=== PATIENT | male | born 1960 | race Caucasian/White ===

== ENCOUNTER 2018-03-04 07:11 | Emergency (ER) | payer OTHER ==
--- OUTSIDE RECORDS SUMMARY | 2018-03-04 07:12 | XMS REPORT | Clinical Summary ---
:1960 Author Organization [facility] Address [address] [place] [address] Care Team Providers Name Role Phone Sherman Haines MD Primary Care Provider Allergies No Known Allergies Current Medications Prescription Sig. Disp. Refills Start Date End Date Status insulin ASPART Inject 6-20 units 45 mL 3 02/09/2018 Active (NovoLOG Flexpen tid per sliding U-100 Insulin) scale. 100 unit/mL insulin pen metFORMIN Take 1 tablet 60 tablet 11 02/10/2018 Active (GLUCOPHAGE) (1,000 mg total) 9 1,000 mg tablet by mouth 2 (two) times a day with meals. semaglutide Inject 1 mg under 3 Syringe 3 02/11/2018 Active (OZEMPIC) 1 the skin every 7 mg/0.75 mL (2 days. 0.25 mg mg/1.5 mL) pen subcutaneous injector weekly for 4 weeks then 0.5 mg once a week liraglutide Inject 0.3 mL 27 mL 3 02/16/2018 Active (VICTOZA 2-SARAH) (1.8 mg total) 0.6 mg/0.1 mL (18 under the skin mg/3 mL) pen daily. injector dulaglutide Inject 0.75 mg 2 Syringe 0 02/10/2018 Discontinued (TRULICITY) 0.75 under the skin 8 mg/0.5 mL pen every 7 days for injector 14 days. dulaglutide Inject 1.5 mg 12 Syringe 3 02/10/2018 Discontinued (TRULICITY) 1.5 under the skin 8 mg/0.5 mL pen every 7 days. injector Active Problems Not on file Encounters Date Type Specialty Care Team Description 02/16/2018 Orders Only Endocrinology Jacqueline Wilcox MA 02/11/2018 Orders Only Endocrinology David Diaz MD 02/11/2018 Orders Only Endocrinology Jacqueline Wilcox MA 02/11/2018 Orders Only Endocrinology Jacqueline Wilcox MA 02/09/2018 Lab Lab David Diaz MD Uncontrolled type 2 diabetes mellitus without complication, with long-term current use of insulin; Morbid obesity 02/09/2018 Office Visit Endocrinology David Diaz MD Uncontrolled type 2 diabetes mellitus without complication, with long-term current use of insulin (Primary Dx); Morbid obesity after 03/03/2017 Family History Medical History Relation Name Comments COPD Mother Cancer Mother Diabetes Mother Relation Name Status Comments Father Mother Alive Social History Tobacco Use Types Packs/Day Years Used Date Former Smoker Smokeless Tobacco: Former User Sex Assigned at Date Recorded Not on file Last Filed Vital Signs Vital Sign Reading Time Taken Blood Pressure 136/79 02/09/2018 12:36 PM CDT Pulse 76 02/09/2018 12:36 PM CDT Temperature - - Respiratory Rate - - Oxygen Saturation - - Inhaled Oxygen Concentration - - Weight 122 kg (268 lb 9.6 oz) 02/09/2018 12:36 PM CDT Height 167.6 cm (5' 6") 02/09/2018 12:36 PM CDT Body Mass Index 43.35 02/09/2018 12:36 PM CDT Plan of Treatment Date Type Specialty Care Team Description 03/09/2018 Office Visit Endocrinology David Diaz MD [address] [facility] [address] [place] [address] 04/07/2018 Consult Weight Management David Diaz MD [address] [facility] [address] [place] [address] Health Maintenance Due Date Last Done Comments DIABETIC FOOT EXAM 1970 DIABETIC RETINAL EYE EXAM 1970 URINE MICROALBUMIN 1970 COLON CANCER SCREENING 2010 SHINGRIX VACCINE (#1) 2010 INFLUENZA VACCINE 03/02/2018 Procedures Procedure Name Priority Date/Time Associated Diagnosis Comments COMPREHENSIVE Routine 02/09/2018 1:45 Uncontrolled type 2 Results for this METABOLIC PANEL PM CDT diabetes mellitus procedure are in without the results complication, with section. long-term current use of insulin LIPASE LEVEL Routine 02/09/2018 1:45 Uncontrolled type 2 Results for this PM CDT diabetes mellitus procedure are in without the results complication, with section. long-term current use of insulin Morbid obesity AMYLASE LEVEL Routine 02/09/2018 1:45 Uncontrolled type 2 Results for this PM CDT diabetes mellitus procedure are in without the results complication, with section. long-term current use of insulin Morbid obesity C-PEPTIDE Routine 02/09/2018 1:45 Uncontrolled type 2 Results for this PM CDT diabetes mellitus procedure are in without the results complication, with section. long-term current use of insulin Morbid obesity LIPID PANEL Routine 02/09/2018 1:45 Uncontrolled type 2 Results for this PM CDT diabetes mellitus procedure are in without the results complication, with section. long-term current use of insulin Morbid obesity T4, FREE Routine 02/09/2018 1:45 Morbid obesity Results for this PM CDT procedure are in the results section. THYROID STIMULATING Routine 02/09/2018 1:45 Morbid obesity Results for this HORMONE PM CDT procedure are in the results section. HEMOGLOBIN A1C Routine 02/09/2018 1:45 Uncontrolled type 2 Results for this PM CDT diabetes mellitus procedure are in without the results complication, with section. long-term current use of insulin after 03/03/2017 Results C-peptide (02/09/2018 1:45 PM) C-peptide 3.00 0.80 - 3.85 ng/mL [facility] Spec[facility] Blood Resulting Agency Comment Performing Organization Information: Site ID: [id number] [facility]: [facility] Address: [address] [place] [address] Director: Dr. Anthony Josue Performing Organization Address City/State/Zipcode Phone Number [facility] [address] [place] [address] Thyroid stimulating hormone (02/09/2018 1:45 PM) TSH 3.41 0.40 - 4.50 mIU/L [facility] Specimen Blood Resulting Agency Comment Performing Organization Information: Site ID: [id number] Name: [facility] Address: [address] [place] [phone] Director: Juliana Solo Performing Organization Address [facility] [place] [address] T4, free (02/09/2018 1:45 PM) T4, free 1.4 0.8 - 1.8 ng/dL [facility] Specimen Blood Resulting Agency Comment Performing Organization Information: Site ID: [facility] Name: [facility] Address: [address] [place] [phone] Director: Juliana Solo Performing Organization Address [facility] [place] [address] Lipase level (02/09/2018 1:45 PM) Lipase 16 7 - 60 U/L [facility] Specimen Blood Resulting Agency Comment Performing Organization Information: Site ID: [facility] Name: [facility] Address: [address] [place] [phone] Director: Juliana Solo Performing Organization Address [facility] [place] [address] Hemoglobin A1c (02/09/2018 1:45 PM) Hemoglobin A1C 10.3 (H) <5.7 % of total [facility] Comment: Hgb EMDEN For someone without known diabetes, a hemoglobin A1c value of 6.5% or greater indicates that they may have diabetes and this should be confirmed with a follow-up test. For someone with known diabetes, a value <7% indicates that their diabetes is well controlled and a value greater than or equal to 7% indicates suboptimal control. A1c targets should be individualized based on duration of diabetes, age, comorbid conditions, and other considerations. Currently, no consensus exists regarding use of hemoglobin A1c for diagnosis of diabetes for children. Specimen Blood Resulting Agency Comment Performing Organization Information: Site ID: [facility] Name: [facility] Address: [address] [place] [phone] Director: Juliana Solo Performing Organization Address [facility]/Zipcode Phone Number [facility] [place] [phone] [place] [address] Amylase level (02/09/2018 1:45 PM) Amylase 19 (L) 21 - 101 U/L [facility] Specimen Blood Resulting Agency Comment Performing Organization Information: Site ID: [id number] Name: [facility][1] Lab Address: [address] [place] [phone] Director: Juliana Solo Performing Organization Address [facility] Phone Number [facility] [address] [place] [address] Lipid panel (02/09/2018 1:45 PM) Cholesterol, total 162 <200 mg/dL [facility] HDL cholesterol 46 >40 mg/dL [facility] Triglycerides 148 <150 mg/dL [facility] LDL cholesterol 91 mg/dL (calc) [facility] calculated Comment: EMDEN Reference range: <100 Desirable range <100 mg/dL for primary prevention; <70 mg/dL for patients with CHD or diabetic patients with > or=2 CHD risk factors. LDL-C is now calculated using the Trevor-Rose Mary calculation, which is a validated novel method providing better accuracy than the Friedewald equation in the estimation of LDL-C. Trevor SS et al. AMBROCIO. 2013;310(19): 6610-5282 (http://education.Desktop Genetics/faq/PPA926) Cholesterol/HDL ratio 3.5 <5.0 (calc) [facility] Non-HDL cholesterol 116 <130 mg/dL [facility] Comment: (calc) EMDEN For patients with diabetes plus 1 major ASCVD risk factor, treating to a non-HDL-C goal of <100 mg/dL (LDL-C of <70 mg/dL) is considered a therapeutic option. Specimen Blood Resulting Agency Comment Performing Organization Information: Site ID: A Name: [facility] Address: [address] [place] [phone] Director: Juliana Solo Performing Organization Address [facility] Phone Number [facility] [address] [place] [address] Comprehensive metabolic panel (02/09/2018 1:45 PM) Glucose 245 (H) 65 - 99 mg/dL [facility] Comment: EMDEN Fasting reference interval For someone without known diabetes, a glucose value >125 mg/dL indicates that they may have diabetes and this should be confirmed with a follow-up test. BUN, whole blood 34 (H) 7 - 25 mg/dL [facility] Creatinine 1.36 (H) 0.70 - 1.33 [facility] Comment: mg/dL EMDEN For patients >49 years of age, the reference limit for Creatinine is approximately 13% higher for people identified as -Ethiopian. EGFR Non-Afr. Ethiopian 57 (L) > OR=60 [facility] mL/min/1.73m2 [facility] EGFR 66 > OR=60 [facility] mL/min/1.73m2 [facility] BUN/creatinine ratio 25 (H) 6 - 22 (calc) [facility] Sodium 136 135 - 146 mmol/L [facility] Potassium 4.6 3.5 - 5.3 mmol/L [facility] Chloride 102 98 - 110 mmol/L [facility] CO2 27 20 - 31 mmol/L [facility] Calcium 10.1 8.6 - 10.3 mg/dL [facility] Protein 6.7 6.1 - 8.1 g/dL [facility] Albumin, S 4.4 3.6 - 5.1 g/dL [facility] Globulin, total 2.3 1.9 - 3.7 g/dL [facility] (calc) [facility] Albumin/globulin ratio 1.9 1.0 - 2.5 (calc) [facility] Total bilirubin 0.5 0.2 - 1.2 mg/dL [facility] Alkaline phosphatase 66 40 - 115 U/L [facility] AST 20 10 - 35 U/L [facility] ALT 30 9 - 46 U/L [facility] Specimen Blood Resulting Agency Comment Performing Organization Information: Site ID: [id number] Name: [facility] Address: [address] [place] [address] Director: Juliana Solo Performing Organization Address City/State/Zipcode Phone Number [facility] [address] [place] [address] after 03/03/2017 Insurance Payer Benefit Plan / Group Subscriber ID Type Phone Address [facility] xxxxxxxxx HMO Home: Lee Meléndez [phone] [place], [place] [phone]
[2018-03-04] MEDS ORDERED: ONDANSETRON 4 MG/2 ML VIAL ONE (07:37)
[2018-03-04] MEDS ORDERED: FENTANYL CITR 100 MCG/2 ML ONE ×2 (07:37→09:48)
[2018-03-04 08:19] LABS: Absolute Lymphocytes (CBC) 1.3 K/uL (0.7-4.9); Absolute Monocytes 0.6 K/uL (0.1-1.3); Absolute Neutrophil 5.7 K/uL (1.8-8.0); Basophils % 0.5 % (0-1.3); Eosinophils % 3.1 % (0-4.4); Hematocrit 40.2 % (39.6-49.0); Lymphocytes % 16.3 % (15.3-44.8); MCH 31.6 pg (27.0-35.0); MPV 8.5 fL (7.6-11.3); Monocytes % 7.4 % (3.3-12.3); RBC Red Blood Cell Count 4.42 M/uL (4.33-5.43)
[2018-03-04 08:31] LABS: Potassium 4.4 mmol/L (3.5-5.1)
--- NOTE | 2018-03-04 09:27 | RAD REPORT ---
EXAM DESCRIPTION: CT - Chest Abd Pelvis Wo Con - 03/04/2018 8:54 am CLINICAL HISTORY: Chest and abdominal pain status post fall COMPARISON: None TECHNIQUE: Computed axial tomography of the chest, abdomen and pelvis was obtained. Oral contrast wa s not requested. This limits evaluation of bowel. . IV contrast was not requested. All CT scans are performed using dose optimization technique as appropriate and may include automated exposure control or mA/KV adjustment according to patient size. FINDINGS: The evaluation of mediastinum, alysa, vessels and solid organs is limited secondary to the lack of IV contrast administration A nondisplaced fracture involves the sixth lateral left rib. Minimally displaced fractures involve le ft lateral eighth, ninth and tenth ribs. A mildly displaced fracture involves the left eleventh poste rior rib. A pleural effusion is not present. A pericardial effusion is not seen. A mediastinal hematoma is not seen Mild subsegmental atelectasis is present within the left lung. A pneumothorax is not seen. The liver, spleen, pancreas, adrenals and kidneys appear grossly normal. Splenic granulomata are note d. Right pleural calcification is seen There is no evidence of diverticulitis. The appendix is normal. Small inguinal hernias contain fat IMPRESSION: Fractures involving the sixth, eighth, ninth, tenth and eleventh left ribs No pneumothorax or pleural effusion is seen. A lung contusion is not present. No traumatic injury in the abdomen/pelvic is seen
--- NOTE | 2018-03-04 09:39 | EDPHYS ---
Physician Documentation [facility] Name: Bobby Daniel Age: 57 yrs Sex: Male : 1960 Arrival Date: 03/04/2018 Time: 07:15 Bed 20 Private MD: Sherman Haines F ED Physician Boston Nuñez HPI: 03/04 07:30 This 57 yrs old Male presents to ER via Wheelchair with complaints of Fall jr8 Injury. 07:30 Onset: The symptoms/episode began/occurred acutely, yesterday. Associated injuries: The jr8 patient sustained injury to the chest, injury to the abdomen. Severity of symptoms: At their worst the symptoms were moderate, in the emergency department the symptoms are unchanged. The patient has not experienced similar symptoms in the past. The patient has not recently seen a physician. Patient slipped in bathtub landing directly on left side. Pain since incident without relief. Denies hitting head or neck. No LOC . Historical: - Allergies: 07:30 No Known Allergies; tw2 - Home Meds: 07:30 gabapentin 400 mg oral cap 1 cap 2 times per day [Active]; hydrocodone-acetaminophen tw2 7.5-750 mg oral tab 1 tab every 4-6 hours for Pain [Active]; metformin 1,000 mg Oral tab 1 tab 2 times per day [Active]; pantoprazole 40 mg oral TbEC 1 tab once daily [Active]; Benicar 40 mg oral tab 1 tab once daily for Hypertension [Active]; hydrochlorothiazide 12.5 mg Oral tab 1 tab once daily [Active]; amlodipine 10 mg tab 1 tab once daily [Active]; fenofibrate 150 mg oral cap 1 cap once daily [Active]; Humalog 100 unit/mL Sub-Q soln per sliding scale for Type 2 Diabetes Mellitus [Active]; "truvia SQ" [Active]; - PMHx: 07:30 Hypertension; Diabetes - IDDM; tw2 - PSHx: 07:30 Cholecystectomy; Tonsillectomy; tw2 - Immunization history:: Adult Immunizations. - Social history:: Smoking status: Patient/guardian denies using tobacco. - Ebola Screening: : Patient denies travel to an Ebola-affected area in the 21 days before illness onset. ROS: 07:30 Eyes: Negative for injury, pain, redness, and discharge, ENT: Negative for injury, jr8 pain, and discharge, Neck: Negative for injury, pain, and swelling, Respiratory: Negative for shortness of breath, cough, wheezing, and pleuritic chest pain, Back: Negative for injury and pain, MS/Extremity: Negative for injury and deformity, Skin: Negative for injury, rash, and discoloration, Neuro: Negative for headache, weakness, numbness, tingling, and seizure. 07:30 Cardiovascular: Positive for chest pain, with cough, with movement, Negative for edema, orthopnea, palpitations, paroxysmal nocturnal dyspnea. 07:30 Abdomen/GI: Positive for abdominal pain, Negative for nausea, vomiting, and diarrhea, abdominal distension, hematemesis, black/tarry stool, rectal pain, rectal bleeding, bowel incontinence, flatulence. Exam: 07:30 Head/Face: Normocephalic, atraumatic. Eyes: Pupils equal round and reactive to light, jr8 extra-ocular motions intact. Lids and lashes normal. Conjunctiva and sclera are non-icteric and not injected. Cornea within normal limits. Periorbital areas with no swelling, redness, or edema. ENT: Nares patent. No nasal discharge, no septal abnormalities noted. Tympanic membranes are normal and external auditory canals are clear. Oropharynx with no redness, swelling, or masses, exudates, or evidence of obstruction, uvula midline. Mucous membranes moist. Neck: Trachea midline, no thyromegaly or masses palpated, and no cervical lymphadenopathy. Supple, full range of motion without nuchal rigidity, or vertebral point tenderness. No Meningismus. Cardiovascular: Regular rate and rhythm with a normal S1 and S2. No gallops, murmurs, or rubs. Normal PMI, no JVD. No pulse deficits. Respiratory: Lungs have equal breath sounds bilaterally, clear to auscultation and percussion. No rales, rhonchi or wheezes noted. No increased work of breathing, no retractions or nasal flaring. Back: No spinal tenderness. No costovertebral tenderness. Full range of motion. Skin: Warm, dry with normal turgor. Normal color with no rashes, no lesions, and no evidence of cellulitis. MS/ Extremity: Pulses equal, no cyanosis. Neurovascular intact. Full, normal range of motion. Neuro: Awake and alert, GCS 15, oriented to person, place, time, and situation. Cranial nerves II-XII grossly intact. Motor strength 5/5 in all extremities. Sensory grossly intact. Cerebellar exam normal. Normal gait. 07:30 Chest/axilla: Inspection: normal, Palpation: tenderness, that is moderate, of the left lateral anterior chest. 07:30 Abdomen/GI: Inspection: obese Bowel sounds: active, all quadrants, Palpation: soft, in all quadrants, moderate abdominal tenderness, in the anterior aspect of left lateral abdomen and left upper quadrant, mass, is not appreciated, rebound tenderness, is not appreciated, voluntary guarding, is not appreciated, involuntary guarding, is not appreciated, no appreciated organomegaly, Liver: no appreciated palpable abnormalities, tenderness, is not appreciated. Vital Signs: 07:22 BP 160 / 79; Pulse 83; Resp 18; Temp 100.1; Pulse Ox 95% on R/A; Weight 120.2 kg (R); tw2 Height 5 ft. 5 in. (165.10 cm) (R); Pain 7/10; 08:27 BP 126 / 66; Pulse 82; Resp 17; Pulse Ox 95% on R/A; tw2 07:22 Body Mass Index 44.10 (120.20 kg, 165.10 cm) tw2 MDM: 07:29 Patient medically screened. jr8 09:36 Data reviewed: vital signs, nurses notes, lab test result(s), radiologic studies, CT jr8 scan, and as a result, I will discharge patient. Data interpreted: Pulse oximetry: on room air is 95 %. Interpretation: normal. Counseling: I had a detailed discussion with the patient and/or guardian regarding: the historical points, exam findings, and any diagnostic results supporting the discharge/admit diagnosis, lab results, radiology results, the need for outpatient follow up, a family practitioner, to return to the emergency department if symptoms worsen or persist or if there are any questions or concerns that arise at home. 03/04 07:29 Order name: CBC with Diff; Complete Time: 08:30 jr8 03/04 07:29 Order name: Basic Metabolic Panel; Complete Time: 08:37 jr8 03/04 08:50 Order name: Chest Abd Pelvis Wo Con; Complete Time: 09:36 EDMS 03/04 07:29 Order name: IV; Complete Time: 07:54 jr8 Administered Medications: 07:48 Drug: Zofran 4 mg Route: IVP; Site: right antecubital; tw2 08:27 Follow up: Response: No adverse reaction tw2 07:50 Drug: fentaNYL (PF) 50 mcg Route: IVP; Site: right antecubital; tw2 08:27 Follow up: Response: No adverse reaction; Pain is decreased tw2 08:25 Drug: fentaNYL (PF) 50 mcg Route: IVP; Site: right antecubital; tw2 09:50 Follow up: Response: No adverse reaction tw2 09:45 Drug: fentaNYL (PF) 50 mcg Route: IVP; Site: right antecubital; tw2 09:51 Follow up: Response: No adverse reaction; Pain is decreased tw2 Disposition: 17:42 Co-signature as Attending Physician, Christopher OZUNA I agree with the assessment and kdr plan of care. Disposition: 03/04/18 09:38 Discharged to Home. Impression: Multiple fractures of ribs, left side. - Condition is Stable. - Discharge Instructions: Rib Fracture. - Medication Reconciliation Form, Thank You Letter, Antibiotic Education, Prescription Opioid Use form. - Follow up: Sherman Haines MD; When: 5 - 6 days; Reason: Recheck today's complaints, Continuance of care, Re-evaluation by your physician. - Problem is new. - Symptoms have improved. Signatures: Dispatcher [employer] [facility] Boston Nuñez MD MD kdr Roszak, Josh, PA PA jr8 Terri Ferguson, RN RN tw2 Corrections: (The following items were deleted from the chart) 08:50 07:30 Chest Abdomen Pelvis W Con+CT.RAD.BRZ ordered. [facility] EDMS 09:51 09:38 03/04/2018 09:38 Discharged to Home. Impression: Multiple fractures of ribs, left tw2 side. Condition is Stable. Forms are Medication Reconciliation Form, Thank You Letter, Antibiotic Education, Prescription Opioid Use. Follow up: Sherman Haines; When: 5 - 6 days; Reason: Recheck today's complaints, Continuance of care, Re-evaluation by your physician. Problem is new. Symptoms have improved. jr8
--- NOTE | 2018-03-04 09:39 | ER ---
Nurse's Notes [facility] Name: Bobby Daniel Age: 57 yrs Sex: Male : 1960 Arrival Date: 03/04/2018 Time: 07:15 Bed 20 Private MD: Sherman Haines F Diagnosis: Multiple fractures of ribs, left side Presentation: 03/04 07:23 Presenting complaint: Patient states: yesterday i slipped in the shower and hit my left tw2 side, rib area and my back, it hurt, but i finished my shower and it has continued to hurt so here i am now, it hurts when i take a deep breath or try to lean back. Transition of care: patient was not received from another setting of care. Onset of symptoms was March 04, 2018. Risk Assessment: Do you want to hurt yourself or someone else? Patient reports no desire to harm self or others. Initial Sepsis Screen: Does the patient meet any 2 criteria? No. Patient's initial sepsis screen is negative. Does the patient have a suspected source of infection? No. Patient's initial sepsis screen is negative. Care prior to arrival: None. 07:23 Method Of Arrival: Wheelchair tw2 07:23 Acuity: CLARA 3 tw2 Historical: - Allergies: 07:30 No Known Allergies; tw2 - Home Meds: 07:30 gabapentin 400 mg oral cap 1 cap 2 times per day [Active]; hydrocodone-acetaminophen tw2 7.5-750 mg oral tab 1 tab every 4-6 hours for Pain [Active]; metformin 1,000 mg Oral tab 1 tab 2 times per day [Active]; pantoprazole 40 mg oral TbEC 1 tab once daily [Active]; Benicar 40 mg oral tab 1 tab once daily for Hypertension [Active]; hydrochlorothiazide 12.5 mg Oral tab 1 tab once daily [Active]; amlodipine 10 mg tab 1 tab once daily [Active]; fenofibrate 150 mg oral cap 1 cap once daily [Active]; Humalog 100 unit/mL Sub-Q soln per sliding scale for Type 2 Diabetes Mellitus [Active]; "truvia SQ" [Active]; - PMHx: 07:30 Hypertension; Diabetes - IDDM; tw2 - PSHx: 07:30 Cholecystectomy; Tonsillectomy; tw2 - Immunization history:: Adult Immunizations. - Social history:: Smoking status: Patient/guardian denies using tobacco. - Ebola Screening: : Patient denies travel to an Ebola-affected area in the 21 days before illness onset. Screenin:00 Abuse screen: Denies threats or abuse. Nutritional screening: No deficits noted. tw2 Tuberculosis screening: No symptoms or risk factors identified. Fall Risk None identified. Assessment: 08:00 General: Appears uncomfortable, obese, Behavior is calm, cooperative, appropriate for tw2 age. Pain: Complains of pain in left upper quadrant and anterior aspect of left lateral abdomen and left lateral anterior chest. Neuro: Level of Consciousness is awake, alert, obeys commands, Oriented to person, place, time, situation. Cardiovascular: Denies chest pain, shortness of breath, Heart tones S1 S2 Patient's skin is warm and dry. Respiratory: Airway is patent Respiratory effort is even, unlabored, Respiratory pattern is regular, symmetrical, Breath sounds are clear bilaterally. GI: No signs and/or symptoms were reported involving the gastrointestinal system. Abdomen is round non-distended, obese, Bowel sounds present X 4 quads. : No signs and/or symptoms were reported regarding the genitourinary system. EENT: No signs and/or symptoms were reported regarding the EENT system. Derm: Skin is intact, is healthy with good turgor, Skin temperature is warm. Musculoskeletal: Reports pain in left upper quadrant and anterior aspect of left lateral abdomen and left lateral anterior chest. Injury Description:. 09:00 Reassessment: Patient appears in no apparent distress at this time. No changes from tw2 previously documented assessment. Patient and/or family updated on plan of care and expected duration. Pain level reassessed. Patient is alert, oriented x 3, equal unlabored respirations, skin warm/dry/pink. 09:50 Reassessment: Patient appears in no apparent distress at this time. No changes from tw2 previously documented assessment. Patient and/or family updated on plan of care and expected duration. Pain level reassessed. Patient is alert, oriented x 3, equal unlabored respirations, skin warm/dry/pink. Vital Signs: 07:22 BP 160 / 79; Pulse 83; Resp 18; Temp 100.1; Pulse Ox 95% on R/A; Weight 120.2 kg (R); tw2 Height 5 ft. 5 in. (165.10 cm) (R); Pain 7/10; 08:27 BP 126 / 66; Pulse 82; Resp 17; Pulse Ox 95% on R/A; tw2 07:22 Body Mass Index 44.10 (120.20 kg, 165.10 cm) tw2 ED Course: 07:15 Patient arrived in ED. rg4 07:15 Sherman Haines MD is Private Physician. rg4 07:21 Terri Ferguson RN is Primary Nurse. tw2 07:23 Christopher Dickerson PA is PHCP. jr8 07:23 Boston Nuñez MD is Attending Physician. jr8 07:25 Triage completed. tw2 07:25 Arm band placed on. tw2 07:45 Missed attempt(s): 22 gauge in right antecubital area. Bleeding controlled, band aid tw2 applied, catheter tip intact. Missed attempt(s): 20 gauge in right forearm. Bleeding controlled, band aid applied, catheter tip intact. 07:53 Patient has correct armband on for positive identification. Bed in low position. Call 5 light in reach. Side rails up X 1. Adult w/ patient. Pulse ox on. NIBP on. 07:53 Initial lab(s) drawn, by nc, sent to lab. Inserted saline lock: 20 gauge in right 5 antecubital area, using aseptic technique. Blood collected. 07:54 Basic Metabolic Panel Sent. mh5 07:54 CBC with Diff Sent. mh5 08:[address] via wheelchair. vr 08:55 Chest Abd Pelvis Wo Con In Process Unspecified. EDMS 09:38 Sherman Haines MD is Referral Physician. jr8 09:51 No provider procedures requiring assistance completed. IV discontinued, intact, tw2 bleeding controlled, No redness/swelling at site. Pressure dressing applied. Administered Medications: 07:48 Drug: Zofran 4 mg Route: IVP; Site: right antecubital; tw2 08:27 Follow up: Response: No adverse reaction tw2 07:50 Drug: fentaNYL (PF) 50 mcg Route: IVP; Site: right antecubital; tw2 08:27 Follow up: Response: No adverse reaction; Pain is decreased tw2 08:25 Drug: fentaNYL (PF) 50 mcg Route: IVP; Site: right antecubital; tw2 09:50 Follow up: Response: No adverse reaction tw2 09:45 Drug: fentaNYL (PF) 50 mcg Route: IVP; Site: right antecubital; tw2 09:51 Follow up: Response: No adverse reaction; Pain is decreased tw Outcome: 09:38 Discharge ordered by MD. brito 09:51 Patient left the ED. tw2 09:51 Discharged to home ambulatory, with significant other. 09:51 Condition: stable 09:51 Discharge instructions given to patient, significant other, Instructed on discharge instructions, follow up and referral plans. safety practices, incentive spirometer Demonstrated understanding of instructions, follow-up care, incentive spirometer Signatures: Dispatcher [employer] EDSheron Ireland Josh, PA PA jr8 Terri Ferguson RN RN tw2 Cathy Montaño [facility] Luz Scott [facility]
[2018-03-04 09:56] VITALS: TEMP 100.1; O2SAT 95
[2018-03-04 09:58] VITALS: BP 126/66
== END 2018-03-04 09:51 | disposition home or self-care (01) ==
LOC: ER 07:11
DX: S22.42XA Multiple fractures of ribs, left side, initial encounter for closed fracture (principal); W18.2XXA Fall in (into) shower or empty bathtub, initial encounter; Y93.89 Activity, other specified; Y92.9 Unspecified place or not applicable; Z79.4 Long term (current) use of insulin; I10 Essential (primary) hypertension; E11.9 Type 2 diabetes mellitus without complications
CPT/HCPCS: 36415; 71250; 74176; 80048; 85025; 96374; 96375; 99284; J2405; J3010 ×2

== ENCOUNTER 2018-11-02 08:39 | Day surgery (SDC) | payer OTHER ==
--- NOTE | 2018-10-31 13:24 | RAD REPORT ---
EXAM DESCRIPTION: [facility] Single View10/31/2018 1:16 pm CLINICAL HISTORY: Preop COMPARISON: March 2018 FINDINGS: The lungs appear clear of acute infiltrate. The heart is normal size Mild right pleural thickening. Right pleural calcification. IMPRESSION: No acute abnormalities displayed
[2018-10-31 13:33] LABS: Protime INR 1.04
[2018-10-31 13:37] LABS: Absolute Lymphocytes (CBC) 1.6 K/uL (0.7-4.9); Absolute Monocytes 0.4 K/uL (0.1-1.3); Absolute Neutrophil 3.6 K/uL (1.8-8.0); Basophils % 0.9 % (0-1.3); Eosinophils % 3.7 % (0-4.4); Hematocrit 39.3 % (39.6-49.0); Lymphocytes % 27.5 % (15.3-44.8); MPV 8.7 fL (7.6-11.3); Monocytes % 6.7 % (3.3-12.3); RBC Red Blood Cell Count 4.41 M/uL (4.33-5.43)
[2018-10-31 13:38] LABS: Potassium 3.9 mmol/L (3.5-5.1)
--- OUTSIDE RECORDS SUMMARY | 2018-11-02 08:43 | XMS REPORT | Clinical Summary ---
:1960 Author Organization [facility] Address [address] [place] [address] Care Team Providers Name Role Phone Sherman Haines MD Primary Care Provider Allergies No Known Allergies Medications Medication Sig Dispensed Refills Start End Status Date Date insulin ASPART (NovoLOG Inject 6-20 45 mL 3 02/10/20 Active Flexpen U-100 Insulin) units tid per 18 100 unit/mL insulin pen sliding scale. metFORMIN (GLUCOPHAGE) Take 1 tablet 60 tablet 11 02/11/20 Active 1,000 mg tablet (1,000 mg 18 019 total) by mouth 2 (two) times a day with meals. dulaglutide (TRULICITY) Inject 1.5 mg 4 Syringe 6 06/01/20 Active 1.5 mg/0.5 mL pen under the skin 18 019 injector once a week. fenofibrate (TRICOR) Take 145 mg by 0 Active 145 MG tablet mouth daily. olmesartan (BENICAR) 40 Take 40 mg by 0 Active MG tablet mouth daily. pantoprazole (PROTONIX) Take 40 mg by 0 Active 40 MG EC tablet mouth daily. insulin degludec Inject 80 Units 0 Active (TRESIBA FLEXTOUCH under the skin U-100) 100 unit/mL (3 2 (two) times a mL) insulin pen day. gabapentin (NEURONTIN) Take 600 mg by 0 Active 600 mg tablet mouth 3 (three) times a day. HYDROcodone-acetaminoph Take 1 tablet 0 Active en (NORCO) 7.5-325 mg by mouth 3 per tablet (three) times a day. metoprolol tartrate Take 50 mg by 0 Active (LOPRESSOR) 25 mg mouth daily. tablet hydroCHLOROthiazide Take 25 mg by 0 Active (HYDRODIURIL) 12.5 MG mouth daily. tablet atorvastatin (LIPITOR) Take 80 mg by 0 Active 80 MG tablet mouth daily. amLODIPine (NORVASC) 10 Take 10 mg by 0 Active mg tablet mouth daily. NAPROXEN ORAL Take 220 mg by 0 Active mouth as needed. cholecalciferol, Take by mouth. 0 Active vitamin D3, (VITAMIN D3 ORAL) aspirin (ECOTRIN) 81 MG Take 81 mg by 0 Active enteric coated tablet mouth daily. hydrALAZINE Take 10 mg by 1 09/29/19 Active (APRESOLINE) 10 MG mouth 2 (two) 19 tablet times a day. omeprazole (PriLOSEC) Take 1 capsule 30 capsule 5 10/14/19 Active 40 MG (40 mg total) 19 capsuleIndications: by mouth daily. Bariatric surgery status ondansetron ODT Take 1 tablet 30 tablet 0 10/14/19 Active (ZOFRAN-ODT) 4 MG (4 mg total) by 19 disintegrating mouth every 8 tabletIndications: (eight) hours Bariatric surgery as needed for status nausea or vomiting. promethazine Take 0.5 30 tablet 0 10/14/19 Active (PHENERGAN) 50 MG tablets (25 mg 19 019 tabletIndications: total) by mouth Bariatric surgery every 6 (six) status hours as needed for nausea or vomiting for up to 30 days. cyanocobalamin, vitamin Place 1,000 mcg 30 each 11 10/20/19 Active B-12, (VITAMIN B-12) under the 19 020 1,000 mcg tablet, tongue daily. sublingualIndications: Vitamin deficiency dulaglutide (TRULICITY) Inject 0.75 mg 2 Syringe 0 02/11/20 Discontinued 0.75 mg/0.5 mL pen under the skin 18 018 injector every 7 days for 14 days. dulaglutide (TRULICITY) Inject 1.5 mg 12 Syringe 3 02/11/20 Discontinued 1.5 mg/0.5 mL pen under the skin 18 018 injector every 7 days. semaglutide (OZEMPIC) 1 Inject 1 mg 3 Syringe 3 02/12/20 Discontinued mg/0.75 mL (2 mg/1.5 under the skin 18 018 mL) pen injector every 7 days. 0.25 mg subcutaneous weekly for 4 weeks then 0.5 mg once a week liraglutide (VICTOZA Inject 0.3 mL 27 mL 3 02/17/20 Discontinued 2-SARAH) 0.6 mg/0.1 mL (1.8 mg total) 18 018 (18 mg/3 mL) pen under the skin injector daily. omega-3 acid ethyl Take 1 g by 0 Discontinued esters (LOVAZA) 1 gram mouth 2 (two) 019 capsule times a day. ascorbic acid (C Take by mouth 0 Discontinued COMPLEX ORAL) as needed. 019 enoxaparin (LOVENOX) 40 Inject 0.4 mL 5.6 mL 0 10/14/19 mg/0.4 mL (40 mg total) 19 019 syringeIndications: under the skin Bariatric surgery daily for 14 status days. Active Problems Not on file Encounters Date Type Specialty Care Team Description 10/21/2018 Telephone General Surgery Kathy Perera MA 10/19/2018 Orders Only General Surgery Elis Wagoner MA Vitamin deficiency (Primary Dx) 10/13/2018 Pre-Admit Testing Pre-Admission Evans Robles MD Preop testing ( Primary Dx); Appointment Testing Diabetes 1.5, managed as type 2 ([facility]); Morbid obesity with BMI of 40.0-44.9, adult ([facility]); Hypertension, unspecified type; Hyperlipidemia, unspecified hyperlipidemia type 10/13/2018 Office Visit General Surgery Evans Robles MD Morbid obesity (HCC) (Primary Dx); Padmini Bradley, Diabetes 1.5, managed as type 2 ([facility]); PA Other hyperlipidemia; Essential hypertension; Obstructive sleep apnea 10/13/2018 Orders Only General Surgery Elis Wagoner MA Bariatric surgery status (Primary Dx) 10/11/2018 Weight Management Weight Management Evans Robles MD 10/05/2018 Orders Only General Surgery Dilma, Preop testing (Primary Dx); Kathy Cota MA Diabetes 1.5, managed as type 2 (HCC); Morbid obesity with BMI of 40.0-44.9, adult (HCC); Hypertension, unspecified type; Hyperlipidemia, unspecified hyperlipidemia type 09/30/2018 Orders Only General Surgery Dilma, Preoperative testing ( Primary Dx); Kathy Cota MA Morbid (severe) obesity due to excess calories (HCC); Diabetes mellitus type 1.5, managed as type 2 (HCC); Essential hypertension; Hyperlipidemia, unspecified hyperlipidemia type 09/28/2018 Orders Only General Surgery Elis Wagoner GA Preoperative clearance (Primary Dx) 09/09/2018 Consult Weight Management Evans Robles MD Morbid obesity with body mass index of 40.0-44.9 in adult (HCC) (Primary Dx); Lela Morris, Hyperlipidemia, unspecified hyperlipidemia type; RD Essential hypertension; Diabetes mellitus type 1.5, managed as type 2 (HCC) 09/09/2018 Telephone General Surgery Elis Wagoner MA 09/07/2018 Consult Weight Management Evans Robles MD Diabetes mellitus due to underlying condition with hyperosmolarity without coma, without long-term current use of insulin (HCC); Katherine, Essential hypertension, benign; EZEQUIEL Thakkar Hyperlipidemia, unspecified hyperlipidemia type 09/07/2018 Office Visit Endocrinology Emily, Type 2 diabetes mellitus with complication, unspecified whether skilled nursing insulin use (HCC) (Primary Dx); MD David Morbid obesity with BMI of 40.0-44.9, adult (HCC) 08/30/2018 Orders Only General Surgery RizwanaElis meraz GA Diabetes mellitus due to underlying condition with hyperosmolarity without coma, without long- term current use of insulin (HCC) (Primary Dx); Essential hypertension, benign; Hyperlipidemia, unspecified hyperlipidemia type 08/26/2018 Office Visit General Surgery Evans Robles MD Hyperlipidemia, unspecified hyperlipidemia type (Primary Dx); Morbid obesity with BMI of 40.0-44.9, adult (HCC); Hypertension, unspecified type; Diabetes 1.5, managed as type 2 (HCC) 08/22/2018 Telephone General Surgery Evans Robles MD 08/19/2018 Orders Only Endocrinology Jacqueline Wilcox, Morbid obesity with MA BMI of 40.0-44.9, adult (HCC) (Primary Dx) 06/01/2018 Office Visit Endocrinology Emily, Morbid obesity with BMI of 40.0-44.9, adult (HCC) (Primary Dx); MD David Type 2 diabetes mellitus with complication, unspecified whether oil heaterman insulin use (HCC) 04/07/2018 Consult Weight Management Emily Uncontrolled type 2 MD David diabetes mellitus Lela Morris, without complication, RD with long-term current use of insulin 03/09/2018 Office Visit Endocrinology Emily Uncontrolled type 2 MD David diabetes mellitus with complication, unspecified skilled nursing insulin use status (Primary Dx) 02/16/2018 Orders Only Endocrinology Jacqueline Wilcox MA 02/11/2018 Orders Only Endocrinology David Diaz MD 02/11/2018 Orders Only Endocrinology Jacqueline Wilcox MA 02/11/2018 Orders Only Endocrinology Jacqueline Wilcox MA 02/09/2018 Lab Lab Emily, Uncontrolled type 2 diabetes mellitus without complication, with long-term current use of insulin; MD David Morbid obesity 02/09/2018 Office Visit Endocrinology Emily, Uncontrolled type 2 diabetes mellitus without complication, with long-term current use of insulin (Primary Dx ); MD David Morbid obesity after 11/01/2017 Family History Medical History Relation Name Comments COPD Mother Cancer Mother Diabetes Mother Relation Name Status Comments Father Mother Alive Social History Tobacco Use Types Packs/Day Years Used Date Former Smoker 25 Quit: 1998 Smokeless Tobacco: Former User Quit: 1998 Alcohol Use Drinks/Week oz/Week Comments Yes 1 Cans of beer 0.6 stopped occassional beer 2017 Alcohol Habits Answer Date Recorded How often do you have a drink containing alcohol? Never 08/26/2018 How many drinks containing alcohol do you have on a typical Not asked day when you are drinking? How often do you have six or more drinks on one occasion? Not asked Sex Assigned at Date Recorded Male 10/06/2018 7:11 AM [employer] Job Start Date Occupation Industry Not on file Not on file Not on file Travel History Travel Start Travel End No recent travel history available. Last Filed Vital Signs Vital Sign Reading Time Taken Blood Pressure 143/90 10/13/2018 1:16 PM CDT Pulse 75 10/13/2018 1:16 PM CDT Temperature 36.6 C (97.8 F) 10/13/2018 1:16 PM CDT Respiratory Rate 20 10/13/2018 1:16 PM CDT Oxygen Saturation 93% 10/13/2018 1:16 PM CDT Inhaled Oxygen Concentration - - Weight 126 kg (277 lb 6 oz) 10/13/2018 1:16 PM CDT Height 167.6 cm (5' 6") 10/13/2018 1:16 PM CDT Body Mass Index 44.77 10/13/2018 1:16 PM CDT Plan of Treatment Date Type Specialty Care Team Description 11/23/2018 Hospital Encounter General Surgery Evans Robles MD [address] [facility] [address] [place] [address] [phone] 11/23/2018 Anesthesia Event General Surgery Bettye Viera, GERIATRIC ASSISTANT [address] [facility] [id number] [place] [address] 11/23/2018 Surgery General Surgery Evans Robles MD LAPAROSCOPIC TAMIR EN Y [address] [place] [address] [phone] 12/01/2018 Office Visit General Surgery Padmini Bradley PA [address] [facility] [address] [address] [place] [address] [phone] Evans Robles MD [address] [facility] [address] [place] [address] [phone] 01/11/2019 Office Visit Endocrinology David Diaz MD [address] [facility] [address] [place] [address] [phone] 01/24/2019 Office Visit General Surgery Padmini Bradley PA [address] [facility] [address] [place] [address] [phone] Evans Robles MD [address] [facility] [address] [facility] [address] [place] [address] [phone] Health Maintenance Due Date Last Done Comments DIABETIC RETINAL EYE EXAM 1960 DIABETIC FOOT EXAM 1970 URINE MICROALBUMIN 1970 COLON CANCER SCREENING 2010 SHINGLES VACCINES (#1) 2010 INFLUENZA VACCINE 03/02/2019 03/21/2018, 02/16/2018 Goals Goal Patient Goal Associated Recent Patient-Stated? Author Type Problems Progress [facility] Monitoring General No Lela Morris RD Note: 04/07/18 Active Track 1800 calories most days per week Procedures Procedure Name Priority Date/Time Associated Diagnosis Comments ECG PRE/POST OP Routine 10/13/2018 2:24 Preop testing Results for this PM CDT Diabetes 1.5, managed procedure are in as type 2 (HCC) the results Morbid obesity with section. BMI of 40.0-44.9, adult (HCC) Hypertension, unspecified type Hyperlipidemia, unspecified hyperlipidemia type TYPE AND SCREEN Routine 10/13/2018 2:10 Preop testing Results for this PM CDT Diabetes 1.5, managed procedure are in as type 2 (HCC) the results Morbid obesity with section. BMI of 40.0-44.9, adult (HCC) Hypertension, unspecified type Hyperlipidemia, unspecified hyperlipidemia type INSULIN, RANDOM Routine 10/13/2018 1:59 Preop testing Results for this PM CDT procedure are in the results section. FOLATE LEVEL Routine 10/13/2018 1:59 Preop testing Results for this PM CDT procedure are in the results section. ALBUMIN LEVEL Routine 10/13/2018 1:59 Preop testing Results for this PM CDT procedure are in the results section. THYROID STIMULATING Routine 10/13/2018 1:59 Preop testing Results for this HORMONE PM CDT procedure are in the results section. ESTIMATED GFR Routine 10/13/2018 1:54 Results for this PM CDT procedure are in the results section. FERRITIN LEVEL Routine 10/13/2018 1:54 Preop testing Results for this PM CDT procedure are in the results section. COMPREHENSIVE Routine 10/13/2018 1:54 Preop testing Results for this METABOLIC PANEL PM CDT procedure are in the results section. LIPID PANEL Routine 10/13/2018 1:54 Preop testing Results for this PM CDT procedure are in the results section. TOTAL IRON BINDING Routine 10/13/2018 1:54 Preop testing Results for this CAPACITY PM CDT procedure are in the results section. T4, FREE Routine 10/13/2018 1:54 Preop testing Results for this PM CDT procedure are in the results section. THYROID STIMULATING Routine 10/13/2018 1:54 Preop testing Results for this HORMONE PM CDT procedure are in the results section. HEMOGLOBIN A1C Routine 10/13/2018 1:54 Preop testing Results for this PM CDT procedure are in the results section. PARATHYROID HORMONE Routine 10/13/2018 1:54 Preop testing Results for this PM CDT procedure are in the results section. HC COMPLETE BLD COUNT Routine 10/13/2018 1:54 Preop testing Results for this W/AUTO DIFF PM CDT procedure are in the results section. PROTHROMBIN TIME WITH Routine 10/13/2018 1:54 Preop testing Results for this INR PM CDT procedure are in the results section. PARTIAL THROMBOPLASTIN Routine 10/13/2018 1:54 Preop testing Results for this TIME (PTT) PM CDT procedure are in the results section. VITAMIN A LEVEL, Routine 10/13/2018 1:54 Preop testing Results for this PLASMA OR SERUM PM CDT procedure are in the results section. VITAMIN B12 LEVEL Routine 10/13/2018 1:54 Preop testing Results for this PM CDT procedure are in the results section. VITAMIN D 25 HYDROXY Routine 10/13/2018 1:54 Preop testing Results for this LEVEL PM CDT procedure are in the results section. COPPER LEVEL, SERUM Routine 10/13/2018 1:54 Preop testing Results for this PM CDT procedure are in the results section. FOLATE LEVEL Routine 10/13/2018 1:54 Preop testing Results for this PM CDT procedure are in the results section. VITAMIN B1 LEVEL, Routine 10/13/2018 1:54 Preop testing Results for this WHOLE BLOOD PM CDT procedure are in the results section. ZINC LEVEL, SERUM Routine 10/13/2018 1:54 Preop testing Results for this PM CDT procedure are in the results section. T3 Routine 10/13/2018 1:54 Preop testing Results for this PM CDT procedure are in the results section. INSULIN, RANDOM Routine 10/13/2018 1:54 Preop testing Results for this PM CDT procedure are in the results section. C-REACTIVE PROTEIN Routine 10/13/2018 1:54 Preop testing Results for this PM CDT procedure are in the results section. URINALYSIS, AUTOMATED Routine 10/13/2018 1:10 Preop testing Results for this WITH MICROSCOPY PM CDT procedure are in the results section. COMPREHENSIVE Routine 08/26/2018 12:34 Morbid obesity with Results for this METABOLIC PANEL PM [employer] BMI of 40.0-44.9, procedure are in adult ([facility]) the results Type 2 diabetes section. mellitus with complication, unspecified whether skilled nursing insulin use ([facility]) HEMOGLOBIN A1C Routine 08/26/2018 12:34 Type 2 diabetes Results for this PM [employer] mellitus with procedure are in complication, the results unspecified whether section. skilled nursing insulin use ([facility]) COMPREHENSIVE Routine 05/13/2018 8:29 Uncontrolled type 2 Results for this METABOLIC PANEL AM CDT diabetes mellitus procedure are in with complication, the results unspecified oil heaterman section. insulin use status HEMOGLOBIN A1C Routine 05/13/2018 8:29 Uncontrolled type 2 Results for this AM CDT diabetes mellitus procedure are in with complication, the results unspecified oil heaterman section. insulin use status COMPREHENSIVE Routine 02/09/2018 1:45 Uncontrolled type 2 Results for this METABOLIC PANEL PM CDT diabetes mellitus procedure are in without complication, the results with long-term section. current use of insulin LIPASE LEVEL Routine 02/09/2018 1:45 Uncontrolled type 2 Results for this PM CDT diabetes mellitus procedure are in without complication, the results with long-term section. current use of insulin Morbid obesity AMYLASE LEVEL Routine 02/09/2018 1:45 Uncontrolled type 2 Results for this PM CDT diabetes mellitus procedure are in without complication, the results with long-term section. current use of insulin Morbid obesity C-PEPTIDE Routine 02/09/2018 1:45 Uncontrolled type 2 Results for this PM CDT diabetes mellitus procedure are in without complication, the results with long-term section. current use of insulin Morbid obesity LIPID PANEL Routine 02/09/2018 1:45 Uncontrolled type 2 Results for this PM CDT diabetes mellitus procedure are in without complication, the results with long-term section. current use of insulin Morbid obesity T4, FREE Routine 02/09/2018 1:45 Morbid obesity Results for this PM CDT procedure are in the results section. THYROID STIMULATING Routine 02/09/2018 1:45 Morbid obesity Results for this HORMONE PM CDT procedure are in the results section. HEMOGLOBIN A1C Routine 02/09/2018 1:45 Uncontrolled type 2 Results for this PM CDT diabetes mellitus procedure are in without complication, the results with long-term section. current use of insulin after 11/01/2017 Results ECG Pre/Post Op (10/13/2018 2:24 PM CDT) Ventricular rate 75 [facility] Atrial rate 75 [facility] NH interval 190 [facility] QRSD interval 100 [facility] QT interval 388 [facility] QTC interval 433 [facility] P axis 1 67 [facility] QRS axis 1 16 [facility] T wave axis 80 [facility] EKG impression Normal sinus rhythm with sinus [facility] MUSE arrhythmia-Normal ECG-No previous ECGs available- Narrative Performed At Performing Organization Address City/State/Zipcode Phone Number [facility] MUSE [address] [place] [phone] Type and screen (10/13/2018 2:10 PM CDT) ABO grouping O [facility] Rh type POS [facility] Antibody screen (gel) NEG [facility] Specimen Blood Performing Organization Address City/[facility] Phone Number [facility] DEPARTMENT OF PATHOLOGY AND [address] [place] [phone] Insulin, random (10/13/2018 1:59 PM CDT)Only the most recent of2 resultswithin the time period is included. Insulin, random 4.9Comment: The reference mU/L [facility] interval for fasting insulin is 2.6-24.9 mU/L Specimen Plasma specimen Performing Organization Address City/[facility] Phone Number [facility] DEPARTMENT OF PATHOLOGY AND [address] [place] [phone] [address] Thyroid stimulating hormone (10/13/2018 1:59 PM CDT)Only the most recent of3 resultswithin the time period is included. TSH 3.84 0.27 - 4.20 uIU/mL [facility] Specimen Plasma specimen Performing Organization Address City/[facility] Phone Number [facility] DEPARTMENT OF PATHOLOGY AND [address] [place] [phone] [address] Folate level (10/13/2018 1:59 PM CDT)Only the most recent of2 resultswithin the time period is included. Folate 14.6 4.8 - 24.2 ng/mL [facility] Specimen Serum Performing Organization Address City/[facility] Phone Number [facility] DEPARTMENT OF PATHOLOGY AND [address] [place] [phone] [place] [phone] Albumin level (10/13/2018 1:59 PM CDT) Albumin 4.0 3.5 - 5.0 g/dL [facility] Specimen Plasma specimen Performing Organization Address City/[facility] Centerc[facility] Phone Number [facility] DEPARTMENT OF PATHOLOGY AND [address] [place] [phone] [place] [phone] Estimated GFR (10/13/2018 1:54 PM CDT) Estimated GFR 60 mL/min/1.73 m2 [facility] Comment: HOSPITAL CatergoryUnitsInterpretation G1 >=90 Normal or high G2 60-89Mildly decreased [id number] to moderately decreased [id number] to severely decreased G4 15-29Severely decreased G5 <15Kidney failure The eGFR was calculated using the Chronic Kidney Disease Epidemiology Collaboration (CKD-EPI) equation. Interpretation is based on recommendations of the National Kidney Foundation-Kidney Disease Outcomes Quality Initiative (NKF-KDOQI) published in 2014. Specimen Plasma specimen Performing Organization Address [facility] Phone Number [facility] DEPARTMENT OF PATHOLOGY AND [address] [place] [phone] [place] [phone] Total iron binding capacity (10/13/2018 1:54 PM CDT) Iron level 109 59 - 158 ug/dL [facility] Iron binding capacity 354 200 - 400 ug/dL [facility] % Saturation 30.8 20.0 - 40.0 % [facility] Specimen Plasma specimen Performing Organization Address [facility] Centercode Phone Number [facility] DEPARTMENT OF PATHOLOGY AND [address] [place] [phone] [address] Copper level, serum (10/13/2018 1:54 PM CDT) Copper 85 70 - 140 ug/dL [facility] Comment: INTERPRETIVE INFORMATION: Copper, Serum or Plasma Serum copper may be elevated with infection, inflammation, stress, and copper supplementation. In females, elevated copper may also be caused by oral contraceptives and (concentrations may be elevated up to 3 times normal during the third trimester). Serum copper may be reduced by use of corticosteroids and zinc and by malnutrition or malabsorption. See Compliance Statement B at [email or web address] Performed by [facility], [address] [place] [address] [email or web address], Mirza Ulloa MD - Lab. Director Specimen Blood Performing Organization Address [facility] Phone Number [facility] [address] [place] [address] [facility] [address] [place] [phone] Vitamin B1 level, whole blood (10/13/2018 1:54 PM CDT) Vitamin B1 153 70 - 180 nmol/L [facility] Comment: INTERPRETIVE INFORMATION: Vitamin B1, Whole Blood This assay measures the concentration of thiamine diphosphate (TDP), the primary active form of vitamin B1. Approximately 90 percent of vitamin B1 present in whole blood is TDP. Thiamine and thiamine monophosphate, which comprise the remaining 10 percent, are not measured. Test developed and characteristics determined by [facility]. See Compliance Statement B: [employer] Performed by [facility], [address] [place] [phone] [email or web address], Mirza Ulloa MD - Lab. Director Specimen Plasma specimen Performing Organization Address [facility] Phone Number [facility] [address] [place] [address] [facility] [address] [place] [phone] Zinc level, serum (10/13/2018 1:54 PM CDT) Zinc 68 60 - 120 ug/dL [facility] Comment: INTERPRETIVE INFORMATION: Zinc, Serum or Plasma Circulating zinc concentrations are dependent on albumin status and are depressed with malnutrition. Zinc may also be lowered with infection, inflammation, stress, oral contraceptives, and . Zinc may be elevated with zinc supplementation or fasting. Elevated zinc concentrations may interfere with copper absorption. Test developed and characteristics determined by [facility]. See Compliance Statement B: [employer]CS Performed by [facility], [address] [place] [address] [email or web address], Mirza Ulloa MD - Lab. Director Specimen Blood Performing Organization Address City/[facility]/Zipcode Phone Number [facility] [address] [place] [address] [facility] [address] [place] [address] Vitamin A level, plasma or serum (10/13/2018 1:54 PM CDT) Vitamin A (retinol) 1.09 0.30 - 1.20 mg/L [facility] Retinyl palmitate <0.02 0.00 - 0.10 mg/L [facility] Vitamin A interpretation Normal [facility] Comment: Test developed and characteristics determined by [facility]. See Compliance Statement B: [employer] Performed by [facility], [address] [place] [id number] [email or web address], Mirza Ulloa MD - Lab. Director Specimen Plasma specimen Performing Organization Address City/[facility]/Zipcode Phone Number [facility] [address] [place] [address] [facility] [address] [place] [address] Vitamin D 25 hydroxy level (10/13/2018 1:54 PM CDT) Vitamin D, 25-hydroxy 24.5 (L) 30.0 - 150.0 DARIEN DRUZE Comment: ng/mL HOSPITAL This assay reports the sum of 25-hydroxy vitamin D3 and 25-hydroxy vitamin D2. Reference range: 0-17 years: Deficiency: less than 20ng/mL Optimum level: greater than or equal to 20 ng/mL. 18 years and older: Deficiency: less than 20ng/mL Insufficiency: 20-29 ng/mL Optimum Level: 30-80 ng/mL The assay reportable range is 3.4155.9 ng/mL. Levels higher than 150 ng/mL may be associated with toxicity. If toxicity is clinically suspected and the reported result is >155.9 ng/mL,contact lab for alternative methods to obtain a definitivelevel. If separate quantitation of 25-hydroxy vitamin D3 and 25-hydroxy vitamin D2 is needed, please contact lab for alternative methods. Specimen Blood Performing Organization Address City/State/Zipcode Phone Number [facility] DEPARTMENT OF PATHOLOGY AND [address] [place] [phone] [place] [phone] Partial thromboplastin time, activated (10/13/2018 1:54 PM CDT) PTT 35.2 23.0 - 36.0 sec [facility] Comment: PTT therapeutic range for unfractionated heparin is 61.0-112.0 seconds which corresponds to Anti-Xa 0.3-0.7 U/ml. Specimen Blood Performing Organization Address City/[facility]/Zipcode Phone Number [facility] DEPARTMENT OF PATHOLOGY AND [address] [place] [phone] [place] [phone] Prothrombin time with INR (10/13/2018 1:54 PM CDT) Prothrombin time 13.4 11.5 - 14.5 sec [facility] INR 1.0 [facility] Comment: HOSPITAL The International Normalized Ratio (INR) is a therapeutic monitoring tool for patients who are stable on oral anticoagulant therapy. An INR of 2.0-3.0 is suggested for deep vein thrombosis/pulmonary embolism. Specimen Blood Performing Organization Address City/[facility] Phone Number [facility] DEPARTMENT OF PATHOLOGY AND [address] [place] [phone] CBC with platelet and differential (10/13/2018 1:54 PM CDT) WBC 6.66 4.50 - 11.00 k/uL [facility] RBC 4.38 (L) 4.40 - 6.00 m/uL [facility] HGB 13.2 (L) 14.0 - 18.0 g/dL [facility] HCT 40.2 (L) 41.0 - 51.0 % [facility] MCV 91.8 82.0 - 100.0 fL [facility] MCH 30.1 27.0 - 34.0 pg [facility] MCHC 32.8 31.0 - 37.0 g/dL [facility] RDW - SD 41.8 37.0 - 55.0 fL [facility] MPV 10.3 8.8 - 13.2 fL [facility] Platelet count 251 150 - 400 k/uL [facility] Nucleated RBC 0.00 /100 WBC [facility] Neutrophils 60.2 39.0 - 69.0 % [facility] Lymphocytes 26.4 25.0 - 45.0 % [facility] Monocytes 7.2 0.0 - 10.0 % [facility] Eosinophils 4.5 0.0 - 5.0 % [facility] Basophils 0.9 0.0 - 1.0 % [facility] Immature granulocytes 0.8Comment: "Immature 0.0 - 1.0 % [facility] granulocytes" HOSPITAL (promyelocytes, myelocytes, metamyelocytes) Specimen Blood Performing Organization Address City/[facility] Cent[facility]ode Phone Number [facility] DEPARTMENT OF PATHOLOGY AND [address] [place] [address] C-reactive protein (10/13/2018 1:54 PM CDT) CRP <0.30 0.00 - 0.50 mg/dL [facility] Specimen Plasma specimen Performing Organization Address City/[facility] Centercode Phone Number [facility] DEPARTMENT OF PATHOLOGY AND [address] [place] [phone] T3 (10/13/2018 1:54 PM CDT) T3 106 80 - 200 ng/dL [facility] Specimen Plasma specimen Performing Organization Address [facility] Phone Number [facility] DEPARTMENT OF PATHOLOGY AND [address] [place] [phone] T4, free (10/13/2018 1:54 PM CDT)Only the most recent of2 resultswithin the time period is included. T4, free 1.3 0.9 - 1.7 ng/dL [facility] Specimen Plasma specimen Performing Organization Address [facility] Centercode Phone Number [facility] DEPARTMENT OF PATHOLOGY AND [address] [place] [phone] Parathyroid hormone (10/13/2018 1:54 PM CDT) PTH 19 15 - 65 pg/mL [facility] Specimen Blood Performing Organization Address City/State/Zipcode Phone Number [facility] DEPARTMENT OF PATHOLOGY AND [address] [place] [phone] [place] [phone] Hemoglobin A1c (10/13/2018 1:54 PM CDT)Only the most recent of4 resultswithin the time period is included. Hemoglobin A1C 7.4 (H) 4.0 - 5.6 % [facility] Comment: HbA1c cutoffs for diagnosing diabetes: 4.0% - 5.6%=normal 5.7% - 6.4%=increased risk for diabetes (prediabetes) >=6.5%=diabetes Goals for glycemic control (ADA 2016) < 7.0%Target for non adults with diabetes. More or less stringent targets may be appropriate for individual patients. <7.5% Target for Children and adolescents with type 1 diabetes. Specimen Blood Performing Organization Address City/[facility] Centercode Phone Number [facility] DEPARTMENT OF PATHOLOGY AND [address] [place] [phone] Ferritin level (10/13/2018 1:54 PM CDT) Ferritin level 412 (H) 30 - 400 ng/mL [facility] Specimen Plasma specimen Performing Organization Address [facility] Centercode Phone Number [facility] DEPARTMENT OF PATHOLOGY AND [address] [place] [phone] [place] [phone] Vitamin B12 level (10/13/2018 1:54 PM CDT) Vitamin B12 586 211 - 946 pg/mL [facility] Comment: Significant overlap exists between normal and deficiency states. However, most patients with deficiencies will have Serum B12 <200 pg/mL. Specimen Serum Performing Organization Address [facility]/Zipcode Phone Number [facility] DEPARTMENT OF PATHOLOGY AND [address] [place] [phone] Lipid panel (10/13/2018 1:54 PM CDT)Only the most recent of2 resultswithin the time period is included. Cholesterol 122 <200 mg/dL [facility] Triglycerides 200 (H) <150 mg/dL [facility] HDL cholesterol 32 (L) >40 mg/dL [facility] LDL cholesterol 67Comment: Result obtained <100 mg/dL [facility] by direct LDL measurement [facility] Lipid panel interpretation SeeBelraudel [facility] Comment: HOSPITAL Total Cholesterol (mg/dL) <200 Desirable [id number]-imuf >=240High Triglycerides (mg/dL) <150 Normal 217-302Hvajjkmawn-dmaj 200-499High >=500Very high HDL Cholesterol (mg/dL) <40Low (male) <40Low (female) LDL Cholesterol (mg/dL) <100 Optimal 100-129Near or above optimal 396-142Qlzdydxnkr-vgiw 160-189High >=190Very high Risk Catergories that modify LDL goals. Risk CatergoriesLDL goal (mg/dL) CHD and CHD risk equivalent<100 (10-year risk >20%) Multiple (2+) risk factors <130 (10-year risk=<20%) 0-1 risk factors <160 (<10-year risk) Defining levels of lipids in metabolic syndrome Triglycerides>=150 mg/dL HDL Cholesterol Men<40 mg/dL Women<40 mg/dL Non-HDL cholesterol is a second target for therapy in persons with high triglycerides (>=200 mg/dL) Specimen Plasma specimen Performing Organization Address City/State/Zipcode Phone Number [facility] DEPARTMENT OF PATHOLOGY AND [address] [place] [address] GEN[facility] MEDICINE [address] [address] Comprehensive metabolic panel (10/13/2018 1:54 PM CDT)Only the most recent of4 resultswithin the time period is included. Sodium 145 135 - 148 mEq/L [facility] Potassium 3.7 3.5 - 5.0 mEq/L [facility] Chloride 105 98 - 112 mEq/L [facility] CO2 23 (L) 24 - 31 mEq/L [facility] Anion gap 17@ANIO (H) 7 - 15 mEq/L [facility] BUN 32 (H) 6 - 20 mg/dL [facility] Creatinine 1.31 (H) 0.70 - 1.20 mg/dL [facility] Glucose 76 65 - 99 mg/dL [facility] Calcium 9.9 8.3 - 10.2 mg/dL [facility] Protein 6.9 6.3 - 8.3 g/dL [facility] Comment: HOSPITAL 4.6-7.0 g/dL 1 week 4.4-7.6 g/dL 7 months-1year5.1-7.3 g/dL 1-2 years5.6-7.5 g/dL >3 years6.0-8.0 g/dL 18-150 6.3-8.3 g/dL Albumin 4.0 3.5 - 5.0 g/dL [facility] A/G ratio 1.4 0.7 - 3.8 [facility] Alkaline phosphatase 38 (L) 40 - 129 U/L [facility] AST 61 (H) 10 - 50 U/L [facility] ALT 68 (H) 5 - 50 U/L [facility] Total bilirubin 0.4 0.0 - 1.2 mg/dL [facility] Specimen Plasma specimen Performing Organization Address City/State/Zipcoal Phone Number [facility] DEPARTMENT OF PATHOLOGY AND [address] [place] [address] GEN[facility] MEDICINE [address] [address] Urinalysis, automated with microscopy (10/13/2018 1:10 PM CDT) Color, UA Dark Yellow [facility] Appearance, UA Clear [facility] Specific gravity, UA 1.020 1.001 - 1.035 [facility] pH, UA 6.0 5.0 - 8.5 [facility] Protein, UA Negative Negative [facility] Glucose, UA Negative Negative [facility] Ketones, UA Negative Negative [facility] Bilirubin, UA Negative Negative [facility] Blood, UA Negative Negative [facility] Nitrite, UA Negative Negative [facility] Urobilinogen, UA <2.0 <2.0 [facility] Leukocyte esterase, UA Trace (A) Negative [facility] Epithelial cells, UA 1 /HPF [facility] WBC, UA 5 (H) 0 - 1 /HPF [facility] RBC, UA 2 0 - 5 /HPF [facility] Bacteria, UA Few None seen [facility] Yeast, UA None seen [facility] Yeast with pseudohyphae, UA None seen [facility] Specimen Urine Performing Organization Address City/State/Zipcode Phone Number [facility] DEPARTMENT OF PATHOLOGY AND [address] [place] [address] GENOMIC MEDICINE [facility] [address] [place] [address] C-peptide (02/09/2018 1:45 PM CDT) C-peptide 3.00 0.80 - 3.85 ng/mL [facility] Specimen Blood Resulting Agency Comment Performing Organization Information: Site ID: [email or web address] Name: [email or web address] Address: [address] [place] [phone] Director: Dr. Anthony Josue Performing Organization Address [facility] Centercode Phone Number [employer] [address] Lipase level (02/09/2018 1:45 PM CDT) Lipase 16 7 - 60 U/L [facility] [employer] DARIEN Specimen Blood Resulting Agency Comment Performing Organization Information: Site ID: [email or web address] Name: [email or web address] Address: [address] [place] [phone] Director: Juliana Solo Performing Organization Address [facility] Centercode Phone Number [employer] [address] [address] Amylase level (02/09/2018 1:45 PM CDT) Amylase 19 (L) 21 - 101 U/L [facility] [employer] DARIEN Specimen Blood Resulting Agency Comment Performing Organization Information: Site ID: [email or web address] Name: [email or web address] Address: [address] [place] [phone] Director: Juliana Solo Performing Organization Address [facility]/Zipcode Phone Number [employer] [address] [address] after 11/01/2017 Insurance Payer Benefit Plan / Group Subscriber ID Type Phone Address [facility] xxxxxxxxx HMO Lee MACH[place] ([place] [id number] Advance Directives Patient has advance care planning documents on file. For more information, please contact:Ketan Owens[address] [place] [address]
[2018-11-02] MEDS ORDERED: NA CHLORIDE 0.9% 500 ML ONE (08:56)
[2018-11-02] MEDS ORDERED: LIDOCAINE 1% MPF 30 ML VIAL ONE (09:47)
[2018-11-02] MEDS ORDERED: HEPA 1000U/500MLS 2,000 UNIT/1,000 ML BAG IV ONE (10:08)
[2018-11-02] MEDS ORDERED: HEPARIN 5000 UNIT/ML 1 ML VIAL ONE (11:00)
[2018-11-02] MEDS ORDERED: ATROPINE SULF 1 MG/10 ML SYR IV ONE (11:01)
[2018-11-02] MEDS ORDERED: NICARDIPINE HCL 25 MG/10 ML IV ONE (11:01)
[2018-11-02] MEDS ORDERED: NITROGLYCERIN/D5W 25 MG/250 ML BTL IV ONE (11:01)
[2018-11-02] MEDS ORDERED: NA CHLORIDE 0.9% 0 ML ONE (11:01)
[2018-11-02] MEDS ORDERED: NITROGLYCERIN 100 MCG/ML SYR (for cath lab use only) IV ONE (11:01)
[2018-11-02] MEDS ORDERED: FENTANYL CITR 100 MCG/2 ML ONE (11:02)
[2018-11-02] MEDS ORDERED: MIDAZOLAM HCL 2 MG/2 ML INJ ONE ×2 (11:02→11:11)
[2018-11-02] MEDS ORDERED: NA CHLORIDE 0.9% 100 ML IV ONE (11:11)
[2018-11-02] MEDS ORDERED: METOPROLOL TARTRATE 5 MG/5 ML INJ IV ONE (11:31)
[2018-11-02] MEDS ORDERED: PRASUGREL (EFFIENT) 10 MG TAB ONE (12:16)
[2018-11-02 15:36] VITALS: BMI 43.5
[2018-11-02] MEDS: NA CHLORIDE 0.9% 1,000 ML IV SCH (16:00)
[2018-11-02] MEDS: METOPROLOL TAR 25 MG TAB PO SCH (18:27)
[2018-11-02] MEDS: HYDROCODONE/APAP 7.5/325 MG TAB PO PRN (21:36)
[2018-11-02] MEDS: ATORVASTATIN 80 MG TAB PO SCH (21:36)
[2018-11-02] MEDS: GABAPENTIN 300 MG CAP PO SCH (21:37)
[2018-11-02] MEDS: HYDRALAZINE HCL 10 MG TABLET PO SCH (21:37)
--- NOTE | 2018-11-02 23:18 | OP ---
Surgeon: Nirmal Mendiola MD Procedures: Left heart catheterization, coronary left ventricular angiography, percutaneous coronary intervention of an LAD 90% stenosis, after stenting, less than 10% stenosis. The other coronary art eries were free of significant disease. Procedure In Detail: The patient was brought to the cardiac bundle tier and labeler in a fasting state, sedated wit h Versed, fentanyl, prepared and draped in usual sterile fashion. Right radial approach was used. W e used a Terumo sheath. We used a 0.021 inch diameter guidewire and a 21-gauge needle. Since the eath was in place, we gave the radial cocktail, nicardipine, heparin, nitroglycerin. We used a [employer] c atheter to angiogram the right and left coronaries, measure pressures in the left ventricle. We avoi ded doing an LV gram because of renal insufficiency. We decided to put a stent. We used an exchange J-wire to place Ikari left guide. It successfully engaged the left main ostium, gave us good suppor t. We were able to cross the lesion and right after the stenosis, which was already at the bifurcati on of the diagonal and a septal, the LAD branched into 2 large branches. I had to choose 1 of the 2 and did not think this was a situation where we could put a bifurcating stents in place or use double wire because of the patient's body habitus and renal dysfunction, so we chose the larger of the 2 ve ssels, pre-dilated with a 3.0 x 15 balloon. They were then able to pass a stent and one of the [facility] hes had a mild stenosis residual, but because it took off from within the stent, we decided to leave it alone. It was asymptomatic. PARKER grade 3 flow. The patient was doing very well with his stent. At the end of the procedure, we removed catheters over a wire, closed the arteriotomy with a TR band . We gave Angiomax during the procedure. After the stent, we loaded him with 60 mg of Effient. He will be on Plavix 75 mg per day. NAOMI/JUAN Voice ID: [id number] Report ID: [id number]
[2018-11-03 04:04] LABS: Hematocrit 36.8 % (39.6-49.0); MPV 8.7 fL (7.6-11.3); RBC Red Blood Cell Count 4.16 M/uL (4.33-5.43)
[2018-11-03 04:18] LABS: Potassium 3.9 mmol/L (3.5-5.1)
[2018-11-03] MEDS: NA CHLORIDE 0.9% 1,000 ML IV SCH ×2 (06:18→21:37)
[2018-11-03] MEDS: PANTOPRAZOLE 40MG TABLET PO SCH (06:30)
[2018-11-03] MEDS: METOPROLOL TAR 25 MG TAB PO SCH ×2 (07:34→17:04)
[2018-11-03] MEDS ORDERED: ACETYLCYST 20% 800 MG/4 ML VIAL PO ONE (08:45)
[2018-11-03] MEDS ORDERED: HEPA 1000U/500MLS 2,000 UNIT/1,000 ML BAG IV ONE (09:10)
[2018-11-03] MEDS: HYDRALAZINE HCL 10 MG TABLET PO SCH ×2 (09:28→21:37)
[2018-11-03] MEDS: GABAPENTIN 300 MG CAP PO SCH ×2 (09:28→21:37)
[2018-11-03] MEDS: AMLODIPINE 10 MG TAB PO SCH (09:28)
[2018-11-03] MEDS: FENOFIBRATE 160 MG TAB PO SCH (09:28)
[2018-11-03] MEDS: VALSARTAN 80 MG TAB PO SCH (09:28)
[2018-11-03] MEDS: CLOPIDOGREL 75 MG TABLET PO SCH (09:29)
[2018-11-03] MEDS ORDERED: NA CHLORIDE 0.9% 100 ML IV ONE (10:02)
[2018-11-03] MEDS ORDERED: ATROPINE SULF 1 MG/10 ML SYR IV ONE (10:02)
[2018-11-03] MEDS ORDERED: MIDAZOLAM HCL 2 MG/2 ML INJ ONE ×2 (10:02→10:13)
[2018-11-03] MEDS ORDERED: FENTANYL CITR 100 MCG/2 ML ONE ×3 (10:02→10:50)
[2018-11-03] MEDS ORDERED: LIDOCAINE 1% MPF 30 ML VIAL ONE (10:06)
[2018-11-03 10:17] LABS: Urine Appearance CLEAR; Urine Bilirubin NEGATIVE (NEG); Urine Blood NEGATIVE (NEG); Urine Color YELLOW; Urine Glucose 3+ (NEG); Urine Protein NEGATIVE (NEG); Urine Specific Gravity 1.025 (1.005-1.030); Urine Urobilinogen 0.2 mg/dL (0.2-1.0)
[2018-11-03 10:20] LABS: Urine Microscopic Reflex ORDER UMIC
[2018-11-03] MEDS ORDERED: NITROGLYCERIN 100 MCG/ML SYR (for cath lab use only) IV ONE (10:23)
[2018-11-03] MEDS ORDERED: NITROGLYCERIN/D5W 25 MG/250 ML BTL IV ONE (10:23)
[2018-11-03 10:35] LABS: Urine Amorphous Sediment 1+ /HPF (NONE SEEN); Urine Bacteria <20 /HPF (NONE SEEN); Urine Culture Reflex Order NOT NEEDED; Urine Mucus 1+ /HPF (NONE SEEN); Urine RBC <5 /HPF (NONE SEEN)
[2018-11-03] MEDS ORDERED: PRASUGREL (EFFIENT) 10 MG TAB ONE (11:12)
[2018-11-03] MEDS: hydroCHLOROthiazide 12.5 MG CAP PO SCH (15:50)
--- NOTE | 2018-11-03 17:25 | OP ---
Surgeon: Nirmal Mendiola MD Procedures: Percutaneous coronary intervention of a mid left anterior descending lesion in a system consisting of dual left anterior descending. The mid left anterior descending lesion was immediately after the bifurcation. Successful procedure. Procedure Findings: The lesion was 80% stenotic, and after the procedure, 0% stenotic. Procedure In Detail: The patient was brought to the cardiac industrial laborer fasting, sedated with Versed and fentanyl, titrated to an adequate level of sedation. He was prepared and draped in the usual fashion. Right femoral artery was used. The tissues around the artery were anesthetized with lidocaine. Artery was entered with an 18-gauge needle, cannulated with a short J-wire and a 6- Egyptian sheath was placed. The sheath was flushed. At the end of the procedure , we did a sheath shot, and decided there was adequate anatomy to do a closure using Angio-Seal. We used an XBLAD 3.5 with side holes, guided into the ascending aorta using fluoroscopy and a J-wire. It successfully cannulated the left main. We gave Angiomax, demonstrated an active clotting time greater than 300 seconds. We were able to cross the lesion with a wire. Again, it is a side branch, so it was within the stent that was placed yesterday. We were then able to pass a 1.5 x 8 mm Emerge balloon and pre-dilate. We removed the balloon, left the wire in place, crossed it with an Emerge 2.5 x 12, dilated. We then were able to place a 2.5 x 12 Synergy stent. We did not leave any stent overlap. There was no compromise of the previous stent architecture at all. Excellent angiographic result. Views were taken, orthogonal, with and without the wire. The catheters were removed. The complications from the procedure are none. Estimated Blood Loss: 20 cc. Financial Aid Advisor: Manuel Allen. NAOMI/JUAN Voice ID: [id number] Report ID: [id number] PERRY
[2018-11-03] MEDS: HYDROCODONE/APAP 7.5/325 MG TAB PO PRN (21:37)
[2018-11-03] MEDS: ATORVASTATIN 80 MG TAB PO SCH (21:37)
[2018-11-04] MEDS: PANTOPRAZOLE 40MG TABLET PO SCH (07:15)
[2018-11-04] MEDS: METOPROLOL TAR 25 MG TAB PO SCH (07:16)
[2018-11-04] MEDS ORDERED: ASPIRIN EC 81 MG TAB PO ONE (08:11)
[2018-11-04 09:13] VITALS: BP 140/91
[2018-11-04] MEDS: GABAPENTIN 300 MG CAP PO SCH (09:29)
[2018-11-04] MEDS: AMLODIPINE 10 MG TAB PO SCH (09:29)
[2018-11-04] MEDS: HYDRALAZINE HCL 10 MG TABLET PO SCH (09:29)
[2018-11-04] MEDS: FENOFIBRATE 160 MG TAB PO SCH (09:30)
[2018-11-04] MEDS: hydroCHLOROthiazide 12.5 MG CAP PO SCH (09:30)
[2018-11-04] MEDS: CLOPIDOGREL 75 MG TABLET PO SCH (09:30)
[2018-11-04] MEDS: VALSARTAN 80 MG TAB PO SCH (09:30)
[2018-11-04 10:46] VITALS: TEMP 97; O2SAT 98
--- NOTE | 2018-11-05 04:55 | DS ---
Date of Discharge: 11/04/2018 Discharge Diagnosis: Coronary heart disease with severe 90% proximal and mid left anterior descending stenosis, successfully treated with stents. Procedures In The Hospital: 1. On 11/02, cardiac cath with stent of the left anterior descending in the right branch of a dual left anterior descending system. 2. On 11/03, cardiac cath and stent of the left side of the LAD at the bifurcation. Discharge Medications: 1. Atorvastatin 80 mg per day. 2. Norvasc 10 mg per day. 3. Tricor 160 mg per day. 4. Gabapentin 600 b.i.d. 5. Hydralazine 10 b.i.d. 6. Hydrochlorothiazide 12.5 daily. 7. Metoprolol 25 b.i.d. 8. Protonix 40 mg per day. 9. Benicar 40 mg per day. 10. Aspirin 81 mg per day. Hospital Course: The patient did very well, although after the first stent, but branched part of the LAD needed to be fixed, so we did a second cardiac cath and stent to fix that. After this he was doing very well with no symptoms. No change in his creatinine for the worse, asymptomatic. His right radial cath site and right femoral branch sites are both very good looking. No hematomas or evidence of pseudoaneurysms or AV fistulas. He was discharged in good shape. His followup will be in 2 weeks. AVRIL Voice ID: [id number] Report ID: [id number] PERRY
== END 2018-11-04 10:20 | disposition home or self-care (01) ==
LOC: CCL 08:39 → 4TH 14:33 → CCL 11-04 10:20
PROVIDERS: ATTEND Internal Medicine
DX: I25.10 Atherosclerotic heart disease of native coronary artery without angina pectoris (principal); E11.9 Type 2 diabetes mellitus without complications; E78.5 Hyperlipidemia, unspecified; I10 Essential (primary) hypertension; K21.9 Gastro-esophageal reflux disease without esophagitis; Z79.4 Long term (current) use of insulin; Z79.899 Other long term (current) drug therapy
CPT/HCPCS: 85025; 80048; 36415; 85610; 82962 ×3; 85347; 85730; 71045; 92928 ×2; 93458; C1893 ×2; C1760; C1725 ×2; C1877; J1644; J2250 ×4; J3010 ×2; J0583 ×3; J7030 ×3; 87088

== ENCOUNTER 2019-05-22 06:50 | Day surgery (SDC) | payer OTHER ==
[2019-05-18 13:28] LABS: Absolute Lymphocytes (CBC) 1.3 K/uL (0.7-4.9); Basophils % 0.9 % (0-1.3); Hematocrit 40.6 % (39.6-49.0); Lymphocytes % 17.2 % (15.3-44.8); MPV 8.2 fL (7.6-11.3); RBC Red Blood Cell Count 4.59 M/uL (4.33-5.43)
[2019-05-18 13:33] LABS: Potassium 4.2 mmol/L (3.5-5.1)
[2019-05-18 13:34] LABS: Protime INR 0.98
[2019-05-22] MEDS ORDERED: NA CHLORIDE 0.9% 500 ML ONE ×2 (07:08→07:12)
[2019-05-22] MEDS ORDERED: LIDOCAINE 1% MPF 30 ML VIAL ONE (07:12)
[2019-05-22] MEDS ORDERED: HEPA 1000U/500MLS 2,000 UNIT/1,000 ML BAG IV ONE (07:12)
[2019-05-22] MEDS ORDERED: HEPARIN 5000 UNIT/ML 1 ML VIAL ONE (07:48)
[2019-05-22] MEDS ORDERED: FENTANYL CITR 100 MCG/2 ML ONE (07:49)
[2019-05-22] MEDS ORDERED: MIDAZOLAM HCL 2 MG/2 ML INJ ONE (07:49)
[2019-05-22] MEDS ORDERED: NICARDIPINE HCL 25 MG/10 ML IV ONE (07:50)
[2019-05-22] MEDS ORDERED: NITROGLYCERIN 100 MCG/ML SYR (for cath lab use only) IV ONE (07:50)
[2019-05-22] MEDS ORDERED: ATROPINE SULF 1 MG/10 ML SYR IV ONE (07:50)
[2019-05-22] MEDS ORDERED: NITROGLYCERIN/D5W 25 MG/250 ML BTL IV ONE (07:50)
[2019-05-22] MEDS ORDERED: NA CHLORIDE 0.9% 0 ML ONE (07:51)
[2019-05-22] MEDS ORDERED: NA CHLORIDE 0.9% 0 ML IV ONE (08:05)
[2019-05-22 09:21] VITALS: TEMP 98
[2019-05-22] MEDS ORDERED: INSULIN -REGULAR HUMAN 50 UNIT/0.5 ML ML ONE (09:31)
[2019-05-22 10:29] VITALS: BP 133/72; O2SAT 95
--- NOTE | 2019-05-22 19:50 | OP ---
Surgeon: Nirmal Mendiola MD [employer] Developer: Rachel Francisco. Identification: Mr. Daniel is 58 years old. Procedure: Left heart catheterization with coronary angiography, measurement of left ventricular pre ssures, but no left ventriculogram was done because of renal insufficiency. Procedure Findings: The patient was found to have very stable coronary heart disease. He had stents placed in his LAD and septal kind of a dual LAD system 6 months ago. Those stents are widely patent . There is no in-stent stenosis. He has a 40% to 50% mid RCA lesion that is not significantly pastor ed, not giving any evidence of ischemia or symptoms. Left ventricular end-diastolic pressure was 13. There is no gradient on aortic valve pullback. No LV gram was done. Procedure In Detail: The patient had an abnormal Cardiolite indicating a small amount of apical isch emia, brought to the cardiac microbiology lab assistant fasting. He gave us informed consent. He was sedated with Michelle sed and fentanyl, prepared and draped in usual sterile fashion. Right radial approach was used. We anesthetized the skin over the right radial artery with 1% lidocaine, entered it with a 21-gauge need le, cannulated with a 0.021 inch diameter guidewire and placed a [employer] radial sheath, flushed the sh eath and gave a radial cocktail consisting of nicardipine, heparin, and nitroglycerin. A TIG cathete r was guided into the ascending aorta using fluoroscopy and a [employer] short radius J-tip Glidewire. W e were able to angiogram right and left coronaries, measure pressures in the left ventricle all with the same catheter. When the procedure was done, the catheter was removed after being straightened ou t with the J wire. The sheath was then flushed and removed and the arteriotomy closed with a TR band . Complications: None. Estimated Blood Loss: 5 cc. SH/MODL Voice ID: [id number] Report ID: [id number]
== END 2019-05-22 10:30 | disposition home or self-care (01) ==
LOC: CCL 06:50
PROVIDERS: ATTEND Internal Medicine
DX: R94.39 Abnormal result of other cardiovascular function study (principal); I25.10 Atherosclerotic heart disease of native coronary artery without angina pectoris; I10 Essential (primary) hypertension; E78.2 Mixed hyperlipidemia; E11.9 Type 2 diabetes mellitus without complications; K21.9 Gastro-esophageal reflux disease without esophagitis; E66.01 Morbid (severe) obesity due to excess calories; Z95.5 Presence of coronary angioplasty implant and graft; Z79.82 Long term (current) use of aspirin; Z79.02 Long term (current) use of antithrombotics/antiplatelets
CPT/HCPCS: 85025; 80048; 36415 ×2; 85610; 82962 ×2; 85730; 93458; C1893; J1644; J2250; J3010; J7040 ×2; J0583

== ENCOUNTER 2020-02-01 17:56 | Emergency (ER) | payer OTHER ==
[2011-10-31 12:38] VITALS: BP 174/83
--- NOTE | 2020-02-01 19:59 | RAD REPORT ---
EXAM DESCRIPTION: RAD - Shoulder Left 2 View - 02/01/2020 7:51 pm CLINICAL HISTORY: Pain;Smash injury COMPARISON: No comparisons FINDINGS: Fracture with mild distraction is present involving the proximal aspect of the left clavic le. There is existing hardware in place in the left clavicular shaft. Moderate left shoulder degenera tive changes.
--- NOTE | 2020-02-01 20:24 | EDPHYS ---
Physician Documentation [facility] Name: Bobby Daniel Age: 59 yrs Sex: Male : 1960 Arrival Date: 02/01/2020 Time: 17:58 Bed 16 Private MD: Sherman Haines F ED Physician Man Copeland HPI: 02/01 05:50 This 59 yrs old Male presents to ER via Ambulatory with complaints of tw4 Shoulder Pain, Shoulder Injury. 05:50 The patient or guardian complains of an injury, pain, that is acute. left clavicle. tw4 Context: The problem was sustained at home, resulted from a fall. Onset: The symptoms/episode began/occurred 4 day(s) ago. Modifying factors: the symptoms are alleviated by nothing. The symptoms are aggravated by lifting weight, movement. Associated signs and symptoms: The patient has no apparent associated signs or symptoms. The patient has not experienced similar symptoms in the past. Historical: - Allergies: 01/31 18:14 No Known Allergies; jl7 - PMHx: 18:14 Diabetes - IDDM; Hypertension; jl7 - PSHx: 18:14 Cholecystectomy; Tonsillectomy; jl7 - Immunization history:: Adult Immunizations up to date. - Social history:: Smoking status: Patient denies any tobacco usage or history of. ROS: 02/01 05:50 Constitutional: Negative for fever, chills, and weight loss, Eyes: Negative for injury, tw4 pain, redness, and discharge, Cardiovascular: Negative for chest pain, palpitations, and edema, Abdomen/GI: Negative for abdominal pain, nausea, vomiting, diarrhea, and constipation, Back: Negative for injury and pain, MS/Extremity: Negative for injury and deformity, Skin: Negative for injury, rash, and discoloration. Exam: 05:50 Constitutional: This is a well developed, well nourished patient who is awake, alert, tw4 and in no acute distress. Head/Face: Normocephalic, atraumatic. Chest/axilla: Normal chest wall appearance and motion. Nontender with no deformity. No lesions are appreciated. Cardiovascular: Regular rate and rhythm with a normal S1 and S2. No gallops, murmurs, or rubs. Normal PMI, no JVD. No pulse deficits. Respiratory: Lungs have equal breath sounds bilaterally, clear to auscultation and percussion. No rales, rhonchi or wheezes noted. No increased work of breathing, no retractions or nasal flaring. Abdomen/GI: Soft, non-tender, with normal bowel sounds. No distension or tympany. No guarding or rebound. No evidence of tenderness throughout. Skin: Warm, dry with normal turgor. Normal color with no rashes, no lesions, and no evidence of cellulitis. 05:50 Musculoskeletal/extremity: Extremities: noted in the left clavicle: deformity, pain, tenderness. Vital Signs: 01/31 18:12 BP 101 / 69; Pulse 74; Resp 16; Temp 97.8; Pulse Ox 96% ; Weight 83.91 kg; Pain 7/10; jl7 21:00 BP 102 / 56; Pulse 77; Resp 18; Temp 98.1; Pulse Ox 98% ; Pain 6/10; eb1 MDM: 19:21 Patient medically screened. tw4 02/01 05:50 Data reviewed: vital signs, nurses notes. Data interpreted: Pulse oximetry: tw4 Interpretation: normal. Counseling: I had a detailed discussion with the patient and/or guardian regarding: the historical points, exam findings, and any diagnostic results supporting the discharge/admit diagnosis. 05:57 Differential diagnosis: Anterior dislocation with fracture, Anterior dislocation tw4 without fracture, humeral head fracture. Medication response: norco. Response to treatment: and as a result, I will discharge patient. 01/31 19:47 Order name: Shoulder Left 2 View; Complete Time: 20:05 EDMS Administered Medications: 01/31 20:38 Drug: [place] 10 mg-325 mg 1 tabs Route: PO; eb1 Disposition: 02/01/20 20:23 Discharged to Home. Impression: Fracture of sternal end of clavicle. - Condition is Stable. - Discharge Instructions: Clavicle Fracture. - Prescriptions for Tramadol 50 mg Oral Tablet - take 1 tablet by ORAL route every 8 hours as needed; 12 tablet. - Medication Reconciliation Form, Thank You Letter, Antibiotic Education, Prescription Opioid Use form. - Follow up: Sherman Haines MD; When: Upon discharge from the Emergency Department; Reason: Recheck today's complaints, Continuance of care, Re-evaluation by your physician. Follow up: Marcelo Webster MD; When: Upon discharge from the Emergency Department; Reason: Recheck today's complaints, Continuance of care, Re-evaluation by your physician. Follow up: Buzz Naik MD; When: Upon discharge from the Emergency Department; Reason: Recheck today's complaints, Continuance of care, Re-evaluation by your physician. Follow up: Robert Moore MD; When: Upon discharge from the Emergency Department; Reason: Recheck today's complaints, Continuance of care, Re-evaluation by your physician. - Problem is new. - Symptoms have improved. Signatures: Dispatcher [employer] EDAR Michelle Mayen RN RN jl7 Man Copeland MD MD tw4 Brit Sun RN RN eb1 Corrections: (The following items were deleted from the chart) 19:46 19:22 Shoulder Right 2 View+RAD.RAD.[email or web address] ordered. [facility] 20:24 20:23 02/01/2020 20:23 Discharged to Home. Impression: Fracture of sternal end of tw4 clavicle. Condition is Stable. Forms are Medication Reconciliation Form, Thank You Letter, Antibiotic Education, Prescription Opioid Use. Follow up: Sherman Haines; When: Upon discharge from the Emergency Department; Reason: Recheck today's complaints, Continuance of care, Re-evaluation by your physician. Problem is new. Symptoms have improved. tw4 21:21 20:24 02/01/2020 20:23 Discharged to Home. Impression: Fracture of sternal end of eb1 clavicle. Condition is Stable. Discharge Instructions: Clavicle Fracture. Forms are Medication Reconciliation Form, Thank You Letter, Antibiotic Education, Prescription Opioid Use. Follow up: Sherman Haines; When: Upon discharge from the Emergency Department; Reason: Recheck today's complaints, Continuance of care, Re-evaluation by your physician. Follow up: Marcelo Webster; When: Upon discharge from the Emergency Department; Reason: Recheck today's complaints, Continuance of care, Re-evaluation by your physician. Follow up: Buzz Naik; When: Upon discharge from the Emergency Department; Reason: Recheck today's complaints, Continuance of care, Re-evaluation by your physician. Follow up: Dr. Robert Moore; When: Upon discharge from the Emergency Department; Reason: Recheck today's complaints, Continuance of care, Re-evaluation by your physician. Problem is new. Symptoms have improved. tw4
--- NOTE | 2020-02-01 20:24 | ER ---
Nurse's Notes [facility] Name: Bobby Daniel Age: 59 yrs Sex: Male : 1960 Arrival Date: 02/01/2020 Time: 17:58 Bed 16 Private MD: Sherman Haines F Diagnosis: Fracture of sternal end of clavicle Presentation: 01/31 18:12 Chief complaint: Patient states: Fell on Wednesday and "I think I broke my left clavicle jl7 and it hurts." Left arm in shoulder immobilizer. Coronavirus screen: Proceed with normal triage. Patient denies a cough. Patient denies shortness of breath or difficulty breathing. Patient denies measured and/or subjective temperature greater than 100.4F prior to today's visit. Patient denies travel on a cruise ship or to a country the [facility] currently lists as an affected area. Patient denies contact with known and/or suspected case of COVID-19. Ebola Screen: No symptoms or risks identified at this time. Initial Sepsis Screen: Does the patient meet any 2 criteria? No. Patient's initial sepsis screen is negative. Does the patient have a suspected source of infection? No. Patient's initial sepsis screen is negative. Risk Assessment: Do you want to hurt yourself or someone else? Patient reports no desire to harm self or others. Onset of symptoms was January 29, 2020. Care prior to arrival: None. 18:12 Method Of Arrival: Ambulatory jl7 18:12 Acuity: CLARA 4 jl7 Triage Assessment: 20:00 General: Appears in no apparent distress. uncomfortable, well groomed, well developed, eb1 Behavior is calm, cooperative, appropriate for age. Pain: Complains of pain in anterior aspect of left shoulder. EENT: No deficits noted. No signs and/or symptoms were reported regarding the EENT system. Neuro: No deficits noted. Cardiovascular: No deficits noted. Respiratory: No deficits noted. GI: No deficits noted. No signs and/or symptoms were reported involving the gastrointestinal system. : No deficits noted. No signs and/or symptoms were reported regarding the genitourinary system. Derm: No deficits noted. No signs and/or symptoms reported regarding the dermatologic system. Musculoskeletal: No deficits noted. No signs and/or symptoms reported regarding the musculoskeletal system. 21:19 Injury Description: Shoulder fx. eb1 Historical: - Allergies: 18:14 No Known Allergies; jl7 - PMHx: 18:14 Diabetes - IDDM; Hypertension; jl7 - PSHx: 18:14 Cholecystectomy; Tonsillectomy; jl7 - Immunization history:: Adult Immunizations up to date. - Social history:: Smoking status: Patient denies any tobacco usage or history of. Screenin:00 Nutritional screening: No deficits noted. Tuberculosis screening: No symptoms or risk eb1 factors identified. Fall Risk None identified. 21:18 Abuse screen: Denies threats or abuse. Denies injuries from another. eb1 Assessment: 20:00 General: Appears in no apparent distress. uncomfortable, well groomed, Behavior is eb1 calm, cooperative, appropriate for age. Pain: Complains of pain in left arm. Neuro: No deficits noted. Cardiovascular: No deficits noted. Respiratory: No deficits noted. GI: No deficits noted. No signs and/or symptoms were reported involving the gastrointestinal system. : No deficits noted. No signs and/or symptoms were reported regarding the genitourinary system. EENT: No deficits noted. No signs and/or symptoms were reported regarding the EENT system. Derm: No deficits noted. No signs and/or symptoms reported regarding the dermatologic system. Musculoskeletal: No deficits noted. No signs and/or symptoms reported regarding the musculoskeletal system. 21:00 Reassessment: Patient appears in no apparent distress at this time. No changes from eb1 previously documented assessment. Patient and/or family updated on plan of care and expected duration. Pain level reassessed. Vital Signs: 18:12 BP 101 / 69; Pulse 74; Resp 16; Temp 97.8; Pulse Ox 96% ; Weight 83.91 kg; Pain 7/10; jl7 21:00 BP 102 / 56; Pulse 77; Resp 18; Temp 98.1; Pulse Ox 98% ; Pain 6/10; eb1 ED Course: 17:58 Patient arrived in ED. ag5 17:58 Sherman Haines MD is Private Physician. ag5 18:13 Triage completed. jl7 18:14 Arm band placed on right wrist. jl7 19:21 Man Copeland MD is Attending Physician. tw4 19:52 Shoulder Left 2 View In Process Unspecified. EDMS 20:00 Patient has correct armband on for positive identification. Bed in low position. Call eb1 light in reach. 20:23 Sherman Haines MD is Referral Physician. tw4 20:23 Marcelo Webster MD is Referral Physician. tw4 20:23 Buzz Naik MD is Referral Physician. tw4 20:24 Robert Moore MD is Referral Physician. tw4 21:19 No provider procedures requiring assistance completed. eb1 21:19 Patient did not have IV access during this emergency room visit. eb1 Administered Medications: 20:38 Drug: S [place] 10 mg-325 mg 1 tabs Route: PO; eb1 Outcome: 20:23 Discharge ordered by MD. tw4 21:19 Discharged to home ambulatory. eb1 21:19 Condition: improved 21:19 Discharge instructions given to patient, Instructed on discharge instructions, Demonstrated understanding of instructions, follow-up care, Prescriptions given X 1. 21:21 Patient left the ED. eb1 Signatures: Dispatcher [employer] EDMS Michelle Mayen RN RN jl7 Man Copeland MD MD tw4 Brit Sun RN RN eb1 Slava Barney 5
[2020-02-01] MEDS ORDERED: HYDROCODONE/APAP 10/325 TAB ONE (20:45)
--- OUTSIDE RECORDS SUMMARY | 2020-02-01 21:21 | XMS REPORT | Clinical Summary ---
:1960 Author Organization [facility] Address [address] [place] [address] Care Team Providers Name Role Phone Shelton Haines MD Primary Care Provider Allergies No Known Allergies Medications Medication Sig Dispensed Refills Start End Status Date Date insulin ASPART (NovoLOG Inject 6-20 45 mL 3 Active Flexpen U-100 Insulin) units tid 8 100 unit/mL insulin pen per sliding scale. fenofibrate (TRICOR) Take 145 mg 0 Active 145 MG tablet by mouth daily. HYDROcodone-acetaminoph Take 1 0 Active en (NORCO) 7.5-325 mg tablet by per tablet mouth 3 (three) times a day. metoprolol tartrate Take 50 mg 0 Active (LOPRESSOR) 25 mg by mouth 2 tablet (two) times a day. atorvastatin (LIPITOR) Take 80 mg 0 Active 80 MG tablet by mouth daily. amLODIPine (NORVASC) 10 Take 10 mg 0 Active mg tablet by mouth daily. aspirin (ECOTRIN) 81 MG Take 81 mg 0 Active enteric coated tablet by mouth daily. hydrALAZINE Take 10 mg 1 Active (APRESOLINE) 10 MG by mouth 3 9 tablet (three) times a day. gabapentin (NEURONTIN) Take 800 mg 0 Active 800 mg tablet by mouth 3 9 (three) times a day. clopidogrel (PLAVIX) 75 Take 75 mg 0 Active mg tablet by mouth daily. metFORMIN (GLUCOPHAGE) Take 500 mg 0 Active 500 mg tablet by mouth 2 (two) times a day with meals. cholecalciferol, Take 5,000 0 Ac tive vitamin D3, (VITAMIN D3 Units by ORAL) mouth daily. olmesartan (BENICAR) 40 Take 40 mg 0 Active MG tablet by mouth daily. pantoprazole (PROTONIX) Take 40 mg 0 Active 40 MG EC tablet by mouth daily. hydroCHLOROthiazide Take 25 mg 0 Active (HYDRODIURIL) 25 MG by mouth 2 tablet (two) times a day. ferrous sulfate (iron) Take 325 mg 0 Active 325 (65 FE) MG tablet by mouth daily with breakfast. calcium citrate/vitamin Take by 0 Active D3 (CITRACAL REGULAR mouth. ORAL) olmesartan (BENICAR) 40 Take 40 mg 0 07/30 Discontinued MG tablet by mouth 019 (Stop Taki ng at daily. Discharge) pantoprazole (PROTONIX) Take 40 mg 0 07/30 Discontinued 40 MG EC tablet by mouth 019 (Sto p Taking at daily. Discharge) insulin degludec Inject 80 0 Dis continued (TRESIBA FLEXTOUCH Units under 019 (Stop Taking at U-100) 100 unit/mL (3 the skin 2 Discharge) mL) insulin pen (two) times a day. gabapentin (NEURONTIN) Take 600 mg 0 06/22 Discontinued 600 mg tablet by mouth 3 019 (three) times a day. hydroCHLOROthiazide Take 25 mg 0 Discontinued (HYDRODIURIL) 12.5 MG by mouth 019 (Stop Taking at tablet daily. Discharge) NAPROXEN ORAL Take 220 mg 0 Disc ontinued by mouth as 019 (Patient needed. Reported) cholecalciferol, Take by 0 Dis continued vitamin D3, (VITAMIN D3 mouth. 019 (Patient ORAL) Reported) omeprazole (PriLOSEC) Take 1 30 capsule 5 Discontinued 40 MG capsule (40 9 019 (Reorder ) capsuleIndications: mg total) by Bariatric surgery mouth daily. status ondansetron ODT Take 1 30 tablet 0 Disc ontinued (ZOFRAN-ODT) 4 MG tablet (4 mg 9 019 (Patient disintegrating total) by Repor katia) tabletIndications: mouth every Bariatric surgery 8 (eight) status hours as needed for nausea or vomiting. cyanocobalamin, vitamin Place 1,000 30 each 11 07/02 Discontinued B-12, (VITAMIN B-12) mcg under 9 019 (Patient 1,000 mcg tablet, the tongue R eported) sublingualIndications: daily. Vitamin deficiency dulaglutide (TRULICITY) Inject 1.5 6 Syringe 0 02/22 Discontinued 1.5 mg/0.5 mL pen mg under the 9 019 injector skin once a week. 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 metFORMIN (GLUCOPHAGE) TAKE 1 180 tablet 1 Discontinued 1,000 mg tablet TABLET BY 9 019 (Reo rder) MOUTH TWICE A DAY WITH FOOD semaglutide (OZEMPIC) Inject 0.25 3 Syringe 0 Discontinued 0.25 mg or 0.5 mg(2 mg under the 9 019 (Reorder) mg/1.5 mL) pen injector skin every 7 days. Lot# [id number] EXP: 09/2020 omeprazole (PriLOSEC) TAKE 1 30 capsule 5 Discontinued 40 MG CAPSULE BY 9 019 (Stop Saul ing at capsuleIndications: MOUTH EVERY Discharge) Bariatric surgery DAY status semaglutide (OZEMPIC) Inject 0.5 2 Syringe 0 Discontinued 0.25 mg or 0.5 mg(2 mg under the 9 019 (Stop Taking at mg/1.5 mL) pen injector skin every 7 Discharge) days. Lot# [id number] EXP: 09/2020 metFORMIN (GLUCOPHAGE) TAKE 1 180 tablet 3 Discontinued 1,000 mg tablet TABLET BY 9 019 (Reo rder) MOUTH TWICE A DAY WITH FOOD metFORMIN (GLUCOPHAGE) Take 0.5 60 tablet 1 Discontinued 1,000 mg tablet tablets (500 9 020 ( Dose mg total) by adjustm ent) mouth 2 (two) times a day with meals. traMADol (ULTRAM) 50 mg Take 1 10 tablet 0 tabletIndications: tablet (50 9 020 acute pain mg total) by mouth every 6 (six) hours as needed for moderate pain for up to 10 days .acute pain. methocarbamol (ROBAXIN) Take 1 20 tablet 0 500 MG tablet tablet (500 9 020 mg total) by mouth 4 (four) times a day for 10 days. enoxaparin (LOVENOX) 30 Inject 0.3 4.2 mL 0 08/14 mg/0.3 mL syringe mL (30 mg 9 020 total) under the skin daily for 14 days. pantoprazole (PROTONIX) Take 1 30 tablet 0 40 MG EC tablet tablet (40 9 020 mg total) by mouth daily for [address] 1 0 Discontinu ed (CATAPRES-TTS) 0.1 patch on the 020 (Med List mg/24 hr skin once a Cleanup) week. Active Problems Problem Noted Date Elevated triglycerides with high cholesterol 0 Low HDL (under 40) 12/13/2019 Elevated hemoglobin A1c 2019 Multiple vitamin deficiency 2019 Vitamin D deficiency 2019 Low serum parathyroid hormone (PTH) 2019 Morbid obesity 07/28/2019 Encounters Date Type Specialty Care Team Description 12/13/2019 Orders Only General Surgery Elis Wagoner MA 11/29/2019 Telemedicine Endocrinology Emily, Type 2 diabete s mellitus with other specified complication, unspecified whether mcc insulin use (HCC) (Primary Dx); MD David Morbid obesity (HCC); Screening for t hyroid disorder 10/26/2019 Telemedicine General Surgery Evans Robles MD Weight loss (Primary Dx); Padmini Bradley, Diabetes 1. 5, managed as type 2 (HCC); PA Obstructive sle ep apnea; Essential hyper tension; Other hyperlipi demia 10/23/2019 Travel 10/13/2019 Travel 10/03/2019 Refill Endocrinology Liana Pina, DONA 09/07/2019 Office Visit General Surgery Evans Robles MD Surgery follow-up examination (Pr imary Dx) 09/07/2019 Orders Only General Surgery Radha Murray hy pertension (Primary Dx); NARESH Caraballo Malabsorption d ue to intolerance, not elsewhere classified; S/P bariatric s urgery; Weight loss 08/23/2019 Office Visit Endocrinology Emily, Type 2 diabete s MD David mellitus with o ther specified complication, unspecified whe ther mcc insul in use (HCC) (Prim riley Dx) 08/11/2019 Office Visit General Surgery Evans Robles MD Surgery follow-up examination (Pr imary Dx) 07/28/2019 Anesthesia Event General Surgery other, MD Nato Brown Alison Joy, NP 07/28/2019 Surgery General Surgery Evans Robles MD LAPAROSC OPIC TAMIR EN Y GASTRIC BYPAS S WITH INTRAOPERA TIVE ENDOSCOPY 07/28/2019 Hospital Encounter Cardiology Evans Robles MD Morbi d obesity ([facility]); - Essential hyper tension; 07/30/2019 Diabetes 1.5, m anaged as type 2 ([facility]); Bariatric surge ry status 07/24/2019 Prep for Surgery General Surgery Terri Morbid o besity ([facility]) (Primary Dx); NARESH Caraballo Essential hyper tension; Diabetes 1.5, m anaged as type 2 ([facility]) 07/13/2019 Pre-Admit Testing Pre-Admission Evans Robles MD Morbi d obesity ([facility]); Appointment Testing Other hyperlipi demia; Essential hyper tension; Obstructive sle ep apnea; Preoperative te sting; Intestinal baljit bsorption, unspecified type 07/13/2019 Office Visit General Surgery Padmini Bradley, Morbid o besity ([facility]) (Primary Dx); PA Essential hyper tension; Diabetes 1.5, m anaged as type 2 ([facility]); Obstructive sle ep apnea 07/12/2019 Orders Only General Surgery Elis Wagoner MA Morbid ob esity ([facility]) (Primary Dx); Other hyperlipi demia; Essential hyper tension; Obstructive sle ep apnea; Preoperative te sting; Intestinal baljit bsorption, unspecified type 07/03/2019 Refill Endocrinology David Diaz MD 06/28/2019 Orders Only Endocrinology Jacqueline Wilcox MA 06/22/2019 Telemedicine Endocrinology Teofilo Diaz t ype 2 diabetes mellitus without complication, with long-term current use of insulin (HCC) (Primary Dx); MD David Morbid obesity (HCC) 06/02/2019 Orders Only Endocrinology Jacqueline Wilcox, Morbid obes ity with BMI of 40.0-44.9, adult (HCC) (Primary Dx); MA Uncontrolled ty pe 2 diabetes mellitus without complication, with long-term current use of insulin (HCC) 04/17/2019 Orders Only General Surgery Rizwana Elis, MA 04/06/2019 Orders Only Endocrinology Jacqueline Wilcox, Class 3 sev ere MA obesity due to excess calories with body mass index (BMI) of 45.0 t o 49.9 in adult, unspecified whe ther serious comorbi dity present (HCC) (Primary Dx) 04/02/2019 Refill General Surgery Evans Robles MD Bariatri c surgery status 02/22/2019 Office Visit Endocrinology Emily, Type 2 diabete s MD David mellitus with complication, unspecified whe ther mcc insul in use (HCC) (Prim riley Dx) after 01/31/2019 Family History Medical History Relation Name Comments COPD Mother Cancer Mother Diabetes Mother Relation Name Status Comments Father Mother Alive Social History Tobacco Use Types Packs/Day Years Used Date Former Smoker Cigarettes 08 26 Quit: 1998 Smokeless Tobacco: Former User Q uit: 1980 Alcohol Use Drinks/Week oz/Week Comments Yes 1 Cans of beer 1.0 stopped occassi onal beer 2017 Alcohol Habits Answer Date Recorded How often do you have a drink containing alcohol? Never 08/26/2018 How many drinks containing alcohol do you have on a typical Not asked day when you are drinking? How often do you have six or more drinks on one occasion? No t asked Sex Assigned at Date Recorded Male 10/06/2018 7:11 AM [employer] Job Start Date Occupation Industry Not on file Not on file Not on file Travel History Travel Start Travel End No recent travel history available. Last Filed Vital Signs Vital Sign Reading Time Taken Comments Blood Pressure 174/85 09/07/2019 1:21 PM [employer] Pulse 69 09/07/2019 1:21 PM [employer] Temperature 36.8 C (98.3 F) 09/07/2019 1:21 PM [employer] Respiratory Rate 16 09/07/2019 1:21 PM [employer] Oxygen Saturation 95% 09/07/2019 1:21 PM [employer] Inhaled Oxygen Concentration - - Weight 108 kg (238 lb 6.4 oz) 09/07/2019 1:21 PM [employer] Height 167.6 cm (5' 6") 09/07/2019 1:21 PM [employer] Body Mass Index 38.48 09/07/2019 1:21 PM [employer] Plan of Treatment Date Type Specialty Care Team Description 02/21/2020 Office Visit Endocrinology David Diaz MD [address] [place], [place] [address] [phone] Health Maintenance Due Date Last Done Comments DIABETIC RETINAL EYE EXAM 1960 DIABETIC FOOT EXAM 1970 COLONOSCOPY SCREENING 2010 SHINGLES VACCINES (#1) 2010 INFLUENZA VACCINE 03/02/2020 05/11/2019, 03/21/2018, 2017 URINE MICROALBUMIN 06/05/2020 06/05/2019 Goals Goal Patient Goal Associated Recent Patient-Stated? Author Type Problems Progress [facility] Monitoring General No Lela Morris RD Note: 04/07/18 Active Track 1800 calories most days per week Implants Implanted Type Area Track Greaser Device Shelf Model / Identifier Expiration Serial / Date Lot Drain Wnd Chnl 19fr 14in Rnd Hbls Fl-Flut W/ 4in Tr ocar - [id number] Surgical N/A: N/A ETHICON US ET 12/24/2023 [id number] / Implanted: Qty: 1 on 07/28/2019 by Evans Robles MD at [facility] Implants; / Expanders; Extenders; Surgical Wires Procedures Procedure Name Priority Date/Time Associated Comments Diagnosis HEMOGLOBIN A1C Routine 11/16/2019 8:29 Type 2 diabetes Result s for this AM CDT mellitus with procedure are in complication, the results unspecified whether section. intermediate manager insulin use T3 Routine 2019 7:51 Essential Results for this AM CDT hypertension procedure are in Malabsorption due the result s to intolerance, not section. elsewhere classified S/P bariatric surgery Weight loss ZINC LEVEL, SERUM Routine 2019 7:51 Essential Result s for this AM CDT hypertension procedure are in Malabsorption due the result s to intolerance, not section. elsewhere classified S/P bariatric surgery Weight loss VITAMIN B1 LEVEL, WHOLE Routine 2019 7:51 Essential Results for this BLOOD AM CDT hypertension procedure are in Malabsorption due the result s to intolerance, not section. elsewhere classified S/P bariatric surgery Weight loss FERRITIN LEVEL Routine 2019 7:51 Essential Results f or this AM CDT hypertension procedure are in Malabsorption due the result s to intolerance, not section. elsewhere classified S/P bariatric surgery Weight loss FOLATE LEVEL Routine 2019 7:51 Essential Results for this AM CDT hypertension procedure are in Malabsorption due the result s to intolerance, not section. elsewhere classified S/P bariatric surgery Weight loss COPPER LEVEL, SERUM Routine 2019 7:51 Essential Resu lts for this AM CDT hypertension procedure are in Malabsorption due the result s to intolerance, not section. elsewhere classified S/P bariatric surgery Weight loss VITAMIN D 25 HYDROXY Routine 2019 7:51 Essential Res ults for this LEVEL AM CDT hypertension procedure are in Malabsorption due the result s to intolerance, not section. elsewhere classified S/P bariatric surgery Weight loss VITAMIN B12 LEVEL Routine 2019 7:51 Essential Result s for this AM CDT hypertension procedure are in Malabsorption due the result s to intolerance, not section. elsewhere classified S/P bariatric surgery Weight loss VITAMIN A LEVEL, PLASMA Routine 2019 7:51 Essential Results for this OR SERUM AM CDT hypertension procedure are in Malabsorption due the result s to intolerance, not section. elsewhere classified S/P bariatric surgery Weight loss CBC WITH PLATELET AND Routine 2019 7:51 Essential Re sults for this DIFFERENTIAL AM CDT hypertension procedure are in Malabsorption due the result s to intolerance, not section. elsewhere classified S/P bariatric surgery Weight loss PARATHYROID HORMONE Routine 2019 7:51 Essential Resu lts for this AM CDT hypertension procedure are in Malabsorption due the result s to intolerance, not section. elsewhere classified S/P bariatric surgery Weight loss HEMOGLOBIN A1C Routine 2019 7:51 Essential Results f or this AM CDT hypertension procedure are in Malabsorption due the result s to intolerance, not section. elsewhere classified S/P bariatric surgery Weight loss THYROID STIMULATING Routine 2019 7:51 Essential Resu lts for this HORMONE AM CDT hypertension procedure are in Malabsorption due the result s to intolerance, not section. elsewhere classified S/P bariatric surgery Weight loss T4, FREE Routine 2019 7:51 Essential Results for this AM CDT hypertension procedure are in Malabsorption due the result s to intolerance, not section. elsewhere classified S/P bariatric surgery Weight loss TOTAL IRON BINDING Routine 2019 7:51 Essential Resul ts for this CAPACITY AM CDT hypertension procedure are in Malabsorption due the result s to intolerance, not section. elsewhere classified S/P bariatric surgery Weight loss LIPID PANEL Routine 2019 7:51 Essential Results for this AM CDT hypertension procedure are in Malabsorption due the result s to intolerance, not section. elsewhere classified S/P bariatric surgery Weight loss COMPREHENSIVE METABOLIC Routine 2019 7:51 Essential Results for this PANEL AM CDT hypertension procedure are in Malabsorption due the result s to intolerance, not section. elsewhere classified S/P bariatric surgery Weight loss POC GLUCOSE Routine 07/30/2019 12:03 Results for this PM [employer] procedure are i n the results section. HC COMPLETE BLD COUNT STAT 07/30/2019 9:15 Re sults for this W/AUTO DIFF AM [employer] procedure are i n the results section. ESTIMATED GFR STAT 07/30/2019 8:32 Results fo r this AM [employer] procedure are i n the results section. BASIC METABOLIC PANEL STAT 07/30/2019 8:32 Re sults for this AM [employer] procedure are i n the results section. POC GLUCOSE Routine 07/30/2019 7:54 Results for this AM [employer] procedure are i n the results section. POC GLUCOSE Routine 07/29/2019 7:36 Results for this PM [employer] procedure are i n the results section. POC GLUCOSE Routine 07/29/2019 3:47 Results for this PM [employer] procedure are i n the results section. POC GLUCOSE Routine 07/29/2019 12:01 Results for this PM [employer] procedure are i n the results section. POC GLUCOSE Routine 07/29/2019 7:35 Results for this AM [employer] procedure are i n the results section. ESTIMATED GFR Routine 07/29/2019 4:13 Results fo r this AM [employer] procedure are i n the results section. BASIC METABOLIC PANEL Routine 07/29/2019 4:13 Re sults for this AM [employer] procedure are i n the results section. HC COMPLETE BLD COUNT Routine 07/29/2019 4:13 Re sults for this W/AUTO DIFF AM [employer] procedure are i n the results section. POC GLUCOSE Routine 07/28/2019 10:28 Results for this PM [employer] procedure are i n the results section. ESTIMATED GFR Routine 07/28/2019 8:24 Results fo r this PM [employer] procedure are i n the results section. BASIC METABOLIC PANEL Routine 07/28/2019 8:24 Re sults for this PM [employer] procedure are i n the results section. HC COMPLETE BLD COUNT Routine 07/28/2019 8:24 Re sults for this W/AUTO DIFF PM [employer] procedure are i n the results section. POC GLUCOSE Routine 07/28/2019 8:07 Results for this PM [employer] procedure are i n the results section. TN AN ELECTIVE Routine 07/28/2019 3:11 Results f or this ENDOTRACHEAL AIRWAY PM [employer] procedur e are in the results section. GASTROENTEROSTOMY, 07/28/2019 2:52 Morbid obesity TAMIR-EN-Y, PM [employer] (HCC) LAPAROSCOPIC, WITH Essential INTRAOPERATIVE hypertension, ENDOSCOPY benign Diabetes mellitus type I ([facility]) Case Notes BMI 45 Special Needs BMI 45 POC GLUCOSE Routine 07/28/2019 12:31 Results for this PM [employer] procedure are i n the results section. TYPE AND SCREEN Routine 07/13/2019 1:47 Morbid obesity Result s for this PM [employer] (HCC) procedure are in Other the results hyperlipidemia section. Essential hypertension Obstructive sleep apnea Preoperative testing Intestinal malabsorption, unspecified type HEMOGLOBIN A1C Routine 07/13/2019 1:46 Morbid obesity Results for this PM [employer] (HCC) procedure are in Other the results hyperlipidemia section. Essential hypertension Obstructive sleep apnea Preoperative testing Intestinal malabsorption, unspecified type PARATHYROID HORMONE Routine 07/13/2019 1:46 Morbid obesity Re sults for this PM [employer] (HCC) procedure are in Other the results hyperlipidemia section. Essential hypertension Obstructive sleep apnea Preoperative testing Intestinal malabsorption, unspecified type HC COMPLETE BLD COUNT Routine 07/13/2019 1:46 Morbid obesity Results for this W/AUTO DIFF PM [employer] (HCC) procedure are in Other the results hyperlipidemia section. Essential hypertension Obstructive sleep apnea Preoperative testing Intestinal malabsorption, unspecified type PROTHROMBIN TIME WITH Routine 07/13/2019 1:46 Morbid obesity Results for this INR PM [employer] (HCC) procedure are in Other the results hyperlipidemia section. Essential hypertension Obstructive sleep apnea Preoperative testing Intestinal malabsorption, unspecified type PARTIAL THROMBOPLASTIN Routine 07/13/2019 1:46 Morbid obesity Results for this TIME (PTT) PM [employer] (HCC) procedure are in Other the results hyperlipidemia section. Essential hypertension Obstructive sleep apnea Preoperative testing Intestinal malabsorption, unspecified type VITAMIN A LEVEL, PLASMA Routine 07/13/2019 1:46 Morbid obesit y Results for this OR SERUM PM [employer] (HCC) procedure are in Other the results hyperlipidemia section. Essential hypertension Obstructive sleep apnea Preoperative testing Intestinal malabsorption, unspecified type COPPER LEVEL, SERUM Routine 07/13/2019 1:46 Morbid obesity Re sults for this PM [employer] (HCC) procedure are in Other the results hyperlipidemia section. Essential hypertension Obstructive sleep apnea Preoperative testing Intestinal malabsorption, unspecified type VITAMIN B1 LEVEL, WHOLE Routine 07/13/2019 1:46 Morbid obesit y Results for this BLOOD PM [employer] (HCC) procedure are in Other the results hyperlipidemia section. Essential hypertension Obstructive sleep apnea Preoperative testing Intestinal malabsorption, unspecified type ZINC LEVEL, SERUM Routine 07/13/2019 1:46 Morbid obesity Resu lts for this PM [employer] (HCC) procedure are in Other the results hyperlipidemia section. Essential hypertension Obstructive sleep apnea Preoperative testing Intestinal malabsorption, unspecified type ECG PRE/POST OP Routine 07/13/2019 12:07 Morbid obesity Result s for this PM [employer] (HCC) procedure are in Other the results hyperlipidemia section. Essential hypertension Obstructive sleep apnea Preoperative testing Intestinal malabsorption, unspecified type ESTIMATED GFR Routine 07/13/2019 11:47 Results fo r this AM [employer] procedure are i n the results section. FERRITIN LEVEL Routine 07/13/2019 11:47 Morbid obesity Results for this AM [employer] (HCC) procedure are in Other the results hyperlipidemia section. Essential hypertension Obstructive sleep apnea Preoperative testing Intestinal malabsorption, unspecified type COMPREHENSIVE METABOLIC Routine 07/13/2019 11:47 Morbid obesit y Results for this PANEL AM [employer] (HCC) procedure are in Other the results hyperlipidemia section. Essential hypertension Obstructive sleep apnea Preoperative testing Intestinal malabsorption, unspecified type LIPID PANEL Routine 07/13/2019 11:46 Morbid obesity Results f or this AM [employer] (HCC) procedure are in Other the results hyperlipidemia section. Essential hypertension Obstructive sleep apnea Preoperative testing Intestinal malabsorption, unspecified type ALBUMIN LEVEL Routine 07/13/2019 11:46 Morbid obesity Results for this AM [employer] (HCC) procedure are in Other the results hyperlipidemia section. Essential hypertension Obstructive sleep apnea Preoperative testing Intestinal malabsorption, unspecified type TOTAL IRON BINDING Routine 07/13/2019 11:46 Morbid obesity Res ults for this CAPACITY AM [employer] (HCC) procedure are in Other the results hyperlipidemia section. Essential hypertension Obstructive sleep apnea Preoperative testing Intestinal malabsorption, unspecified type T4, FREE Routine 07/13/2019 11:46 Morbid obesity Results f or this AM [employer] ([facility]) procedure are in Other the results hyperlipidemia section. Essential hypertension Obstructive sleep apnea Preoperative testing Intestinal malabsorption, unspecified type THYROID STIMULATING Routine 07/13/2019 11:46 Morbid obesity Re sults for this HORMONE AM [employer] ([facility]) procedure are in Other the results hyperlipidemia section. Essential hypertension Obstructive sleep apnea Preoperative testing Intestinal malabsorption, unspecified type VITAMIN B12 LEVEL Routine 07/13/2019 11:46 Morbid obesity Resu lts for this AM [employer] ([facility]) procedure are in Other the results hyperlipidemia section. Essential hypertension Obstructive sleep apnea Preoperative testing Intestinal malabsorption, unspecified type VITAMIN D 25 HYDROXY Routine 07/13/2019 11:46 Morbid obesity R esults for this LEVEL AM [employer] ([facility]) procedure are in Other the results hyperlipidemia section. 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 Essential hypertension Obstructive sleep apnea Preoperative testing Intestinal malabsorption, unspecified type MICROALBUMIN / Routine 06/05/2019 9:41 Morbid obesity with Re sults for this CREATININE URINE RATIO AM RETURNED GOODS INSPECTOR BMI of 40.0-44.9, procedure are in adult ([facility]) the results Uncontrolled type 2 section. diabetes mellitus without complication, with long-term current use of insulin ([facility]) COMPREHENSIVE METABOLIC Routine 06/05/2019 9:41 Morbid obesit y with Results for this PANEL AM RETURNED GOODS INSPECTOR BMI of 40.0-44.9, procedure are in adult ([facility]) the results Uncontrolled type 2 section. diabetes mellitus without complication, with long-term current use of insulin ([facility]) LIPID PANEL Routine 06/05/2019 9:41 Morbid obesity with Resu lts for this AM RETURNED GOODS INSPECTOR BMI of 40.0-44.9, procedure are in adult (HCC) the results Uncontrolled type 2 section. 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 diabetes mellitus without complication, with long-term current use of insulin ([facility]) after 01/31/2019 Results Hemoglobin A1c (11/16/2019 8:29 AM CDT)Only the most recent of4 resultswithin the time period is included. Hemoglobin A1C 8.0 (H) <5.7 % of [facility] Comment: total Hgb [place] For someone without known diabetes, a hemoglobin [...] diagnosis of diabetes for children. Specimen Blood Narrative Performed At FASTING:YES [facility] FASTING: YES Resulting Agency Comment Performing Organization Information: Site ID: [id number] Name: [facility] Address: [address] [place] [phone] Director: Anthony Josue Performing Organization Address City/State/Zipcode Phone Number [place] [address] [place], [place] [phone] Total iron binding capacity (2019 7:51 AM CDT)Only the most recent of2 resultswithin the time period is included. Pathologist Sig nature Iron level 128 50 - 180 mcg/dL [facility] [place] Iron binding capacity 388 250 - 425 mcg/dL [facility] CS (calc) [place] Iron saturation 33 20 - 48 % (calc) [facility] [place] Specimen Blood Narrative Performed At FASTING:NO [facility] FASTING: NO Resulting Agency Comment Performing Organization Information: Site ID: A Name: [facility] Address: [address] [place] [phone] Director: Anthony Josue Performing Organization Address City/[facility] Cent[facility]ode Phone Number [place] [address] [place] [address] Copper level, serum (2019 7:51 AM CDT)Only the most recent of2 results within the time period is included. Copper 103 70 - 175 [facility] Comment: mcg/dL SANON STEWART This test was developed and its analytical performance characteristics have been determined by [facility]. It has not been cleared or approved by [facility] FDA. This assay has been validated pursuant to the CLI A regulations and is used for clinical purposes. Specimen Blood Narrative Performed At FASTING:NO [facility] FASTING: NO Resulting Agency Comment Performing Organization Information: Site ID: [facility] Name: [employer] [facility] Address: [address] [place] [phone] Director: Elijah Irizarry M.D., Ph. D Performing Organization Address [facility] Phone Number Bill Me Later [address] [address] Vitamin B1 level, whole blood (2019 7:51 AM CDT)Only the most recent of2 resultswithin the time period is included. Pathologist [facility] Vitamin B1, 167 78 - 185 [facility] whole blood Comment: nmol/L SANON STEWART Vitamin supplementation within 24 hours prior to blood draw may affect the accuracy of results. This test was developed and its analytical performance characteristics have been determined by [facility]. It has not been cleared or approved by [facility]. This assay has been validated pursuant to the CLI A regulations and is used for clinical purposes. Specimen Blood Narrative Performed At FASTING:NO [facility] FASTING: NO Resulting Agency Comment Performing Organization Information: Site ID: [facility] Name: [employer] [facility] Address: [address] [place] [phone] Director: Elijah Irizarry M.D., Ph. D Performing Organization Address [facility] Phone Number [employer] Later [address] [address] Zinc level, serum (2019 7:51 AM CDT)Only the most recent of2 results within the time period is included. [facility] Zinc 67 60 - 130 [facility] Comment: mcg/dL YONIS STEWART This test was developed and its analytical performance characteristics have been determined by [facility]. It has not been cleared or approved by [facility] FDA. This assay has been validated pursuant to the CLI A regulations and is used for clinical purposes. Specimen Blood Narrative Performed At FASTING:NO [facility] FASTING: NO Resulting Agency Comment Performing Organization Information: Site ID: [facility] Name: [facility] Address: [address] [place] [phone] Director: Elijah Irizarry M.D., Ph. D Performing Organization Address [facility] Center[facility] Phone Number Online [employer]ong[employer] STEWART [phone] [place] [address] Vitamin A level, plasma or serum (2019 7:51 AM CDT)Only the most recent of2 resultswithin the time period is included. [facility] Vitamin A 98 38 - 98 [facility] (retinol) Comment: mcg/dL YONIS STEWART Clin Chem Vol. 34.No.8. [id number]. 1998 Vitamin supplementation within 24 hours prior to blood draw may affect the accuracy of results. This test was developed and its analytical performance characteristics have been determined by [facility]. It has not been cleared or approved by [facility] FDA. This assay has been validated pursuant to the CLI A regulations and is used for clinical purposes. Specimen Blood Narrative Performed At FASTING:NO [facility] FASTING: NO Resulting Agency Comment Performing Organization Information: Site ID: [facility] Name: [facility] Address: [address] [place] [address] Director: Elijah Irizarry M.D., Ph. D Performing Organization Address [facility] Phone Number [place] YONIS PARMA [phone] [place] [address] Vitamin D 25 hydroxy level (2019 7:51 AM CDT)Only the most recent of2 resultswithin the time period is included. [facility] Vitamin D, 27 (L) 30 - 100 [facility] 25-hydroxy Comment: ng/mL [place] Vitamin D Status 25-OH Vitamin D: Deficiency: <20 ng/mL Insufficiency: 20 - 29 ng/mL Optimal: > or = 30 ng/mL For 25-OH Vitamin D testing on patients on D2-supplementation and patients for whom quantitation of D2 and D3 fractions is required, the Quest[facility]ure[facility](T M) 25-OH VIT D, (D2,D3), LC/MS/MS is recommended: order code 14457 (patients >2yrs). For more information on this test, go to: http://education.The Huffington Post/faq/UFM827 (This link is being provided for informational/educational purposes only.) Specimen Blood Narrative Performed At FASTING:NO [facility] FASTING: NO Resulting Agency Comment Performing Organization Information: Site ID: RGA Name: [facility] Address: [address] [place] [phone] Director: Anthony Josue Performing Organization Address City/State/Zipcode Phone Number [place] [phone] CBC with platelet and differential (2019 7:51 AM CDT)Only the most recent of5 resultswithin the time period is included. WBC 5.6 3.8 - 10.8 [facility] Thousand/uL [place] RBC 4.27 4.20 - 5.80 [facility] Million/uL [place] HGB 12.4 (L) 13.2 - 17.1 [facility] g/dL [place] HCT 39.2 38.5 - 50.0 % [facility] [place] MCV 91.8 80.0 - 100.0 fL [facility] [place] MCH 29.0 27.0 - 33.0 pg [facility] [place] MCHC 31.6 (L) 32.0 - 36.0 [facility] g/dL [place] RDW 12.6 11.0 - 15.0 % [facility] [place] Platelet count 247 140 - 400 [facility] Thousand/uL [place] MPV 10.7 7.5 - 12.5 fL [facility] [place] Neutrophils, absolute 3,259 1,500 - 7,800 [facility] cells/uL [place] Lymphocytes, absolute 1,574 850 - 3,900 [facility] cells/uL [place] Monocytes, absolute 454 200 - 950 [facility] cells/uL [place] Eosinophils, absolute 274 15 - 500 [facility] cells/uL [place] Basophils, absolute 39 0 - 200 [facility] cells/uL [place] Neutrophils 58.2 % [facility] [place] Lymphocytes 28.1 % [facility] [place] Monocytes 8.1 % [facility] [place] Eosinophils 4.9 % [facility] [place] Basophils + RC 0.7 % [facility] [place] Specimen Blood Narrative Performed At FASTING:NO [facility] FASTING: NO Resulting Agency Comment Performing Organization Information: Site ID: RGA Name: [facility] Address: [address] [place] [phone] Director: Anthony Josue Performing Organization Address City/[facility] Centercode Phone Number [place] [address] T3 (2019 7:51 AM CDT)Only the most recent of2 resultswithin the time period is included. Pathologist Sig nature T3 83 76 - 181 ng/dL [facility] [place] Specimen Blood Narrative Performed At FASTING:NO [facility] FASTING: NO Resulting Agency Comment Performing Organization Information: Site ID: A Name: [facility] Address: [address] [place] [phone] Director: Anthony Josue Performing Organization Address [facility] Phone Number [place] [address] Thyroid stimulating hormone (2019 7:51 AM CDT)Only the most recent of2 resultswithin the time period is included. Pathologist Sig nature TSH 4.64 (H) 0.40 - 4.50 mIU/L [facility] ON Specimen Blood Narrative Performed At FASTING:NO [facility] FASTING: NO Resulting Agency Comment Performing Organization Information: Site ID: [facility] Name: [facility] Address: [address] [place] [phone] Director: Anthony Josue Performing Organization Address [facility] Centercode Phone Number [place] [address] T4, free (2019 7:51 AM CDT)Only the most recent of2 resultswithin the time period is included. Pathologist Sig nature T4, free 1.2 0.8 - 1.8 ng/dL [facility] [place] Specimen Blood Narrative Performed At FASTING:NO [facility] FASTING: NO Resulting Agency Comment Performing Organization Information: Site ID: [id number] Name: [facility] Address: [address] [place] [phone] Director: Anthony Josue Performing Organization Address [facility] Phone Number [place] [address] [address] Parathyroid hormone (2019 7:51 AM CDT)Only the most recent of2 results within the time period is included. PTH 7 (L) 14 - 64 pg/mL [facility] Comment: EverlaterDAYAN Zazueta II Interpretive Guide Intact PTH Calc ium ---- --- Normal Parathyroid Normal No rmal Hypoparathyroidism Low or Low Normal Low Hyperparathyroidism Primary Normal or High H igh Secondary High Normal or Low Tertiary High High Non-Parathyroid Hypercalcemia Low or Low Normal High Specimen Blood Narrative Performed At FASTING:NO [facility] FASTING: NO Resulting Agency Comment Performing Organization Information: Site ID: [id number] Name: [facility] Address: [address] [place] [phone] Director: Dr. Anthony lott Performing Organization Address [facility] Center[facility] Phone Number [place] [phone] Folate level (2019 7:51 AM CDT)Only the most recent of2 resultswithin the time period is included. Pathologist Sig nature Folate 23.3 ng/mL [facility] Comment: [place] Reference Rang e Low: <3.4 Borderline: 3.4-5.4 Normal: >5.4 Specimen Blood Narrative Performed At FASTING:NO [facility] FASTING: NO Resulting Agency Comment Performing Organization Information: Site ID: RGA Name: [facility] Address: [address] [place] [phone] Director: Anthony Josue Performing Organization Address City/[facility]/Zipcode Phone Number [place] [address] [place] [address] Ferritin level (2019 7:51 AM CDT)Only the most recent of2 resultswithin the time period is included. Pathologist Sig nature Ferritin level 217 38 - 380 ng/mL [facility] [place] Specimen Blood Narrative Performed At FASTING:NO [facility] FASTING: NO Resulting Agency Comment Performing Organization Information: Site ID: RGA Name: [facility] Address: [address] [place] [phone] Director: Anthony Josue Performing Organization Address [facility] Center[facility] Phone Number [place] [address] Vitamin B12 level (2019 7:51 AM CDT)Only the most recent of2 results within the time period is included. Pathologist [facility] Vitamin B12 626 200 - 1,100 pg/mL [facility] [place] Specimen Blood Narrative Performed At FASTING:NO [facility] FASTING: NO Resulting Agency Comment Performing Organization Information: Site ID: [facility] Name: [facility] Address: [address] [place] [phone] Director: Anthony Josue Performing Organization Address [facility] Center[facility] Phone Number [place] [address] Lipid panel (2019 7:51 AM CDT)Only the most recent of3 resultswithin the time period is included. Cholesterol, total 111 <200 mg/dL [facility] [place] HDL cholesterol 33 (L) > OR = 40 [facility] mg/dL [place] Triglycerides 253 (H) <150 mg/dL [facility] Comment: [place] If a non-fasting specimen was collected, consider repeat triglyceride testing on a fasting specimen if clinically indicated. Tiffanie et al. J. of Clin. Lipidol. 2015;9:129-169. LDL cholesterol 48 mg/dL (calc) [facility] calculated Comment: [place] Reference range: <100 Desirable range <100 mg/dL for primary prevention; <70 mg/dL for patients with CHD or diabetic patients with > or = 2 CHD risk factors. LDL-C is now calculated using the Shannan calculation, which is a validated novel method providi ng better accuracy than the Friedewald equation in the estimation of LDL-C. Trevor TELLO et al. AMBROCIO. 2013;310(19): 8823-6537 (http://education.Innovalight/faq/DLT586) Cholesterol/HDL 3.4 <5.0 (calc) [facility] ratio [place] Non-HDL cholesterol 78 <130 mg/dL [facility] Comment: (calc) [place] For patients with diabetes plus 1 major ASCVD risk factor, treating to a non-HDL-C goal of <100 mg/dL (LDL-C of <70 mg/dL) is considered a therapeutic option. Specimen Blood Narrative Performed At FASTING:NO [facility] FASTING: NO Resulting Agency Comment Performing Organization Information: Site ID: RGA Name: [facility] Address: [address] [place] [phone] Director: Anthony Josue Performing Organization Address City/State/Zipcode Phone Number [place] [phone] Comprehensive metabolic panel (2019 7:51 AM CDT)Only the most recent of3 resultswithin the time period is included. Glucose 174 (H) 65 - 139 [facility] Comment: mg/dL [place] Non-fasting reference interval BUN 34 (H) 7 - 25 mg/dL [facility] [place] Creatinine 1.20 0.70 - 1.33 [facility] Comment: mg/dL [place] For patients >49 years of age, the reference limit for Creatinine is approximately 13% higher for people identified as -Citizen Of [place]. EGFR Non-Afr. 66 > OR = 60 [facility] Citizen [place] mL/min/1.73m [place] 2 EGFR 76 > OR = 60 [facility] Citizen [place] mL/min/1.73m [place] 2 BUN/creatinine 28 (H) 6 - 22 [facility] ratio (calc) [place] Sodium 141 135 - 146 [facility] mmol/L [place] Potassium 3.8 3.5 - 5.3 [facility] mmol/L [place] Chloride 103 98 - 110 [facility] mmol/L [place] CO2 29 20 - 32 [facility] mmol/L [place] Calcium 10.0 8.6 - 10.3 [facility] mg/dL [place] Protein 6.5 6.1 - 8.1 [facility] g/dL [place] Albumin, S 4.2 3.6 - 5.1 [facility] g/dL [place] Globulin, total 2.3 1.9 - 3.7 [facility] g/dL (calc) [place] Albumin/globulin 1.8 1.0 - 2.5 [facility] ratio (calc) [place] Total bilirubin 0.6 0.2 - 1.2 [facility] mg/dL [place] Alkaline 42 35 - 144 U/L [facility] phosphatase [place] AST 31 10 - 35 U/L [facility] [place] ALT 29 9 - 46 U/L [facility] [place] Specimen Blood Narrative Performed At FASTING:NO [facility] FASTING: NO Resulting Agency Comment Performing Organization Information: Site ID: RGA [facility]: [facility] Address: [address] [place] [phone] Director: Anthony Josue Performing Organization Address City/State/Zipcode Phone Number [place] [address] [address] POC glucose (07/30/2019 12:03 PM RETURNED GOODS INSPECTOR)Only the most recent of9 resultswithin the time period is included. Pathologist Sig nature POC glucose 159 (H) 65 - 99 mg/dL [place] [facility] Comment: HOSPITAL Senior Ios Developer Name: Rudy De Leon Device ID: [id number] Chartable: [facility] Notified RN Specimen Performing Organization Address City/State/Zipcode Phone Number [facility] DEPARTMENT OF PATHOLOGY AND [address] [place], [place] [address] [address] [address] Estimated GFR (07/30/2019 8:32 AM RETURNED GOODS INSPECTOR)Only the most recent of4 resultswithin the time period is included. Estimated GFR 69 mL/min/1.73 [facility] Comment: m2 HOSPITAL Catergory Units Interpretation G1 >=90 Normal or high G2 60-89 Mildly decreased G3a 45-59 Mildly to moderately decreas ed G3b 30-44 Moderately to severely decre ased G4 15-29 Severely decreased G5 <15 Kidney failure The eGFR was calculated using the Chronic Kidney Disea se Epidemiology Collaboration (CKD-EPI) equation. Interpretation is based on recommendations of the National Kidney Foundation-Kidney Disease Outcomes Christian lity Initiative (NKF-KDOQI) published in 2014. Specimen Plasma specimen Performing Organization Address City/[facility]/Zipcode Phone Number [facility] DEPARTMENT OF PATHOLOGY AND [address] [place] [address] [place] [phone] Basic metabolic panel (07/30/2019 8:32 AM RETURNED GOODS INSPECTOR)Only the most recent of3 results within the time period is included. Pathologist Sig nature Sodium 139 135 - 148 mEq/L [facility] L Potassium 4.0 3.5 - 5.0 mEq/L [facility] Chloride 105 98 - 112 mEq/L [facility] CO2 19 (L) 24 - 31 mEq/L [facility] Anion gap 15@ANIO 7 - 15 mEq/L [facility] BUN 22 (H) 6 - 20 mg/dL [facility] Creatinine 1.15 0.70 - 1.20 mg/dL [facility] Glucose 183 (H) 65 - 99 mg/dL [facility] Calcium 9.2 8.3 - 10.2 mg/dL [facility] Specimen Plasma specimen Performing Organization Address City/[facility]/Zipcode Phone Number [facility] DEPARTMENT OF PATHOLOGY AND [address] [address] Airway (07/28/2019 3:11 PM RETURNED GOODS INSPECTOR) Narrative Performed At Jarocho Barrera CRNA 07/28/2019 3 :11 PM Airway Date/Time: 07/28/2019 2:58 PM Performed by: Jarocho Barrera CRNA Authorized by: Floresita Aguillon MD Location: OR Urgency: Elective Difficult Airway: No Preoxygenated with 100% O2: Yes C-spine Precautions Maintained Throughou t: Yes Mask Ventilation: Easy mask Final Airway Type: Endotracheal airway Final Endotracheal Airway: ETT Cuffed: Yes Technique Used: Direct laryngoscopy Devices/Methods Used in Placement: Int ubating stylet Insertion Site: Oral Blade Type: Garcia Laryngoscope Blade/Videolaryngoscope Eliseo de Size: 2 ETT Size (mm): 8.0 Cuff at minimum occlusion pressure: Yes Measured from: Lips ETT to Lips (cm): 22 Placement Verified by: CO2 detection, di rect visualization and equal breath sounds Laryngoscopic view: Grade I - full vie w of glottis Rapid Sequence Induction (RSI): No Modified RSI: No Number of Attempts at Approach: 1 Type and screen (07/13/2019 1:47 PM RETURNED GOODS INSPECTOR) Pathologist Sig nature ABO grouping O [facility] Rh type POS [facility] Antibody screen (gel) NEG [facility] Specimen Blood Performing Organization Address City/[facility] Cent[facility]ode Phone Number [facility] DEPARTMENT OF PATHOLOGY AND [address] [place] [address] [place] [phone] Partial thromboplastin time, activated (07/13/2019 1:46 PM RETURNED GOODS INSPECTOR) [facility] PTT 32.3 23.0 - 36.0 [facility] Comment: [facility] PTT therapeutic range for unfractionated heparin is 61.0-112.0 seconds which corresponds to Anti-Xa 0.3-0.7 U/ml. Specimen Blood Performing Organization Address [facility] Phone Number [facility] DEPARTMENT OF PATHOLOGY AND [address] [place] [address] [phone] [address] Prothrombin time with INR (07/13/2019 1:46 PM RETURNED GOODS INSPECTOR) [facility] Prothrombin time 12.8 11.5 - 14.5 [facility] INR 1.0 [place] Comment: [facility] The International Normalized Ratio (INR) is a therapeu [facility] HOSPITAL monitoring tool for patients who are stable on oral anticoagulant therapy. An INR of 2.0-3.0 is suggested for deep vein thrombosis/pulmonary embolism. Specimen Blood Performing Organization Address [facility] Cent[facility]ode Phone Number [facility] DEPARTMENT OF PATHOLOGY AND [address] [place] [address] [phone] [address] ECG Pre/Post Op (07/13/2019 12:07 PM RETURNED GOODS INSPECTOR) Pathologist [facility] nature Ventricular rate 76 [facility] Atrial rate 76 [facility] TN interval 166 [facility] QRSD interval 96 [facility] QT interval 378 [facility] QTC interval 425 [facility] P axis 1 68 [facility] QRS axis 1 28 [facility] T wave axis 77 [facility] EKG impression Normal sinus [facility] MUSE rhythm-Normal ECG-In automated comparison with ECG of 13-OCT-2018 14:24,-No significant change was found- Specimen Narrative Performed At This result has an attachment that is no t available. Performing Organization Address City/[facility] Centercode Phone Number [facility] MUSE [address] [place] [phone] Insulin, random (07/13/2019 11:46 AM RETURNED GOODS INSPECTOR) Pathologist Sig nature Insulin, random 4.9Comment: The mU/L [facility] reference interval HOSPITAL for fasting insulin is 2.6-24.9 mU/L Specimen Plasma specimen Performing Organization Address [facility] Phone Number [facility] DEPARTMENT OF PATHOLOGY AND [address] [place] [address] [phone] [address] C-reactive protein (07/13/2019 11:46 AM RETURNED GOODS INSPECTOR) Pathologist Sig [facility] CRP 0.35 0.00 - 0.50 mg/dL [facility] Specimen Plasma specimen Performing Organization Address [facility] Phone Number [facility] DEPARTMENT OF PATHOLOGY AND [address] [place] [address] [place] [phone] Albumin level (07/13/2019 11:46 AM RETURNED GOODS INSPECTOR) Pathologist [facility] Albumin 4.0 3.5 - 5.0 g/dL [facility] Specimen Plasma specimen Performing Organization Address [facility] Phone Number [facility] DEPARTMENT OF PATHOLOGY AND [address] [place] [address] [phone] [address] Microalbumin / creatinine urine ratio (06/05/2019 9:41 AM RETURNED GOODS INSPECTOR) Creatinine, 132 20 - 320 [facility] urine, random mg/dL [place] Microalbumin, 3.4 See Note: [facility] urine Comment: mg/dL [place] Reference Range: Reference Range Not established Microalbumin/cre 26 <30 mcg/mg [facility] atinine ratio Comment: creat [place] The ADA defines abnormalities in albumin excretion as follows: Category Result (mcg/mg creatinine) Normal <30 Microalbuminuria 30-299 Clinical albuminuria > OR = 300 The ADA recommends that at least two of three specimens collected within a 3-6 month period be abnormal before considering a patient to be within a diagnostic category. 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
--- OUTSIDE RECORDS SUMMARY | 2020-02-01 21:23 | XMS REPORT | Continuity of Care Document ---
:[address] [facility] t Address [address] [place] [address] Care Team Providers Name Role Phone Yancy GARCIA, Fayz Primary Care Physician Rizwana INFANTE Attending Clinician Teto GARCIA Attending Clinician Travis GARCIA Attending Clinician Miguel [place] Attending Clinician Kendal Pina NP Attending Clinician Terri INFANTE Attending Clinician Unavailable Filiberto Mcqueen MD Attending Clinician Annia Dutton NP Attending Clinician Brenden INFNATE Attending Clinician Unavailable TRAVIS Admitting Clinician Unavailable Payers Payer Name Policy Policy Number Effective Expiration Source Type Date Date TEXANPLUSTEXANPLUS xxxxxxxxx 2015 [place] [id number] 00:00:00 Me thodist resentHMO Problems Condition Condition Condition Status Onset Resolution Last Treating Co mments Source Name Details Category Date Date Treatment Clinician Date Elevated Elevated Disease Active [place] triglyceri triglyceri 5-13 Me [facility] dion with dion with 00:00: st high high 00 cholestero cholestero l l Low HDL Low HDL Disease Active [place] (under 40) (under 40) 5-13 Me thodi 00:00: st 00 Elevated Elevated Disease Active [place] hemoglobin hemoglobin 3-12 Me thodi A1c A1c 00:00: st 00 Multiple Multiple Disease Active [place] vitamin vitamin 3-12 Method[facility] deficiency deficiency 00:00: st 00 Vitamin D Vitamin D Disease Active [facility] ston deficiency deficiency 3-12 Me thodi 00:00: st 00 Low serum Low serum Disease Active [facility] ston parathyroi parathyroi 3-12 Me th[facility] d hormone d hormone 00:00: st (PTH) (PTH) 00 Morbid Morbid Disease Active 2018-08 [place] obesity obesity 2-27 Methodi 00:00: st 00 Allergies, Adverse Reactions, Alerts This patient has no known allergies or adverse reactions. Family History Family Member Diagnosis Comments Start Date Stop Date Source Natural mother COPD [place] [facility] Natural mother Cancer [place] [facility] Natural mother Diabetes [place] [facility] Social History Social Habit Start Date Stop Date Quantity Comments Source History of tobacco Current smoker [place] use [facility] History [facility] Alcohol Std Drinks Method ist History [facility] Alcohol Binge [place] Sex Assigned At [facility] Cigarettes smoked 2019-09-07 2019-09-07 [place] current (pack per 00:00:00 00:00:[address] day) - Reported Cigarette 2019-09-07 2019-09-07 [place] pack-years 00:00:00 00:00:00 [facility] Alcohol intake 2019-09-07 2019-09-07 Current drinker of [place] 00:00:00 00:00:00 alcohol (finding) Methodi st Alcohol Comment 2018-10-13 2018-10-13 stopped [place] 00:00:00 00:00:00 occassional beer Methodis t 2018 History [facility] 2018-08-26 2018-08-26 1 [place] Alcohol Frequency 00:00:00 00:00:[address] Smoking Status Start Date Stop Date Source Former smoker 2019-09-07 00:00:00 2019-09-07 00:00:00 [place] [facility] Medications Ordered Filled Start Stop Current Ordering Indication Dosage Frequency Signature Comments Components Source Medication Medication Date Date Medication? Clinician (SIG) Name Name clonIDINE 2019- 2020- No 1{patch Q7D Place [facility] (CATAPRES-T 429 04-29 } patch on Met hodi TS) 0.1 09:44: 00:[address] mg/24 hr 54 :00 once a week. fenofibrate 2020-0 Yes 145mg QD Take 145 [place] (TRICOR) 4-29 mg by Methodi 145 MG 08:55: mouth st tablet 19 daily. HYDROcodone 2020-0 Yes 1{tbl} Q.[id number] Take 1 [place] -acetaminop 4-29 [id number] tablet by Methodi hen (NORCO) 08:55: 3D mouth 3 st 7.5-325 mg 19 (three) per tablet times a day. metoprolol 2020-0 Yes 50mg Q.5D Take 50 mg [place] tartrate 4-29 by mouth 2 Metho di (LOPRESSOR) 08:55: (two) st 25 mg 19 times a tablet day. atorvastati 2020-0 Yes 80mg QD Take 80 mg Ace[place] n (LIPITOR) 4-29 by mouth Meth sammie 80 MG 08:55: daily. st tablet 19 amLODIPine 2020-0 Yes 10mg QD Take 10 mg [place] (NORVASC) 4-29 by mouth Method i 10 mg 08:55: daily. st tablet 19 aspirin 2020-0 Yes 81mg QD Take 81 mg [place] (ECOTRIN) 4-29 by mouth Method i 81 MG 08:55: daily. st enteric 19 coated tablet clopidogrel 2020-0 Yes 75mg QD Take 75 mg [place] (PLAVIX) 75 4-29 by mouth Meth sammie mg tablet 08:55: daily. st 19 metFORMIN 2020-0 Yes 500mg Q.5D Take 500 [place] (GLUCOPHAGE 4-29 mg by Methodi ) 500 mg 08:55: mouth 2 st tablet 19 (two) times a day with meals. cholecalcif 2020-0 Yes 5000U QD Take 5,000 [place] shellie, 4-29 Units by Methodi vitamin D3, 08:55: mouth st (VITAMIN D3 18 daily. ORAL) olmesartan 2020-0 Yes 40mg QD Take 40 mg [place] (BENICAR) 4-29 by mouth Method i 40 MG 08:55: daily. st tablet 18 pantoprazol 2020-0 Yes 40mg QD Take 40 mg [place] e 4-29 by mouth Methodi (PROTONIX) 08:55: daily. st 40 MG EC 18 tablet hydroCHLORO 2020-0 Yes 25mg Q.5D Take 25 mg [place] thiazide 4-29 by mouth 2 Metho di (HYDRODIURI 08:55: (two) st L) 25 MG 18 times a tablet day. ferrous 2020-0 Yes 325mg QD Take 325 [place] sulfate 4-29 mg by Methodi (iron) 325 08:55: mouth st (65 FE) MG 18 daily with tablet breakfast. calcium 2020-0 Yes Take by [facility] citrate/vit -29 mouth. Method i herrera D3 08:55: st (CITRACAL 18 REGULAR ORAL) enoxaparin 2018-08- No 30mg QD Inject 0.3 [place] (LOVENOX) -13 mL (30 mg Meth sammie 30 mg/0.3 00:00: 23:59 total) st mL syringe 00 :00 under the skin daily for 14 days. olmesartan 2018-08- No 40mg QD Take 40 mg [place] (BENICAR) 07-30 by mouth Metho di 40 MG 14:32: 00:[address] tablet 23 :00 pantoprazol 2018-08 No 40mg QD Take 40 mg [place] e 07-30 by mouth Methodi (PROTONIX) 14:32: 00:[address] 40 MG EC 23 :00 tablet insulin 2018-08- No 80U Q.5D Inject 80 [place] degludec 07-30 Units Methodi (TRESIBA 14:32: 00:[address] FLEXTOUCH 23 :00 skin 2 U-100) 100 (two) unit/mL (3 times a mL) insulin day. pen hydroCHLORO 2018-08 No 25mg QD Take 25 mg [place] thiazide 07-30 by mouth Method i (HYDRODIURI 14:32: 00:[address] L) 12.5 MG 23 :00 tablet pantoprazol 2018-08- No 40mg QD Take 1 [place] e 08-29 tablet (40 Methodi (PROTONIX) 00:00: 23:59 mg total) s t 40 MG EC 00 :00 by mouth tablet daily for 30 days. metFORMIN 2018-08- No 500mg Q.5D Take 0.5 [place] (GLUCOPHAGE 08-23 tablets Meth sammie ) 1,000 mg 00:00: 00:00 ([address] tablet 00 :00 total) by mouth 2 (two) times a day with meals. traMADol 2018-08- acute pain 50mg Q6H Take 1 [place] (ULTRAM) 50 08-09 tablet (50 M ethodi mg tablet 00:00: 23:59 mg total) st 00 :00 by mouth every 6 (six) hours as needed for moderate pain for up to 10 days .acute pain. methocarbam 2018-08- No 500mg Q.25D Take 1 [place] ol 08-09 tablet Methodi (ROBAXIN) 00:00: 23:59 ([address] 500 MG 00 :00 total) by tablet mouth 4 (four) times a day for 10 days. cholecalcif 2018-08 No Take by [place] shellie, 09-13 12-12 mouth. Methodi vitamin D3, 09:28: 00:00 st (VITAMIN D3 03 :00 ORAL) NAPROXEN 2018-08 220mg Take 220 [place] ORAL 09-13 12-12 mg by Methodi 09:27: 00:[address] 52 :00 needed. metFORMIN 2018-08- No TAKE 1 [place] (GLUCOPHAGE 09-05 TABLET BY Me garcia ) 1,000 mg 00:00: 00:[address] tablet 00 :00 TWICE A DAY WITH FOOD semaglutide 2018-08- No .5mg Q1W Inject 0.5 [place] (OZEMPIC) 08-28- mg under Metho di 0.25 mg or 00:00: 00:[address] 0.5 mg(2 00 :00 every 7 mg/1.5 mL) days. Lot# pen [id number] injector EXP: 09/2020 gabapentin 2018-08- No 600mg Q.[id number] Take 600 [place] (NEURONTIN) 1- 11- [id number] mg by Methodi 600 mg 14:30: 00:[address] tablet 45 :00 (three) times a day. omeprazole 2018-08- No Bariatric TAKE 1 [place] (PriLOSEC) 0-16 07-30 surgery CAPSULE BY Methodi 40 MG 00:00: 00:[address] capsule 00 :00 EVERY DAY gabapentin 2018- Yes 800mg Q.[id number] Take 800 [place] (NEURONTIN) 0-03 [id number] mg by M ethodi 800 mg 00:00: 3D mouth 3 st tablet 00 (three) times a day. semaglutide 2019- No .25mg Q1W Inject Ho val[place] (OZEMPIC) 02-22 11-27 0.25 mg Method i 0.25 mg or 00:00: 00:00 under the s t 0.5 mg(2 00 :00 skin every mg/1.5 mL) 7 days. pen Lot# injector [id number] EXP: 09/2020 metFORMIN 2018- No TAKE 1 [place] (GLUCOPHAGE 01-10 TABLET BY De jose ) 1,000 mg 00:00: 00:[address] tablet 00 :00 TWICE A DAY WITH FOOD dulaglutide 2018- No 1.5mg Q7D Inject 1.5 [place] (TRULICITY) 11-30 07-24 mg under Met hodi 1.5 mg/0.5 00:00: 00:[address] mL pen 00 :00 once a injector week. 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 cyanocobala 2018- No Vitamin 1000ug QD Place [place] min, 3-20 12-12 deficiency 1,000 mcg Met hodi vitamin 00:00: 00:[address] B-12, 00 :00 tongue (VITAMIN daily. B-12) 1,000 mcg tablet, sublingual ondansetron 2018- No Bariatric 4mg Q8H Take 1 [place] ODT 10-13 surgery tablet (4 Method i (ZOFRAN-ODT 00:00: 00:00 status mg total) st ) 4 MG 00 :00 by mouth disintegrat every 8 ing tablet (eight) hours as needed for nausea or vomiting. omeprazole 2018- No Bariatric 40mg QD Take 1 [place] (PriLOSEC) -04-[address] [facility] MG 00:00: 00:00 status ([address] capsule 00 :00 total) by mouth daily. hydrALAZINE Yes 10mg Q.[id number] Take 10 mg [place] (APRESOLINE 2- [id number] by mouth 3 Methodi ) 10 MG 00:00: 3D (three) st tablet 00 times a day. insulin 2018-0 Yes Inject Ketan ASPART 7-11 6-20 units Methodi (NovoLOG 00:00: tid per st Flexpen 00 sliding U-100 scale. Insulin) 100 unit/mL insulin pen Vital Signs Vital Name Observation Time Observation Value Comments Source Systolic blood 2019-09-07 13:21:00 174 mm[Hg] Mandato n [place] pressure Diastolic blood 2019-09-07 13:21:00 85 mm[Hg] [place]ina on [place] pressure Heart rate 2019-09-07 13:21:00 69 /min Ketan Owens Body temperature 2019-09-07 13:21:00 36.83 Mirella Manda ton [place] Respiratory rate 2019-09-07 13:21:00 16 /min Manda Owens Body height 2019-09-07 13:21:00 167.6 cm Ketan Owens Body weight 2019-09-07 13:21:00 108.138 kg Ketan Owens BMI 2019-09-07 13:21:00 38.48 kg/m2 Ketan Owens Oxygen saturation in 2019-09-07 13:21:00 95 /min Ketan Owens Arterial blood by Pulse oximetry Procedures Procedure Date / Time Performing Clinician Source Performed HEMOGLOBIN A1C 2019-11-16 08:29:00 Kayla Diaz COMPREHENSIVE METABOLIC 2019 07:51:00 Ganesh Robles PANEL LIPID PANEL 2019 07:51:00 Ganesh Robles TOTAL IRON BINDING 2019 07:51:00 Ganesh Robles ethodist CAPACITY T4, FREE 2019 07:51:00 Ganesh Robles THYROID STIMULATING 2019 07:51:00 Ganesh Robles HORMONE HEMOGLOBIN A1C 2019 07:51:00 Ganesh Robles PARATHYROID HORMONE 2019 07:51:00 Ganesh Robles CBC WITH PLATELET AND 2019 07:51:00 Ganesh Robles DIFFERENTIAL VITAMIN A LEVEL, PLASMA OR 2019 07:51:00 Ganesh Robles SERUM VITAMIN B12 LEVEL 2019 07:51:00 Ganesh Robles thodist VITAMIN D 25 HYDROXY LEVEL 2019 07:51:00 TravisGanesh [place] COPPER LEVEL, SERUM 2019 07:51:00 TravisGanesh FOLATE LEVEL 2019 07:51:00 TravisGanesh dhaliwal odist FERRITIN LEVEL 2019 07:51:00 TravisGanesh dhaliwal odetienne VITAMIN B1 LEVEL, WHOLE 2019 07:51:00 TravisGanesh [place] BLOOD ZINC LEVEL, SERUM 2019 07:51:00 TravisGanesh thodist T3 2019 07:51:00 TravisGanesh dhaliwal odist POC GLUCOSE 2019-07-30 12:03:00 TravisGanesh dhaliwal odist HC COMPLETE BLD COUNT 2019-07-30 09:15:00 Angy Cobian W/AUTO DIFF BASIC METABOLIC PANEL 2019-07-30 08:32:00 Angy Cobian ESTIMATED GFR 2019-07-30 08:32:00 TravisGanesh Meth odist POC GLUCOSE 2019-07-30 07:54:00 TravisGanesh dhaliwal odist POC GLUCOSE 2019-07-29 19:36:00 TravisGanesh dhaliwal odist POC GLUCOSE 2019-07-29 15:47:00 TravisGanesh dhaliwal odist POC GLUCOSE 2019-07-29 12:01:00 TravisGanesh dhaliwal odist POC GLUCOSE 2019-07-29 07:35:00 TravisGanesh dhaliwal odist HC COMPLETE BLD COUNT 2019-07-29 04:13:00 Angy Cobian W/AUTO DIFF BASIC METABOLIC PANEL 2019-07-29 04:13:00 Angy Cobian ESTIMATED GFR 2019-07-29 04:13:00 TravisGanesh Meth odist POC GLUCOSE 2019-07-28 22:28:00 TravisGanesh Meth odist HC COMPLETE BLD COUNT 2019-07-28 20:24:00 Angy Cobian W/AUTO DIFF BASIC METABOLIC PANEL 2019-07-28 20:24:00 Angy Cobian ESTIMATED GFR 2019-07-28 20:24:00 Ganesh Robles POC GLUCOSE 2019-07-28 20:07:00 Ganesh Robles NC AN ELECTIVE 2019-07-28 15:11:30 BruceVickiJarochoisauro guzman ENDOTRACHEAL AIRWAY GASTROENTEROSTOMY, 2019-07-28 14:52:00 Ganesh Robles ethodist TAMIR-EN-Y, LAPAROSCOPIC, WITH INTRAOPERATIVE ENDOSCOPY POC GLUCOSE 2019-07-28 12:31:00 Ganesh Robles TYPE AND SCREEN 2019-07-13 13:47:00 Ganesh Robles ZINC LEVEL, SERUM 2019-07-13 13:46:00 Ganesh Robles thodi VITAMIN B1 LEVEL, WHOLE 2019-07-13 13:46:00 Ganesh Robles BLOOD COPPER LEVEL, SERUM 2019-07-13 13:46:00 Ganesh Robles VITAMIN A LEVEL, PLASMA OR 2019-07-13 13:46:00 Ganesh Robles SERUM PARTIAL THROMBOPLASTIN 2019-07-13 13:46:00 Ganesh Robles TIME (PTT) PROTHROMBIN TIME WITH INR 2019-07-13 13:46:00 Ganesh Robles HC COMPLETE BLD COUNT 2019-07-13 13:46:00 Ganesh Robles W/AUTO DIFF PARATHYROID HORMONE 2019-07-13 13:46:00 Ganesh Robles HEMOGLOBIN A1C 2019-07-13 13:46:00 Ganesh Robles ECG PRE/POST OP 2019-07-13 12:07:57 Ganesh Robles COMPREHENSIVE METABOLIC 2019-07-13 11:47:00 Ganesh Robles PANEL FERRITIN LEVEL 2019-07-13 11:47:00 Ganesh Robles ESTIMATED GFR 2019-07-13 11:47:00 Ganesh Robles C-REACTIVE PROTEIN 2019-07-13 11:46:00 Ganesh Robles ethodi INSULIN, RANDOM 2019-07-13 11:46:00 Ganesh Robles odist T3 2019-07-13 11:46:00 Ganesh Robles Meth odist FOLATE LEVEL 2019-07-13 11:46:00 Ganesh Robles odist VITAMIN D 25 HYDROXY LEVEL 2019-07-13 11:46:00 Ganesh Robles brandi [facility] VITAMIN B12 LEVEL 2019-07-13 11:46:00 Ganesh Robles Me thodist THYROID STIMULATING 2019-07-13 11:46:00 Ganesh Robles [place] HORMONE T4, FREE 2019-07-13 11:46:00 Ganesh Robles Meth odist TOTAL IRON BINDING 2019-07-13 11:46:00 Ganesh Robles M ethodist CAPACITY ALBUMIN LEVEL 2019-07-13 11:46:00 Ganesh Robles odist LIPID PANEL 2019-07-13 11:46:00 Ganesh Robles Meth odist HEMOGLOBIN A1C 2019-06-05 09:41:00 Kayla Diaz Met hodist LIPID PANEL 2019-06-05 09:41:00 Kayla Diaz Met hodist COMPREHENSIVE METABOLIC 2019-06-05 09:41:00 Kayla Diaz [facility] PANEL MICROALBUMIN / CREATININE 2019-06-05 09:41:00 Kayla Diaz [facility] URINE RATIO Plan of Care Planned Activity Planned Date Details Comments Source Future Scheduled 2020-06-05 URINE MICROALBUMIN [place] [facility] Test 00:00:00 [code = URINE MICROALBUMIN] Future Scheduled 2020-03-02 INFLUENZA VACCINE [place] [facility] Test 00:00:00 [code = INFLUENZA VACCINE] Future Scheduled 2010 COLONOSCOPY SCREENING [place] [facility] Test 00:00:00 [code = COLONOSCOPY SCREENING] Future Scheduled 2010 SHINGLES VACCINES (#1) [place] [facility] Test 00:00:00 [code = SHINGLES VACCINES (#1)] Future Scheduled 1970 DIABETIC FOOT EXAM [place] [facility] Test 00:00:00 [code = DIABETIC FOOT EXAM] Future Scheduled 1960 DIABETIC RETINAL EYE [place] [facility] Test 00:00:00 EXAM [code = DIABETIC RETINAL EYE EXAM] Encounters Start End Encounter Admission Attending Care Care Encounter Source Date/Time Date/Time Type Type Clinicians Facility Department ID 2019-11-29 2019-11-29 Outpatient TETO [facility] [id number] [place] 00:00:00 00:00:00 KAYLA Adam Metho di st 2019-10-26 2019-10-26 Outpatient TRAVIS [facility] [id number] [place] 00:00:00 00:00:00 GANESH [address] 2019-07-28 2019-07-30 Inpatient TRAVIS [facility] [id number] [place] 00:00:00 00:00:00 GANESH [address] Results Test Description Test Time Test Comments Results Result Comments Source Hemoglobin A1c 2019-11-17 01:46:00 Test Item Value Reference Range Interpretation Comme nts Hemoglobin A1C (test 8.0 <5.7 % of H For [place] eone without code = 4548-4) total Hgb known diabete s, a hemoglobin A1cv alue of 6.5% or greater indicates that they may have diabetes a nd this should be confi rmed with a follow-up bry t. For someone with kn own diabetes, a kierra ue <7% indicates that their diabetes is wel l controlled and a value greater than or equal to 7% indicates carlton boptimal control. A1c ta rgets should be indiv idualized based on durati on of diabetes, age, comorbid conditions, and other considerations. Currently, no c onsensus exists regardin g use ofhemoglobin A1 c for diagnosis of di abetes for children. GIO (test code = GIO) FASTING:YESFASTING: YES RAC (test code = RAC) Performing Organization Information: Site ID: RGA [facility]: [facility] Address: [address] [place] [id number] Director: Anthony Josue Lab Interpretation (test Abnormal code = 81287-2) [place] [facility]Com[facility] metabolic [id number] 11:39:00 Test Item Value Reference Interpretation Comments Range Glucose (test code 174 mg/dL 65-139 H N on-fasting = 2345-7) reference inter kierra BUN (test code = 34 mg/dL 7-25 H 3094-0) Creatinine (test 1.20 mg/dL 0.7-1.33 For patient s >49 code = 2160-0) years of age, the reference limit for Creatinine is approximately 1 3% higher for peopleidentifie d as -Khushboo n. EGFR Non-Afr. 66 > OR = 60 Brazilian (test code mL/min/1.73m2 = 2775) EGFR 76 > OR = 60 Brazilian (test code mL/min/1.73m2 = 17628-9) BUN/creatinine 28 6- 22 (calc) H ratio (test code = 3097-3) Sodium (test code = 141 mmol/L 114-423 9822-2) Potassium (test 3.8 mmol/L 3.5-5.3 code = 2823-3) Chloride (test code 103 mmol/L 98-110 = 2075-0) CO2 (test code = 29 mmol/L 20-32 2027-9) Calcium (test code 10.0 mg/dL 8.6-10.3 = 44618-7) Protein (test code 6.5 g/dL 6.1-8.1 = 2885-2) Albumin, S (test 4.2 g/dL 3.6-5.1 code = 1751-7) Globulin, total 2.3 1.9- 3.7 g/dL (test code = (calc) 30790-3) Albumin/globulin 1.8 1.0- 2.5 ratio (test code = (calc) 1759-0) Total bilirubin 0.6 mg/dL 0.2-1.2 (test code = 1975-2) Alkaline 42 U/L 35-144 phosphatase (test code = 6768-6) AST (test code = 31 U/L 10-35 1920-8) ALT (test code = 29 U/L -46 2-6) GIO (test code = FASTING:NOFASTING GIO) : NO RAC (test code = Performing RAC) Organization Information: Site ID: RGA Name: [facility] Address: [address] [place] [address] Director: Anthony Josue Lab Interpretation Abnormal (test code = 99205-9) [place] MethodistLipid [id number] 11:39:00 Test Item Value Reference Interpretation Comments Range Cholesterol, total 111 mg/dL <200 (test code = 3-3) HDL cholesterol 33 mg/dL > OR = 40 L (test code = 2085-9) Triglycerides (test 253 mg/dL <150 H If a no n-fasting code = 2571-8) specimen was collected, considerrepeat triglyceride testing on a fasting specime nif clinically indicated. Prosper raya al. J. of Cl in. Lipidol. 2015;9:129-169. LDL cholesterol 48 mg/dL (calc) Reference ra nge: calculated (test <100 Desira ble code = 43133-5) range <100 m g/dL for primary prevention; <7 0 mg/dL for patie nts with CHD or diabetic patien ts with > or = 2 C HD risk factors. L DL-C is now calculat ed using the Trevor-Bazzi calculation, wh ich is a validated novel method providing marcy r accuracy than t he Mouna equa tion in the estimati on of LDL-C. Marleny n SS et al. AMBROCIO. 2013;310(19): 9766-5290 (http://educati on.[employer] ([employer] .[employer] /faq/MZF740) Cholesterol/HDL 3.4 <5.0 (calc) ratio (test code = 9830-1) Non-HDL cholesterol 78 <130 mg/dL For gurjit ents with (test code = (calc) diabetes plus 1 32284-4) major ASCVD ris k factor, treatin g to a non-HDL-C goa l of <100 mg/dL (LDL -C of <70 mg/dL) i s considered a therapeutic opt ion. GIO (test code = FASTING:NOFASTING GIO) : NO RAC (test code = Performing RAC) Organization Information: Site ID: RGA Name: [facility] Address: [address] [place] [phone] Director: Anthony Josue Lab Interpretation Abnormal (test code = 59419-5) Ketan OwensVitamin B12 [id number] 11:39:00 Test Item Value Reference Range Interpretation Comments Vitamin B12 (test 626 pg/mL 200-1100 code = 2132-9) GIO (test code = FASTING:NOFASTING: NO GIO) RAC (test code = Performing Organization RAC) Information: Site ID: RGA [facility] Address: [address] [place] [phone] Director: Anthony Josue [facility] MethodistFerritin [id number] 11:39:00 Test Item Value Reference Range Interpretation Comments Ferritin level (test 217 ng/mL 38-380 code = 2276-4) GIO (test code = GIO) FASTING:NOFASTING: NO RAC (test code = RAC) Performing Organization Information: Site ID: RGA [facility] Address: [address] [place] [phone] Director: Anthony Josue [place] MethodistFolate [id number] 11:39:00 Test Item Value Reference Range Interpretation Comments Folate (test 23.3 ng/mL code = 2284-8) Refer ence Range Lo w: <3.4 Borderline: 3.4-5.4 Normal: >5.4 GIO (test code FASTING:NOFASTING: NO = GIO) RAC (test code Performing = RAC) Organization Information: Site ID: RGA [facility] Address: [address] [place] [phone] Director: Anthony Josue [place] MethodistParathyroid [id number] 11:39:00 Test Item Value Reference Interpretation Comments Range PTH (test code = 7 pg/mL 14-64 L Interpreti ve Guide 2731-8) Intact PTH Calcium-------- -------Normal P arathyroid Normal NormalHypoparat hyroidism Low or Low Nor mal LowHyperparathy roidism Primary Normal or High H igh Secondary High No rmal or Low Tertiary High HighNon-Parathy roid Hypercalcemia Low or Low Normal H igh GIO (test code = FASTING:NOFASTI GIO) NG: NO RAC (test code = Performing RAC) Organization Information: Site ID: IG [facility]: [facility] Address: [address] [place] [address] Director: Dr. Anthony Josue Lab Abnormal Interpretation (test code = 04218-4) Ace[facility] MethodistT4, [id number] 11:39:00 Test Item Value Reference Range Interpretation Comments T4, free (test code 1.2 ng/dL 0.8-1.8 = 3024-7) GIO (test code = FASTING:NOFASTING: NO GIO) RAC (test code = Performing Organization RAC) Information: Site ID: ROBBI Name: [facility] Address: [address] [place] [address] Director: Anthony Josue [place] MethodistThyroid stimulating [id number] 11:39:00 Test Item Value Reference Range Interpretation Comments TSH (test code = 4.64 0.40- 4.50 mIU/L H 3016-3) GIO (test code = GIO) FASTING:NOFASTING: NO RAC (test code = RAC) Performing Organization Information: Site ID: ROBBI Name: [facility] Lab Address: [address] [place] [address] Director: Anthony Josue Lab Interpretation Abnormal (test code = 09820-5) [id number] 11:39:00 Test Item Value Reference Range Interpretation Comments T3 (test code = 83 ng/dL 76-181 3053-6) GIO (test code = FASTING:NOFASTING: NO GIO) RAC (test code = Performing Organization RAC) Information: Site ID: ROBBI Name: [facility] Address: [address] [place] [phone] Director: Anthony Josue [place] MethodistCB with platelet and [id number] 11:39:00 Test Item Value Reference Range Interpretation Comments WBC (test code = 5.6 3.8- 10.8 6690-2) Thousand/uL RBC (test code = 789-8) 4.27 4.20- 5.80 Million/uL HGB (test code = 718-7) 12.4 g/dL 13.2-17.1 L HCT (test code = 39.2 % 38.5-50 4544-3) MCV (test code = 787-2) 91.8 fL 80-100 MCH (test code = 785-6) 29.0 pg 27-33 MCHC (test code = 31.6 g/dL 32-36 L 786-4) RDW (test code = 788-0) 12.6 % 11-15 Platelet count (test 247 140- 400 code = 777-3) Thousand/uL MPV (test code = 776-5) 10.7 fL 7.5-12.5 Neutrophils, absolute 3259 1,500 - 7,800 (test code = 751-8) cells/uL Lymphocytes, absolute 1574 850- 3,900 (test code = 731-0) cells/uL Monocytes, absolute 454 200- 950 cells/uL (test code = 742-7) Eosinophils, absolute 274 15- 500 cells/uL (test code = 711-2) Basophils, absolute 39 0- 200 cells/uL (test code = 704-7) Neutrophils (test code 58.2 % = 770-8) Lymphocytes (test code 28.1 % = 736-9) Monocytes (test code = 8.1 % 5905-5) Eosinophils (test code 4.9 % = 713-8) Basophils + RC (test 0.7 % code = 706-2) GIO (test code = GIO) FASTING:NOFASTING: NO RAC (test code = RAC) Performing Organization Information: [facility] ID[id number] Lab Address: [address] [place] [phone] Director: Anthony Josue Lab Interpretation Abnormal (test code = 96673-1) [facility]xicoVitamin D 25 hydroxy [id number] 11:39:00 Test Item Value Reference Range Interpretation Comments Vitamin D, 27 ng/mL 30-100 L Vitamin D Statu s 25-hydroxy (test 25-O H code = 1989-3) Vitamin D: Deficiency: <2 0 ng/mLInsufficie nc y: 20 - 29 ng/mLOptimal: > o r = 30 ng/mL For 25-OH Vitamin D testing on patients on D2-supplementat io n and patients for whom quantitation of D2 and D3 fractions is required, the QuestAssureD(TM )2 5-OH VIT D, (D2,D3), LC/MS/ MS is recommended: order code 9288 8 (patients >2yrs ). For more information on this test, go to:[email or web address] (This link is being provided for informational/e du cational purpos es only.) GIO (test code = FASTING:NOFASTING: GIO) NO RAC (test code = Performing RAC) Organization Information: Site ID: [facility] Name: [facility] Address: [address] [place] [address] Director: Anthony Josue Lab Interpretation Abnormal (test code = 10725-6) [facility] MethodistVitamin A level, plasma or [id number] 11:39:00 Test Item Value Reference Range Interpretation Comments Vitamin A 98 38- 98 mcg/dL Clin Chem Vo l. (retinol) 34.No.8. [id number]. (test code = 1998Vitamin 2923-1) supplementation within 24 hours prior to blood draw m ay affect the accu racy of results. T his test was develo ped and its analyti gina performance characteristics have been determined by [employer]. It has not been cl eared or approved by theFDA. This as say has been valida katia pursuant to the CLIA regulations and is used for clinic al purposes. GIO (test code FASTING:NOFASTING: = GIO) NO RAC (test code Performing = RAC) Organization Information: Site ID: [facility] Name: [facility] Address: [address] [place] [phone] Director: Elijah Irizarry M.D., Ph.D [facility] MethodistZinc level, [id number] 11:39:00 Test Item Value Reference Range Interpretation Comments Zinc (test 67 60- 130 mcg/dL This test wa s code = developed and i ts 5763-8) analytical perf ormance characteristics have been determined by [employer] . It has not been cl eared or approved by theFDA. This assay has been validated pursu ant to the CLIA regula tions and is used for clinical purpos es. GIO (test FASTING:NOFASTING: code = GIO) NO RAC (test Performing code = RAC) Organization Information: Site ID: [facility]: [facility] Address: [address] [place] [phone] Director: Elijah Irizarry M.D., Ph.D [facility] MethodistVitamin B1 level, whole [id number] 11:39:00 Test Item Value Reference Range Interpretation Comments Vitamin B1, 167 nmol/L 78-185 Vitamin whole blood supplementation (test code = within 24 hours prior 23973-3) toblood draw ma y affect the accu racy of results. T his test was develo ped and its analyti gina performance characteristics have been determined by [email or web address]. It has not been cl eared or approved by theFDA. This as say has been valida katia pursuant to the CLIA regulations and is used for clinic al purposes. GIO (test code FASTING:NOFASTING: = GIO) NO RAC (test code Performing = RAC) Organization Information: Site ID: [facility] Name: [employer] [facility] Address: [address] [place] [phone] Director: Elijah Irizarry M.D., Ph.D [facility] MethodistCopper level, [id number] 11:39:00 Test Item Value Reference Range Interpretation Comments Copper (test 103 70- 175 mcg/dL This test wa s code = developed and i ts 5631-7) analytical perf ormance characteristics have been determined by [employer] . It has not been cl eared or approved by theA. This assay has been validated pursu ant to the CLIA regula tions and is used for clinical purpos es. GIO (test FASTING:NOFASTING: code = GIO) NO RAC (test Performing code = RAC) Organization Information: Site ID: [facility] Name: [employer] [facility] Address: [address] [place] [phone] Director: Elijah Irizarry M.D., Ph.D [facility]Total iron binding [id number] 11:39:00 Test Item Value Reference Range Interpretation Comments Iron level (test 128 50- 180 mcg/dL code = 2498-4) Iron binding 388 250- 425 mcg/dL capacity (test code (calc) = 2500-7) Iron saturation 33 20- 48 % (calc) (test code = 2502-3) GIO (test code = FASTING:NOFASTING: NO GIO) RAC (test code = Performing RAC) Organization Information: Site ID: [facility] Address: [address] [place] [address] Director: Anthony Josue [facility] [id number] 12:03:49 Test Item Value Reference Range Interpretation Comments POC glucose (test code 159 mg/dL 65-99 H Opera tor Name: Rudy = 84756-0) [employer] ID: [id number] able: [facility] 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 Interpretation Abnormal (test code = 09423-8) [facility] [id number] 09:54:54 Test Item Value Reference Range Interpretation Comments Sodium (test code = 2951-2) 139 135- 148 mEq/L Potassium (test code = 2823-3) 4.0 3.5- 5.0 mEq/L Chloride (test code = 2075-0) 105 98- 112 mEq/L CO2 (test code = 2027-9) 19 24- 31 mEq/L L Anion gap (test code = 94399-0) 15@ANIO 7- 15 mEq/L BUN (test code = 3094-0) 22 mg/dL 6-20 H Creatinine (test code = 2160-0) 1.15 mg/dL 0.7-1.2 Glucose (test code = 2345-7) 183 mg/dL 65-99 H Calcium (test code = 98777-1) 9.2 mg/dL 8.3-10.2 Lab Interpretation (test code = Abnormal 85064-6) [facility] MethodistEstimated [id number] 09:54:54 Test Item Value Reference Range Interpretation Comments Estimated GFR (test 69 mL/min/1.73 m2 [facility] or[facility] Units code = 5488) InterpretationG 1 >=90 Normal or highG2 60-89 Mildly vjcxuizoeF9i 45-59 Mildly to mode rately opmwypcajF7o 30-44 Moderately to severely decreasedG4 15-29 Severely decre asedG5 <15 Kidn ey failureThe eGFR was calculated katya bennett the Chronic Kidney Disease Epidemiology Co llaboration (CKD-EPI) equat ion. Interpretation is based on recommendations of the National Kidney Foundation-Kidn ey Disease Outcomes Qualit y Initiative (NKF-KDOQI) pub lished in 2013. [facility] AprhsblamXygxvf6091-48-83 15:11:30Jarocho Barrera CRNA 07/28/2019 3:11 PMAirwayDate/Time: 07/28/2019 2:58 PMPerformed by: Jarocho Barrera, CRNAAuthorized by: Floresita Aguillon MD Location: ORUrgency: ElectiveDifficult Airway: NoPreoxygenated with 100% O2: Yes C-spine Precautions Maintained Throughout: Yes Mask Ventilation: Easy maskFinal Airway Type: Endotracheal airwayFinal Endotracheal Airway: ETTCuffed: Yes TechniqueUsed: Direct laryngoscopyDevices/Methods Used in Placement: Intubating styletInsertion Site: OralBlade Type: MillerLaryngoscope Blade/Videolaryngoscope Blade Size: 2ETT Size (mm): 8.0Cuff at minimum occlusion pressure: Yes Measured from: LipsETT to Lips (cm): 22Placement Verified by: CO2 detection, direct visualization and equal breath sounds Laryngoscopic view: Grade I - full view of glottisRapid Sequence Induction (RSI): No Modified RSI: No Number of Attempts at Approach: [address] [place] [address] [facility] ECG Pre/Post [id number] 21:09:21 Test Item Value Reference Range Interpretation Comments Ventricular rate (test 76 code = 253) Atrial rate (test code 76 = 255) NC interval (test code 166 = 266) QRSD interval (test 96 code = 260) QT interval (test code 378 = 264) QTC interval (test code 425 = 265) P axis 1 (test code = 68 267) QRS axis 1 (test code = 28 268) T wave axis (test code 77 = 270) EKG impression (test Normal sinus code = 273) rhythm-Normal ECG-In automated comparison with ECG of 13-OCT-2018 14:24,-No significant change was found- [facility] MethodistType and [id number] 16:10:00 Test Item Value Reference Range Interpretation Comments ABO grouping (test code = 883-9) O Rh type (test code = 81550-2) POS Antibody screen (gel) (test code = NEG 890-4) [facility] MethodistInsulin, [id number] 14:53:31 Test Item Value Reference Range Interpretation Comments Insulin, random (test 4.9 mU/L The re ference interval code = 47275-8) for fasting insulin is 2.6-24.9 mU/L [facility] MethodistProthrombin time with [id number] 14:16:32 Test Item Value Reference Range Interpretation Comments Prothrombin time (test 12.8 11.5- 14.5 sec code = 5902-2) INR (test code = 1.0 The Interna tional 23053-1) Normalized Rati o (INR) is a therapeutic m onitoring tool for patien ts who are stable on oral anticoagulant t herapy. An INR of 2.0-3.0 is suggested for d eep vein thrombosis/pulm onary embolism. [facility] MethodistPartial thromboplastin time, lxfpywpzy1582-75-83 14:16:30 Test Item Value Reference Range Interpretation Comments PTT (test code = 32.3 23.0- 36.0 [place] [address]-6) unfractionated heparin is61.0-112.0 se conds which corresponds to Anti-Xa0.3-0.7 U/ml. [facility] MethodistC-reactive [id number] 14:05:24 Test Item Value Reference Range Interpretation Comments CRP (test code = 1988-5) 0.35 mg/dL 0-0.5 [facility] MethodistAlbumin [id number] 14:05:23 Test Item Value Reference Range Interpretation Comments Albumin (test code = 1751-7) 4.0 g/dL 3.5-5 [facility] MethodistMicroalbumin / creatinine urine [id number] 13:32:00 Test Item Value Reference Range Interpretation Comments Creatinine, 132 mg/dL 20-320 urine, random (test code = 2161-8) Microalbumin, 3.4 mg/dL See Note: Reference urine (test Range:Reference code = RangeNot establ ished 07749-8) Microalbumin/ 26 <30 mcg/mg creat The ADA d efines creatinine abnormalities i n ratio (test albuminexcretio n as code = follows: Catego ry 9318-7) Result (mcg/ mg creatinine) Nor mal <30Microalbumin uria 30-299 Cli nical albuminuria > OR = 300 The ADA rec ommends that at least t wo of threespecimens collected withi n a 3-6 month period beabnormal befo re considering a p atient to bewithin a diagnostic meagan saenz. GIO (test FASTING:YESFASTING: code = GIO) YES RAC (test Performing code = RAC) Organization Information: Site ID: [facility] Address: [address] [place] [phone] Director: Anthony Owens
== END 2020-02-01 21:21 | disposition home or self-care (01) ==
LOC: ER 17:56
DX: S42.012A Anterior displaced fracture of sternal end of left clavicle, initial encounter for closed fracture (principal); W18.30XA Fall on same level, unspecified, initial encounter; Y93.9 Activity, unspecified; Y92.019 Unspecified place in single-family (private) house as the place of occurrence of the external cause
CPT/HCPCS: 99283

== ENCOUNTER 2020-07-14 11:11 | Emergency (ER) | payer OTHER ==
--- OUTSIDE RECORDS SUMMARY | 2020-07-14 11:15 | XMS REPORT | Clinical Summary ---
:1960 Author Organization [facility] Address [address] [place] [address] Care Team Providers Name Role Phone Shelton Haines MD Primary Care Provider Allergies No Known Active Allergies Medications Medication Sig Dispensed Refills Start [...] tablet mouth 3 (three) times a day. atorvastatin (LIPITOR) Take 80 mg 0 Active 80 MG tablet by mouth daily. amLODIPine (NORVASC) 10 Take 10 mg 0 Active mg tablet by mouth daily. aspirin (ECOTRIN) 81 MG Take 81 mg 0 Active enteric coated tablet by mouth daily. gabapentin (NEURONTIN) Take 800 mg 0 Active [...] mouth 2 tablet (two) times a day. calcium citrate/vitamin Take by 0 Active D3 (CITRACAL REGULAR mouth. ORAL) metoprolol tartrate Take 50 mg 0 Active (LOPRESSOR) 50 mg by mouth tablet daily. olmesartan (BENICAR) 40 Take 40 mg [...] mL) insulin pen (two) times a day. metoprolol tartrate Take 50 mg 0 Discontinued (LOPRESSOR) 25 mg by mouth 2 020 ( Dose tablet (two) times adjustme nt) a day. hydroCHLOROthiazide Take 25 mg 0 Discontinued (HYDRODIURIL) 12.5 MG by mouth 019 (Stop Taking at tablet daily. Discharge) hydrALAZINE Take 10 mg 1 Discont inued (APRESOLINE) 10 MG by mouth 3 9 020 (Med List tablet (three) Cleanup) times a day. omeprazole (PriLOSEC) TAKE 1 30 capsule 5 Discontinued 40 MG CAPSULE BY 9 019 (Stop Saul ing at capsuleIndications: MOUTH EVERY Discharge) Bariatric surgery DAY status semaglutide (OZEMPIC) Inject 0.5 2 Syringe 0 Discontinued 0.25 mg or 0.5 mg(2 mg under the 9 019 (Stop Taking at mg/1.5 mL) pen injector skin every 7 Discharge) days. Lot# [id number] EXP: 09/2020 metFORMIN (GLUCOPHAGE) TAKE 1 180 [...] mg/24 hr skin once a Cleanup) week. ferrous sulfate (iron) Take 325 mg 0 02/20 Discontinued 325 (65 FE) MG tablet by mouth 020 (Med List daily with Cleanup) breakfast. Active Problems Problem Noted Date Elevated triglycerides with high cholesterol 0 Low HDL (under 40) 12/13/2019 Elevated hemoglobin A1c 2019 Multiple vitamin deficiency 2019 Vitamin D deficiency 2019 Low serum parathyroid hormone (PTH) 2019 Morbid obesity 07/28/2019 Encounters Date Type Specialty Care Team Description 02/21/2020 Telemedicine Endocrinology David Diaz, Type 2 di abetes mellitus with other specified complication, unspecified whether rodent exterminator insulin use (HCC) (Primary Dx); Vitamin D defic iency; Mixed hyperlipi demia; Stage 2 chronic kidney disease 12/13/2019 Orders Only General Surgery Elis Wagoner LVN 11/29/2019 Telemedicine Endocrinology David Diaz, Type 2 di abetes mellitus with other specified complication, unspecified whether rodent exterminator insulin use (HCC) (Primary Dx); Morbid obesity (HCC); Screening for t hyroid [...] imary Dx) 09/07/2019 Orders Only General Surgery [place], Essential hy pertension (Primary Dx); NARESH Caraballo Malabsorption d ue to intolerance, not elsewhere classified; S/P bariatric s urgery; Weight loss 08/23/2019 Office Visit Endocrinology David Diza, Type 2 di abetes mellitus with o ther specified complication, unspecified whe ther senior living insul in use (HCC) (Primary Dx) 08/11/2019 Office Visit General Surgery Evans Robles MD Surgery follow-up examination (Pr imary Dx) 07/28/2019 Anesthesia Event General Surgery Dhother, MD Nato Brown Alison Joy, NP 07/28/2019 Surgery General Surgery Evans Robles MD LAPAROSC OPIC TAMIR EN Y GASTRIC BYPAS S WITH INTRAOPERATIVE ENDOSCOPY 07/28/2019 - Hospital Encounter Cardiology Evans Robles MD Morbi d obesity (HCC); 07/30/2019 Essential hyper tension; Diabetes 1.5, m anaged as type 2 (HCC); Bariatric surge ry status 07/24/2019 Prep for Surgery General Surgery [place], Morbid o besity (HCC) (Primary Dx); NARESH Caraballo Essential hyper tension; Diabetes 1.5, m anaged as type 2 (HCC) after 07/14/2019 Surgical History Surgery Date Site/Laterality Comments CATARACT EXTRACTION W/ Right INTRAOCULAR LENS IMPLANT CHOLECYSTECTOMY KNEE ARTHROSCOPY BRACHIAL PLEXUS EXPLORATION left TONSILLECTOMY REVISION OF SCAR scalp CARDIAC CATHETERIZATION 2006 bef ore gallbladder surgery and wedd ing CORONARY ANGIOPLASTY WITH 10/31/2018 - x 2 STENT PLACEMENT 11/29/2018 GASTROENTEROSTOMY, 07/28/2019 Abdomen/N/A Procedure: LA PAROSCOPIC TAMIR-EN-Y, LAPAROSCOPIC, TAMIR EN Y GASTRIC BYPASS WITH INTRAOPERATIVE WITH INTRAOP ERATIVE ENDOSCOPY ENDOSCOPY; Surg yayo: Evans Robles MD ; Location: [facility]; Service: General ; Laterality: N/A; Medical devices from this surgery are in t he Implants section . Medical History Medical History Date Comments Hyperlipidemia Hypertension Brachial plexus injury, left uses asplin t left arm Cataract lens right eye Type 2 diabetes mellitus (HCC) diabetic x 18 yrs GERD (gastroesophageal reflux disease) Hypercholesteremia Sleep apnea bring the cpap mask the day of surgery Sleep apnea, obstructive Anesthesia denies chest pain or sob , npap/nfhap walks daily x 10 min Walks frequently 10 min brisk walk da santhosh Family History Medical History Relation Name Comments COPD Mother Cancer Mother Diabetes Mother Relation Name Status Comments Father Mother Alive Social History Tobacco Use Types Packs/Day Years Used Date Former Smoker Cigarettes 08 26 Quit: 1998 Smokeless Tobacco: Former User Q uit: 1981 Alcohol Use Drinks/Week oz/Week Comments Yes 1 [...] at Date Recorded Male 10/06/2018 7:11 AM [facility] Last Filed Vital Signs Vital Sign Reading Time Taken Comments Blood Pressure 174/85 09/07/2019 1:21 PM [facility] Pulse 69 09/07/2019 1:21 PM [facility] Temperature 36.8 C (98.3 F) 09/07/2019 1:21 PM [facility] Respiratory Rate 16 09/07/2019 1:21 PM [facility] Oxygen Saturation 95% 09/07/2019 1:21 PM [facility] Inhaled Oxygen Concentration - - Weight 108 kg (238 lb 6.4 oz) 09/07/2019 1:21 PM [facility] Height 167.6 cm (5' 6") 09/07/2019 1:21 PM [facility] Body Mass Index 38.48 09/07/2019 1:21 PM [facility] Plan of Treatment Health Maintenance Due Date Last Done Comments DIABETES: RETINAL EYE EXAM 1970 DIABETIC FOOT EXAM 1970 COLONOSCOPY SCREENING 2010 SHINGLES VACCINES (#1) 2010 INFLUENZA VACCINE Completed 03/16/2020, 05/11/2019, 2017, Additional history exists Goals Goal Patient Goal Associated Recent Patient-Stated? Author Type Problems Progress [facility] Monitoring General No Llea Morris RD Note: 04/07/18 Active Track 1800 calories most days per week Implants Implanted Type Area Legal Instructor Device Shelf Model / Identifier Expiration Serial / Date Lot Drain Wnd Chnl 19fr 1/4in Rnd Hbls Fl-Flut W/ 4in Tr ocar - [id number] Surgical N/A: N/A ETHICON US ET 12/24/2023 [id number] / Implanted: Qty: 1 on 07/28/2019 by Evans Robles MD at [facility] Implants; / Expanders; Extenders; Surgical Wires Procedures Procedure Name Priority Date/Time Associated Comments Diagnosis COMPREHENSIVE METABOLIC Routine 03/25/2020 10:16 Type 2 diabet es Results for this PANEL AM CDT mellitus with other procedur e are in specified the results complication, section. unspecified whether rodent exterminator insulin use (HCC) HEMOGLOBIN A1C Routine 03/25/2020 10:15 Type 2 diabetes Result s for this AM CDT mellitus with other procedur e are in specified the results complication, section. unspecified whether senior living insulin use (HCC) T4, FREE Routine 02/14/2020 7:54 Morbid obesity Results f or this AM CDT (HCC) procedure are in Screening for the results thyroid disorder section. THYROID STIMULATING Routine 02/14/2020 7:54 Morbid obesity Re sults for this HORMONE AM CDT (HCC) procedure are in Screening for the results thyroid disorder section. COMPREHENSIVE METABOLIC Routine 02/14/2020 7:54 Morbid obesit y Results for this PANEL AM CDT (HCC) procedure are i n the results section. LIPID PANEL Routine 02/14/2020 7:54 Type 2 diabetes Results for this AM CDT mellitus with other procedur e are in specified the results complication, section. unspecified whether rodent exterminator insulin use (HCC) Morbid obesity (HCC) HEMOGLOBIN A1C Routine 02/14/2020 7:54 Type 2 diabetes Result s for this AM CDT mellitus with other procedur e are in specified the results complication, section. unspecified whether rodent exterminator insulin use (HCC) HEMOGLOBIN A1C Routine 11/16/2019 8:29 Type 2 diabetes Result s for this AM CDT mellitus with procedure are in complication, the results unspecified whether section. senior living insulin use T3 Routine 2019 7:51 Essential [...] Routine 07/30/2019 12:03 Results for this PM [facility] procedure are i n the results section. HC COMPLETE BLD COUNT STAT 07/30/2019 9:15 Re sults for this W/AUTO DIFF AM [facility] procedure are i n the results section. ESTIMATED GFR STAT 07/30/2019 8:32 Results fo r this AM [facility] procedure are i n the results section. BASIC METABOLIC PANEL STAT 07/30/2019 8:32 Re sults for this AM [facility] procedure are i n the results section. POC GLUCOSE Routine 07/30/2019 7:54 Results for this AM [facility] procedure are i n the results section. POC GLUCOSE Routine 07/29/2019 7:36 Results for this PM [facility] procedure are i n the results section. POC GLUCOSE Routine 07/29/2019 3:47 Results for this PM [facility] procedure are i n the results section. POC GLUCOSE Routine 07/29/2019 12:01 Results for this PM [facility] procedure are i n the results section. POC GLUCOSE Routine 07/29/2019 7:35 Results for this AM [facility] procedure are i n the results section. ESTIMATED GFR Routine 07/29/2019 4:13 Results fo r this AM [facility] procedure are i n the results section. BASIC METABOLIC PANEL Routine 07/29/2019 4:13 Re sults for this AM [facility] procedure are i n the results section. HC COMPLETE BLD COUNT Routine 07/29/2019 4:13 Re sults for this W/AUTO DIFF AM [facility] procedure are i n the results section. POC GLUCOSE Routine 07/28/2019 10:28 Results for this PM [facility] procedure are i n the results section. ESTIMATED GFR Routine 07/28/2019 8:24 Results fo r this PM [facility] procedure are i n the results section. BASIC METABOLIC PANEL Routine 07/28/2019 8:24 Re sults for this PM [facility] procedure are i n the results section. HC COMPLETE BLD COUNT Routine 07/28/2019 8:24 Re sults for this W/AUTO DIFF PM [facility] procedure are i n the results section. POC GLUCOSE Routine 07/28/2019 8:07 Results for this PM [facility] procedure are i n the results section. AR AN ELECTIVE Routine 07/28/2019 3:11 Results f or this ENDOTRACHEAL AIRWAY PM [facility] procedur e are in the results section. GASTROENTEROSTOMY, 07/28/2019 2:52 Morbid obesity TAMIR-EN-Y, PM [facility] (HCC) LAPAROSCOPIC, WITH Essential INTRAOPERATIVE hypertension, ENDOSCOPY benign Diabetes mellitus type I (HCC) Case Notes BMI 45 Special Needs BMI 45 POC GLUCOSE Routine 07/28/2019 12:31 PM [facility] Resu lts for this procedure are in the results section . after 07/14/2019 Results Comprehensive metabolic panel (03/25/2020 10:16 AM CDT)Only the most recent of3 resultswithin the time period is included. Glucose 128 (H) 65 - 99 [facility] Comment: mg/dL [place] Fasting reference interval For someone without known diabetes, a glucose value >125 mg/dL indicates that they may have diabetes and this should be confirmed with a follow-up test. BUN 20 7 - 25 mg/dL [facility] [place] Creatinine 1.45 (H) 0.70 - 1.33 [facility] Comment: mg/dL [place] For patients >49 years of age, the reference limit for Creatinine is approximately 13% higher for people identified as -Bangladeshi. EGFR Non-Afr. 52 (L) > OR = 60 [facility] Bangladeshi mL/min/1.73m [place] 2 EGFR 61 > OR = 60 [facility] Bangladeshi mL/min/1.73m [place] 2 BUN/creatinine 14 6 - 22 [facility] ratio (calc) [place] Sodium 142 135 - 146 [facility] mmol/L [place] Potassium 3.6 3.5 - 5.3 [facility] mmol/L [place] Chloride 106 98 - 110 [facility] mmol/L [place] CO2 28 20 - 32 [facility] mmol/L [place] Calcium 9.8 8.6 - 10.3 [facility] mg/dL [place] Protein 6.2 6.1 - 8.1 [facility] g/dL [place] Albumin, S 4.3 3.6 - 5.1 [facility] g/dL [place] Globulin, total 1.9 1.9 - 3.7 [facility] g/dL (calc) [place] Albumin/globulin 2.3 1.0 - 2.5 [facility] ratio (calc) [place] Total bilirubin 0.8 0.2 - 1.2 [facility] mg/dL [place] Alkaline 34 (L) 35 - 144 U/L [facility] phosphatase [place] AST 33 10 - 35 U/L [facility] [place] ALT 22 9 - 46 U/L [facility] [place] Specimen Blood Narrative Performed At FASTING:YES [facility] FASTING: YES Resulting Agency Comment Performing Organization Information: Site ID: [id number]: [facility] Address: [address] [place] [phone] Director: Anthony Josue Performing Organization Address City/State/ZIP Code Phon e Number Trippin In [place] [id number] Hemoglobin A1c (03/25/2020 10:15 AM CDT)Only the most recent of4 resultswithin the time period is included. Hemoglobin A1C 6.0 (H) <5.7 % of [facility] Comment: total Hgb [place] For someone without known diabetes, a hemoglobin A1c value between 5.7% and 6.4% is consistent with prediabetes and should be confirmed with a follow-up test. For someone with known diabetes, a value <7% indicates that their diabetes is well controlled. A1c targets should be individualized based on duration of diabetes, age, comorbid conditions, and other considerations. This assay result is consistent with an increased risk of diabetes. Currently, no consensus exists regarding use of hemoglobin A1c for diagnosis of diabetes for children. Specimen Blood Narrative Performed At FASTING:YES [facility] FASTING: YES Resulting Agency Comment Performing Organization Information: Site ID: [id number] Name: [facility] Address: [address] [place] [phone] Director: Anthony Josue Performing Organization Address City/[facility] [place] [address] Thyroid stimulating hormone (02/14/2020 7:54 AM CDT)Only the most recent of2 resultswithin the time period is included. Pathologist Sig nature TSH 1.41 0.40 - 4.50 mIU/L [facility] Specimen Blood Narrative Performed At FASTING:YES [facility] FASTING: YES Resulting Agency Comment Performing Organization Information: Site ID: [facility] Name: [facility] Address: [address] [place] [phone] Director: Anthony Josue Performing Organization Address City/[facility] Phon e [place] [address] T4, free (02/14/2020 7:54 AM CDT)Only the most recent of2 resultswithin the time period is included. Pathologist Sig nature T4, free 1.1 0.8 - 1.8 ng/dL [facility] [place] Specimen Blood Narrative Performed At FASTING:YES [facility] FASTING: YES Resulting Agency Comment Performing Organization Information: Site ID: [facility]: [facility] Address: [address] [place] [phone] Director: Anthony Josue Performing Organization Address [facility] [place] [address] Lipid panel (02/14/2020 7:54 AM CDT)Only the most recent of2 resultswithin the time period is included. Cholesterol, total 85 <200 mg/dL [facility] [place] HDL cholesterol 33 (L) > OR = 40 [facility] mg/dL [place] Triglycerides 97 <150 mg/dL [facility] [place] LDL cholesterol 34 mg/dL (calc) [facility] calculated Comment: [place] Reference range: <100 Desirable range <100 mg/dL for primary prevention; <70 mg/dL for patients with CHD or diabetic patients with > or = 2 CHD risk factors. LDL-C is now calculated using the Shannan calculation, which is a validated novel method providi ng better accuracy than the Friedewald equation in the estimation of LDL-C. Trevor TELLO et al. AMBROCIO. 2013;310(93): 2042-1990 (http://education.Dydra/faq/PPX451) Cholesterol/HDL 2.6 <5.0 (calc) [facility] Non-HDL cholesterol 52 <130 mg/dL [facility] Comment: (calc) [place] For patients with diabetes plus 1 major ASCVD risk factor, treating to a non-HDL-C goal of <100 mg/dL (LDL-C of <70 mg/dL) is considered a therapeutic option. Specimen Blood Narrative Performed At FASTING:YES [facility] FASTING: YES Resulting Agency Comment Performing Organization Information: Site ID: [facility] Name: [facility] Address: [address] [place] [phone] Director: Anthony Josue Performing Organization Address City/[facility] [place] [address] Total iron binding capacity (2019 7:51 AM CDT) Pathologist Sig nature Iron level 128 50 - 180 mcg/dL [facility] Iron binding capacity 388 250 - 425 mcg/dL [facility] (calc) [place] Iron saturation 33 20 - 48 % (calc) [facility] [place] Specimen Blood Narrative Performed At FASTING:NO [facility] FASTING: NO Resulting Agency Comment Performing Organization Information: Site ID: A Name: [facility] Address: [address] [place] [phone] Director: Anthony Josue Performing Organization Address City/[facility] [place] [address] Copper level, serum (2019 7:51 AM CDT) Copper 103 70 - 175 [facility] Comment: mcg/dL TALITA STEWART This test was developed and its analytical performance characteristics have been determined by [facility]. It has not been cleared or approved by [facility] FDA. This assay has been validated pursuant to the CLI A regulations and is used for clinical purposes. Specimen Blood Narrative Performed At FASTING:NO [facility] FASTING: NO Resulting Agency Comment Performing Organization Information: Site ID: [facility] Name: [facility] Address: [address] [place] [phone] Director: Elijah Irizarry M.D., Ph. D Performing Organization Address [facility] e Number [facility] [address] [place] [address] STEWART Vitamin B1 level, whole blood (2019 7:51 AM CDT) Pathologist [facility] Vitamin B1, 167 78 - 185 [facility] whole blood Comment: nmol/L TALITA STEWART Vitamin supplementation within 24 hours prior to blood draw may affect the accuracy of results. This test was developed and its analytical performance characteristics have been determined by [facility]. It has not been cleared or approved by [facility]. This assay has been validated pursuant to the CLI A regulations and is used for clinical purposes. Specimen Blood Narrative Performed At FASTING:NO [facility] FASTING: NO Resulting Agency Comment Performing Organization Information: Site ID: [facility] Name: [facility] Address: [address] [place] [phone] Director: Elijah Irizarry M.D., Ph. D Performing Organization Address [facility] e Number [facility] [address] [place] [address] STEWART Zinc level, serum (2019 7:51 AM CDT) Zinc 67 60 - 130 [facility] Comment: mcg/dL TALITA STEWART This test was developed and its analytical performance characteristics have been determined by [facility]. It has not been cleared or approved by [facility] FDA. This assay has been validated pursuant to the CLI A regulations and is used for clinical purposes. Specimen Blood Narrative Performed At FASTING:NO [facility] FASTING: NO Resulting Agency Comment Performing Organization Information: Site ID: [facility] Name: [facility] Address: [address] [place] [address] Director: Elijah Irizarry M.D., Ph. D Performing Organization Address [facility] Phon e Number Trippin In [place] [id number] [place] [phone] CLYDE Vitamin A level, plasma or serum (2019 7:51 AM CDT) Pathologist [facility] Vitamin A 98 38 - 98 [facility] (retinol) Comment: mcg/dL TALITA STEWART Clin Chem Vol. 34.No.8. [id number]. 1998 Vitamin supplementation within 24 hours prior to blood draw may affect the accuracy of results. This test was developed and its analytical performance characteristics have been determined by [facility]. It has not been cleared or approved by [facility] FDA. This assay has been validated pursuant to the CLI A regulations and is used for clinical purposes. Specimen Blood Narrative Performed At FASTING:NO [facility] FASTING: NO Resulting Agency Comment Performing Organization Information: Site ID: [facility] Name: [facility] Address: [address] [place] [phone] Director: Elijah Irizarry M.D., Ph. D Performing Organization Address [facility] Phon e Number Tripp[place] [phone] [place] [phone] CLYDE Vitamin D 25 hydroxy level (2019 7:51 AM CDT) Pathologist [facility] Vitamin D, 27 (L) 30 - 100 [facility] 25-hydroxy Comment: ng/mL VANG Vitamin D Status 25-OH Vitamin D: Deficiency: <20 ng/mL Insufficiency: 20 - 29 ng/mL Optimal: > or = 30 ng/mL For 25-OH Vitamin D testing on patients on D2-supplementation and patients for whom quantitation of D2 and D3 fractions is required, the [facility](T M) 25-OH VIT D, (D2,D3), LC/MS/MS is recommended: order code [id number] (patients >2yrs). For more information on this test, go to: http://education.Hightower/faq/NDY009 (This link is being provided for informational/educational purposes only.) Specimen Blood Narrative Performed At FASTING:NO [facility] FASTING: NO Resulting Agency Comment Performing Organization Information: Site ID: A Name: [facility] Address: [address] [place] [phone] Director: Anthony Josue Performing Organization Address City/[facility] Phon e Number [facility] [place] [address] [place], [place] [phone] CBC with platelet and differential (2019 7:51 AM CDT)Only the most recent of4 resultswithin the time period is included. WBC 5.6 3.8 - 10.8 [facility] Thousand/uL [place] RBC 4.27 4.20 - 5.80 [facility] Million/uL [place] HGB 12.4 (L) 13.2 - 17.1 [facility] g/dL [place] HCT 39.2 38.5 - 50.0 % [facility] [place] MCV 91.8 80.0 - 100.0 fL [facility] [place] MCH 29.0 27.0 - 33.0 pg [facility] [place] MCHC 31.6 (L) 32.0 - 36.0 [facility] g/dL [place] RDW 12.6 11.0 - 15.0 % [facility] [place] Platelet count 247 140 - 400 [facility] Thousand/uL [place] MPV 10.7 7.5 - 12.5 fL [facility] [place] Neutrophils, absolute 3,259 1,500 - 7,800 [facility] cells/uL [place] Lymphocytes, absolute 1,574 850 - 3,900 [facility] cells/uL [place] Monocytes, absolute 454 200 - 950 [facility] cells/uL [place] Eosinophils, absolute 274 15 - 500 [facility] cells/uL [place] Basophils, absolute 39 0 - 200 [facility] cells/uL [place] Neutrophils 58.2 % [facility] [place] Lymphocytes 28.1 % [facility] [place] Monocytes 8.1 % [facility] [place] Eosinophils 4.9 % [facility] [place] Basophils + RC 0.7 % [facility] [place] Specimen Blood Narrative Performed At FASTING:NO [facility] FASTING: NO Resulting Agency Comment Performing Organization Information: Site ID: [facility] Name: [facility] Address: [address] [place] [phone] Director: Anthony Josue Performing Organization Address City/[facility] Phon e Number [facility] [place] [address] [place] [address] 846 T3 (2019 7:51 AM CDT) Pathologist Sig nature T3 83 76 - 181 ng/dL [facility] [place] Specimen Blood Narrative Performed At FASTING:NO [facility] FASTING: NO Resulting Agency Comment Performing Organization Information: Site ID: [facility] Name: [facility] Address: [address] [place] [id number] Director: Anthony Josue Performing Organization Address [facility] Phon e Number [place] [address] [address] Parathyroid hormone (2019 7:51 AM CDT) PTH 7 (L) 14 - 64 pg/mL [facility] Comment: DIAGNOSTICSDAYAN Zazueta II Interpretive Guide Intact PTH Calc ium ---- --- Normal Parathyroid Normal No rmal Hypoparathyroidism Low or Low Normal Low Hyperparathyroidism Primary Normal or High H igh Secondary High Normal or Low Tertiary High High Non-Parathyroid Hypercalcemia Low or Low Normal High Specimen Blood Narrative Performed At FASTING:NO [facility] FASTING: NO Resulting Agency Comment Performing Organization Information: Site ID: IG Name: [facility] Address: [address] [place] [phone] Director: Dr. Anthony lott Performing Organization Address [facility] Phon e Number [place] [address] [address] Folate level (2019 7:51 AM CDT) Pathologist Sig nature Folate 23.3 ng/mL [facility] Comment: [place] Reference Rang e Low: <3.4 Borderline: 3.4-5.4 Normal: >5.4 Specimen Blood Narrative Performed At FASTING:NO [facility] FASTING: NO Resulting Agency Comment Performing Organization Information: Site ID: RGA Name: [facility] Address: [address] [place] [phone] Director: Anthony Josue Performing Organization Address [facility]/ZIP Code Phon e Number [facility] [address] [place] [address] Ferritin level (2019 7:51 AM CDT) Pathologist Sig nature Ferritin level 217 38 - 380 ng/mL [facility] [place] Specimen Blood Narrative Performed At FASTING:NO [facility] FASTING: NO Resulting Agency Comment Performing Organization Information: Site ID: [facility] Name: [facility] Address: [address] [place] [address] Director: Anthony Josue Performing Organization Address City/[facility] [place] [address] Vitamin B12 level (2019 7:51 AM CDT) Pathologist [facility] Vitamin B12 626 200 - 1,100 pg/mL [facility] [place] Specimen Blood Narrative Performed At FASTING:NO [facility] FASTING: NO Resulting Agency Comment Performing Organization Information: Site ID: [facility] Name: [facility] Address: [address] [place] [address] Director: Anthony Josue Performing Organization Address [facility] [place] [address] POC glucose (07/30/2019 12:03 PM ROUGH CARPENTER)Only the most recent of9 resultswithin the time period is included. Pathologist [facility] POC glucose 159 (H) 65 - 99 mg/dL [facility] Comment: HOSPITAL Meter Reading Clerk Name: Rudy Zhangprema Device ID: [id number] Chartable: [facility] Notified RN Specimen Performing Organization Address City/[facility]/ZIP Code Phon e Number [facility] DEPARTMENT OF PATHOLOGY AND [address] [place] [phone] GENOMIC MEDICINE [address] [address] Estimated GFR (07/30/2019 8:32 AM ROUGH CARPENTER)Only the most recent of3 resultswithin the time period is included. Pathologist [facility] Estimated GFR 69 mL/min/1.73 [facility] Comment: HOSPITAL Catergory Units Interpretation G1 >=90 Normal [...] 2014. Specimen Plasma specimen Performing Organization Address [facility] Phon e Number [facility] DEPARTMENT OF PATHOLOGY AND [address] [place] [address] Basic metabolic panel (07/30/2019 8:32 AM ROUGH CARPENTER)Only the most recent of3 results within the time period is included. [facility] Sig nature Sodium 139 135 - 148 mEq/L [facility] Potassium 4.0 3.5 - 5.0 mEq/L [facility] Chloride 105 98 - 112 mEq/L [facility] CO2 19 (L) 24 - 31 mEq/L [facility] Anion gap 15@ANIO 7 - 15 mEq/L [facility] BUN 22 (H) 6 - 20 mg/dL [facility] Creatinine 1.15 0.70 - 1.20 mg/dL [facility] Glucose 183 (H) 65 - 99 mg/dL [facility] Calcium 9.2 8.3 - 10.2 mg/dL [facility] Specimen Plasma specimen Performing Organization Address [facility] Phon e Number [facility] DEPARTMENT OF PATHOLOGY AND [address] [place] [address] [address] Airway (07/28/2019 3:11 PM ROUGH CARPENTER) Narrative Performed At Jarocho Barrera CRNA 07/28/2019 [...] No Number of Attempts at Approach: 1 after 07/14/2019 [phone] (Work) Advance Directives For more information, please contact: [phone] Type Date Recorded Patient Threshing Department Supervisor Explanati on Advance Directives, Living Will and Medical Power of Small Business Director
--- OUTSIDE RECORDS SUMMARY | 2020-07-14 11:16 | XMS REPORT | Continuity of Care Document ---
:1960 Author Organization [facility] t Address [address] [place] [address] Care Team Providers Name Role Phone Yancy GARCIA, Fayz Primary Care Physician Teto GARCIA Attending Clinician Rizwana PIPER Attending Clinician Travis GARCIA Attending Clinician Miguel [place] Attending Clinician Kendal Pina NP Attending Clinician Jani INFANTE Attending Clinician Unavailable Filiberto Mcqueen MD Attending Clinician Annia Dutton NP Attending Clinician TRAVIS Admitting Clinician Unavailable Payers Payer Name Policy Type Policy Effective Expiration Source Number Date Date TEXANPLUSTEXANPLUS [id number] 2015 Carlos n [id number] 2015-Pr 00:00:00 M ethodist esentHMO Problems Condition Condition Condition Status Onset Resolution Last Treating Co mments Source Name Details Category Date Date Treatment Clinician Date Elevated Elevated Disease Active [place] triglyceri triglyceri 5-13 Me odi dion with dion with 00:00: st high high 00 cholestero cholestero l l Low HDL Low HDL Disease Active [place] (under 40) (under 40) 5-13 Me thodi 00:00: st 00 Elevated Elevated Disease Active [place] hemoglobin hemoglobin 3-12 Me odi A1c A1c 00:00: st 00 Multiple Multiple Disease Active [place] vitamin vitamin 3-12 Methodi deficiency deficiency 00:00: st 00 Vitamin D Vitamin D Disease Active Stephenie ston deficiency deficiency 3-12 Me thodi 00:00: st 00 Low serum Low serum Disease Active Stephenie ston parathyroi parathyroi 3-12 Me thodi d hormone d hormone 00:00: st (PTH) (PTH) 00 Morbid Morbid Disease Active 2018-08 [place] obesity obesity 2-27 Methodi 00:00: st 00 Allergies, Adverse Reactions, Alerts This patient has no known allergies or adverse reactions. Family History Family Member Diagnosis Comments Start Date Stop Date Source Natural mother COPD [place] [facility] Natural mother Cancer [place] [facility] Social [facility] Social Habit Start Date Stop Date Quantity Comments Source History of tobacco Current smoker [place] use Mandaeism History [facility] Alcohol Std Drinks Method ist History [facility] Alcohol Binge Mandaeism Sex Assigned At [facility] Mandaeism Cigarettes smoked 2019-09-07 2019-09-07 [place] current (pack per 00:00:00 00:00:[address] day) - Reported Cigarette 2019-09-07 2019-09-07 [place] pack-years 00:00:00 00:00:00 Mandaeism Tobacco use and 2019-09-07 2019-09-07 Former user [place] exposure 00:00:00 00:00:00 Mandaeism Alcohol intake 2019-09-07 2019-09-07 Current drinker of [place] 00:00:00 00:00:00 alcohol (finding) Methodi st Alcohol Comment 2018-10-13 2018-10-13 stopped [place] 00:00:00 00:00:00 occassional beer Methodis t 2018 History [facility] 2018-08-26 2018-08-26 1 [place] Alcohol Frequency 00:00:00 00:00:[address] Smoking Status Start Date Stop Date Source Former smoker 2019-09-07 00:00:00 2019-09-07 00:00:00 [place] [facility] Medications Ordered Filled Start Stop Current Ordering Indication Dosage Frequency Signature Comments Components Source Medication Medication Date Date Medication? Clinician (SIG) Name Name metoprolol 2020- No 50mg Q.5D Take 50 mg [facility] tartrate 02-20 by mouth 2 Meth sammie (LOPRESSOR) 08:30: 00:00 (two) st 25 mg 05 :00 times a tablet day. fenofibrate 2020-0 Yes 145mg QD Take 145 [place] (TRICOR) 7-22 mg by Methodi 145 MG 08:30: mouth st tablet 03 daily. HYDROcodone 2020-0 Yes 1{tbl} [id number] Take 1 [facility] -acetaminop - [id number] tablet by Methodi hen (NORCO) 08:30: 3D mouth 3 st 7.5-325 mg 03 (three) per tablet times a day. atorvastati 2020-0 Yes 80mg QD Take 80 mg Aceves n (LIPITOR) 7-22 by mouth Meth sammie 80 MG 08:30: daily. st tablet 03 amLODIPine 2020-0 Yes 10mg QD Take 10 mg [place] (NORVASC) 7-22 by mouth Method i 10 mg 08:30: daily. st tablet 03 aspirin 2020-0 Yes 81mg QD Take 81 mg [place] (ECOTRIN) 7-22 by mouth Method i 81 MG 08:30: daily. st enteric 03 coated tablet clopidogrel 2020-0 Yes 75mg QD Take 75 mg [place] (PLAVIX) 75 7- by mouth Meth sammie mg tablet 08:30: daily. st 03 metFORMIN 2020-0 Yes 500mg Q.5D Take 500 Stephenie ston (GLUCOPHAGE 7-22 mg by Methodi ) 500 mg 08:30: mouth 2 st tablet 03 (two) times a day with meals. cholecalcif 2020-0 Yes 5000U QD Take 5,000 [facility] shellie, 7-22 Units by Methodi vitamin D3, 08:30: mouth st (VITAMIN D3 03 daily. ORAL) olmesartan 2020-0 Yes 40mg QD Take 40 mg [place] (BENICAR) 7-22 by mouth Method i 40 MG 08:30: daily. st tablet 03 pantoprazol 2020-0 Yes 40mg QD Take 40 mg Aceves e 7-22 by mouth Methodi (PROTONIX) 08:30: daily. st 40 MG EC 03 tablet hydroCHLORO 2020-0 Yes 25mg Q.5D Take 25 mg [place] thiazide 7-22 by mouth 2 Metho di (HYDRODIURI 08:30: (two) st L) 25 MG 03 times a tablet day. calcium 2020-0 Yes Take by [place] citrate/vit 7-22 mouth. Method i herrera D3 08:30: st (CITRACAL 03 REGULAR ORAL) metoprolol Yes 50mg QD Take 50 mg [place] tartrate 02-20 by mouth Methodi (LOPRESSOR) 08:30: daily. st 50 mg 03 tablet ferrous No 325mg QD Take 325 [place] sulfate 02-20 07-22 mg by Methodi (iron) 325 08:29: 00:[address] (65 FE) MG 18 :00 daily with tablet breakfast. clonIDINE 1{patch Q7D Place 1 [place] (CATAPRES-T 11-28 } patch on Met hodi TS) 0.1 09:44: 00:[address] mg/24 hr 54 :00 once a week. enoxaparin 2018-08 30mg QD Inject 0.3 [place] (LOVENOX) -13 mL (30 mg Meth sammie 30 mg/0.3 00:00: 23:59 total) st mL syringe 00 :00 under the skin daily for 14 days. olmesartan 2018-08 No 40mg QD Take 40 mg [facility] (BENICAR) 07-30 by mouth Metho di 40 MG 14:32: 00:[address] tablet 23 :00 pantoprazol 2018-08 40mg QD Take 40 mg Aceves e 07-30 by mouth Methodi (PROTONIX) 14:32: 00:[address] 40 MG EC 23 :00 tablet insulin 2018-08 80U Q.5D Inject 80 [place] degludec 07-30 Units Methodi (TRESIBA 14:32: 00:[address] FLEXTOUCH 23 :00 skin 2 U-100) 100 (two) unit/mL (3 times a mL) insulin day. pen hydroCHLORO 2018-08 25mg QD Take 25 mg [place] thiazide 07-30 by mouth Method i (HYDRODIURI 14:32: 00:[address] L) 12.5 MG 23 :00 tablet pantoprazol 2018-08 No 40mg QD Take 1 Stephenie ston [...] times a day with meals. traMADol 2018-08- No acute pain 50mg Q6H Take 1 Aceves [...] (four) times a day for 10 days. metFORMIN 2018-08- No TAKE 1 [place] (GLUCOPHAGE 2-07-30 TABLET BY Mi jose ) 1,000 mg 00:00: 00:[address] tablet 00 :00 TWICE A DAY WITH FOOD semaglutide 2018-08- No .5mg Q1W Inject 0.5 [facility] (OZEMPIC) 1- 12-29 mg under Metho di 0.25 mg or 00:00: 00:[address] 0.5 mg(2 00 :00 every 7 mg/1.5 mL) days. Lot# pen [id number] injector EXP: 09/2020 omeprazole 2018-08- No Bariatric TAKE 1 [facility] (PriLOSEC) 0-16 12-29 surgery CAPSULE BY Methodi 40 MG 00:00: 00:[address] capsule 00 :00 EVERY DAY gabapentin 2018-08 Yes 800mg Q.44038600 Take 800 [facility] (NEURONTIN) 0-03 [id number] mg by M ethodi 800 mg 00:00: 3D mouth 3 st tablet 00 (three) times a day. hydrALAZINE 2019- No 10mg Q.26138513 Take 10 mg [place] (APRESOLINE 2-26 02- [id number] by mouth 3 Methodi ) 10 MG 00:00: 00:00 3D (three) st tablet 00 :00 times a day. insulin 2018-0 Yes Inject [place] ASPART 7-11 6-20 units Methodi (NovoLOG 00:00: tid per st Flexpen 00 sliding U-100 scale. Insulin) 100 unit/mL insulin pen Vital Signs Vital Name Observation Time Observation Value Comments Source Systolic blood 2019-09-07 13:21:00 174 mm[Hg] Mandato n Mandaeism pressure Diastolic blood 2019-09-07 13:21:00 85 mm[Hg] Kristina on Mandaeism pressure Heart rate 2019-09-07 13:21:00 69 /min Ketan Owens Body temperature 2019-09-07 13:21:00 36.83 Mirella Manda ton Mandaeism Respiratory rate 2019-09-07 13:21:00 16 /min Manda mayer Mandaeism Body height 2019-09-07 13:21:00 167.6 cm Ketan Owens Body weight 2019-09-07 13:21:00 108.138 kg Ketan Owens BMI 2019-09-07 13:21:00 38.48 kg/m2 Ketan Owens Oxygen saturation in 2019-09-07 13:21:00 95 /min Ketan Owens Arterial blood by Pulse oximetry Procedures Procedure Date / Time Performing Clinician Source Performed COMPREHENSIVE METABOLIC 2020-03-25 10:16:00 David Diaz Mandaeism PANEL HEMOGLOBIN A1C 2020-03-25 10:15:00 David Diaz Met hodist HEMOGLOBIN A1C 2020-02-14 07:54:00 David Diaz Met hodist LIPID PANEL 2020-02-14 07:54:00 David Diaz Met hodist COMPREHENSIVE METABOLIC 2020-02-14 07:54:00 David Diaz Mandaeism PANEL THYROID STIMULATING 2020-02-14 07:54:00 David Diaz Mandaeism HORMONE T4, FREE 2020-02-14 07:54:00 David Diaz Met hodist HEMOGLOBIN A1C 2019-11-16 08:29:00 David Diaz Met hodist COMPREHENSIVE METABOLIC 2019 07:51:00 TravisGanesh dhaliwal ton Mandaeism PANEL LIPID PANEL 2019 07:51:00 Ganesh Robles Meth odist TOTAL IRON BINDING 2019 07:51:00 Travis, Ganesh Wong ethodist CAPACITY T4, FREE 2019 07:51:00 Travis, Ganesh Hdz odetienne THYROID STIMULATING 2019 07:51:00 TravisGanesh Mandaeism HORMONE HEMOGLOBIN A1C 2019 07:51:00 Travis, Ganesh Hdz odetienne PARATHYROID HORMONE 2019 07:51:00 Travis, Ganesh Aceves Mandaeism CBC WITH PLATELET AND 2019 07:51:00 Travis, Ganesh Owens DIFFERENTIAL VITAMIN A LEVEL, PLASMA OR 2019 07:51:00 Travis, Ganesh Julisa brandi Owens SERUM VITAMIN B12 LEVEL 2019 07:51:00 Travis, Ganesh Ballard thodist VITAMIN D 25 HYDROXY LEVEL 2019 07:51:00 Travis, Ganesh H brandi Owens COPPER LEVEL, SERUM 2019 07:51:00 Travis, Ganesh Aceves Mandaeism FOLATE LEVEL 2019 07:51:00 Travis, Ganesh Hdz odist FERRITIN LEVEL 2019 07:51:00 Travis, Ganesh Hdz sergioetienne VITAMIN B1 LEVEL, WHOLE 2019 07:51:00 Travis, Ganeshregina Owens BLOOD ZINC LEVEL, SERUM 2019 07:51:00 Travis, Ganesh Ballard thodist T3 2019 07:51:00 TravisGanesh odist POC GLUCOSE 2019-07-30 12:03:00 TravisGanesh dhaliwal odist HC COMPLETE BLD COUNT 2019-07-30 09:15:00 Angy Cobian W/AUTO DIFF BASIC METABOLIC PANEL 2019-07-30 08:32:00 Angy Cobian ESTIMATED GFR 2019-07-30 08:32:00 TravisGanesh Meth odist POC GLUCOSE 2019-07-30 07:54:00 Ganesh Robles Meth odist POC GLUCOSE 2019-07-29 19:36:00 Travis, Ganesh Aceves Meth odist POC GLUCOSE 2019-07-29 15:47:00 TravisGanesh dhaliwal Meth odist POC GLUCOSE 2019-07-29 12:01:00 Ganesh Robles odist POC GLUCOSE 2019-07-29 07:35:00 Ganesh Robles odist HC COMPLETE BLD COUNT 2019-07-29 04:13:00 Angy Cobian W/AUTO DIFF BASIC METABOLIC PANEL 2019-07-29 04:13:00 Angy Cobian ESTIMATED GFR 2019-07-29 04:13:00 Ganesh Robles odist POC GLUCOSE 2019-07-28 22:28:00 Ganesh Robles odist HC COMPLETE BLD COUNT 2019-07-28 20:24:00 Angy Cobian W/AUTO DIFF BASIC METABOLIC PANEL 2019-07-28 20:24:00 Angy Cobian ESTIMATED GFR 2019-07-28 20:24:00 Ganesh Robles odist POC GLUCOSE 2019-07-28 20:07:00 Ganesh Robles odist GA AN ELECTIVE 2019-07-28 15:11:30 Jarocho Barrera odist ENDOTRACHEAL AIRWAY GASTROENTEROSTOMY, 2019-07-28 14:52:00 Ganesh Robles ethodist TAMIR-EN-Y, LAPAROSCOPIC, WITH INTRAOPERATIVE ENDOSCOPY POC GLUCOSE 2019-07-28 12:31:00 Ganesh Robles odist Plan of Care Planned Activity Planned Date Details Comments Source Future Scheduled 2010 COLONOSCOPY SCREENING [place] [facility] Test 00:00:00 [code = COLONOSCOPY SCREENING] Future Scheduled 2010 SHINGLES VACCINES [place] [facility] Test 00:00:00 (#1) [code = SHINGLES VACCINES (#1)] Future Scheduled 1970 DIABETES: RETINAL EYE [place] [facility] Test 00:00:00 EXAM [code = DIABETES: RETINAL EYE EXAM] Future Scheduled 1970 DIABETIC FOOT EXAM [place] [facility]aeism Test 00:00:00 [code = DIABETIC FOOT EXAM] Encounters Start End Encounter Admission Attending Care Care Encounter Source Date/Time Date/Time Type Type Clinicians Facility Department ID 2020-02-21 2020-02-21 Outpatient T[facility]O [facility] [id number] [place] 00:00:00 00:00:[address] 2019-11-29 2019-11-29 Outpatient TETO [facility] [id number] [place] 00:00:00 00:00:00 JAWAIRIA [address] 2019-10-26 2019-10-26 Outpatient TRAVIS [facility] [id number] [place] 00:00:00 00:00:00 GANESH [address] 2019-07-28 2019-07-30 Inpatient TRAVIS, [facility] [id number] 14 [place] 00:00:00 00:00:00 GANESH [address] Results Test Description Test Time Test Comments Results Result Comments Source Comprehensive metabolic panel 2020-03-26 04:45:00 Test Item Value Reference Range Interpretation Comme nts Glucose (test code = 128 mg/dL 65-99 H Fasting 2345-7) reference inter kierra For someone without known diabetes, a glu cosevalue >125 mg/dL kellen cates that they may havedi abetes and this should be confirmed with afollow-up test. BUN (test code = 20 mg/dL 02-234-0) Creatinine (test code = 1.45 mg/dL 0.7-1.33 H For patients >49 years of 0-0) age, the refere nce limitfor Creati nine is approximately 1 3% higher for peopleident ified as -Khushboo n. EGFR Non-Afr. Irish 52 > OR = 60 L (test code = 2775) mL/min/1.73m2 EGFR 61 > OR = 60 (test code = 07738-6) mL/min/1.73m2 BUN/creatinine ratio 14 6- 22 (calc) (test code = 3097-3) Sodium (test code = 142 mmol/L 121-598 0500-2) Potassium (test code = 3.6 mmol/L 3.5-5.3 2823-3) Chloride (test code = 106 mmol/L 98-110 2074-0) CO2 (test code = 28 mmol/L 20-32 2027-9) Calcium (test code = 9.8 mg/dL 8.6-10.3 54760-6) Protein (test code = 6.2 g/dL 6.1-8.1 2885-2) Albumin, S (test code = 4.3 g/dL 3.6-5.1 1751-7) Globulin, total (test 1.9 1.9- 3.7 g/dL code = 70862-7) (calc) Albumin/globulin ratio 2.3 1.0- 2.5 (test code = 1759-0) (calc) Total bilirubin (test 0.8 mg/dL 0.2-1.2 code = 1975-2) Alkaline phosphatase 34 U/L 35-144 L (test code = 6768-6) AST (test code = 33 U/L 10-35 1920-8) ALT (test code = 22 U/L 9-46 1742-6) GIO (test code = GIO) FASTING:YESFASTING: YES RAC (test code = RAC) Performing Organization Information: Site ID: RGA Name: [facility] Address: [address] [place] [phone] Director: Anthony Josue Lab Interpretation Abnormal (test code = 31542-7) [place] MethodistHemoglobin [id number] 23:59:00 Test Item Value Reference Interpretation Comments Range Hemoglobin A1C 6.0 <5.7 % of H For someone w ithout (test code = total Hgb known diabetes, a 4548-4) hemoglobin A1c value between 5.7% an d 6.4% is consist ent withprediabetes and should be confi rmed with a follow-u p test. For someo ne with known diab etes, a value <7%indicates that their diabetes is well controlled . D4xphtgxov shou ld be individualized based on duration ofdiabetes, age , comorbid condit ions, and otherconsiderat ions. This assay resu lt is consistent with an increased risko f diabetes. Curre ntly, no consensus ex ists regarding use ofhemoglobin A1 c for diagnosis of diabetes for children. GIO (test code = FASTING:YESFASTIN GIO) G: YES RAC (test code = Performing RAC) Organization Information: Site ID: RGA [facility]: [facility] Address: [address] [place] [phone] Director: Anthony Josue Lab Interpretation Abnormal (test code = 54056-5) [place] MethodistLipid [id number] 20:55:00 Test Item Value Reference Range Interpretation Comments Cholesterol, total 85 mg/dL <200 (test code = 2093-3) HDL cholesterol 33 mg/dL > OR = 40 L (test code = 2085-9) Triglycerides (test 97 mg/dL <150 code = 2571-8) LDL cholesterol 34 mg/dL (calc) Reference ra nge: calculated (test <100 Desira ble code = 92204-8) range <100 m g/dL for primary prevention; <7 0 mg/dL for patients with C HD or diabetic patients with > or = 2 CHD risk factors. LDL-C is now calculated using the Shannan calculation, which is a validated novel method providin g better accuracy than the Friedewald equation in the estimation of LDL-C. Trevor S S et al. AMBROCIO. 2013;310(19): 6767-6004 (http://educati on .yetu .com/faq/APZ394 ) Cholesterol/HDL 2.6 <5.0 (calc) ratio (test code = 9830-1) Non-HDL cholesterol 52 <130 mg/dL For gurjit ents with (test code = (calc) diabetes plus 1 95381-6) major ASCVD ris k factor, treatin g to a non-HDL-C goal of <100 mg/dL (LDL-C of <70 mg/dL) is considered a therapeutic option. GIO (test code = FASTING:YESFASTING GIO) : YES RAC (test code = Performing RAC) Organization Information: Site ID: [facility] Name: [facility] Lab Address: [address] [place], [place] [id number] Director: Anthony Josue Lab Interpretation Abnormal (test code = 64192-0) Ketan MethodetienneT4, [id number] 20:55:00 Test Item Value Reference Range Interpretation Comments T4, free (test code 1.1 ng/dL 0.8-1.8 = 3024-7) GIO (test code = FASTING:YESFASTING: YES GIO) RAC (test code = Performing Organization RAC) Information: Site ID: [facility] Name: [facility] Address: [address] [place] [phone] Director: Anthony Josue [place] MethodistThyroid stimulating [id number] 20:55:00 Test Item Value Reference Range Interpretation Comments TSH (test code = 1.41 0.40- 4.50 mIU/L 3016-3) GIO (test code = FASTING:YESFASTING: YES GIO) RAC (test code = Performing Organization RAC) Information: Site ID: RGA Name: [facility] Lab Address: [address] [place] [address] Director: Anthony Josue [place] MethodistVitamin B12 [id number] 11:39:00 Test Item Value Reference Range Interpretation Comments Vitamin B12 (test 626 pg/mL 200-1100 code = 2132-9) GIO (test code = FASTING:NOFASTING: NO GIO) RAC (test code = Performing Organization RAC) Information: Site ID: [place]A Name: [facility] Lab Address: [address] [place] [address] Director: Anthony Josue [place] MethodistFerritin [id number] 11:39:00 Test Item Value Reference Range Interpretation Comments Ferritin level (test 217 ng/mL 38-380 code = 2276-4) GIO (test code = GIO) FASTING:NOFASTING: NO RAC (test code = RAC) Performing Organization Information: Site ID: [facility] Name: [facility] Lab Address: [address] [place] [address] Director: Anthony Josue [place] MethodistFolate [id number] 11:39:00 Test Item Value Reference Range Interpretation Comments Folate (test 23.3 ng/mL code = 2284-8) Refer ence Range Lo w: <3.4 Borderline: 3.4-5.4 Normal: >5.4 GIO (test code FASTING:NOFASTING: NO = GIO) RAC (test code Performing = RAC) Organization Information: Site ID: [place] Name: [facility] Address: [address] [place] [address] Director: Anthony Josue [place] MethodistParathyroid [id number] 11:39:00 Test Item Value Reference Interpretation Comments [...] RAC) Organization Information: Site ID: IG Name: [facility] Lab Address: [address] [place] [address] Director: Dr. Anthony Josue Lab Abnormal Interpretation (test code = 20551-2) [place] [id number] 11:39:00 Test Item Value Reference Range Interpretation Comments T3 (test code = 83 ng/dL 76-181 3053-6) GIO (test code = FASTING:NOFASTING: NO GIO) RAC (test code = Performing Organization RAC) Information: Site ID: RGA Name: [facility] Address: [address] [place] [address] Director: Anthony Josue [facility] with platelet and [id number] 11:39:00 Test Item Value Reference Range Interpretation [...] Performing Organization Information: Site ID: RGA Name: [facility] Address: [address] [place] [phone] Director: Anthony Josue Lab Interpretation Abnormal (test code = 19681-6) [place] MethodistVitamin D 25 hydroxy [id number] 11:39:00 Test Item Value Reference Range Interpretation Comments Vitamin D, 27 ng/mL 30-100 L Vitamin D Statu s 25-hydroxy (test 25-O H code = 1988-) Vitamin D: Deficiency: <2 0 ng/mLInsufficie nc [...] this test, go to:http://educa ti on.questdiagnos ti ITmedia KK.com/faq/FAQ1 63 (This link is being provided for informational/e du cational purpos es only.) GIO (test code = FASTING:NOFASTING: GIO) NO RAC (test code = Performing RAC) Organization Information: Site ID: RGA Name: [facility] Lab Address: [address] [place] [address] Director: Anthony Josue Lab Interpretation Abnormal (test code = 01072-0) [place] MethodistVitamin A level, plasma or [id number] 11:39:00 Test Item Value Reference Range Interpretation Comments Vitamin A 98 38- 98 mcg/dL Clin Chem Vo l. (retinol) 34.No.8. [id number]. (test code = 1998Vitamin 2923-1) supplementation within 24 hours prior to blood draw m ay affect the accu racy of results. T his test was develo ped and its analyti gina performance characteristics have been determined by [employer]. It has not been cl eared or approved by theFDA. This as say has been valida katia pursuant to the CLIA regulations and is used for clinic al purposes. GIO (test code FASTING:NOFASTING: = GIO) NO RAC (test code Performing = RAC) Organization Information: Site ID: [facility] Name: [facility] Address: [address] [place] [address] Director: Elijah Irizarry M.D., Ph.D [place] MethodistZinc level, [id number] 11:39:00 Test Item Value Reference Range Interpretation Comments Zinc (test 67 60- 130 mcg/dL This test wa s code = developed and i ts 5763-8) analytical perf ormance characteristics have been determined by [employer] . It has not been cl eared or approved by theFDA. This assay has been validated pursu ant to the CLIA regula tions and is used for clinical purpos es. GIO (test FASTING:NOFASTING: code = GIO) NO RAC (test Performing code = RAC) Organization Information: Site ID: [facility] Name: [facility] Address: [address] [place] [address] Director: Elijah Irizarry M.D., Ph.D [place] MethodistVitamin B1 level, whole [id number] 11:39:00 Test Item Value Reference Range Interpretation Comments Vitamin B1, 167 nmol/L 78-185 Vitamin whole blood supplementation (test code = within 24 hours prior 56293-2) toblood draw ma y affect the accu racy of results. T his test was develo ped and its analyti gina performance characteristics have been determined by [employer] . It has not been cl eared or approved by theA. This as say has been valida katia pursuant to the CLIA regulations and is used for clinic al purposes. GIO (test code FASTING:NOFASTING: = GIO) NO RAC (test code Performing = RAC) Organization Information: Site ID: [facility] Name: [facility] Address: [address] [place] [address] Director: Elijah Irizarry M.D., Ph.D [place] MethodistCopper level, [id number] 11:39:00 Test Item Value Reference Range Interpretation Comments Copper (test 103 70- 175 mcg/dL This test wa s code = developed and i ts 5631-7) analytical perf ormance characteristics have been determined by [employer] . It has not been cl eared or approved by theA. This assay has been validated pursu ant to the CLIA regula tions and is used for clinical purpos es. GIO (test FASTING:NOFASTING: code = GIO) NO RAC (test Performing code = RAC) Organization Information: Site ID: [facility] Name: [employer] [facility] Address: [address] [place] [address] Director: Elijah Irizarry M.D., Ph.D [place] MethodistTotal iron binding [id number] 11:39:00 Test Item Value Reference Range Interpretation Comments Iron level (test 128 50- 180 mcg/dL code = 2498-4) Iron binding 388 250- 425 mcg/dL capacity (test code (calc) = 2500-7) Iron saturation 33 20- 48 % (calc) (test code = 2502-3) GIO (test code = FASTING:NOFASTING: NO GIO) RAC (test code = Performing RAC) Organization Information: Site ID: RGA Name: [facility] Address: [address] [place] [address] Director: Anthony Josue [facility] [id number] 12:03:49 Test Item Value Reference Range Interpretation Comments POC glucose (test code 159 mg/dL 65-99 H Opera tor Name: Rudy = 72252-1) [employer] ID: [id number] able: [facility] 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 Interpretation Abnormal (test code = 95288-3) [facility] [id number] 09:54:54 Test Item Value Reference Range Interpretation Comments Sodium (test code = 2951-2) 139 135- 148 mEq/L Potassium (test code = 2823-3) 4.0 3.5- 5.0 mEq/L Chloride (test code = 2075-0) 105 98- 112 mEq/L CO2 (test code = 2027-9) 19 24- 31 mEq/L L Anion gap (test code = 90299-8) 15@ANIO 7- 15 mEq/L BUN (test code = 3094-0) 22 mg/dL 6-20 H Creatinine (test code = 2160-0) 1.15 mg/dL 0.7-1.2 Glucose (test code = 2345-7) 183 mg/dL 65-99 H Calcium (test code = 80460-1) 9.2 mg/dL 8.3-10.2 Lab Interpretation (test code = Abnormal 12946-2) [facility] [id number] 09:54:54 Test Item Value Reference Range Interpretation Comments Estimated GFR (test 69 mL/min/1.73 m2 [facility] Units code = 5488) InterpretationG 1 >=90 Normal or highG2 60-89 Mildly fjuksinoqL6u 45-59 Mildly to mode rately xdvjjarixQ1m 30-44 Moderately to severely decreasedG4 15-29 Severely decre asedG5 <15 Kidn ey failureThe eGFR was calculated katya bennett the Chronic Kidney Disease Epidemiology Co llaboration (CKD-EPI) equat ion. Interpretation is based on recommendations of the National Kidney Foundation-Kidn ey Disease Outcomes Qualit y Initiative (NKF-KDOQI) pub lished in 2014. Aceves [id number] 15:11:30Jarocho Barrera CRNA 07/28/2019 3:11 PMAirwayDate/Time: 07/28/2019 2:58 PMPerformed by: Jarocho Barrera CRNAAuthorized by: Floresita Aguillon MD Location: ORUrgency: [...] RSI: No Number of Attempts at Approach: 1[place] [facility]
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
--- NOTE | 2020-07-14 12:07 | EDPHYS ---
Physician Documentation [facility] Name: Bobby Daniel Age: 59 yrs Sex: Male : 1960 Arrival Date: 07/14/2020 Time: 11:14 Bed 8 Private MD: BETTY Physician Hieu Epps HPI: 07/14 11:50 This 59 yrs old Male presents to ER via Ambulatory with complaints of Finger cp Injury, Finger Pain. 11:50 The patient or guardian reports pain, swelling, tenderness. The complaints affect the cp index finger of right hand. Context: resulted from wooden splinter that pierced skin 1 week ago that patient removed. Associated signs and symptoms: Pertinent negatives: cyanosis distally, decreased sensation distally, fever. Historical: - Allergies: 11:34 No Known Allergies; aa5 - Home Meds: 11:34 amlodipine oral [Active]; Benicar oral oral [Active]; fenofibrate oral oral [Active]; aa5 Unknown thyroid medication [Active]; gabapentin oral oral [Active]; hydrocodone [Active]; Plavix Oral [Active]; Aspirin Oral [Active]; atorvastatin oral oral [Active]; - PMHx: 11:34 Hypertension; No Diabetes after weight loss; Thyroid problem; Hyperlipidemia; aa5 - PSHx: 11:34 Cholecystectomy; Tonsillectomy; Heart stents; aa5 11:34 Gastric Bypass; aa5 - Immunization history:: Adult Immunizations unknown. - Social history:: Smoking status: Patient denies any tobacco usage or history of. ROS: 11:55 Constitutional: Negative for body aches, chills, fever, poor PO intake. cp 11:55 Cardiovascular: Negative for chest pain. cp 11:55 Respiratory: Negative for cough, shortness of breath. 11:55 MS/extremity: Positive for pain, swelling, tenderness, of the right hand, Negative for injury or acute deformity, paresthesias. 11:55 Neuro: Negative for numbness, weakness. 11:55 All other systems are negative. Exam: 12:00 Constitutional: The patient appears in no acute distress, alert, awake, non-toxic, well cp developed, well nourished. 12:00 Musculoskeletal/extremity: Extremities: grossly normal except: noted in the right hand: cp pain, Perfusion: the extremity is normally perfused throughout, Sensation intact. 12:00 Skin: swelling noted mid and proximal phalanx right index finger extending into area of second metacarpal and first web space, minimal erythema. Vital Signs: 11:28 BP 148 / 80; Pulse 83; Resp 18 S; Temp 99.2(O); Pulse Ox 99% on R/A; Weight 86.18 kg aa5 (R); Height 5 ft. 6 in. (167.64 cm) (R); Pain 3/10; 11:28 Body Mass Index 30.67 (86.18 kg, 167.64 cm) aa5 MDM: 11:32 Patient medically screened. [facility] 12:05 Data reviewed: vital signs, nurses notes, and as a result, I will discharge patient. 12:05 Counseling: I had a detailed discussion with the patient and/or guardian regarding: the cp historical points, exam findings, and any diagnostic results supporting the discharge/admit diagnosis, the need for outpatient follow up, a family practitioner, to return to the emergency department if symptoms worsen or persist or if there are any questions or concerns that arise at home. 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 Exp: aa5 11/16/2021. Lot #: [id number]. } Route: IM; Site: right deltoid; 12:31 Follow up: Response: No adverse reaction aa5 Disposition: 12:15 Chart complete. cp 17:52 Co-signature as Attending Physician, Hieu Epps MD I agree with the assessment and [facility] plan of care. Disposition: 07/14/20 12:06 Discharged to Home. Impression: Cellulitis of finger - right index. - Condition is Stable. - Discharge Instructions: Cellulitis, Adult. - Prescriptions for Doxycycline Hyclate 100 mg Oral Tablet - take 1 tablet by ORAL route every 12 hours; 20 tablet. Bactrim DS 800- 160 mg Oral Tablet - take 1 tablet by ORAL route every 12 hours for 10 days; 20 tablet. Naprosyn 500 mg Oral Tablet - take 1 tablet by ORAL route 2 times per day take with food; 20 tablet. - Medication Reconciliation Form, Thank You Letter, Antibiotic Education, Prescription Opioid Use form. - Follow up: Private Physician; When: 1 - 2 days; Reason: Recheck today's complaints. - Problem is new. - Symptoms have improved. Signatures: Hieu Epps MD MD cha Calderon, Audri, RN RN aa5 Hieu Oliveira, PA PA cp Corrections: (The following items were deleted from the chart) 12:32 12:06 07/14/2020 12:06 Discharged to Home. Impression: Cellulitis of finger - right aa5 index. Condition is Stable. Forms are Medication Reconciliation Form, Thank You Letter, Antibiotic Education, Prescription Opioid Use. Follow up: Private Physician; When: 1 - 2 days; Reason: Recheck today's complaints. Problem is new. Symptoms have improved. cp
[2020-07-14] MEDS ORDERED: TETANUS & DIPHTHERIA TOX,ADULT 0.5 ML VIAL ONE (12:31)
[2020-07-18 00:28] VITALS: BP 148/80; TEMP 99.2; O2SAT 99
== END 2020-07-14 12:32 | disposition home or self-care (01) ==
LOC: ER 11:11
DX: L03.011 Cellulitis of right finger (principal); I10 Essential (primary) hypertension; E78.5 Hyperlipidemia, unspecified; E07.9 Disorder of thyroid, unspecified; Z23 Encounter for immunization; Z95.818 Presence of other cardiac implants and grafts; Z79.01 Long term (current) use of anticoagulants; Z79.82 Long term (current) use of aspirin
CPT/HCPCS: 90471; 90714; 99283

== ENCOUNTER 2020-08-18 11:02 | Emergency (ER) | payer OTHER ==
--- OUTSIDE RECORDS SUMMARY | 2020-08-18 11:15 | XMS REPORT | Clinical Summary ---
:1960 Author Organization [facility] Address [address] [place] [address] Care Team Providers Name Role Phone Shelton Haines MD Primary Care Provider Allergies No Known Active Allergies Medications Medication Sig Dispensed Refills Start End Date Status Date insulin ASPART (NovoLOG Inject 6-20 45 [...] (LOPRESSOR) 50 mg by mouth tablet daily. metoprolol tartrate Take 50 mg 0 02/21/20 Discontinued (LOPRESSOR) 25 mg by mouth 2 20 ( Dose tablet (two) times adjustme nt) a day. hydrALAZINE Take 10 mg 1 02/21/20 Discont inued (APRESOLINE) 10 MG by mouth 3 9 20 (Med List tablet (three) Cleanup) times a day. metFORMIN (GLUCOPHAGE) Take 0.5 60 tablet 1 0 Discontinued 1,000 mg tablet tablets 9 20 (Dos e (500 mg adjustment ) total) by mouth 2 (two) times a day with meals. pantoprazole (PROTONIX) Take 1 30 tablet 0 40 MG EC tablet tablet (40 9 20 mg total) by mouth daily for [address] 1 0 11/29/19 Discontinu ed (CATAPRES-TTS) 0.1 patch on 20 ( Med List mg/24 hr the skin Cleanup) once a week. ferrous sulfate (iron) Take 325 mg 0 02/20 Discontinued 325 (65 FE) MG tablet by mouth 20 (Med List daily with Cleanup) breakfast. Active Problems Problem Noted Date Elevated triglycerides with high cholesterol 0 Low HDL (under 40) 12/13/2019 Elevated hemoglobin A1c 2019 Multiple vitamin deficiency 2019 Vitamin D deficiency 2019 Low serum parathyroid hormone (PTH) 2019 Morbid obesity 07/28/2019 Encounters Date Type Specialty Care Team Description 02/21/2020 Telemedicine Endocrinology David Diaz Type 2 di abetes mellitus with other specified complication, unspecified whether detention insulin use (HCC) (Primary Dx); Vitamin D defic iency; Mixed hyperlipi demia; Stage 2 chronic kidney disease 12/13/2019 Orders Only General Surgery Elis Wagoner, DIRECTOR OF LABOR AND DELIVERY 11/29/2019 Telemedicine Endocrinology David Diaz, Type 2 di abetes mellitus with other specified complication, unspecified whether detention insulin use (HCC) (Primary Dx); Morbid obesity (HCC); Screening for t hyroid disorder 10/26/2019 Telemedicine General Surgery Evans Robles MD Weight loss (Primary Dx); Padmini Bradley PA Diabetes 1.5, managed as type 2 (HCC); Obstructive sle ep apnea; Essential hyper tension; Other hyperlipi demia 10/23/2019 Travel 10/13/2019 Travel 10/03/2019 Refill Endocrinology Liana Pina, FAMILY SERVICES MANAGER 09/07/2019 Office Visit General Surgery Evans Robles MD Surgery follow-up examination (Pr imary Dx) 09/07/2019 Orders Only General Surgery Rashmi Gunter Essen tial hypertension (Primary Dx); MA Malabsorption d ue to intolerance, not elsewhere classified; S/P bariatric s urgery; Weight loss 08/23/2019 Office Visit Endocrinology David Diaz Type 2 di abetes mellitus with other spec ified complication, u nspecified whether long te rm insulin use (HCC) (Prim riley Dx) after 08/18/2019 Surgical History Surgery Date Site/Laterality Comments CATARACT [...] Surg yayo: Evans Robles MD ; Location: [facility]; Service: General ; Laterality: N/A; Medical devices [...] at Date Recorded Male 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 Vital Signs Vital Sign Reading Time Taken Comments Blood Pressure 174/85 09/07/2019 1:21 PM CITY PLANT SUPERVISOR Pulse 69 09/07/2019 1:21 PM CITY PLANT SUPERVISOR Temperature 36.8 C (98.3 F) 09/07/2019 1:21 PM CITY PLANT SUPERVISOR Respiratory Rate 16 09/07/2019 1:21 PM CITY PLANT SUPERVISOR Oxygen Saturation 95% 09/07/2019 1:21 PM CITY PLANT SUPERVISOR Inhaled Oxygen Concentration - - Weight 108 kg (238 lb 6.4 oz) 09/07/2019 1:21 PM CITY PLANT SUPERVISOR Height 167.6 cm (5' 6") 09/07/2019 1:21 PM CITY PLANT SUPERVISOR Body Mass Index 38.48 09/07/2019 1:21 PM CITY PLANT SUPERVISOR Plan of Treatment Health Maintenance Due Date Last Done Comments DIABETES: RETINAL EYE EXAM 1970 DIABETIC FOOT EXAM 1970 COVID-19 VACCINE (1 of 2) 1976 COLONOSCOPY SCREENING 2010 SHINGLES VACCINES (#1) 2010 INFLUENZA VACCINE Completed 03/16/2020, 05/11/2019, 2017, Additional history exists Goals Goal Patient Goal Associated Recent Patient-Stated? Author Type Problems Progress WM Monitoring General No Lela Morris RD Note: 04/07/18 Active Track 1800 calories most days per week Implants Implanted Type Area Electric Stove Installer Device Shelf Model / Identifier Expiration Serial / Date Lot Drain Wnd Chnl 19fr 4in Rnd Hbls Fl-Flut W/ 4in Tr ocar - [id number] Surgical N/A: N/A ETHICON US ET 12/24/2023 [id number] / Implanted: Qty: 1 on 07/28/2019 by Evans Robles MD at [facility] Implants; / Expanders; Extenders; Surgical Wires Procedures Procedure Name Priority Date/Time Associated Comments Diagnosis COMPREHENSIVE Routine 03/25/2020 10:16 Type 2 diabetes Results for this METABOLIC PANEL AM CDT mellitus with other proce dure are in specified the results complication, section. unspecified whether detention insulin use (HCC) HEMOGLOBIN A1C Routine 03/25/2020 10:15 Type 2 diabetes Result s for this AM CDT mellitus with other procedur e are in specified the results complication, section. 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 THYROID STIMULATING Routine 02/14/2020 7:54 Morbid obesity Re sults for this HORMONE AM CDT (HCC) procedure are in Screening for the results thyroid disorder section. COMPREHENSIVE Routine 02/14/2020 7:54 Morbid obesity Results for this METABOLIC PANEL AM CDT (HCC) procedure ar e in the results section. LIPID PANEL Routine 02/14/2020 7:54 Type 2 diabetes Results for this AM CDT mellitus with other procedur e are in specified the results complication, section. unspecified whether detention insulin use (HCC) Morbid obesity (HCC) HEMOGLOBIN A1C Routine 02/14/2020 7:54 Type 2 diabetes Result s for this AM CDT mellitus with other procedur e are in specified the results complication, section. 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 elsewhere classified S/P bariatric surgery Weight loss after 08/18/2019 Results Comprehensive metabolic panel (03/25/2020 10:16 AM CDT)Only the most recent of3 resultswithin the time period is included. Glucose 128 (H) 65 - 99 [facility] Comment: mg/dL [facility] Fasting reference interval For someone without known diabetes, a glucose value >125 mg/dL indicates that they may have diabetes and this should be confirmed with a follow-up test. BUN 20 7 - 25 mg/dL [facility] Creatinine 1.45 (H) 0.70 - 1.33 [facility] Comment: mg/dL [facility] For patients >49 years of age, the reference limit for Creatinine is approximately 13% higher for people identified as -Citizen [place]. EGFR Non-Afr. 52 (L) > OR = 60 [facility] Citizen [place] mL/min/1.73m [facility] 2 EGFR 61 > OR = 60 [facility] Citizen [place] mL/min/1.73m [facility] 2 BUN/creatinine 14 6 - 22 [facility] ratio (calc) [facility] Sodium 142 135 - 146 [facility] mmol/L [facility] Potassium 3.6 3.5 - 5.3 [facility] mmol/L [facility] Chloride 106 98 - 110 [facility] mmol/L [facility] CO2 28 20 - 32 [facility] mmol/L [facility] Calcium 9.8 8.6 - 10.3 [facility] mg/dL [facility] Protein 6.2 6.1 - 8.1 [facility] g/dL [facility] Albumin, S 4.3 3.6 - 5.1 [facility] g/dL [facility] Globulin, total 1.9 1.9 - 3.7 [facility] g/dL (calc) [facility] Albumin/globulin 2.3 1.0 - 2.5 [facility] ratio (calc) [facility] Total bilirubin 0.8 0.2 - 1.2 [facility] mg/dL [facility] Alkaline 34 (L) 35 - 144 U/L [facility] phosphatase [facility] AST 33 10 - 35 U/L [facility] ALT 22 9 - 46 U/L [facility] Specimen Blood Narrative Performed At FASTING:YES [facility] FASTING: YES Resulting Agency Comment Performing Organization Information: Site ID: [id number] Name: [facility] Address: [address] [place] [phone] Director: Anthony Josue Performing Organization Address [facility] [place] [address] Hemoglobin A1c (03/25/2020 10:15 AM CDT)Only the most recent of4 resultswithin the time period is included. Hemoglobin A1C 6.0 (H) <5.7 % of [facility] Comment: total Hgb AD[facility] For someone without known diabetes, a hemoglobin [...] Performing Organization Information: Site ID: [id number] Name: [facility] Address: [address] [place] [phone] Director: Anthony Josue Performing Organization Address [facility] Phon e Number Joobili [facility] [address] [place], [place] [id number] Thyroid stimulating hormone (02/14/2020 7:54 AM CDT)Only the most recent of2 resultswithin the time period is included. Pathologist Sig nature TSH 1.41 0.40 - 4.50 mIU/L [facility] Specimen Blood Narrative Performed At FASTING:YES [facility] FASTING: YES Resulting Agency Comment Performing Organization Information: Site ID: [id number] Name: [facility] Address: [address] [place] [phone] Director: Anthony Josue Performing Organization Address City/[facility]/ZIP Code [place] [address] T4, free (02/14/2020 7:54 AM CDT)Only the most recent of2 resultswithin the time period is included. Pathologist Sig nature T4, free 1.1 0.8 - 1.8 ng/dL [facility] Kwanji [facility] Specimen Blood Narrative Performed At FASTING:YES [facility] FASTING: YES Resulting Agency Comment Performing Organization Information: Site ID: RGA Name: [facility] Address: [address] [place] [phone] Director: Anthony Josue Performing Organization Address City/[facility] [place] [address] Lipid panel (02/14/2020 7:54 AM CDT)Only the most recent of2 resultswithin the time period is included. Cholesterol, total 85 <200 mg/dL [facility] HDL cholesterol 33 (L) > OR = 40 [facility] mg/dL [facility] Triglycerides 97 <150 mg/dL [facility] LDL cholesterol 34 mg/dL (calc) [facility] calculated Comment: [facility] Reference range: <100 Desirable range <100 mg/dL for primary prevention; <70 mg/dL for patients with CHD or diabetic patients with > or = 2 CHD risk factors. LDL-C is now calculated using the Trevor-Rose Mary calculation, which is a validated novel method providi ng better accuracy than the Friedewald equation in the estimation of LDL-C. Trevor TELLO et al. AMBROCIO. 2013;310(19): 7691-0929 (http://education.Toppr.ISpeak/faq/JKT880) Cholesterol/HDL 2.6 <5.0 (calc) [facility] Non-HDL cholesterol 52 <130 mg/dL [facility] Comment: (calc) [facility] For patients with diabetes plus 1 major ASCVD risk factor, treating to a non-HDL-C goal of <100 mg/dL (LDL-C of <70 mg/dL) is considered a therapeutic option. Specimen Blood Narrative Performed At FASTING:YES [facility] FASTING: YES Resulting Agency Comment Performing Organization Information: Site ID: RGA Name: [facility] Address: [address] [place] [phone] Director: Anthony Josue Performing Organization Address [facility] Phon e Number [employer] [place] [address] Total iron binding capacity (2019 7:51 AM CDT) Pathologist Sig nature Iron level 128 50 - 180 mcg/dL [facility] Iron binding capacity 388 250 - 425 mcg/dL [facility] CS (calc) [facility] Iron saturation 33 20 - 48 % (calc) [facility] Specimen Blood Narrative Performed At FASTING:NO [facility] FASTING: NO Resulting Agency Comment Performing Organization Information: Site ID: [facility] Name: [facility] Address: [address] [place] [phone] Director: Anthony Joseu Performing Organization Address [facility] [place] [address] Copper level, serum (2019 7:51 AM CDT) Copper 103 70 - 175 [facility] Comment: mcg/dL TALITA STEWART This test was developed and its analytical performance characteristics have been determined by [employer]. It has not been cleared or approved by [facility] FDA. This assay has been validated pursuant to the CLI A regulations and is used for clinical purposes. Specimen Blood Narrative Performed At FASTING:NO [facility] FASTING: NO Resulting Agency Comment Performing Organization Information: Site ID: SLI Name: [facility] Address: [address] [place] [address] Director: Elijah Irizarry M.D., Ph. D Performing Organization Address [facility] Phon e Number [facility] [place] [address] [place], [place] [address] PAT Vitamin B1 level, whole blood (2019 7:51 AM CDT) Vitamin B1, 167 78 - 185 [facility] whole blood Comment: nmol/L TALITA STEWART Vitamin supplementation within 24 hours prior to blood draw may affect the accuracy of results. This test was developed and its analytical performance characteristics have been determined by [facility]. It has not been cleared or approved by [facility] FDA. This assay has been validated pursuant to the CLI A regulations and is used for clinical purposes. Specimen Blood Narrative Performed At FASTING:NO [facility] FASTING: NO Resulting Agency Comment Performing Organization Information: Site ID: [facility] Name: [facility] Address: [address] [place], [place] [phone] Director: Elijah Irizarry M.D., Ph. D Performing Organization Address [facility] Phon e Number [employer] [phone] [place] [address] [place] Zinc level, serum (2019 7:51 AM CDT) Zinc 67 60 - 130 [facility] Comment: mcg/dL TALITA STEWART This test was developed and its analytical performance characteristics have been determined by [employer]. It has not been cleared or approved by [facility]. This assay has been validated pursuant to the CLI A regulations and is used for clinical purposes. Specimen Blood Narrative Performed At FASTING:NO [facility] FASTING: NO Resulting Agency Comment Performing Organization Information: Site ID: [facility] Name: [facility] Address: [address] [place], [place] [address] Director: Elijah Irizarry M.D., Ph. D Performing Organization Address [facility] e Number [employer] [phone] [place] [address] [place] Vitamin A level, plasma or serum (2019 7:51 AM CDT) Vitamin A 98 38 - 98 [facility] (retinol) Comment: mcg/dL TALITA STEWART Clin Chem Vol. 34.No.8. [id number]. 1998 Vitamin supplementation within 24 hours prior to blood draw may affect the accuracy of results. This test was developed and its analytical performance characteristics have been determined by [employer]. It has not been cleared or approved by [facility] FDA. This assay has been validated pursuant to the CLI A regulations and is used for clinical purposes. Specimen Blood Narrative Performed At FASTING:NO [facility] FASTING: NO Resulting Agency Comment Performing Organization Information: Site ID: SLI Name: [facility] Address: [id number] [place] [phone] Director: Elijah Irizarry M.D., Ph. D Performing Organization Address [facility] Phon e Number [employer] [place] [address] [place] [phone] [place] Vitamin D 25 hydroxy level (2019 7:51 AM CDT) Pathologist [facility] Vitamin D, 27 (L) 30 - 100 [facility] 25-hydroxy Comment: ng/mL [facility] Vitamin D Status 25-OH Vitamin D: Deficiency: <20 ng/mL Insufficiency: 20 - 29 ng/mL Optimal: > or = 30 ng/mL For 25-OH Vitamin D testing on patients on D2-supplementation and patients for whom quantitation of D2 and D3 fractions is required, the QuestAssureD(T M) 25-OH VIT D, (D2,D3), LC/MS/MS is recommended: order code 92180 (patients >2yrs). For more information on this test, go to: http://education.Grab Media/faq/VVC920 (This link is being provided for informational/educational purposes only.) Specimen Blood Narrative Performed At FASTING:NO [facility] FASTING: NO Resulting Agency Comment Performing Organization Information: Site ID: RGA Name: [facility] Address: [address] [place] [phone] Director: Anthony Josue Performing Organization Address City/[facility] Phon e Number Joobili [address] [address] CBC with platelet and differential (2019 7:51 AM CDT) WBC 5.6 3.8 - 10.8 [facility] Thousand/uL [facility] RBC 4.27 4.20 - 5.80 [facility] Million/uL [facility] HGB 12.4 (L) 13.2 - 17.1 [facility] g/dL [facility] HCT 39.2 38.5 - 50.0 % [facility] MCV 91.8 80.0 - 100.0 fL [facility] MCH 29.0 27.0 - 33.0 pg [facility] MCHC 31.6 (L) 32.0 - 36.0 [facility] g/dL [facility] RDW 12.6 11.0 - 15.0 % [facility] Platelet count 247 140 - 400 [facility] Thousand/uL [facility] MPV 10.7 7.5 - 12.5 fL [facility] Neutrophils, absolute 3,259 1,500 - 7,800 [facility] cells/uL [facility] Lymphocytes, absolute 1,574 850 - 3,900 [facility] cells/uL [facility] Monocytes, absolute 454 200 - 950 [facility] cells/uL [facility] Eosinophils, absolute 274 15 - 500 [facility] cells/uL [facility] Basophils, absolute 39 0 - 200 [facility] cells/uL [facility] Neutrophils 58.2 % [facility] Lymphocytes 28.1 % [facility] Monocytes 8.1 % [facility] Eosinophils 4.9 % [facility] Basophils + RC 0.7 % [facility] Specimen Blood Narrative Performed At FASTING:NO [facility] FASTING: NO Resulting Agency Comment Performing Organization Information: Site ID: A Name: [facility] Address: [address] [place] [address] Director: Anthony Josue Performing Organization Address City/[facility] [place] [address] T3 (2019 7:51 AM CDT) Pathologist Sig nature T3 83 76 - 181 ng/dL [facility] Specimen Blood Narrative Performed At FASTING:NO [facility] FASTING: NO Resulting Agency Comment Performing Organization Information: Site ID: [facility] Name: [facility] Address: [address] [place], [place] [phone] Director: Anthony Josue Performing Organization Address [facility] [place] [address] Parathyroid hormone (2019 7:51 AM CDT) PTH 7 (L) 14 - 64 pg/mL [facility] Comment: CHEPE Zazueta II Interpretive Guide Intact PTH Calc ium ---- --- Normal Parathyroid Normal No rmal Hypoparathyroidism Low or Low Normal Low Hyperparathyroidism Primary Normal or High H igh Secondary High Normal or Low Tertiary High High Non-Parathyroid Hypercalcemia Low or Low Normal High Specimen Blood Narrative Performed At FASTING:NO [facility] FASTING: NO Resulting Agency Comment Performing Organization Information: Site ID: IG Name: [facility] Address: [address] [place] [phone] Director: Dr. Anthony lott Performing Organization Address City/[facility] Phon e Number [employer] [address] [phone] Folate level (2019 7:51 AM CDT) Pathologist Sig nature Folate 23.3 ng/mL [facility] Comment: [facility] e Low: <3.4 Borderline: 3.4-5.4 Normal: >5.4 Specimen Blood Narrative Performed At FASTING:NO [facility] FASTING: NO Resulting Agency Comment Performing Organization Information: Site ID: RGA Name: [facility] Address: [address] [place] [phone] Director: Anthony Josue Performing Organization Address [facility] Phon e Number Joobili [address] [address] Ferritin level (2019 7:51 AM CDT) Pathologist Sig nature Ferritin level 217 38 - 380 ng/mL [facility] N Specimen Blood Narrative Performed At FASTING:NO [facility] FASTING: NO Resulting Agency Comment Performing Organization Information: Site ID: RGA Name: [facility] Address: [address] [place] [phone] Director: Anthony Josue Performing Organization Address [facility] [place] [address] Vitamin B12 level (2019 7:51 AM CDT) Pathologist Sig nature Vitamin B12 626 200 - 1,100 pg/mL [facility] ON Specimen Blood Narrative Performed At FASTING:NO [facility] FASTING: NO Resulting Agency Comment Performing Organization Information: Site ID: RGA Name: [facility] Address: [address] [place] [address] Director: Anthony Josue Performing Organization Address City/State/ZIP Code Phon e Number [facility] [address] [phone] after 08/18/2019 Lee MACHUCA (Home) [place], [place] [phone] (Work) Advance Directives For more information, please contact: [phone] Type Date Recorded 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
--- OUTSIDE RECORDS SUMMARY | 2020-08-18 11:16 | XMS REPORT | Continuity of Care Document ---
:1960 Author Organization [facility] t Address [address] Lorenz. [address] [place] [address] Care Team Providers Name Role Phone Yancy GARCIA, Fayz Primary Care Physician Emily GARCIA Attending Clinician Rizwana PIPER Attending Clinician Travis GARCIA Attending Clinician Miguel [place] Attending Clinician Kendal Pina NP Attending Clinician Jani INFANTE Attending Clinician Unavailable TRAVIS Admitting Clinician Unavailable Payers Payer Name Policy Type Policy Effective Expiration Source Number Date Date TEXANPLUSTEXANPLUS [id number] 2015 Carlos beverly [id number] 2015-Pr 00:00:00 M ethodist esentHMO Problems Condition Condition Condition Status Onset Resolution Last Treating Co mments Source Name Details Category Date Date Treatment Clinician Date Chronic Chronic Problem Active [place] pain Pain 07 Family 00:00: Practic 00 e Neuropathy Neuropathy Problem Active [facility] ill[facility] 1-07 Family 00:00: Practic 00 e Essential Essential Problem Active Selvin jim hypertensi Hypertensi 1-07 Fa jeremy on on 00:00: Practic 00 e Coronary Coronary Problem Active [place] ge arterioscl Arterioscl 07 y erosis erosis 00:00: Practic 00 e Gastroesop Gastroesop Problem Active [facility] hageal hageal 08-08 Family reflux Reflux 00:00: Practic disease Disease 00 e Pain Pain Problem Active [facility] radiating Radiating 08-08 Fami ly to left to Left 00:00: Practic shoulder Shoulder 00 e History of History of Problem Active [facility] bypass of Bypass of 08-08 Fami ly stomach Stomach 00:00: Practic 00 e Mixed Mixed Problem Active [facility] hyperlipid Hyperlipid 08-08 Mumtaz luna emia due emia Due 00:00: Practi c to type 2 to Type 2 00 e diabetes Diabetes mellitus Mellitus Cataract Cataract Problem Active [place] ge due to Due to 08-08 Family diabetes Diabetes 00:00: Practi c mellitus Mellitus 00 e Elevated Elevated Disease Active [place] triglyceri triglyceri 5-13 Me thodi dion with dion with 00:00: st high high 00 cholestero cholestero l l Low HDL Low HDL Disease Active Geraldine (under 40) (under 40) 5-13 Me thodi [...] (PTH) 00 Morbid Morbid Disease Active 2018-08 Geraldine obesity obesity 2-27 Methodi 00:00: st 00 Allergies, Adverse Reactions, Alerts This patient has no known allergies or adverse reactions. Family History Family Member Diagnosis Comments Start Date Stop Date Source Natural mother COPD Geraldine Me thodist Natural mother Cancer Gerald[facility] Me thodist Natural mother Diabetes [facility] Social History Social Habit Start Date Stop Date Quantity Comments Source History of tobacco Current smoker [place] use Confucianism History [facility] Alcohol Std Drinks Method ist History [facility] Alcohol Binge Confucianism Sex Assigned At [facility] Confucianism Cigarettes smoked 2019-09-07 2019-09-07 Geraldine current (pack per 00:00:00 00:00:00 Methodi ) - Reported Cigarette 2019-09-07 2019-09-07 Geraldine pack-years 00:00:00 00:00:00 Confucianism Tobacco use and 2019-09-07 2019-09-07 Former user Geraldine exposure 00:00:00 00:00:00 Confucianism Alcohol intake 2019-09-07 2019-09-07 Current drinker of [place] 00:00:00 00:00:00 alcohol (finding) Methodi st Alcohol Comment 2018-10-13 2018-10-13 stopped Geraldine 00:00:00 00:00:00 occassional beer Methodis t 2018 History SDMD 2018-08-26 2018-08-26 1 Geraldine Alcohol Frequency 00:00:00 00:00:[address] Smoking Status Start Date Stop Date Source Never Smoker Jose C Family Davonte whaley Former smoker 2019-09-07 00:00:00 2019-09-07 00:00:00 Geraldine Confucianism Medications Ordered Filled Start Stop Current Ordering Indication Dosage Frequency Signature Comments Components Source Medication Medication Date Date Medication? Clinician (SIG) Name Name metoprolol 2019- 2020- No 50mg Q.5D Take 50 mg [place] tartrate - 07-22 by mouth 2 Meth sammie (LOPRESSOR) 08:30: 00:00 (two) st 25 mg 05 :00 times a tablet day. fenofibrate 2020-0 Yes 145mg QD Take 145 [place] (TRICOR) 7-22 mg by Methodi 145 MG 08:30: mouth st tablet 03 daily. HYDROcodone 2020-0 Yes 1{tbl} Q.[id number] Take 1 Aceves -acetaminop - [id number] tablet by Methodi hen (NORCO) 08:30: 3D [...] QD Take 75 mg [facility] (PLAVIX) 75 7-22 by mouth Meth sammie mg tablet 08:30: [...] tablet day. calcium 2020-0 Yes Take by Geraldine citrate/vit 7- mouth. Method i herrera D3 08:30: st (CITRACAL 03 REGULAR ORAL) metoprolol 2020-0 Yes 50mg QD Take 50 mg [place] tartrate 7-22 by mouth Methodi (LOPRESSOR) 08:30: daily. st 50 mg 03 tablet ferrous 2020-0 2020- No 325mg QD Take 325 [place] sulfate 7-22 07-22 mg by Methodi (iron) 325 08:29: 00:[address] (65 FE) MG 18 :00 daily with tablet breakfast. clonIDINE 2020-0 2020- No 1{patch Q7D Place 1 [place] (CATAPRES-T 11-28 } patch on Met hodi TS) 0.1 09:44: 00:[address] mg/24 hr 54 :00 once a week. pantoprazol 2018-08 2020- No 40mg QD Take 1 Stephenie ston e 08-29 tablet (40 Methodi (PROTONIX) 00:00: 23:59 mg total) s t 40 MG EC 00 :00 by mouth tablet daily for 30 days. metFORMIN 2019-1 2020- No 500mg Q.5D Take 0.5 [place] (GLUCOPHAGE 2-29 01-22 tablets Meth sammie ) 1,000 mg 00:00: 00:00 ([address] tablet 00 :00 total) by mouth 2 (two) times a day with meals. gabapentin 2018-08 Yes 800mg Q.98084306 Take 800 [facility] (NEURONTIN) 0-03 [id number] mg by M ethodi 800 mg 00:00: 3D mouth 3 st tablet 00 (three) times a day. hydrALAZINE 2019- No 10mg Q.02566441 Take 10 mg Ketan (APRESOLINE 2-28 07-22 [id number] by mouth 3 Methodi ) 10 MG 00:00: 00:00 3D (three) st tablet 00 :00 times a day. insulin Yes Inject Aceves ASPART 7-11 6-20 units Methodi (NovoLOG 00:00: tid per st Flexpen 00 sliding U-100 scale. Insulin) 100 unit/mL insulin pen amlodipine amlodipine No 1 Q1D amlodipine [facility] 10 mg 10 mg 10 mg Family tablet Take tablet Take tablet Practic 1 tablet 1 tablet Take 1 e every day every day tablet by oral by oral every day route. route. by oral route. aspirin 81 aspirin 81 No 1 Q1D aspirin 81 Village mg mg mg Family tablet,marcy tablet,marcy tablet,del Practic yed release yed release ayed e Take 1 Take 1 release tablet tablet Take 1 every day every day tablet by oral by oral every day route. route. by oral route. atorvastati atorvastati No 1 Q1D atorvastat [facility] n 80 mg n 80 mg in 80 mg Famil y tablet Take tablet Take tablet Practic 1 tablet 1 tablet Take 1 e every day every day tablet by oral by oral every day route. route. by oral route. Citracal + Citracal + No 1 Q1D Citracal + [facility] Vitamin D Vitamin D Vitamin D Family Maximum 315 Maximum 315 Maximum Practic mg mg 315 mg e calcium-6.2 calcium-6.2 calcium-6. 5 mcg (250 5 mcg (250 25 mcg unit) unit) (250 unit) tablet Take tablet Take tablet 1 tablet 1 tablet Take 1 every day every day tablet by oral by oral every day route. route. by oral route. clopidogrel clopidogrel No 1 Q1D clopidogre [facility] 75 mg 75 mg l 75 mg Family tablet Take tablet Take tablet Practic 1 tablet 1 tablet Take 1 e every day every day tablet by oral by oral every day route. route. by oral route. gabapentin gabapentin No 1 TID gabapentin [facility] 800 mg 800 mg 800 mg Family tablet Take tablet Take tablet Practic 1 tablet 3 1 tablet 3 Take 1 e times a day times a day tablet 3 by oral by oral times a route. route. day by oral route. hydrocodone hydrocodone No 1 Q6H hydrocodon [facility] 7.5 7.5 e 7.5 Family mg-acetamin mg-acetamin mg-acetami Practic ophen 325 ophen 325 nophen 325 e mg tablet mg tablet mg tablet Take 1 Take 1 Take 1 tablet tablet tablet every 6 every 6 every 6 hours by hours by hours by oral route. oral route. oral route. multivit multivit No multivit Selvin jim 45-iron-fol 45-iron-fol 45-iron-fo Family ate 6-dha ate 6-dha late 6-dha Practic one tablet one tablet one tablet e daily daily daily Protonix 40 Protonix 40 No 1 Q1D Protonix [facility] mg mg 40 mg Family tablet,marcy tablet,marcy tablet,del Practic yed release yed release ayed e Take 1 Take 1 release tablet tablet Take 1 every day every day tablet by oral by oral every day route. route. by oral route. Vitamin D3 Vitamin D3 No Vitamin D3 [facility] 5,000mg 5,000mg 5,000mg Family daily daily daily Practic e Immunizations Ordered Immunization Filled Immunization Date Status Commen ts Source Name Name zoster recombinant zoster recombinant 2020-03-02 Completed [facility] Family 00:00:00 Practice pneumococcal pneumococcal 2020-03-02 Completed [facility] jeremy polysaccharide PPV23 polysaccharide PPV23 00:00:00 Practice influenza, influenza, 2020-03-02 [facility] injectable, injectable, 00:00:00 Practice quadrivalent quadrivalent Vital Signs Vital Name Observation Time Observation Value Comments Source BP Diastolic 2020-08-08 00:00:00 72 mm[Hg] [facility] Height 2020-08-08 00:00:00 66 [in_i] [facility] BMI (Body Mass 2020-08-08 00:00:00 29.1 kg/m2 Vill e Family Index) Practice BP Systolic 2020-08-08 00:00:00 131 mm[Hg] [facility] Body Weight 2020-08-08 00:00:00 180 [lb_av] [facility] Systolic blood 2019-09-07 13:21:00 174 mm[Hg] Mandato n Confucianism pressure Diastolic blood 2019-09-07 13:21:00 85 mm[Hg] Kristina on Confucianism pressure Heart rate 2019-09-07 13:21:00 69 /min [facility] Confucianism Body temperature 2019-09-07 13:21:00 36.83 Mirella Manda ton Confucianism Respiratory rate 2019-09-07 13:21:00 16 /min Manda ton Confucianism Body height 2019-09-07 13:21:00 167.6 cm Ace[facility] Confucianism Body weight 2019-09-07 13:21:00 108.138 kg [facility] Confucianism BMI 2019-09-07 13:21:00 38.48 kg/m2 Ketan Confucianism Oxygen saturation in 2019-09-07 13:21:00 95 /min Ketan Owens Arterial blood by Pulse oximetry Procedures Procedure Date / Time Performing Clinician Source Performed COMPREHENSIVE METABOLIC 2020-03-25 10:16:00 David Diaz Confucianism PANEL HEMOGLOBIN A1C 2020-03-25 10:15:00 David Diaz Met hodist HEMOGLOBIN A1C 2020-02-14 07:54:00 David Diaz Met hodist LIPID PANEL 2020-02-14 07:54:00 David Diaz Met hodist COMPREHENSIVE METABOLIC 2020-02-14 07:54:00 David Diaz Confucianism PANEL THYROID STIMULATING 2020-02-14 07:54:00 David Diaz Confucianism HORMONE T4, FREE 2020-02-14 07:54:00 David Diaz Met hodist HEMOGLOBIN A1C 2019-11-16 08:29:00 David Diaz Met hodist COMPREHENSIVE METABOLIC 2019 07:51:00 Ganesh Robles Confucianism PANEL LIPID PANEL 2019 07:51:00 Ganesh Robles Meth odist TOTAL IRON BINDING 2019 07:51:00 Ganesh Robles M ethodist CAPACITY T4, FREE 2019 07:51:00 Ganesh Robles Meth odist THYROID STIMULATING 2019 07:51:00 Travis, Ganesh Owens HORMONE HEMOGLOBIN A1C 2019 07:51:00 Travis, Ganesh guzman PARATHYROID HORMONE 2019 07:51:00 Travis, Ganesh Owens CBC WITH PLATELET AND 2019 07:51:00 Travis, Ganesh Owens DIFFERENTIAL VITAMIN A LEVEL, PLASMA OR 2019 07:51:00 Travis, Ganesh Owens SERUM VITAMIN B12 LEVEL 2019 07:51:00 Travis, Ganesh Aceves Mn thodist VITAMIN D 25 HYDROXY LEVEL 2019 07:51:00 Travis, Ganesh Owens COPPER LEVEL, SERUM 2019 07:51:00 Travis, Ganesh Owens FOLATE LEVEL 2019 07:51:00 Travis, Ganesh guzman FERRITIN LEVEL 2019 07:51:00 Travis, Ganesh guzman VITAMIN B1 LEVEL, WHOLE 2019 07:51:00 Travis, Ganesh Owens BLOOD ZINC LEVEL, SERUM 2019 07:51:00 Travis, Ganesh Aceves Mn thodist T3 2019 07:51:00 Travis, Ganesh guzman Cholecystectomy 2006-08-02 00:00:00 [facility] Practice Placement of Stent in [facility] Coronary Artery Practice Assessment for Bariatric [facility] Practice Internal Fixation of [facility] santhosh Clavicle without Fracture Practi ce Reduction Repair of Umbilical Hernia [facility] Tonsillectomy [facility] Plan of Care Planned Activity Planned Date Details Comments Source Future Scheduled Test 2010 COLONOSCOPY Carlos beverly Confucianism 00:00:00 SCREENING [code = COLONOSCOPY SCREENING] Future Scheduled Test 2010 SHINGLES VACCINES H brandi Confucianism 00:00:00 (#1) [code = SHINGLES VACCINES (#1)] Future Scheduled Test 1976 COVID-19 VACCINE (1 Aceves Confucianism 00:00:00 of 2) [code = COVID-19 VACCINE (1 of 2)] Future Scheduled Test 1970 DIABETES: RETINAL H brandi Confucianism 00:00:00 EYE EXAM [code = DIABETES: RETINAL EYE EXAM] Future Scheduled Test 1970 DIABETIC FOOT EXAM [facility] 00:00:00 [code = DIABETIC FOOT EXAM] Future Appointment 2021-02-04 Ben Jha [facility] Family 00:00:00 Mely Kruger; [address], [place] [address] [facility] Encounters Start End Encounter Admission Attending Care Care Encounter Source Date/Time Date/Time Type Type Clinicians Facility Department ID 2020-08-08 2020-08-08 Simon [facility] [place] - [id number] V illage 00:00:00 00:00:00 Jose C Ng Famil y [employer]ER APPRENTICE: [id number] Medical - Pract ic Mely Kruger, [email or web address] [address], [facility] [address] , Ph. 2020-02-21 2020-02-21 Outpatient SHAKIL, [facility] [id number] 763 Geraldine 00:00:00 00:00:00 JAWAIRIA [address] 2019-11-29 2019-11-29 Outpatient SHAKIL, [facility] [id number] 877 Geraldine 00:00:00 00:00:00 JAWAIRIA [address] 2019-10-26 2019-10-26 Outpatient TRAVIS, [facility] [id number] 756 Geraldine 00:00:00 00:00:00 GANESH [address] 2019-07-28 2019-07-30 Inpatient TRAVIS, [facility] [id number] 14 Geraldine 00:00:00 00:00:00 GANESH [address] [...] test. BUN (test code = 20 mg/dL 02-23 3094-0) Creatinine (test code = 1.45 mg/dL 0.7-1.33 H For patients >49 years of 2160-0) age, the refere nce limitfor Creati nine is approximately 1 3% higher for peopleident ified as -Khushboo n. EGFR Non-Afr. Ugandan 52 > OR = 60 L (test code = 2775) mL/min/1.73m2 EGFR 61 > OR = 60 (test code = 26450-6) mL/min/1.73m2 BUN/creatinine ratio 14 6- 22 (calc) (test code = 3097-3) Sodium (test code = 142 mmol/L 261-939 2465-2) Potassium (test code = 3.6 mmol/L 3.5-5.3 2823-3) Chloride (test code = 106 mmol/L 98-110 2075-0) CO2 (test code = 28 mmol/L 20-32 8-9) Calcium (test code = 9.8 mg/dL 8.6-10.3 24028-1) Protein (test code = 6.2 g/dL 6.1-8.1 2885-2) Albumin, S (test code = 4.3 g/dL 3.6-5.1 1751-7) Globulin, total (test 1.9 1.9- 3.7 g/dL code = 74222-0) (calc) Albumin/globulin ratio 2.3 1.0- 2.5 (test [...] Performing Organization Information: Site ID: RGA Name: [facility] Address: [address] [place] [phone] Director: Anthony Josue Lab Interpretation Abnormal (test code = 68731-1) Geraldine MethodistHemoglobin [id number] 23:59:00 Test Item Value Reference Interpretation Comments [...] that their diabetes is well controlled . [id number] shou ld be individualized based on duration [...] RAC) Organization Information: Site ID: RGA [facility]: [facility] Address: [address] [place] [phone] Director: Anthony Josue Lab Interpretation Abnormal (test code = 33207-0) Geraldine MethodistLipid [id number] 20:55:00 Test Item Value Reference Range Interpretation Comments Cholesterol, total 85 mg/dL <200 (test code = 2093-3) HDL cholesterol 33 mg/dL > OR = 40 L (test code = 2085-9) Triglycerides (test 97 mg/dL <150 code = 2571-8) LDL cholesterol 34 mg/dL (calc) Reference ra nge: calculated (test <100 Desira ble code = 51800-7) range <100 m g/dL for primary prevention; <7 0 mg/dL for patients with C HD or diabetic patients with > or = 2 CHD risk factors. LDL-C is now calculated using the Trevor-Rose Mary calculation, which is a validated novel method federico g better accuracy than the Friedewald equation in the estimation of LDL-C. Trevor S S et al. AMBROCIO. 2013;310(19): 3349-2588 (http://educati on .[employer] .com/faq/TUV448 ) Cholesterol/HDL 2.6 <5.0 (calc) ratio (test code = 9830-1) Non-HDL cholesterol 52 <130 mg/dL For gurjit ents with (test code = (calc) diabetes plus 1 97803-6) major ASCVD ris k factor, treatin g to a non-HDL-C goal of <100 mg/dL (LDL-C of <70 mg/dL) is considered a therapeutic option. GIO (test code = FASTING:YESFASTING GIO) : YES RAC (test code = Performing RAC) Organization Information: Site ID: ROBBI Name: [email or web address] Lab Address: [address] [place] [address] Director: Anthony Josue Lab Interpretation Abnormal (test code = 41969-4) Geraldine MethodistT4, [id number] 20:55:00 Test Item Value Reference Range Interpretation Comments T4, free (test code 1.1 ng/dL 0.8-1.8 = 3024-7) GIO (test code = FASTING:YESFASTING: YES GIO) RAC (test code = Performing Organization RAC) Information: Site ID: ROBBI Name: [facility] Address: [address] [place] [address] Director: Anthony Josue Geraldine MethodistThyroid stimulating [id number] 20:55:00 Test Item Value Reference Range Interpretation Comments TSH (test code = 1.41 0.40- 4.50 mIU/L 3016-3) GIO (test code = FASTING:YESFASTING: YES GIO) RAC (test code = Performing Organization RAC) Information: Site ID: ROBBI Name: [facility] Address: [address] [place] [address] Director: Anthony Josue Geraldine KhalidaistVitamin B12 [id number] 11:39:00 Test Item Value Reference Range Interpretation Comments Vitamin B12 (test 626 pg/mL 200-1100 code = 2132-9) GIO (test code = FASTING:NOFASTING: NO GIO) RAC (test code = Performing Organization RAC) Information: Site ID: A Name: [facility] Address: [address] [place] [address] Director: Anthony Josue Geraldine KhalidaistFerritin [id number] 11:39:00 Test Item Value Reference Range Interpretation Comments Ferritin level (test 217 ng/mL 38-380 code = 2276-4) GIO (test code = GIO) FASTING:NOFASTING: NO RAC (test code = RAC) Performing Organization Information: Site ID: RGA Name: [facility] Address: [address] [place] [phone] Director: Anthony [facility]axiolag[facility] medical centerFolate [id number] 11:39:00 Test Item Value Reference Range Interpretation Comments Folate (test 23.3 ng/mL code = 2284-8) Refer ence Range Lo w: <3.4 Borderline: 3.4-5.4 Normal: >5.4 GIO (test code FASTING:NOFASTING: NO = GIO) RAC (test code Performing = RAC) Organization Information: Site ID: RGA Name: [facility] Address: [address] [place] [phone] Director: Anthony Josue Geraldine KhalidaistParathyroid [id number] 11:39:00 Test Item Value Reference Interpretation Comments [...] RAC) Organization Information: Site ID: IG Name: [facility] Address: [address] [place] [address] Director: Dr. Anthony Josue Lab Abnormal Interpretation (test code = 36747-2) [place] [id number] 11:39:00 Test Item Value Reference Range Interpretation Comments T3 (test code = 83 ng/dL 76-181 3053-6) GIO (test code = FASTING:NOFASTING: NO GIO) RAC (test code = Performing Organization RAC) Information: Site ID: RGA Name: [facility] Address: [address] [place] [phone] Director: Anthony Josue Geraldine MethodistCBC with platelet and [id number] 11:39:00 Test Item Value Reference Range Interpretation [...] Performing Organization Information: Site ID: RGA Name: [facility] Address: [address] [place] [phone] Director: Anthony Josue Lab Interpretation Abnormal (test code = 43814-6) Geraldine MethodetienneVitamin D 25 hydroxy [id number] 11:39:00 Test Item Value Reference Range Interpretation [...] information on this test, go to:http://educa ti on.[employer].com/faq/FAQ1 63 (This link is being provided for informational/e du cational purpos es only.) GIO (test code = FASTING:NOFASTING: GIO) NO RAC (test code = Performing RAC) Organization Information: Site ID: RGA Name: [facility] Address: [address] [place] [address] Director: Anthony Josue Lab Interpretation Abnormal (test code = 56890-2) Geraldine MethodistVitamin A level, plasma or [id number] 11:39:00 Test Item Value Reference Range Interpretation Comments Vitamin A 98 38- 98 mcg/dL Clin Chem Vo l. (retinol) 34.No.8. [id number]. (test code = 1998Vitamin 2923-1) supplementation within 24 hours prior to blood draw m ay affect the accu racy of results. T his test was develo ped and its analyti gina performance characteristics have been determined by [employer]. It has not been cl eared or approved by theA. This as say has been valida katia pursuant to the CLIA regulations and is used for clinic al purposes. GIO (test code FASTING:NOFASTING: = GIO) NO RAC (test code Performing = RAC) Organization Information: Site ID: SLI Name: [facility] Address: [address] [place] [address] Director: Elijah Irizarry M.D., Ph.D Geraldine MethodistZinc level, [id number] 11:39:00 Test Item Value Reference Range Interpretation Comments Zinc (test 67 60- 130 mcg/dL This test wa s code = developed and i ts 5763-8) analytical perf ormance characteristics have been determined by [employer] . It has not been cl eared or approved by theFDA. This assay has been validated pursu ant to the CLIA regula tions and is used for clinical purpos es. GIO (test FASTING:NOFASTING: code = GIO) NO RAC (test Performing code = RAC) Organization Information: Site ID: [facility] Name: [employer] [facility] Address: [address] [place] [phone] Director: Elijah Irizarry M.D., Ph.D Geraldine MethodistVitamin B1 level, whole [id number] 11:39:00 Test Item Value Reference Range Interpretation Comments Vitamin B1, 167 nmol/L 78-185 Vitamin whole blood supplementation (test code = within 24 hours prior 48002-4) toblood draw ma y affect the accu racy of results. T his test was develo ped and its analyti gina performance characteristics have been determined by [employer] . It has not been cl eared or approved by theFDA. This as say has been valida katia pursuant to the CLIA regulations and is used for clinic al purposes. GIO (test code FASTING:NOFASTING: = GIO) NO RAC (test code Performing = RAC) Organization Information: Site ID: [facility] Name: [employer] [facility] Address: [address] [place] [phone] Director: Elijah Irizarry M.D., Ph.D Geraldine MethodistCopper level, [id number] 11:39:00 Test Item Value Reference Range Interpretation Comments Copper (test 103 70- 175 mcg/dL This test wa s code = developed and i ts 5631-7) analytical perf ormance characteristics have been determined by [employer] . It has not been cl eared or approved by theFDA. This assay has been validated pursu ant to the CLIA regula tions and is used for clinical purpos es. GIO (test FASTING:NOFASTING: code = GIO) NO RAC (test Performing code = RAC) Organization Information: Site ID: [facility] Name: [facility] Address: [address] [place] [address] Director: Elijah Irizarry M.D., Ph.D [facility] binding [id number] 11:39:00 Test Item Value Reference Range Interpretation Comments Iron level (test 128 50- 180 mcg/dL code = 2498-4) Iron binding 388 250- 425 mcg/dL capacity (test code (calc) = 2500-7) Iron saturation 33 20- 48 % (calc) (test code = 2502-3) GIO (test code = FASTING:NOFASTING: NO GIO) RAC (test code = Performing RAC) Organization Information: Site ID: RGA Name: [facility] Address: [address] [place] [address] Director: Anthony Owens
--- OUTSIDE RECORDS SUMMARY | 2020-08-18 11:16 | XMS REPORT | Encounter Summary ---
:1960 Author Care Team Providers Name Role Phone Dr. Sherman Haines Primary Care Provider [phone] Reason for Visit TELE-AWV Annual Wellness Visit Male Instructions 1. Advance directive discussed w ith patient advance care planning: car e instructions 2. Depression screening learning about depression 3. Chronic pain 4. Coronary arteriosclerosis 5. Essential hypertension 6. Gastroesophageal reflux disea se 7. Mixed hyperlipidemia due to t ype 2 diabetes mellitus 8. Neuropathy 9. Pain radiating to left should er 10. Cataract due to diabetes sloan litus Discussion Note: None recorded. Plan of Care Patient Instructions It was good to speak with you jonathan carter today for your Medicare Annual Wellness Visit. You have been provided some information on healthy nutrition, including a diet rich in fruits and vegetables, minimizing simple carbohydrates, salt, and saturated fats. I want to encourage regular cardi ovascular exercise such as walking at le ast 30 minutes daily, 5 times per week. Please remember to schedule any preventi ve health measures that we talked about today. You have also been provided education on fall prevention and community- based lifestyle interventions to help reduce health risks and promote healthy living in your Annual Wellness folder. Screening Recommendations 1. Vaccines Pneumonia: Influenza: Next Fall 2. Colorectal Cancer Screening: Cologuar d (every 3 years) Recommended today 3. Annual Prostate Screening 4. Annual Depression Screening 5. Annual Alcohol Screening 6. Annual Fall Risk Screening 7. 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 Referral None recorded. Procedures None recorded. Surgeries None recorded. Imaging None recorded. Medications Name Start Date amlodipine 10 mg tablet Take 1 tablet every day by oral route. aspirin 81 mg tablet,delayed release Take 1 tablet every day by oral route. atorvastatin 80 mg tablet Take 1 tablet every day by oral route. Citracal + Vitamin D Maximum 315 mg calcium-6.25 mcg ( 250 unit) tablet Take 1 tablet every day by oral route. clopidogrel 75 mg tablet Take 1 tablet every day by oral route. gabapentin 800 mg tablet Take 1 tablet 3 times a day by oral route. hydrocodone 7.5 mg-acetaminophen 325 mg tablet Take 1 tablet every 6 hours by oral route. multivit 65-oygl-imtsrp 6-dha one tablet daily Protonix 40 mg tablet,delayed release Take 1 tablet every day by oral route. Vitamin D3 5,000mg daily Medications Administered None recorded. Vitals Height Weight BMI Blood Pressure 5 ft 6 in 180 lbs 29.1 kg/m2 131/72 mm[Hg] Results Lab Results None recorded. Allergies Code Code System Name Reaction Severity Status Onset NKDA Problems Name Status Onset Date Source Chronic Pain Active 08/08/2020 Neuropathy Active 08/08/2020 Essential Hypertension Active 08/08/2020 Coronary Arteriosclerosis Active 08/08/2020 Gastroesophageal Reflux Disease Active 08/08/2020 Pain Radiating to Left Shoulder Active 08/08/2020 History of Bypass of Stomach Active 08/08/2020 Mixed Hyperlipidemia Due to Type 2 Diabetes Active 01/2021 Mellitus Cataract Due to Diabetes Mellitus Active 08/08/2020 Procedures Date Name Performed by 08/02/2006 Cholecystectomy Information not avai lable Placement of Stent in Coronary Artery In formation not available Assessment for Bariatric Surgery Informa tion not available Internal Fixation of Clavicle without In formation not available Fracture Reduction Repair of Umbilical Hernia Information n ot available Tonsillectomy Information not avai lable Vaccine List Vaccine Type influenza, injectable, quadrivalent 03/02/2020 pneumococcal polysaccharide PPV23 03/02/2020 zoster recombinant 03/02/2020 Social History Tobacco Smoking Status Never Smoker Past Encounters Encounter Date Diagnosis Provider 08/08/2020 Advance Directive Discussed with Simon Ng NP: [id number] Patient; Depression Screening; Mely Kru[address], [address], Chronic Pain; [place] [address], Arteriosclerosis; Essential Ph. [phone] Hypertension; Gastroesophageal Reflux Disease; Mixed Hyperlipidemia Due to Type 2 Diabetes Mellitus; Neuropathy; Pain Radiating to Left Shoulder; Cataract Due to Diabetes Mellitus History of Present Illness Mini Cog Reported By: Patient Functional Ability: Personal/Social/ 3 word reca ll: Your nurse or doctor will ask you to remember 3 words. In 5 m inutes, they will ask you to repeat them. Patient recalled 3 w ords Chronic Disease Management: HTN, DM, Lipid Disorder CDM Reported By: Patient HPI: Type: diabetes mellitus type 2, mixed hyperlipidemia. Duration or Onset: chronic. Status: Diabetes - Controlled, Target A1c < 6, Target BP < 130/80, Target LDL < 70. Se verity with Neuropathy. Associated Symptoms: no shortness of breath, no c hest pain. Modifying Factors improved with medications, improved with e xercise, improved with diet. Compliance: COMPLIANT with theraputic pl an Chronic Pain Follow-up Reported By: Patient HPI: Analgesia: taking pain medic ation, percentage of pain relief: 90 %. Pain Severity: average pain: 3/10 , worst pain: 10/10, difference in pain level: yes. ADL Improvements : physically functioning, mood unaffected. Adverse Reactions: no nausea , no vomiting, no constipation, no itching, no mental cloudiness, no swe ating, no drowsiness Carotid Artery Disease Reported By: Patient HPI: Symptoms: asymptomatic, no s udden loss of vision in one eye, no transient ischemic attack, n o reversible ischemic neurologic deficit, no facial paralysis, left side, no facial paralysis, bilateral, no extremity paralysis or weakn ess. Severity: not limiting. Context: non-smoker Opioid Use Assessment Reported By: Patient Opioid Use Assessment:: Current Use of Opioids : Hyd rocodone (Vicodin/[place]) Reflux/GERD Reported By: Patient HPI: Symptoms Asymptomatic, no di fficulty swallowing, no pain swallowing, no postprandial pain. Severity: improving. Context: non-smoker Review of Systems: ROS as noted in the HPI Review of Systems None recorded. Physical Exam Telemedicine/Virtual Visit Reported By: Patient Constitutional: General Appearance: healthy- appearing. Level of Distress: NAD. Ambulation: ambulating luana lly Psychiatric: Insight: good judgement. Men silvestre Status: active and alert, normal mood, normal affect. Orienta tion: to time, to place, to person. Memory: recent memory normal , remote memory normal Head: Head: normocephalic Eyes: Lids and Conjunctivae: non-i njected ENMT: Ears: no lesions on external ear. Hearing: grossly normal. Lips, Teeth, and Gums: no mouth or lip ulcers, normal dentition Neck: Neck: supple Lungs: Respiratory effort: no dyspn ea Neurologic: Gait and Station: normal gai t
--- NOTE | 2020-08-18 12:34 | RAD REPORT ---
EXAM DESCRIPTION: RAD - Foot Left 3 View - 08/18/2020 12:06 pm CLINICAL HISTORY: PAINtrauma COMPARISON: No comparisons FINDINGS: No fracture, dislocation or periosteal reaction. No acute or destructive bony process. Sc attered mild degenerative changes are present. Small spur at the Achilles attachment seen. Soft tissue swelling is evident over the dorsum of the foot. No air or foreign body. IMPRESSION: No acute bone or joint finding. Soft tissue swelling over the dorsum of the foot. Persistent unexplained foot symptoms or continued concerns for occult bone process can be further talita luated with outpatient MRI imaging.
[2020-08-18] MEDS ORDERED: HYDROCODONE/APAP 10/325 TAB ONE (13:21)
--- NOTE | 2020-08-18 14:43 | ER ---
Nurse's Notes [facility] Name: Bobby Daniel Age: 59 yrs Sex: Male : 1960 Arrival Date: 08/18/2020 Time: 11:04 Bed 16 Private MD: Sherman Haines F Diagnosis: Pain in left ankle and joints of left foot Presentation: 08/18 11:14 Chief complaint: Patient states: Hurt L foot on while walking his dogs. Still ll1 has pain with walking. Coronavirus screen: Client denies travel out of the [place] in the last 14 days. At this time, the client does not indicate any symptoms associated with coronavirus-19. Ebola Screen: Patient denies travel to an Ebola-affected area in the 21 days before illness onset. Initial Sepsis Screen: Does the patient meet any 2 criteria? No. Patient's initial sepsis screen is negative. Does the patient have a suspected source of infection? Yes: Bone or joint infection. Risk Assessment: Do you want to hurt yourself or someone else? Patient reports no desire to harm self or others. Onset of symptoms was August 15, 2020. 11:14 Method Of Arrival: Ambulatory ll 11:14 Acuity: CLARA 4 ll1 Historical: - Allergies: 11:15 No Known Allergies; ll1 - PMHx: 11:15 Hypertension; Thyroid problem; No Diabetes after weight loss; Hyperlipidemia; Diabetes ll1 - IDDM; - PSHx: 11:15 Cholecystectomy; Tonsillectomy; Heart stents; Gastric Bypass; ll1 - Immunization history:: Flu vaccine is up to date. - Social history:: Smoking status: Patient denies any tobacco usage or history of. Screenin:30 Abuse screen: Denies threats or abuse. Nutritional screening: No deficits noted. vg1 Tuberculosis screening: No symptoms or risk factors identified. Fall Risk Fall in past 12 months (25 points). No secondary diagnosis (0 pts). No IV (0 pts). Ambulatory Aid- None/Bed Rest/Nurse Assist (0 pts). Gait- Normal/Bed Rest/Wheelchair (0 pts) Mental Status- Oriented to own ability (0 pts). Total Salcedo Fall Scale indicates Low Risk Score (25-44 pts). Fall prevention measures have been instituted. Placed close to Nursing Station. Assessment: 12:20 General: Appears in no apparent distress. comfortable, Behavior is calm, cooperative. vg1 Pain: Complains of pain in left lateral malleolus, left medial malleolus, instep of left foot and dorsum of left foot Pain currently is 4 out of 10 on a pain scale. at worst was 9 out of 10 on a pain scale. Quality of pain is described as throbbing, Pain began 2-3 days ago. Alleviated by rest, Aggravated by weight bearing. Neuro: Level of Consciousness is awake, alert, obeys commands, Oriented to person, place, time, situation. Cardiovascular: Capillary refill < 3 seconds in left toes Edema pitting to left foot. Respiratory: Airway is patent Respiratory effort is even, unlabored. GI: No signs and/or symptoms were reported involving the gastrointestinal system. : No signs and/or symptoms were reported regarding the genitourinary system. EENT: No signs and/or symptoms were reported regarding the EENT system. Derm: Skin is intact, is healthy with good turgor. Musculoskeletal: Swelling present in left foot Reports pain in left foot. 14:21 Reassessment: Patient appears in no apparent distress at this time. Patient and/or vg1 family updated on plan of care and expected duration. Pain level reassessed. Patient is alert, oriented x 3, equal unlabored respirations, skin warm/dry/pink. Rated pain 2/10 Patient states feeling better. Vital Signs: 11:14 BP 156 / 86; Pulse 77; Resp 16; Temp 98.6; Pulse Ox 99% ; Weight 88.45 kg; Height 5 ft. ll1 6 in. (167.64 cm); Pain 4/10; 13:11 BP 153 / 78; Pulse 65; Resp 16; Pulse Ox 99% on R/A; vg1 14:00 BP 140 / 71; Pulse 68; Resp 14; Pulse Ox 100% on R/A; vg1 11:14 Body Mass Index 31.47 (88.45 kg, 167.64 cm) ll1 ED Course: 11:04 Patient arrived in ED. rg4 11:04 Sherman Haines MD is Private Physician. rg4 11:15 Triage completed. ll1 11:16 Arm band placed on. ll1 11:17 [facility] Gonzales [facility]. pm1 11:17 Rzaia Tripp MD is Attending Physician. pm1 12:05 Foot Left 3 View XRAY In Process Unspecified. EDMS 12:18 Sheron Montaño, RN is Primary Nurse. vg1 12:31 Patient has correct armband on for positive identification. Bed in low position. Call vg1 light in reach. 13:35 Ankle Left 3 View XRAY In Process Unspecified. EDMS 15:23 No provider procedures requiring assistance completed. Patient did not have IV access vg1 during this emergency room visit. Administered Medications: 13:11 Drug: Coin 10 mg-325 mg 1 tabs {Note: rass 0.} Route: PO; vg1 15:15 Follow up: Response: Pain is decreased vg1 Outcome: 14:42 Discharge ordered by . pm1 15:23 Discharged to home ambulatory. vg1 15:23 Condition: stable 15:23 Discharge instructions given to patient, Instructed on discharge instructions, follow up and referral plans. medication usage, Demonstrated understanding of instructions, follow-up care, medications, Prescriptions given X 2. 15:23 Patient left the ED. vg1 Signatures: Dispatcher [employer] EDMS Sung Gonzales, CAFE OPERATOR CAFE OPERATOR pm1 Cathy Montaño rg4 Sheron Montaño, RN RN vg1 Kim Hoffman RN RN ll1 Corrections: (The following items were deleted from the chart) 12:30 12:20 Cardiovascular: Capillary refill < 3 seconds in left toes Edema pitting to left vg1 foot vg1 12:30 12:20 Musculoskeletal: Reports pain in left foot vg1 vg1
--- NOTE | 2020-08-18 14:43 | EDPHYS ---
Physician Documentation [facility] Name: Bobby Daniel Age: 59 yrs Sex: Male : 1960 Arrival Date: 08/18/2020 Time: 11:04 Bed 16 Private MD: Sherman Haines F ED Physician Razia Tripp HPI: 08/18 12:37 This 59 yrs old Male presents to ER via Ambulatory with complaints of Foot pm1 Injury. 12:37 The patient presents with pain. The complaints affect the left medial ankle and dorsum pm1 of left foot. Context: The problem was sustained outdoors, resulted from possibly twisting foot and ankle, the patient can fully bear weight, the patient is able to ambulate, Problem is a result from a previous injury: No. Onset: The symptoms/episode began/occurred 3 day(s) ago. Modifying factors: The symptoms are alleviated by remaining still, the symptoms are aggravated by weight bearing. Associated signs and symptoms: Pertinent positives: swelling, Pertinent negatives calf tenderness, fever, numbness, tingling. Treatment prior to arrival includes: no previous treatment. Severity of symptoms: in the emergency department the symptoms are unchanged. The patient has not experienced similar symptoms in the past. Patient injured left foot and ankle 3 days ago. After initially injuring the foot he was able to walk on it but it hurts. 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 - Social history:: Smoking status: Patient denies any tobacco usage or history of. ROS: 12:37 Constitutional: Negative for fever, chills, and weight loss, Cardiovascular: Negative pm1 for chest pain, palpitations, and edema, Respiratory: Negative for shortness of breath, cough, wheezing, and pleuritic chest pain, Skin: Negative for injury, rash, and discoloration. 12:37 Neuro: Negative for headache, weakness, numbness, tingling, and seizure. 12:37 MS/extremity: Positive for pain, swelling, of the left medial ankle and dorsum of left foot, Negative for decreased range of motion, deformity. Exam: 12:37 Constitutional: This is a well developed, well nourished patient who is awake, alert, pm1 and in no acute distress. Head/Face: Normocephalic, atraumatic. 12:37 Skin: Warm, dry with normal turgor. Normal color with no rashes, no lesions, and no evidence of cellulitis. 12:37 Cardiovascular: Exam negative for acute changes, Rate: normal, Rhythm: regular, Pulses: no pulse deficits are appreciated. 12:37 Respiratory: Exam negative for acute changes, respiratory distress, shortness of breath. 12:37 Musculoskeletal/extremity: Extremities: grossly normal except: noted in the left medial ankle and dorsum of left foot: swelling, tenderness, There is no evidence of decreased ROM, deformity, Circulation is intact in all extremities. the left foot Sensation intact. 12:37 Neuro: Exam negative for acute changes, Orientation: is normal, Mentation: is normal, Motor: is normal, moves all fours. Vital Signs: 11:14 BP 156 / 86; Pulse 77; Resp 16; Temp 98.6; Pulse Ox 99% ; Weight 88.45 kg; Height 5 ft. ll1 6 in. (167.64 cm); Pain 4/10; 13:11 BP 153 / 78; Pulse 65; Resp 16; Pulse Ox 99% on R/A; vg1 14:00 BP 140 / 71; Pulse 68; Resp 14; Pulse Ox 100% on R/A; vg1 11:14 Body Mass Index 31.47 (88.45 kg, 167.64 cm) ll1 MDM: 12:21 Patient medically screened. pm1 14:41 Data reviewed: vital signs. pm1 14:41 Counseling: I had a detailed discussion with the patient and/or guardian regarding: the pm1 historical points, exam findings, and any diagnostic results supporting the discharge/admit diagnosis, radiology results, the need for outpatient follow up, a orthopedic surgeon, to return to the emergency department if symptoms worsen or persist or if there are any questions or concerns that arise at home. 08/18 11:18 Order name: Foot Left 3 View XRAY; Complete Time: 12:36 pm1 08/18 12:37 Order name: Ankle Left 3 View XRAY; Complete Time: 15:19 pm1 08/18 14:48 Order name: Aircast Ankle Splint; Complete Time: 15:15 pm1 Administered Medications: 13:11 Drug: Dewey 10 mg-325 mg 1 tabs {Note: rass 0.} Route: PO; vg1 15:15 Follow up: Response: Pain is decreased vg1 Disposition: 08/18/20 14:42 Discharged to Home. Impression: Pain in left ankle and joints of left foot. - Condition is Stable. - Discharge Instructions: Cast or Splint Care, Adult, KEITH for Routine Care of Injuries, Ankle Pain. - Prescriptions for Diclofenac Sodium 75 mg Oral Tablet, Delayed Release (E.C.) - take 1 tablet by ORAL route 2 times per day As needed; 30 tablet. Tramadol 50 mg Oral Tablet - take 1 tablet by ORAL route every 8 hours as needed; 12 tablet. - Medication Reconciliation Form, Thank You Letter, Antibiotic Education, Prescription Opioid Use form. - Follow up: Emergency Department; When: As needed; Reason: Worsening of condition. Follow up: Private Physician; When: 2 - 3 days; Reason: Recheck today's complaints, Continuance of care, Re-evaluation by your physician. - Problem is new. - Symptoms have improved. Addendum: 08/19/2020 20:13 Co-signature as Attending Physician, Razia Tripp MD. m a2 Signatures: Dispatcher [employer] EDMS Sung Gonzales, SPECIAL FORCES WEAPONS SERGEANT SPECIAL [employer]CES WEAPONS SERGEANT pm1 Razia Tripp MD MD ma2 Sheron Montaño, RN RN vg1 iKm Hoffman RN RN ll1 Corrections: (The following items were deleted from the chart) 08/18 15:23 14:42 08/18/2020 14:42 Discharged to Home. Impression: Pain in left ankle and joints of vg1 left foot. Condition is Stable. Forms are Medication Reconciliation Form, Thank You Letter, Antibiotic Education, Prescription Opioid Use. Follow up: Emergency Department; When: As needed; Reason: Worsening of condition. Follow up: Private Physician; When: 2 - 3 days; Reason: Recheck today's complaints, Continuance of care, Re-evaluation by your physician. Problem is new. Symptoms have improved. pm1
--- NOTE | 2020-08-18 15:14 | RAD REPORT ---
EXAM DESCRIPTION: RAD - Ankle Left 3 View - 08/18/2020 1:35 pm CLINICAL HISTORY: PAIN COMPARISON: No comparisons FINDINGS: No fracture, dislocation or periosteal reaction. No joint effusion seen. No joint space na rrowing. Small accessory ossicles are present around the ankle joint. Patient has a spur at the Achil les attachment. Lateral and anterior soft tissue swelling present. IMPRESSION: Soft tissue swelling with no left ankle fracture.
[2020-08-18 15:33] VITALS: TEMP 98.6
[2020-08-18 15:34] VITALS: BP 140/71; O2SAT 100
== END 2020-08-18 15:23 | disposition home or self-care (01) ==
LOC: ER 11:02
DX: M25.572 Pain in left ankle and joints of left foot (principal); I10 Essential (primary) hypertension; Z95.818 Presence of other cardiac implants and grafts
CPT/HCPCS: 99283

== ENCOUNTER 2022-02-12 10:40 | Emergency (ER) | payer OTHER ==
[2022-02-12] MEDS ORDERED: TETANUS & DIPHTHERIA TOX,ADULT 0.5 ML VIAL ONE (11:35)
--- NOTE | 2022-02-12 11:37 | ER ---
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 Coronavirus screen: At this time, the client does not indicate any symptoms associated with coronavirus-19. Ebola Screen: Patient negative for fever greater than or equal to 101.5 degrees Fahrenheit, and additional compatible Ebola Virus Disease symptoms Patient denies exposure to infectious person. Patient denies travel to an Ebola-affected area in the 21 days before illness onset. No symptoms or risks identified at this time. Initial Sepsis Screen: Does the patient meet any 2 criteria? No. Patient's initial sepsis screen is negative. Does the patient have a suspected source of infection? No. Patient's initial sepsis screen is negative. Risk Assessment: Do you want to hurt yourself or someone else? Patient reports no desire to harm self or others. Onset of symptoms was February 08, 2022. 11:01 Method Of Arrival: Ambulatory iw 11:01 Acuity: CLARA 3 iw Triage Assessment: 11:10 General: Appears in no apparent distress. comfortable, Behavior is calm, cooperative, bp appropriate for age. Pain: Denies pain. EENT: No deficits noted. Neuro: Reports numbness in left arm. Cardiovascular: No deficits noted. Respiratory: No deficits noted. GI: No signs and/or symptoms were reported involving the gastrointestinal system. : No signs and/or symptoms were reported regarding the genitourinary system. Derm: No deficits noted. Musculoskeletal: LUE IN SLING DUE TO PREVIOUSLY EXISTING BRACHIAL PLEXUS INJURY. Injury Description: Avulsion sustained to left thumb. Historical: - Allergies: 11:06 No Known Allergies; iw - PMHx: 11:06 Diabetes - IDDM; Hyperlipidemia; Hypertension; No Diabetes after weight loss; Thyroid iw problem; - Immunization history:: Adult Immunizations up to date. - Social history:: Smoking status: Patient denies any tobacco usage or history of. Screenin:10 Abuse screen: Denies threats or abuse. Denies injuries from another. Nutritional bp screening: No deficits noted. Tuberculosis screening: No symptoms or risk factors identified. Fall Risk None identified. Assessment: 11:10 General: SEE TRIAGE NOTE. bp 11:46 Reassessment: PT D/C HOME AMBULATORY, DX WITH CELLULITIS. bp Vital Signs: 11:01 BP 137 / 81; Pulse 75; Resp 16; Temp 97.4; Pulse Ox 98% on R/A; iw ED Course: 10:42 Patient arrived in ED. mr 10:42 Sherman Haines MD is Private Physician. mr 11:06 Triage completed. iw 11:06 Arm band placed on. iw 11:07 Rosendo Abbott, DHEERAJ is Primary Nurse. bp 11:10 Jan Osorio MD is Attending Physician. jr11 11:10 Patient has correct armband on for positive identification. Bed in low position. Call bp light in reach. Side rails up X2. 11:31 Wound care: to LEFT THUMB DEGLOVING located on left thumb was cleaned with Hibiclens, bp dressed with Neosporin, Patient tolerated well. 11:46 No provider procedures requiring assistance completed. Patient did not have IV access bp during this emergency room visit. Administered Medications: 11:30 Drug: Tetanus-Diphtheria Toxoid Adult 0.5 ml {Smoke Chaser: Amminex. Exp: bp 10/25/2023. Lot #: [id number]. } Route: IM; Site: right deltoid; 11:46 Follow up: Response: No adverse reaction bp 11:30 Drug: Mupirocin Ointment 2 % 1 application Route: Topical; Site: affected area; bp Medication: 11:10 VIS not applicable for this client. bp Outcome: 11:36 Discharge ordered by . [email or web address] 11:46 Discharged to home ambulatory. bp 11:46 Condition: stable 11:46 Discharge instructions given to patient, Instructed on discharge instructions, follow up and referral plans. medication usage, wound care, Demonstrated understanding of instructions, follow-up care, medications, wound care, Prescriptions given X 2. 11:47 Patient left the ED. bp Signatures: America Rodriguez mr Angela Thomason, DHEERAJ RN Scar, Rosendo, RN RN bp Devon, Jan, MD MD [email or web address]
--- NOTE | 2022-02-12 11:37 | EDPHYS ---
Physician Documentation [facility] Name: Bobby Daniel Age: 61 yrs Sex: Male : 1960 Arrival Date: 02/12/2022 Time: 10:42 Bed 18 Private MD: Sherman Haines F ED Physician Jan Osorio HPI: 02/12 11:31 This 61 yrs old Male presents to ER via Ambulatory with complaints of Infected thumb. jr11 11:31 The patient or guardian reports injury, pain. The complaints affect the IP of left jr11 thumb. Context: The problem was sustained at home, resulted from rubbing it on metal. Onset: The symptoms/episode began/occurred 2 day(s) ago. Modifying factors: The symptoms are alleviated by nothing, the symptoms are aggravated by movement. Associated signs and symptoms: Pertinent negatives: cyanosis distally, fever, tingling distally. Severity of symptoms: At their worst the symptoms were moderate, in the emergency department the symptoms are actually worse. Patient states that he hit his left thumb on a cardboard box, nail lifted off, came off, since then had redness and peeling of the left thumb down to his MCP. Denies any fevers. 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 Historical: - Allergies: 11:06 No Known Allergies; iw - PMHx: 11:06 Diabetes - IDDM; Hyperlipidemia; Hypertension; No Diabetes after weight loss; Thyroid iw problem; - Immunization history:: Adult Immunizations up to date. - Social history:: Smoking status: Patient denies any tobacco usage or history of. ROS: 11:31 All other systems are negative. jr11 Exam: 11:31 Constitutional: This is a well developed, well nourished patient who is awake, alert, jr11 and in no acute distress. Head/Face: Normocephalic, atraumatic. Eyes: Extra-ocular motions intact. Lids and lashes normal. Conjunctiva and sclera are non-icteric and not injected. Cornea within normal limits. Periorbital areas with no swelling, redness, or edema. ENT: Nares patent. No nasal discharge, no septal abnormalities noted. Oropharynx with no redness, swelling, or masses, exudates, or evidence of obstruction, uvula midline. Mucous membranes moist. Cardiovascular: Regular rate and rhythm with a normal S1 and S2. No gallops, murmurs, or rubs. Normal PMI, no JVD. No pulse deficits. Respiratory: Lungs have equal breath sounds bilaterally, clear to auscultation and percussion. No rales, rhonchi or wheezes noted. No increased work of breathing, no retractions or nasal flaring. Abdomen/GI: Soft, non-tender, with normal bowel sounds. No distension or tympany. No guarding or rebound. No evidence of tenderness throughout. Back: No spinal tenderness. No costovertebral tenderness. Full range of motion. Skin: L thumb nail avulsion, no dermis to MCP, no overt purulent DC, mild serous No abscess MS/ Extremity: Pulses equal, no cyanosis. Neurovascular intact. Full, normal range of motion. Neuro: Awake and alert, GCS 15, oriented to person, place, time, and situation. No gross motor or sensory deficits. Vital Signs: 11:01 BP 137 / 81; Pulse 75; Resp 16; Temp 97.4; Pulse Ox 98% on R/A; iw MDM: 11:15 Patient medically screened. [facility] 11:31 Differential diagnosis: contusion, abrasion, cellulitis. Data reviewed: vital signs, [facility] nurses notes. ED course: Pt with concern for cellulitis, will treat with po and topical abx, wound check 3 days. Pt denies concern for fx, he hit it on cardboard.. 02/12 11:21 Order name: Wound Care; Complete Time: 11:31 [facility] Administered Medications: 11:30 Drug: Tetanus-Diphtheria Toxoid Adult 0.5 ml {Production Line Technician: You.Do. Exp: bp 10/25/2023. Lot #: [id number]. } Route: IM; Site: right deltoid; 11:46 Follow up: Response: No adverse reaction bp 11:30 Drug: Mupirocin Ointment 2 % 1 application Route: Topical; Site: affected area; bp Disposition Summary: 02/12/22 11:36 Discharge Ordered Location: [facility] Condition: Stable [facility] Diagnosis - Cellulitis of finger jr11 Discharge Instructions: - Discharge Summary Sheet jr11 - Cellulitis, Adult jr11 Forms: - Medication Reconciliation Form jr11 - Thank You Letter jr11 - Antibiotic Education jr11 - Prescription Opioid Use jr11 Prescriptions: - mupirocin 2 % Topical ointment - apply 1 application by TOPICAL route every 12 hours; 1 tube; Refills: 0, Product Selection Permitted - Clindamycin HCl 150 mg Oral Capsule - take 3 capsule by ORAL route every 8 hours for 7 days; 63 capsule; Refills: 0, Product Selection Permitted Signatures: Angela Thomason RN RN iw Rosendo Abbott RN RN bp Rosillo, Jose, MD MD jr
[2022-02-12] MEDS ORDERED: MUPIROCIN 2% OINT 22GM TUBE TOP ONE (11:42)
[2022-02-12 11:53] VITALS: BP 137/81; TEMP 97.4; O2SAT 98
== END 2022-02-12 11:47 | disposition home or self-care (01) ==
LOC: ER 10:40
DX: L03.012 Cellulitis of left finger (principal); Z23 Encounter for immunization; I10 Essential (primary) hypertension
CPT/HCPCS: 90471; 90714; 99283

== ENCOUNTER 2023-01-20 15:53 | Observation (INO) | payer OTHER ==
--- OUTSIDE RECORDS SUMMARY | 2023-01-20 16:26 | XMS REPORT | Continuity of Care Document ---
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 3-01 le} capsule by Se ybold Complex) 00:00: mouth - 500 MG oral 00 daily Externa Capsule l Magnesium 0 Yes [id number] 1{tbl} Take 1 Mellisa 250 MG oral 3- tablet by Sey bold Tablet 00:00: mouth - 00 daily Externa l hydroCHLORO 2022-0 Yes [id number] 12.5mg Take 1 Mellisa thiazide 3-01 capsule Seybold 12.5 MG 00:00: (12.5 mg - oral 00 total) by Externa Capsule mouth l every morning HYDROcodone 2022-0 Yes [id number] 1{tbl} Q.99261302 Take 1 Mellisa -Acetaminop 3- [id number] tablet by Sesonia hen 7.5-325 00:00: 3D mouth - MG oral 00 every 8 Externa Tablet hours as l needed for pain Turmeric 2022-0 Yes [id number] 1{capsu Take 1 Mellisa (QC Tumeric 3-01 le} capsule by Se ybold Complex) 00:00: mouth - 500 MG oral 00 daily Externa Capsule l Magnesium 2022-0 Yes [id number] 1{tbl} Take 1 Mellisa 250 MG oral 3-01 tablet by Sey bold Tablet 00:00: mouth - 00 daily Externa l hydroCHLORO 2022-0 Yes [id number] 12.5mg Take 1 Mellisa thiazide 3-01 capsule Seybold 12.5 MG 00:00: (12.5 mg - oral 00 total) by Externa Capsule mouth l every morning HYDROcodone 2022-0 Yes [id number] 1{tbl} Q.[id number] Take 1 Mellisa -Acetaminop 3-01 [id number] tablet by Seybold hen 7.5-325 00:00: 3D mouth - MG oral 00 every 8 Externa Tablet hours as l needed for pain Magnesium 2022-0 Yes [id number] 1{tbl} Take 1 Mellisa 250 MG oral 3-01 tablet by Sey bold Tablet 00:00: mouth - 00 daily Externa l HYDROcodone 2022-0 Yes [id number] 1{tbl} Q.85486121 Take 1 Mellisa -Acetaminop 3-01 [id number] tablet by Seybold hen 7.5-325 00:00: 3D mouth - MG oral 00 every 8 Externa Tablet hours as l needed for pain Magnesium 2022-0 Yes [id number] 1{tbl} Take 1 Mellisa 250 MG oral 3-01 tablet by Sey bold Tablet 00:00: mouth - 00 daily Externa l HYDROcodone 3-0 Yes [id number] 1{tbl} Q.71602149 Take 1 Mellisa -Acetaminop 3-01 [id number] tablet by Seybold hen 7.5-325 00:00: 3D mouth - MG oral 00 every 8 Externa Tablet hours as l needed for pain Magnesium 3-0 Yes [id number] 1{tbl} Take 1 Mellisa 250 MG oral 3-01 tablet by Sey bold Tablet 00:00: mouth - 00 daily Externa l HYDROcodone 2022-0 Yes [id number] 1{tbl} Q.65276653 Take 1 Mellisa -Acetaminop 3-01 [id number] tablet by [employer] hen 7.5-325 00:00: 3D mouth - MG oral 00 every 8 Externa Tablet hours as l needed for pain Magnesium 2022-0 Yes [id number] 1{tbl} Take 1 Mellisa 250 MG oral 3-01 tablet by Sey bold Tablet 00:00: mouth - 00 daily Externa l HYDROcodone 2022-0 Yes [id number] 1{tbl} Q.[id number] Take 1 Mellisa -Acetaminop 3-01 [id number] tablet by [employer] hen 7.5-325 00:00: 3D mouth - MG oral 00 every 8 Externa Tablet hours as l needed for pain Magnesium 2022-0 Yes [id number] 1{tbl} Take 1 Mellisa 250 MG oral 3-01 tablet by Sey bold Tablet 00:00: mouth - 00 daily Externa l HYDROcodone 2022-0 Yes [id number] 1{tbl} Q.[id number] Take 1 Mellisa -Acetaminop 3-01 [id number] tablet by [employer] 7.5-325 00:00: 3D mouth - MG oral 00 every 8 Externa Tablet hours as l needed for pain Turmeric 2022-0 Yes [id number] 1{capsu Take 1 Mellisa (QC Tumeric 3-01 le} capsule by Se Manga [employer] Complex) 00:00: mouth - 500 MG oral 00 daily Externa Capsule l Magnesium 2022-0 Yes [id number] 1{tbl} Take 1 Mellisa 250 MG oral 3-01 tablet by Sey bold Tablet 00:00: mouth - 00 daily Externa l hydroCHLORO 2022-0 Yes [id number] 12.5mg Take 1 Mellisa thiazide 3-01 capsule Seybold 12.5 MG 00:00: (12.5 mg - oral 00 total) by Externa Capsule mouth l every morning HYDROcodone 2022-0 Yes [id number] 1{tbl} Q.[id number] Take 1 Mellisa -Acetaminop 3-01 [id number] tablet by [employer] hen 7.5-325 00:00: 3D mouth - MG oral 00 every 8 Externa Tablet hours as l needed for pain Amlodipine 2022-0 Yes 10mg Take 10 mg K elsey Besylate 10 2-27 by mouth Seyb old MG oral 00:00: daily - Tablet 00 Externa l Atorvastati 2022-0 Yes 80mg Take 80 mg Mellisa n Calcium 2-27 by mouth Seybol d 80 MG oral 00:00: daily - Tablet 00 Externa l Clopidogrel 2022-0 Yes 75mg Take 75 mg Mellisa Bisulfate 2-27 by mouth Seybol d (PLAVIX) 75 00:00: daily - MG oral 00 Externa Tablet l Fenofibrate 2022-0 Yes 145mg Take 145 K elsey 145 MG oral 2-27 mg by Seybold Tablet 00:00: mouth - 00 daily Externa l Gabapentin 2022-0 Yes 800mg Take 800 Ke [place] 800 MG oral 2-27 mg by Seybold Tablet 00:00: mouth 3 - 00 times Externa daily l Pantoprazol 2022-0 Yes 40mg Take 40 mg Mellisa e Sodium 40 2-27 by mouth Seyb old MG oral 00:00: daily - Tablet 00 Externa Delayed l Response Olmesartan 2022-0 Yes 40mg Take 40 mg K elsey Medoxomil 2-27 by mouth Seybol d 40 MG oral 00:00: daily - Tablet 00 Externa l Amlodipine 2022-0 Yes 10mg Take 1 Kelse y Besylate 10 2-27 tablet (10 Se ybold MG oral 00:00: mg total) - Tablet 00 by mouth Externa daily l Atorvastati 2022-0 Yes 80mg Take 1 Suzi ey n Calcium 2-27 tablet (80 Seyb old 80 MG oral 00:00: mg total) - Tablet 00 by mouth Externa daily l Clopidogrel 2022-0 Yes 75mg Take 1 Suzi ey Bisulfate 2-27 tablet (75 Seyb old (PLAVIX) 75 00:00: mg total) - MG oral 00 by mouth Externa Tablet daily l Fenofibrate 2022-0 Yes 145mg Take 1 Yosvany sey 145 MG oral 2-27 tablet Seybol d Tablet 00:00: (145 mg - 00 total) by Externa mouth l daily Gabapentin 2022-0 Yes 800mg Take 1 Suzi ey 800 MG oral 2-27 tablet Seybol d Tablet 00:00: (800 mg - 00 total) by Externa mouth 3 l times daily Pantoprazol 2023-0 Yes 40mg Take 1 Suzi ey e Sodium 40 2-27 tablet (40 Se ybold MG oral 00:00: mg total) - Tablet 00 by mouth Externa Delayed daily l Response Amlodipine 3-0 Yes 10mg Take 1 Kelse y Besylate 10 2-27 tablet (10 Se ybold MG oral 00:00: mg total) - Tablet 00 by mouth Externa daily l Atorvastati 2023-0 Yes 80mg Take 1 Suzi ey n Calcium 2-27 tablet (80 Seyb old 80 MG oral 00:00: mg total) - Tablet 00 by mouth Externa daily l Clopidogrel 2023-0 Yes 75mg Take 1 Suzi ey Bisulfate 2-27 tablet (75 Seyb old (PLAVIX) 75 00:00: mg total) - MG oral 00 by mouth Externa Tablet daily l Fenofibrate 2023-0 Yes 145mg Take 1 Yosvany sey 145 MG oral 2-27 tablet Seybol d Tablet 00:00: (145 mg - 00 total) by Externa mouth l daily Gabapentin 3-0 Yes 800mg Take 1 Suzi ey 800 MG oral 2-27 tablet Seybol d Tablet 00:00: (800 mg - 00 total) by Externa mouth 3 l times daily Pantoprazol 3-0 Yes 40mg Take 1 Suzi ey e Sodium 40 2-27 tablet (40 Se ybold MG oral 00:00: mg total) - Tablet 00 by mouth Externa Delayed daily l Response Amlodipine 3-0 Yes 10mg Take 1 Kelse y Besylate 10 2-27 tablet (10 Se ybold MG oral 00:00: mg total) - Tablet 00 by mouth Externa daily l Atorvastati 2023-0 Yes 80mg Take 1 Suzi ey n Calcium 2-27 tablet (80 Seyb old 80 MG oral 00:00: mg total) - Tablet 00 by mouth Externa daily l Clopidogrel 2023-0 Yes 75mg Take 1 Suzi ey Bisulfate 2-27 tablet (75 Seyb old (PLAVIX) 75 00:00: mg total) - MG oral 00 by mouth Externa Tablet daily l Fenofibrate 2023-0 Yes 145mg Take 1 Yosvany sey 145 MG oral 2-27 tablet Seybol d Tablet 00:00: (145 mg - 00 total) by Externa mouth l daily Gabapentin 2023-0 Yes 800mg Take 1 Suzi ey 800 MG oral 2-27 tablet Seybol d Tablet 00:00: (800 mg - 00 total) by Externa mouth 3 l times daily Pantoprazol 2023-0 Yes 40mg Take 1 Suzi ey e Sodium 40 2-27 tablet (40 Se ybold MG oral 00:00: mg total) - Tablet 00 by mouth Externa Delayed daily l Response Amlodipine 2023-0 Yes 10mg Take 1 Kelse y Besylate 10 2-27 tablet (10 Se ybold MG oral 00:00: mg total) - Tablet 00 by mouth Externa daily l Atorvastati 2023-0 Yes 80mg Take 1 Suzi ey n Calcium 2-27 tablet (80 Seyb old 80 MG oral 00:00: mg total) - Tablet 00 by mouth Externa daily l Clopidogrel 2023-0 Yes 75mg Take 1 Suzi ey Bisulfate 2-27 tablet (75 Seyb old (PLAVIX) 75 00:00: mg total) - MG oral 00 by mouth Externa Tablet daily l Fenofibrate 3-0 Yes 145mg Take 1 Yosvany sey 145 MG oral 2-27 tablet Seybol d Tablet 00:00: (145 mg - 00 total) by Externa mouth l daily Gabapentin 3-0 Yes 800mg Take 1 Suzi ey 800 MG oral 2-27 tablet Seybol d Tablet 00:00: (800 mg - 00 total) by Externa mouth 3 l times daily Pantoprazol 2023-0 Yes 40mg Take 1 Suzi ey e Sodium 40 2-27 tablet (40 Se ybold MG oral 00:00: mg total) - Tablet 00 by mouth Externa Delayed daily l Response Amlodipine 2023-0 Yes 10mg Take 1 Kelse y Besylate 10 2-27 tablet (10 Se ybold MG oral 00:00: mg total) - Tablet 00 by mouth Externa daily l Atorvastati 2023-0 Yes 80mg Take 1 Suzi ey n Calcium 2-27 tablet (80 Seyb old 80 MG oral 00:00: mg total) - Tablet 00 by mouth Externa daily l Clopidogrel 2023-0 Yes 75mg Take 1 Suzi ey Bisulfate 2-27 tablet (75 Seyb old (PLAVIX) 75 00:00: mg total) - MG oral 00 by mouth Externa Tablet daily l Fenofibrate 2022-0 Yes 145mg Take 1 Yosvany sey 145 MG oral 2-27 tablet Seybol d Tablet 00:00: (145 mg - 00 total) by Externa mouth l daily Gabapentin 2022-0 Yes 800mg Take 1 Suzi ey 800 MG oral 2-27 tablet Seybol d Tablet 00:00: (800 mg - 00 total) by Externa mouth 3 l times daily Pantoprazol 2022-0 Yes 40mg Take 1 Suzi ey e Sodium 40 2-27 tablet (40 Se ybold MG oral 00:00: mg total) - Tablet 00 by mouth Externa Delayed daily l Response Amlodipine 2022-0 Yes 10mg Take 10 mg K elsey Besylate 10 2-27 by mouth Seyb old MG oral 00:00: daily - Tablet 00 Externa l Atorvastati 2022-0 Yes 80mg Take 80 mg Mellisa n Calcium 2-27 by mouth Seybol d 80 MG oral 00:00: daily - Tablet 00 Externa l Clopidogrel 3-0 Yes 75mg Take 75 mg Mellisa Bisulfate 2-27 by mouth Seybol d (PLAVIX) 75 00:00: daily - MG oral 00 Externa Tablet l Fenofibrate 2022-0 Yes 145mg Take 145 K elsey 145 MG oral 2-27 mg by Seybold Tablet 00:00: mouth - 00 daily Externa l Gabapentin 3-0 Yes 800mg Take 800 Ke lsey 800 MG oral 2-27 mg by Seybold Tablet 00:00: mouth 3 - 00 times Externa daily l Pantoprazol 2022-0 Yes 40mg Take 40 mg Mellisa e Sodium 40 2-27 by mouth Seyb old MG oral 00:00: daily - Tablet 00 Externa Delayed l Response Olmesartan 2022-0 Yes 40mg Take 40 mg K elsey Medoxomil 2-27 by mouth Seybol d 40 MG oral 00:00: daily - Tablet 00 Externa l Amlodipine 3-0 Yes 10mg Take 10 mg K elsey Besylate 10 2-27 by mouth Seyb old MG oral 00:00: daily - Tablet 00 Externa l Atorvastati 2022-0 Yes 80mg Take 80 mg Mellisa n Calcium 2-27 by mouth Seybol d 80 MG oral 00:00: daily - Tablet 00 Externa l Clopidogrel 2022-0 Yes 75mg Take 75 mg Mellisa Bisulfate 2-27 by mouth Seybol d (PLAVIX) 75 00:00: daily - MG oral 00 Externa Tablet l Fenofibrate 2022-0 Yes 145mg Take 145 K elsey 145 MG oral 2-27 mg by Seybold Tablet 00:00: mouth - 00 daily Externa l Gabapentin 2022-0 Yes 800mg Take 800 Ke lsey 800 MG oral 2-27 mg by Seybold Tablet 00:00: mouth 3 - 00 times Externa daily l Pantoprazol 0 Yes 40mg Take 40 mg Mellisa e Sodium 40 2-27 by mouth Seyb old MG oral 00:00: daily - Tablet 00 Externa Delayed l Response Olmesartan Yes 40mg Take 40 mg K elsey Medoxomil 2-27 by mouth Seybol d 40 MG oral 00:00: daily - Tablet 00 Externa l HYDROcodone 0 2022- No Kelse y -Acetaminop 2-23 03-01 Seybold hen 7.5-325 00:00: 00:00 - MG oral 00 :00 Externa Tablet l hydroCHLORO 0 2022- No 12.5mg Take 12.5 Mellisa thiazide 2-22 03-01 mg by Seybold 12.5 MG 00:00: 00:00 mouth - oral 00 :00 every Externa Capsule morning l lactated 2021-08 Yes 1000mL at 75 Univer s ringers IV 1-15 mL/hr, ity of infusion 17:30: 1[place]000 [place] 1[place] 00 IV Medical Infusion, Branch CONTINUOUS , Starting on Wed06/16/22 at 1130, Until Discontinu ed, Routine, PACU lactated 2021-08- No 1000mL at 75 Unive rs ringers IV 1-15 11-15 mL/hr, ity of infusion 17:30: 20:05 1,000 mL, [place] 1,000 mL 00 :35 IV Medical Infusion, Branch CONTINUOUS , Starting on Wed06/16/22 at 1130, Until Wed06/16/22 at 1405, Routine, PACU FENTanyl PF 2021-08 Yes 25ug 25 mcg, Uni vers (SUBLIMAZE 1-15 Slow IV ity of (PF)) 17:29: Push, [place] injection 49 Q5MIN PRN, Medi gina 25 mcg 4 doses, Branch Starting on Wed06/16/22 at 1129, Until Discontinu ed, Routine, Pain (scale 4-6), PACU HYDROmorpho 2021-08 Yes .2mg 0.2 mg, Uni vers ne 1-15 Slow IV ity of (DILAUDID) 17:29: Push, [place] injection 49 Q5MIN PRN, Medi gina 0.2 mg 10 doses, Branch Starting on Wed06/16/22 at 1129, Until Discontinu ed, Routine, Pain (scale 7-10), PACU
Us e approved by (Faculty): PACU USE -ANESTHESI A SERVICE-HY DROMORPHON E INJECTIONS FENTanyl PF 2021-08- No 25ug 25 mcg, Un jennie (SUBLIMAZE - 11-15 Slow IV ity o f (PF)) 17:29: 20:05 Push, [place] injection 49 :35 Q5MIN PRN, Medi gina 25 mcg 4 doses, Branch Starting on Wed06/16/22 at 1129, Until Wed06/16/22 at 1405, Routine, Pain (scale 4-6), PACU HYDROmorpho 2021-08- No .2mg 0.2 mg, Un jennie ne 1-15 11-15 Slow IV ity of (DILAUDID) 17:29: 20:05 Push, [place] injection 49 :35 Q5MIN PRN, Medi gina 0.2 mg 10 doses, Branch Starting on Wed06/16/22 at 1129, Until Wed06/16/22 at 1405, Routine, Pain (scale 7-10), PACU
Us e approved by (Faculty): PACU USE -ANESTHESI A SERVICE-HY DROMORPHON E INJECTIONS bupivacaine 2021-08- No PRN, Unive rs (preserv 08-16- Starting ity of free) 16:32: 17:25 on Wed [place] (SENSORCAIN 00 :26 06/16/22 Medi gina E MPF) 0.25 at 1032, Bran ch % (2.5 Until e mg/mL) 11/15/22 injection at 1125, Routine, Intra-op lactated 2021-08- No 1000mL at 42 Unive rs ringers IV 1-15 11-15 mL/hr, ity of infusion 14:30: 14:51 1,000 mL, [place] 1,000 mL 00 :00 IV Medical Infusion, Branch ONCE, 1 dose, On Wed06/16/22 at 0830, Routine, DSU Pre-op lactated 2021-08- No 1000mL at 42 Unive rs ringers IV 1-15 11-15 mL/hr, ity of infusion 14:30: 14:51 1,000 mL, [place] 1,000 mL 00 :00 IV Medical Infusion, Branch ONCE, 1 dose, On Wed06/16/22 at 0830, Routine, DSU Pre-op Vitamin B 2021-08 Yes 1{tbl} Take 1 Univ ers Complex 100 1-15 tablet by ity of #2-Herbs 12:00: mouth 3 [place] (NATURAL 34 (three) Medical B-100 times Branch COMPLEX) daily. 100 mg Tab fenofibrate 2021-08 Yes 145mg Take 145 U nivers (TRICOR) 1-15 mg by ity of 145 mg 12:00: mouth [place] tablet 34 daily. Medical Branch amLODIPine 2021-08 Yes 10mg Take 10 mg U nivers (NORVASC) 1-15 by mouth ity of 10 mg 12:00: daily. [place] tablet 34 Medical Branch pantoprazol 2021-08 Yes 40mg Take 40 mg Univers e 1-15 by mouth ity of (PROTONIX) 12:00: daily. [place] 40 mg EC 34 Medical tablet Branch hydrochloro 2021-08 Yes 12.5mg Take 12.5 Univers thiazide 1-15 mg by ity of (ESIDRIX) 12:00: mouth [place] 12.5 mg 34 daily. Medical capsule Branch olmesartan 2021-08 Yes 40mg Take 40 mg U nivers 40 mg 1-15 by mouth ity of tablet 12:00: daily. [place] 34 Medical Branch cholecalcif 2021-08 Yes 5000U Take 5,000 Univers shellie, 1-15 Units by ity of vitamin D3, 12:00: mouth [place] 25 mcg 34 daily. Medical (1,000 Branch unit) tablet aspirin 81 2021-08 Yes 81mg Take 81 mg U nivers mg EC 1-15 by mouth ity of tablet 12:00: daily. [place] [address] Medical Branch clopidogreL 2021-08 Yes 75mg Take 75 mg Univers 75 mg 1-15 by mouth ity of tablet 12:00: daily. [place] [address] Medical Branch Coenzyme 2021-08 Yes 1{capsu Take 1 Univ ers Q10 10 mg 1-15 le} capsule by ity of Cap 12:00: mouth [place] 34 daily. Medical Branch TURMERIC 2021-08 Yes 1{capsu Take 1 Univ ers ORAL 1-15 le} capsule by ity of 12:00: mouth [place] 34 daily. Medical Branch Vitamin B 2021-08 Yes 1{tbl} Take 1 Univ ers Complex 100 1-15 tablet by ity of #2-Herbs 12:00: mouth 3 [place] (NATURAL 34 (three) Medical B-100 times Branch COMPLEX) daily. 100 mg Tab fenofibrate 2021-08 Yes 145mg Take 145 U nivers (TRICOR) 1-15 mg by ity of 145 mg 12:00: mouth [place] tablet 34 daily. Medical Branch amLODIPine 2021-08 Yes 10mg Take 10 mg U nivers (NORVASC) 1-15 by mouth ity of 10 mg 12:00: daily. [place] [address] Medical Branch pantoprazol 2021-08 Yes 40mg Take 40 mg Univers e 1-15 by mouth ity of (PROTONIX) 12:00: daily. [place] 40 mg EC 34 Medical tablet Branch hydrochloro 2021-08 Yes 12.5mg Take 12.5 Univers thiazide 1-15 mg by ity of (ESIDRIX) 12:00: mouth [place] 12.5 mg 34 daily. Medical capsule Branch olmesartan 2021-08 Yes 40mg Take 40 mg U nivers 40 mg 1-15 by mouth ity of tablet 12:00: daily. [place] [address] Medical Branch cholecalcif 2021-08 Yes 5000U Take 5,000 Univers shellie, 1-15 Units by ity of vitamin D3, 12:00: mouth [place] 25 mcg 34 daily. Medical (1,000 Branch unit) tablet aspirin 81 2021-08 Yes 81mg Take 81 mg U nivers mg EC 1-15 by mouth ity of tablet 12:00: daily. [place] [address] Medical Branch clopidogreL 2021-08 Yes 75mg Take 75 mg Univers 75 mg 1-15 by mouth ity of tablet 12:00: daily. [place] [address] Medical Branch Coenzyme 2021-08 Yes 1{capsu Take 1 Univ ers Q10 10 mg 1-15 le} capsule by ity of Cap 12:00: mouth [place] 34 daily. Medical Branch TURMERIC 2021-08 Yes 1{capsu Take 1 Univ ers ORAL 1-15 le} capsule by ity of 12:00: mouth [place] 34 daily. Medical Branch Vitamin B 2021-08 Yes 1{tbl} Take 1 Univ ers Complex 100 1-15 tablet by ity of #2-Herbs 12:00: mouth 3 [place] (NATURAL 34 (three) Medical B-100 times Branch COMPLEX) daily. 100 mg Tab fenofibrate 2021-08 Yes 145mg Take 145 U nivers (TRICOR) 1-15 mg by ity of 145 mg 12:00: mouth [place] tablet 34 daily. Medical Branch amLODIPine 2021-08 Yes 10mg Take 10 mg U nivers (NORVASC) 1-15 by mouth ity of 10 mg 12:00: daily. [place] [address] Medical Branch pantoprazol 2021-08 Yes 40mg Take 40 mg Univers e 1-15 by mouth ity of (PROTONIX) 12:00: daily. [place] 40 mg EC 34 Medical tablet Branch hydrochloro 2021-08 Yes 12.5mg Take 12.5 Univers thiazide 1-15 mg by ity of (ESIDRIX) 12:00: mouth [place] 12.5 mg 34 daily. Medical capsule Branch olmesartan 2021-08 Yes 40mg Take 40 mg U nivers 40 mg 1-15 by mouth ity of tablet 12:00: daily. [place] [address] Medical Branch cholecalcif 2021-08 Yes 5000U Take 5,000 Univers shellie, 1-15 Units by ity of vitamin D3, 12:00: mouth [place] 25 mcg 34 daily. Medical (1,000 Branch unit) tablet aspirin 81 2021-08 Yes 81mg Take 81 mg U nivers mg EC 1-15 by mouth ity of tablet 12:00: daily. [address] Branch clopidogreL 2021-08 Yes 75mg Take 75 mg Univers 75 mg 1-15 by mouth ity of tablet 12:00: daily. [address] Branch Coenzyme 2021-08 Yes 1{capsu Take 1 Univ ers Q10 10 mg 1-15 le} capsule by ity of Cap 12:00: mouth [place] 34 daily. Medical Branch TURMERIC 2021-08 Yes 1{capsu Take 1 Univ ers ORAL 1-15 le} capsule by ity of 12:00: mouth [place] 34 daily. Medical Branch Vitamin B 2021-08 Yes 1{tbl} Take 1 Univ ers Complex 100 1-15 tablet by ity of #2-Herbs 12:00: mouth 3 [place] (NATURAL 34 (three) Medical B-100 times Branch COMPLEX) daily. 100 mg Tab fenofibrate 2021-08 Yes 145mg Take 145 U nivers (TRICOR) 1-15 mg by ity of 145 mg 12:00: mouth [place] tablet 34 daily. Medical Branch amLODIPine 2021-08 Yes 10mg Take 10 mg U nivers (NORVASC) 1-15 by mouth ity of 10 mg 12:00: daily. [place] tablet 34 Medical Branch pantoprazol 2021-08 Yes 40mg Take 40 mg Univers e 1-15 by mouth ity of (PROTONIX) 12:00: daily. [place] 40 mg EC 34 Medical tablet Branch hydrochloro 2021-08 Yes 12.5mg Take 12.5 Univers thiazide 1-15 mg by ity of (ESIDRIX) 12:00: mouth [place] 12.5 mg 34 daily. Medical capsule Branch olmesartan 2021-08 Yes 40mg Take 40 mg U nivers 40 mg 1-15 by mouth ity of tablet 12:00: daily. [place] [address] Medical Branch cholecalcif 2021-08 Yes 5000U Take 5,000 Univers shellie, 1-15 Units by ity of vitamin D3, 12:00: mouth [place] 25 mcg 34 daily. Medical (1,000 Branch unit) tablet aspirin 81 2021-08 Yes 81mg Take 81 mg U nivers mg EC 1-15 by mouth ity of tablet 12:00: daily. [place] [address] Medical Branch clopidogreL 2021-08 Yes 75mg Take 75 mg Univers 75 mg 1-15 by mouth ity of tablet 12:00: daily. [place] [address] Medical Branch Coenzyme 2021-08 Yes 1{capsu Take 1 Univ ers Q10 10 mg 1-15 le} capsule by ity of Cap 12:00: mouth [place] 34 daily. Medical Branch TURMERIC 2021-08 Yes 1{capsu Take 1 Univ ers ORAL 1-15 le} capsule by ity of 12:00: mouth [place] 34 daily. Medical Branch Vitamin B 2021-08 Yes 1{tbl} Take 1 Univ ers Complex 100 1-15 tablet by ity of #2-Herbs 12:00: mouth 3 [place] (NATURAL 34 (three) Medical B-100 times Branch COMPLEX) daily. 100 mg Tab fenofibrate 2021-08 Yes 145mg Take 145 U nivers (TRICOR) 1-15 mg by ity of 145 mg 12:00: mouth [place] tablet 34 daily. Medical Branch amLODIPine 2021-08 Yes 10mg Take 10 mg U nivers (NORVASC) 1-15 by mouth ity of 10 mg 12:00: daily. [place] tablet 34 Medical Branch pantoprazol 2021-08 Yes 40mg Take 40 mg Univers e 1-15 by mouth ity of (PROTONIX) 12:00: daily. [place] 40 mg EC 34 Medical tablet Branch hydrochloro 2021-08 Yes 12.5mg Take 12.5 Univers thiazide 1-15 mg by ity of (ESIDRIX) 12:00: mouth [place] 12.5 mg 34 daily. Medical capsule Branch olmesartan 2021-08 Yes 40mg Take 40 mg U nivers 40 mg 1-15 by mouth ity of tablet 12:00: daily. [place] [address] Medical Branch cholecalcif 2021-08 Yes 5000U Take 5,000 Univers shellie, 1-15 Units by ity of vitamin D3, 12:00: mouth [place] 25 mcg 34 daily. Medical (1,000 Branch unit) tablet aspirin 81 2021-08 Yes 81mg Take 81 mg U nivers mg EC 1-15 by mouth ity of tablet 12:00: daily. [address] Branch clopidogreL 2021-08 Yes 75mg Take 75 mg Univers 75 mg 1-15 by mouth ity of tablet 12:00: daily. [place] [address] Medical Branch Coenzyme 2021-08 Yes 1{capsu Take 1 Univ ers Q10 10 mg 1-15 le} capsule by ity of Cap 12:00: mouth [place] 34 daily. Medical Branch TURMERIC 2021-08 Yes 1{capsu Take 1 Univ ers ORAL 1-15 le} capsule by ity of 12:00: mouth [place] 34 daily. Medical Branch Vitamin B 2021-08 Yes 1{tbl} Take 1 Univ ers Complex 100 1-15 tablet by ity of #2-Herbs 12:00: mouth 3 [place] (NATURAL 34 (three) Medical B-100 times Branch COMPLEX) daily. 100 mg Tab fenofibrate 2021-08 Yes 145mg Take 145 U nivers (TRICOR) 1-15 mg by ity of 145 mg 12:00: mouth [place] tablet 34 daily. Medical Branch amLODIPine 2021-08 Yes 10mg Take 10 mg U nivers (NORVASC) 1-15 by mouth ity of 10 mg 12:00: daily. [place] tablet 34 Medical Branch pantoprazol 2021-08 Yes 40mg Take 40 mg Univers e 1-15 by mouth ity of (PROTONIX) 12:00: daily. [place] 40 mg EC 34 Medical tablet Branch hydrochloro 2021-08 Yes 12.5mg Take 12.5 Univers thiazide 1-15 mg by ity of (ESIDRIX) 12:00: mouth [place] 12.5 mg 34 daily. Medical capsule Branch olmesartan 2021-08 Yes 40mg Take 40 mg U nivers 40 mg 1-15 by mouth ity of tablet 12:00: daily. [place] [address] Medical Branch cholecalcif 2021-08 Yes 5000U Take 5,000 Univers shellie, 1-15 Units by ity of vitamin D3, 12:00: mouth [place] 25 mcg 34 daily. Medical (1,000 Branch unit) tablet aspirin 81 2021-08 Yes 81mg Take 81 mg U nivers mg EC 1-15 by mouth ity of tablet 12:00: daily. [address] Branch clopidogreL 2021-08 Yes 75mg Take 75 mg Univers 75 mg 1-15 by mouth ity of tablet 12:00: daily. [place] [address] Medical Branch Coenzyme 2021-08 Yes 1{capsu Take 1 Univ ers Q10 10 mg 1-15 le} capsule by ity of Cap 12:00: mouth [place] 34 daily. Medical Branch TURMERIC 2021-08 Yes 1{capsu Take 1 Univ ers ORAL 1-15 le} capsule by ity of 12:00: mouth [place] 34 daily. Medical Branch Vitamin B 2021-08 Yes 1{tbl} Take 1 Univ ers Complex 100 1-15 tablet by ity of #2-Herbs 12:00: mouth 3 [place] (NATURAL 34 (three) Medical B-100 times Branch COMPLEX) daily. 100 mg Tab fenofibrate 2021-08 Yes 145mg Take 145 U nivers (TRICOR) 1-15 mg by ity of 145 mg 12:00: mouth [place] tablet 34 daily. Medical Branch amLODIPine 2021-08 Yes 10mg Take 10 mg U nivers (NORVASC) 1-15 by mouth ity of 10 mg 12:00: daily. [place] tablet 34 Medical Branch pantoprazol 2021-08 Yes 40mg Take 40 mg Univers e 1-15 by mouth ity of (PROTONIX) 12:00: daily. [place] 40 mg EC 34 Medical tablet Branch hydrochloro 2021-08 Yes 12.5mg Take 12.5 Univers thiazide 1-15 mg by ity of (ESIDRIX) 12:00: mouth [place] 12.5 mg 34 daily. Medical capsule Branch olmesartan 2021-08 Yes 40mg Take 40 mg U nivers 40 mg 1-15 by mouth ity of tablet 12:00: daily. [place] [address] Medical Branch cholecalcif 2021-08 Yes 5000U Take 5,000 Univers shellie, 1-15 Units by ity of vitamin D3, 12:00: mouth [place] 25 mcg 34 daily. Medical (1,000 Branch unit) tablet aspirin 81 2021-08 Yes 81mg Take 81 mg U nivers mg EC 1-15 by mouth ity of tablet 12:00: daily. [place] [address] Medical Branch clopidogreL 2021-08 Yes 75mg Take 75 mg Univers 75 mg 1-15 by mouth ity of tablet 12:00: daily. [place] [address] Medical Branch Coenzyme 2021-08 Yes 1{capsu Take 1 Univ ers Q10 10 mg 1-15 le} capsule by ity of Cap 12:00: mouth [place] 34 daily. Medical Branch TURMERIC 2021-08 Yes 1{capsu Take 1 Univ ers ORAL 1-15 le} capsule by ity of 12:00: mouth [place] 34 daily. Medical Branch Vitamin B 2021-08 Yes 1{tbl} Take 1 Univ ers Complex 100 1-15 tablet by ity of #2-Herbs 12:00: mouth 3 [place] (NATURAL 34 (three) Medical B-100 times Branch COMPLEX) daily. 100 mg Tab fenofibrate 2021-08 Yes 145mg Take 145 U nivers (TRICOR) 1-15 mg by ity of 145 mg 12:00: mouth [place] tablet 34 daily. Medical Branch amLODIPine 2021-08 Yes 10mg Take 10 mg U nivers (NORVASC) 1-15 by mouth ity of 10 mg 12:00: daily. [place] tablet 34 Medical Branch pantoprazol 2021-08 Yes 40mg Take 40 mg Univers e 1-15 by mouth ity of (PROTONIX) 12:00: daily. [place] 40 mg EC 34 Medical tablet Branch hydrochloro 2021-08 Yes 12.5mg Take 12.5 [facility] thiazide 1-15 mg by ity of (ESIDRIX) 12:00: mouth [place] 12.5 mg 34 daily. Medical capsule Branch olmesartan 2021-08 Yes 40mg Take 40 mg U nivers 40 mg 1-15 by mouth ity of tablet 12:00: daily. [place] [address] Medical Branch cholecalcif 2021-08 Yes 5000U Take 5,000 [facility] shellie, 1-15 Units by ity of vitamin D3, 12:00: mouth [place] 25 mcg 34 daily. Medical (1,000 Branch unit) tablet aspirin 81 2021-08 Yes 81mg Take 81 mg U nivers mg EC 1-15 by mouth ity of tablet 12:00: daily. [address] Branch clopidogreL 2021-08 Yes 75mg Take 75 mg [facility] 75 mg 1-15 by mouth ity of tablet 12:00: daily. [place] [address] Medical Branch Coenzyme 2021-08 Yes 1{capsu Take 1 Univ ers Q10 10 mg 1-15 le} capsule by ity of Cap 12:00: mouth [place] [address] daily. Medical Branch TURMERIC 2021-08 Yes 1{capsu Take 1 Univ ers ORAL 1-15 le} capsule by ity of 12:00: mouth [place] [address] daily. Medical Branch omega-3 2021-08- No 1g Take 1 g Unive rs fatty 1-15 11-15 by mouth 3 ity of acids-vitam 11:10: 00:00 (three) [place] in E (FISH 33 :00 times Medical OIL) 1,000 daily. Branch mg capsule naproxen 2021-08- No 220mg Take 220 Uni vers sodium 1-15 11-15 mg by ity of (ANAPROX) 11:10: 00:00 mouth 3 [place] 220 mg 33 :00 (three) Medical tablet times Branch daily. insulin 2021-08 No 70U inject 70 [facility] ers glargine 1-15 11-15 Units ity of (TOUJEO 11:10: 00:00 [place] SOLOSTAR[place] 33 :00 skin 2 Medical 300 unit/mL (two) Branch (1.5 mL) times InPn daily. HYDROcodone 2021-08- No 1{tbl} Take 1 U nivers -acetaminop 1-15 11-15 tablet by it y of hen (NORCO) 11:10: 00:00 mouth 2 [place] 10-325 mg 33 :00 (two) Medical tablet times Branch daily. omega-3 2021-08- No 1g Take 1 g Unive rs fatty 1-15 11-15 by mouth 3 ity of acids-vitam 11:10: 00:00 (three) [place] in [place] (FISH 33 :00 times Medical OIL) 1,000 daily. Branch mg capsule naproxen 2021-08- No 220mg Take 220 Uni vers sodium 1-15 11-15 mg by ity of (ANAPROX) 11:10: 00:00 mouth 3 [place] 220 mg 33 :00 (three) Medical tablet times Branch daily. insulin 2021-08- No 70U inject 70 Univ ers glargine 1-15 11-15 Units ity of (TOUJEO 11:10: 00:00 [place] SOL[place] 33 :00 skin 2 Medical 300 unit/mL (two) Branch (1.5 mL) times InPn daily. HYDROcodone 2021-08- No 1{tbl} Take 1 U nivers -acetaminop 1-15 11-15 tablet by it y of hen (NORCO) 11:10: 00:00 mouth 2 [place] 10-325 mg 33 :00 (two) Medical tablet times Branch daily. aspirin 2021-08- No [id number] 325mg Take 1 [facility] j[facility] 325 mg 1-15 12-14 tablet by it y of EC tablet 00:00: 05:59 mouth in [place] as 00 :00 the Medical morning Branch and 1 tablet in the evening. Take with meals. Do all this for 28 days. aspirin 2021-08- No [id number] 325mg Take 1 [facility] j[facility] 325 mg 1-15 12-14 tablet by it y of EC tablet 00:00: 05:59 mouth in [place] as 00 :00 the Medical morning Branch and 1 tablet in the evening. Take with meals. Do all this for 28 days. aspirin 2021-08- No [id number] 325mg Take 1 [facility] 325 mg 1-15 12-14 tablet by it y of EC tablet 00:00: 05:59 mouth in [place] as 00 :00 the Medical morning Branch and 1 tablet in the evening. Take with meals. Do all this for 28 days. aspirin 2021-08- No [id number] 325mg Take 1 [facility] 325 mg 1-15 12-14 tablet by it y of EC tablet 00:00: 05:59 mouth in [place] as 00 :00 the Medical morning Branch and 1 tablet in the evening. Take with meals. Do all this for 28 days. aspirin 2021-08- No [id number] 325mg Take 1 [facility] 325 mg 1-15 12-14 tablet by it y of EC tablet 00:00: 05:59 mouth in [place] as 00 :00 the Medical morning Branch and 1 tablet in the evening. Take with meals. Do all this for 28 days. aspirin 2021-08- No [id number] 325mg Take 1 [facility] 325 mg 1-15 12-14 tablet by it y of EC tablet 00:00: 05:59 mouth in [place] as 00 :00 the Medical morning Branch and 1 tablet in the evening. Take with meals. Do all this for 28 days. aspirin 2021-08- No [id number] 325mg Take 1 [facility] 325 mg 1-15 12-14 tablet by it y of EC tablet 00:00: 05:59 mouth in [place] as 00 :00 the Medical morning Branch and 1 tablet in the evening. Take with meals. Do all this for 28 days. aspirin 2021-08- No [id number] 325mg Take 1 [facility] 325 mg 1-15 12-14 tablet by it y of EC tablet 00:00: 05:59 mouth in [place] as 00 :00 the Medical morning Branch and 1 tablet in the evening. Take with meals. Do all this for 28 days. methocarbam 2021-08- No [id number] 750mg Take 1 [facility] oL 750 mg 08-16 tablet by ity of tablet 00:00: 05:59 mouth in [place] 00 :00 the Medical morning Branch and 1 tablet at noon and 1 tablet in the evening. Do all this for 10 days. methocarbam 2021-08- No [id number] 750mg Take 1 [facility] oL 750 mg 08-16 tablet by ity of tablet 00:00: 05:59 mouth in [place] 00 :00 the Medical morning Branch and 1 tablet at noon and 1 tablet in the evening. Do all this for 10 days. methocarbam 2021-08- No [id number] 750mg Take 1 [facility] oL 750 mg 08-16 tablet by ity of tablet 00:00: 05:59 mouth in [place] 00 :00 the Medical morning Branch and 1 tablet at noon and 1 tablet in the evening. Do all this for 10 days. HYDROcodone 2021-08 No [id number] 1{tbl} Take 1 U nivers -acetaminop -16 06- tablet by it y of hen 5-325 00:00: 05:59 mouth [place] mg tablet 00 :00 every 6 Medical (six) Branch hours as needed for Pain (scale 4-6) or Pain (scale 7-10) for up to 7 days. Indication s: acute pain traMADoL 50 2021-08 No [id number] 50mg Take 1 Uni vers mg tablet 08-16 tablet by ity of 00:00: 05:59 mouth [place] 00 :00 every 6 Medical (six) Branch hours as needed for Pain (scale 4-6) or Pain (scale 7-10) for up to 7 days. Indication s: acute pain HYDROcodone 2021-08 No [id number] 1{tbl} Take 1 U nivers -acetaminop -15 -23 tablet by it y of hen 5-325 00:00: 05:59 mouth [place] mg tablet 00 :00 every 6 Medical (six) Branch hours as needed for Pain (scale 4-6) or Pain (scale 7-10) for up to 7 days. Indication s: acute pain traMADoL 50 2021-08 No [id number] 50mg Take 1 Uni vers mg tablet 08-16-23 tablet by ity of 00:00: 05:59 mouth [place] 00 :00 every 6 Medical (six) Branch hours as needed for Pain (scale 4-6) or Pain (scale 7-10) for up to 7 days. Indication s: acute pain HYDROcodone 2021-08- No 4647 1{tbl} Take 1 U nivers -acetaminop 08-16 tablet by it y of hen 5-325 00:00: 05:59 mouth [place] mg tablet 00 :00 every 6 Medical (six) Branch hours as needed for Pain (scale 4-6) or Pain (scale 7-10) for up to 7 days. Indication s: acute pain traMADoL 50 2021-08- No [id number] 50mg Take 1 Uni vers mg tablet 08-16 tablet by ity of 00:00: 05:59 mouth [place] 00 :00 every 6 Medical (six) Branch hours as needed for Pain (scale 4-6) or Pain (scale 7-10) for up to 7 days. Indication s: acute pain Vitamin B 2021-08 Yes 1{tbl} Take 1 [facility] ers Complex 100 1-08 tablet by ity of #2-Herbs 16:21: mouth 3 [place] (NATURAL 17 (three) Medical B-100 times Branch COMPLEX) daily. 100 mg Tab fenofibrate 2021-08 Yes 145mg Take 145 U nivers (TRICOR) 1-08 mg by ity of 145 mg 16:21: mouth [place] tablet 17 daily. Medical Branch pantoprazol 2021-08 Yes 40mg Take 40 mg Univers e 1-08 by mouth ity of (PROTONIX) 16:21: daily. [place] 40 mg EC 17 Medical tablet Branch hydrochloro 2021-08 Yes 12.5mg Take 12.5 [facility] thiazide 1-08 mg by ity of (ESIDRIX) 16:21: mouth [place] 12.5 mg 17 daily. Medical capsule Branch olmesartan 2021-08 Yes 40mg Take 40 mg U nivers 40 mg 1-08 by mouth ity of tablet 16:21: daily. [place] 17 Medical Branch cholecalcif 2021-08 Yes 5000U Take 5,000 [facility] shellie, 1-08 Units by ity of vitamin D3, 16:21: mouth [place] 25 mcg 17 daily. Medical (1,000 Branch unit) tablet aspirin 81 2021-08 Yes 81mg Take 81 mg U nivers mg EC 1-08 by mouth ity of tablet 16:21: daily. [place] [facility] clopidogreL 2021-08 Yes 75mg Take 75 mg [facility] 75 mg 1-08 by mouth ity of tablet 16:21: daily. [place] 17 Medical Branch Coenzyme 2021-08 Yes 1{capsu Take 1 [facility] ers Q10 10 mg 1-08 le} capsule by ity of Cap 16:21: mouth [place] 17 daily. Medical Branch TURMERIC 2021-08 Yes 1{capsu Take 1 [facility] ers ORAL 1-08 le} capsule by ity of 16:21: mouth [place] 17 daily. Medical Branch amLODIPine 2021-08 Yes 10mg Take 10 mg U nivers (NORVASC) -08 by mouth ity of 10 mg 16:21: daily. [place] tablet 16 Medical Branch amitriptyli 2021- No 10mg Take 10 mg Univers ne (ELAVIL) 04-27 by mouth ity of 10 mg 14:34: 00:00 at bedtime [place] tablet 18 :00 as needed. Medical Branch amitriptyli 2021- No 10mg Take 10 mg [facility] ne (ELAVIL) 04-27 by mouth ity of 10 mg 14:34: 00:00 at bedtime [place] tablet 18 :00 as needed. Medical Branch amitriptyli 2021- No 10mg Take 10 mg [facility] ne (ELAVIL) 04-27 by mouth ity of 10 mg 14:34: 00:00 at bedtime [place] tablet 18 :00 as needed. Medical Branch HYDROcodone Yes 1{tbl} Take 1 Un jennie -acetaminop 9-08 tablet by ity of hen 7.5-325 00:00: mouth as [place] mg per 00 needed. Medical tablet Branch HYDROcodone 2021- No 1{tbl} Take 1 U nivers -acetaminop 9-08 11-15 tablet by it y of hen 7.5-325 00:00: 00:00 mouth as [place] mg per 00 :00 needed. Medical tablet Branch HYDROcodone 2021- No 1{tbl} Take 1 U nivers -acetaminop 9-08 11-15 tablet by it y of hen 7.5-325 00:00: 00:00 mouth as [place] mg per 00 :00 needed. Medical tablet Branch cholecalcif 2020-08 Yes 5000U Take 5,000 [facility] shellie, 2-02 Units by ity of vitamin D3, 00:11: mouth [place] 25 mcg 02 daily. Medical (1,000 Branch unit) tablet aspirin 81 2020-08 Yes 81mg Take 81 mg U nivers mg EC 2-02 by mouth ity of tablet 00:11: daily. [place] [facility] clopidogreL 2020-08 Yes 75mg Take 75 mg [facility] 75 mg 2-02 by mouth ity of tablet 00:11: daily. [place] [facility] Coenzyme 2020-08 Yes 1{capsu Take 1 Univ ers Q10 (CO 2-02 le} capsule by ity of Q-10) 10 mg 00:11: mouth [place] Cap 02 daily. Medical Branch TURMERIC 2020-08 Yes 1{capsu Take 1 [facility] ers ORAL 2-02 le} capsule by ity of 00:11: mouth [place] 02 daily. Medical Branch cholecalcif 2020-08 Yes 5000U Take 5,000 [facility] shellie, 2-02 Units by ity of vitamin D3, 00:11: mouth [place] 25 mcg 02 daily. Medical (1,000 Branch unit) tablet aspirin 81 2020-08 Yes 81mg Take 81 mg U nivers mg EC 2-02 by mouth ity of tablet 00:11: daily. [place] [facility] clopidogreL 2020-08 Yes 75mg Take 75 mg [facility] 75 mg 2-02 by mouth ity of tablet 00:11: daily. [place] [facility] Coenzyme 2020-08 Yes 1{capsu Take 1 Univ ers Q10 (CO 2-02 le} capsule by ity of Q-10) 10 mg 00:11: mouth [place] Cap 02 daily. Medical Branch TURMERIC 2020-08 Yes 1{capsu Take 1 [facility] ers ORAL 2-02 le} capsule by ity of 00:11: mouth [place] 02 daily. Medical Branch cholecalcif 2020-08 Yes 5000U Take 5,000 [facility] shellie, 2-02 Units by ity of vitamin D3, 00:11: mouth [place] 25 mcg 02 daily. Medical (1,000 Branch unit) tablet aspirin 81 2020-08 Yes 81mg Take 81 mg U nivers mg EC 2-02 by mouth ity of tablet 00:11: daily. [place] [facility] clopidogreL 2020-08 Yes 75mg Take 75 mg [facility] 75 mg 2-02 by mouth ity of tablet 00:11: daily. [place] [facility] Coenzyme 2020-08 Yes 1{capsu Take 1 Univ ers Q10 (CO 2-02 le} capsule by ity of Q-10) 10 mg 00:11: mouth [place] Cap 02 daily. Medical Branch TURMERIC 2020-08 Yes 1{capsu Take 1 [facility] ers ORAL 2-02 le} capsule by ity of 00:11: mouth [place] 02 daily. Medical Branch cholecalcif 2020-08 Yes 5000U Take 5,000 [facility] shellie, 2-02 Units by ity of vitamin D3, 00:11: mouth [place] 25 mcg 02 daily. Medical (1,000 Branch unit) tablet aspirin 81 2020-08 Yes 81mg Take 81 mg U nivers mg EC 2-02 by mouth ity of tablet 00:11: daily. [place] [facility] clopidogreL 2020-08 Yes 75mg Take 75 mg [facility] 75 mg 2-02 by mouth ity of tablet 00:11: daily. [place] [facility] Coenzyme 2020-08 Yes 1{capsu Take 1 Univ ers Q10 (CO 2-02 le} capsule by ity of Q-10) 10 mg 00:11: mouth [place] Cap 02 daily. Medical Branch TURMERIC 2020-08 Yes 1{capsu Take 1 [facility] ers ORAL 2-02 le} capsule by ity of 00:11: mouth [place] 02 daily. Medical Branch cholecalcif 2020-08 Yes 5000U Take 5,000 [facility] shellie, 2-02 Units by ity of vitamin D3, 00:11: mouth [place] 25 mcg 02 daily. Medical (1,000 Branch unit) tablet aspirin 81 2020-08 Yes 81mg Take 81 mg U nivers mg EC 2-02 by mouth ity of tablet 00:11: daily. [place] [facility] clopidogreL 2020-08 Yes 75mg Take 75 mg [facility] 75 mg 2-02 by mouth ity of tablet 00:11: daily. [place] [facility] Coenzyme 2020-08 Yes 1{capsu Take 1 Univ ers Q10 (CO 2-02 le} capsule by ity of Q-10) 10 mg 00:11: mouth [place] Cap 02 daily. Medical Branch TURMERIC 2020-08 Yes 1{capsu Take 1 [facility] ers ORAL 2-02 le} capsule by ity of 00:11: mouth [place] 02 daily. Medical Branch cholecalcif 2020-08 Yes 5000U Take 5,000 [facility] shellie, 2-02 Units by ity of vitamin D3, 00:11: mouth [place] 25 mcg 02 daily. Medical (1,000 Branch unit) tablet aspirin 81 2020-08 Yes 81mg Take 81 mg U nivers mg EC 2-02 by mouth ity of tablet 00:11: daily. Medical Branch clopidogreL 2020-08 Yes 75mg Take 75 mg [facility] 75 mg 2-02 by mouth ity of tablet 00:11: daily. Medical Branch Coenzyme 2020-08 Yes 1{capsu Take 1 Univ ers Q10 (CO 2-02 le} capsule by ity of Q-10) 10 mg 00:11: mouth [place] Cap 02 daily. Medical Branch TURMERIC 2020-08 Yes 1{capsu Take 1 [facility] ers ORAL 2-02 le} capsule by ity of 00:11: mouth [place] 02 daily. Medical Branch cholecalcif 2020-08 Yes 5000U Take 5,000 [facility] shellie, 2-02 Units by ity of vitamin D3, 00:11: mouth [place] 25 mcg 02 daily. Medical (1,000 Branch unit) tablet aspirin 81 2020-08 Yes 81mg Take 81 mg U nivers mg EC 2-02 by mouth ity of tablet 00:11: daily. Medical Branch clopidogreL 2020-08 Yes 75mg Take 75 mg [facility] 75 mg 2-02 by mouth ity of tablet 00:11: daily. Medical Branch Coenzyme 2020-08 Yes 1{capsu Take 1 Univ ers Q10 (CO 2-02 le} capsule by ity of Q-10) 10 mg 00:11: mouth [place] Cap 02 daily. Medical Branch TURMERIC 2020-08 Yes 1{capsu Take 1 Univ ers ORAL 2-02 le} capsule by ity of 00:11: mouth [place] 02 daily. Medical Branch cholecalcif 2020-08 Yes 5000U Take 5,000 [facility] shellie, 2-02 Units by ity of vitamin D3, 00:11: mouth [place] 25 mcg 02 daily. Medical (1,000 Branch unit) tablet aspirin 81 2020-08 Yes 81mg Take 81 mg U nivers mg EC 2-02 by mouth ity of tablet 00:11: daily. [place] [facility] clopidogreL 2020-08 Yes 75mg Take 75 mg [facility] 75 mg 2-02 by mouth ity of tablet 00:11: daily. [place] [facility] Coenzyme 2020-08 Yes 1{capsu Take 1 Univ ers Q10 (CO 2-02 le} capsule by ity of Q-10) 10 mg 00:11: mouth [place] Cap 02 daily. Medical Branch TURMERIC 2020-08 Yes 1{capsu Take 1 Univ ers ORAL 2-02 le} capsule by ity of 00:11: mouth [place] 02 daily. Medical Branch cholecalcif 2020-08 Yes 5000U Take 5,000 [facility] shellie, 2-02 Units by ity of vitamin D3, 00:11: mouth [place] 25 mcg 02 daily. Medical (1,000 Branch unit) tablet aspirin 81 2020-08 Yes 81mg Take 81 mg U nivers mg EC 2-02 by mouth ity of tablet 00:11: daily. [place] [facility] clopidogreL 2020-08 Yes 75mg Take 75 mg [facility] 75 mg 2-02 by mouth ity of tablet 00:11: daily. [place] [facility] Coenzyme 2020-08 Yes 1{capsu Take 1 Univ ers Q10 (CO 2-02 le} capsule by ity of Q-10) 10 mg 00:11: mouth [place] Cap 02 daily. Medical Branch TURMERIC 2020-08 Yes 1{capsu Take 1 Univ ers ORAL 2-02 le} capsule by ity of 00:11: mouth [place] 02 daily. Medical Branch cholecalcif 2020-08 Yes 5000U Take 5,000 [facility] shellie, 2-02 Units by ity of vitamin D3, 00:11: mouth [place] 25 mcg 02 daily. Medical (1,000 Branch unit) tablet aspirin 81 2020-08 Yes 81mg Take 81 mg U nivers mg EC 2-02 by mouth ity of tablet 00:11: daily. [place] [facility] clopidogreL 2020-08 Yes 75mg Take 75 mg [facility] 75 mg 2-02 by mouth ity of tablet 00:11: daily. [place] [facility] Coenzyme 2020-08 Yes 1{capsu Take 1 Univ ers Q10 (CO 2-02 le} capsule by ity of Q-10) 10 mg 00:11: mouth [place] Cap 02 daily. Medical Branch TURMERIC 2020-08 Yes 1{capsu Take 1 Univ ers ORAL 2-02 le} capsule by ity of 00:11: mouth [place] 02 daily. Medical Branch cholecalcif 2020-08 Yes 5000U Take 5,000 [facility] shellie, 2-02 Units by ity of vitamin D3, 00:11: mouth [place] 25 mcg 02 daily. Medical (1,000 Branch unit) tablet aspirin 81 2020-08 Yes 81mg Take 81 mg U nivers mg EC 2-02 by mouth ity of tablet 00:11: daily. Medical Branch clopidogreL 2020-08 Yes 75mg Take 75 mg [facility] 75 mg 2-02 by mouth ity of tablet 00:11: daily. Medical Branch Coenzyme 2020-08 Yes 1{capsu Take 1 Univ ers Q10 (CO 2-02 le} capsule by ity of Q-10) 10 mg 00:11: mouth [place] Cap 02 daily. Medical Branch TURMERIC 2020-08 Yes 1{capsu Take 1 Univ ers ORAL 2-02 le} capsule by ity of 00:11: mouth [place] 02 daily. Medical Branch insulin 2020-08 Yes 70U inject 70 Unive rs glargine 1-30 Units ity of (TOUJEO 12:12: under the [place] SOLOSTAR) 43 skin 2 Medical 300 unit/mL (two) Branch (1.5 mL) times InPn daily. fenofibrate 2020-08 Yes 145mg Take 145 U nivers (TRICOR) 1-30 mg by ity of 145 mg 12:12: mouth [place] tablet 43 daily. Medical Branch amLODIPine 2020-08 Yes 10mg Take 10 mg U nivers (NORVASC) 1-30 by mouth ity of 10 mg 12:12: daily. [place] tablet 43 Medical Branch pantoprazol 2020-08 Yes 40mg Take 40 mg Univers e 1-30 by mouth ity of (PROTONIX) 12:12: daily. [place] 40 mg EC 43 Medical tablet Branch hydrochloro 2020-08 Yes 12.5mg Take 12.5 [facility] thiazide 1-30 mg by ity of (ESIDRIX) 12:12: mouth [place] 12.5 mg 43 daily. Medical capsule Branch olmesartan 2021-1 Yes 40mg Take 40 mg U nivers (BENICAR) 1-30 by mouth ity of 40 mg 12:12: daily. [place] tablet 43 Medical Branch HYDROcodone 2020-08 Yes 1{tbl} Take 1 Un jennie -acetaminop 1-30 tablet by ity of hen (NORCO) 12:12: mouth 2 [place] as 10-325 mg 43 (two) Medical tablet times Branch daily. omega-3 2020-08 Yes 1g Take 1 g Univer s fatty 1-30 by mouth 3 ity of acids-vitam 12:12: (three) [place] as in E (FISH 43 times Medical OIL) 1,000 daily. Branch mg capsule Vitamin B 2020-08 Yes 1{tbl} Take 1 Univ ers Complex 100 1-30 tablet by ity of #2-Herbs 12:12: mouth 3 [place] (NATURAL 43 (three) Medical B-100 times Branch COMPLEX) daily. 100 mg Tab naproxen 2020-08 Yes 220mg Take 220 Univ ers sodium 1-30 mg by ity of (ANAPROX) 12:12: mouth 3 [place] 220 mg 43 (three) Medical tablet times Branch daily. insulin 2020-08 Yes 70U inject 70 Unive rs glargine 1-30 Units ity of (TOUJEO 12:12: under the [place] SOLOSTAR) 43 skin 2 Medical 300 unit/mL (two) Branch (1.5 mL) times InPn daily. fenofibrate 2020-08 Yes 145mg Take 145 U nivers (TRICOR) 1-30 mg by ity of 145 mg 12:12: mouth [place] tablet 43 daily. Medical Branch amLODIPine 2020-08 Yes 10mg Take 10 mg U nivers (NORVASC) 1-30 by mouth ity of 10 mg 12:12: daily. [place] tablet 43 Medical Branch pantoprazol 2020-08 Yes 40mg Take 40 mg Univers e 1-30 by mouth ity of (PROTONIX) 12:12: daily. [place] 40 mg EC 43 Medical tablet Branch hydrochloro 2020-08 Yes 12.5mg Take 12.5 [facility] thiazide 1-30 mg by ity of (ESIDRIX) 12:12: mouth [place] 12.5 mg 43 daily. Medical capsule Branch olmesartan 2020-08 Yes 40mg Take 40 mg U nivers (BENICAR) 1-30 by mouth ity of 40 mg 12:12: daily. [place] tablet 43 Medical Branch HYDROcodone 2020-08 Yes 1{tbl} Take 1 Un jennie -acetaminop 1-30 tablet by ity of hen (NORCO) 12:12: mouth 2 [place] as 10-325 mg 43 (two) Medical tablet times Branch daily. omega-3 2020-08 Yes 1g Take 1 g Univer s fatty 1-30 by mouth 3 ity of acids-vitam 12:12: (three) [place] as in E (FISH 43 times Medical OIL) 1,000 daily. Branch mg capsule Vitamin B 2020-08 Yes 1{tbl} Take 1 Univ ers Complex 100 1-30 tablet by ity of #2-Herbs 12:12: mouth 3 [place] (NATURAL 43 (three) Medical B-100 times Branch COMPLEX) daily. 100 mg Tab naproxen 2020-08 Yes 220mg Take 220 Univ ers sodium 1-30 mg by ity of (ANAPROX) 12:12: mouth 3 [place] 220 mg 43 (three) Medical tablet times Branch daily. insulin 2020-08 Yes 70U inject 70 Unive rs glargine 1-30 Units ity of (TOUJEO 12:12: under the [place] SOLOSTAR) 43 skin 2 Medical 300 unit/mL (two) Branch (1.5 mL) times InPn daily. fenofibrate 2020-08 Yes 145mg Take 145 U nivers (TRICOR) 1-30 mg by ity of 145 mg 12:12: mouth [place] tablet 43 daily. Medical Branch amLODIPine 2020-08 Yes 10mg Take 10 mg U nivers (NORVASC) 1-30 by mouth ity of 10 mg 12:12: daily. [place] tablet 43 Medical Branch pantoprazol 2020-08 Yes 40mg Take 40 mg Univers e 1-30 by mouth ity of (PROTONIX) 12:12: daily. [place] 40 mg EC 43 Medical tablet Branch hydrochloro 2020-08 Yes 12.5mg Take 12.5 [facility] thiazide 1-30 mg by ity of (ESIDRIX) 12:12: mouth [place] 12.5 mg 43 daily. Medical capsule Branch olmesartan 2020-08 Yes 40mg Take 40 mg U nivers (BENICAR) 1-30 by mouth ity of 40 mg 12:12: daily. [place] tablet 43 Medical Branch HYDROcodone 2020-08 Yes 1{tbl} Take 1 Un jennie -acetaminop 1-30 tablet by ity of hen (NORCO) 12:12: mouth 2 [place] as 10-325 mg 43 (two) Medical tablet times Branch daily. omega-3 2020-08 Yes 1g Take 1 g Univer s fatty 1-30 by mouth 3 ity of acids-vitam 12:12: (three) [place] as in E (FISH 43 times Medical OIL) 1,000 daily. Branch mg capsule Vitamin B 2020-08 Yes 1{tbl} Take 1 Univ ers Complex 100 1-30 tablet by ity of #2-Herbs 12:12: mouth 3 [place] (NATURAL 43 (three) Medical B-100 times Branch COMPLEX) daily. 100 mg Tab naproxen 2020-08 Yes 220mg Take 220 Univ ers sodium 1-30 mg by ity of (ANAPROX) 12:12: mouth 3 [place] 220 mg 43 (three) Medical tablet times Branch daily. insulin 2020-08 Yes 70U inject 70 Unive rs glargine 1-30 Units ity of (TOUJEO 12:12: under the [place] SOLOSTAR) 43 skin 2 Medical 300 unit/mL (two) Branch (1.5 mL) times InPn daily. fenofibrate 2020-08 Yes 145mg Take 145 U nivers (TRICOR) 1-30 mg by ity of 145 mg 12:12: mouth [place] tablet 43 daily. Medical Branch amLODIPine 2020-08 Yes 10mg Take 10 mg U nivers (NORVASC) 1-30 by mouth ity of 10 mg 12:12: daily. [place] tablet 43 Medical Branch pantoprazol 2020-08 Yes 40mg Take 40 mg Univers e 1-30 by mouth ity of (PROTONIX) 12:12: daily. [place] 40 mg EC 43 Medical tablet Branch hydrochloro 2020-08 Yes 12.5mg Take 12.5 [facility] thiazide 1-30 mg by ity of (ESIDRIX) 12:12: mouth [place] 12.5 mg 43 daily. Medical capsule Branch olmesartan 2020-08 Yes 40mg Take 40 mg U nivers (BENICAR) 1-30 by mouth ity of 40 mg 12:12: daily. [place] tablet 43 Medical Branch HYDROcodone 2020-08 Yes 1{tbl} Take 1 Un jennie -acetaminop 1-30 tablet by ity of hen (NORCO) 12:12: mouth 2 [place] as 10-325 mg 43 (two) Medical tablet times Branch daily. omega-3 2020-08 Yes 1g Take 1 g Univer s fatty 1-30 by mouth 3 ity of acids-vitam 12:12: (three) [place] as in E (FISH 43 times Medical OIL) 1,000 daily. Branch mg capsule Vitamin B 2020-08 Yes 1{tbl} Take 1 Univ ers Complex 100 1-30 tablet by ity of #2-Herbs 12:12: mouth 3 [place] (NATURAL 43 (three) Medical B-100 times Branch COMPLEX) daily. 100 mg Tab naproxen 2020-08 Yes 220mg Take 220 Univ ers sodium 1-30 mg by ity of (ANAPROX) 12:12: mouth 3 [place] 220 mg 43 (three) Medical tablet times Branch daily. insulin 2020-08 Yes 70U inject 70 Unive rs glargine 1-30 Units ity of (TOUJEO 12:12: under the [place] SOLOSTAR) 43 skin 2 Medical 300 unit/mL (two) Branch (1.5 mL) times InPn daily. fenofibrate 2020-08 Yes 145mg Take 145 U nivers (TRICOR) 1-30 mg by ity of 145 mg 12:12: mouth [place] tablet 43 daily. Medical Branch amLODIPine 2020-08 Yes 10mg Take 10 mg U nivers (NORVASC) 1-30 by mouth ity of 10 mg 12:12: daily. [place] tablet 43 Medical Branch pantoprazol 2020-08 Yes 40mg Take 40 mg Univers e 1-30 by mouth ity of (PROTONIX) 12:12: daily. [place] 40 mg EC 43 Medical tablet Branch hydrochloro 2020-08 Yes 12.5mg Take 12.5 [facility] thiazide 1-30 mg by ity of (ESIDRIX) 12:12: mouth [place] 12.5 mg 43 daily. Medical capsule Branch olmesartan 2020-08 Yes 40mg Take 40 mg U nivers (BENICAR) 1-30 by mouth ity of 40 mg 12:12: daily. [place] tablet 43 Medical Branch HYDROcodone 2020-08 Yes 1{tbl} Take 1 Un jennie -acetaminop 1-30 tablet by ity of hen (NORCO) 12:12: mouth 2 [place] as 10-325 mg 43 (two) Medical tablet times Branch daily. omega-3 2020-08 Yes 1g Take 1 g Univer s fatty 1-30 by mouth 3 ity of acids-vitam 12:12: (three) [place] in E (FISH 43 times Medical OIL) 1,000 daily. Branch mg capsule Vitamin B 2020-08 Yes 1{tbl} Take 1 [facility] ers Complex 100 1-30 tablet by ity of #2-Herbs 12:12: mouth 3 [place] (NATURAL 43 (three) Medical B-100 times Branch COMPLEX) daily. 100 mg Tab naproxen 2020-08 Yes 220mg Take 220 Univ ers sodium 1-30 mg by ity of (ANAPROX) 12:12: mouth 3 [place] 220 mg 43 (three) Medical tablet times Branch daily. insulin 2020-08 Yes 70U inject 70 Unive rs glargine 1-30 Units ity of (TOUJEO 12:12: under the [place] SOLOSTAR) 43 skin 2 Medical 300 unit/mL (two) Branch (1.5 mL) times InPn daily. fenofibrate 2020-08 Yes 145mg Take 145 U nivers (TRICOR) 1-30 mg by ity of 145 mg 12:12: mouth [place] tablet 43 daily. Medical Branch amLODIPine 2020-08 Yes 10mg Take 10 mg U nivers (NORVASC) 1-30 by mouth ity of 10 mg 12:12: daily. [place] tablet 43 Medical Branch pantoprazol 2020-08 Yes 40mg Take 40 mg Univers e 1-30 by mouth ity of (PROTONIX) 12:12: daily. [place] 40 mg EC 43 Medical tablet Branch hydrochloro 2020-08 Yes 12.5mg Take 12.5 [facility] thiazide 1-30 mg by ity of (ESIDRIX) 12:12: mouth [place] 12.5 mg 43 daily. Medical capsule Branch olmesartan 2020-08 Yes 40mg Take 40 mg U nivers (BENICAR) 1-30 by mouth ity of 40 mg 12:12: daily. [place] tablet 43 Medical Branch HYDROcodone 2020-08 Yes 1{tbl} Take 1 Un jennie -acetaminop 1-30 tablet by ity of hen ([employer]) 12:12: mouth 2 [place] 10-325 mg 43 (two) Medical tablet times Branch daily. omega-3 2020-08 Yes 1g Take 1 g Univer s fatty 1-30 by mouth 3 ity of acids-vitam 12:12: (three) [place] in E (FISH 43 times Medical OIL) 1,000 daily. Branch mg capsule naproxen 2020-08 Yes 220mg Take 220 Univ ers sodium 1-30 mg by ity of (ANAPROX) 12:12: mouth 3 [place] 220 mg 43 (three) Medical tablet times Branch daily. insulin 2020-08 Yes 70U inject 70 Unive rs glargine 1-30 Units ity of (TOUJEO 12:12: under the [place] SOLOSTAR) 43 skin 2 Medical 300 unit/mL (two) Branch (1.5 mL) times InPn daily. HYDROcodone 2020-08 Yes 1{tbl} Take 1 Un jennie -acetaminop 1-30 tablet by ity of hen ([employer]) 12:12: mouth 2 [place] 10-325 mg 43 (two) Medical tablet times Branch daily. omega-3 2020-08 Yes 1g Take 1 g Univer s fatty 1-30 by mouth 3 ity of acids-vitam 12:12: (three) [place] in E (FISH 43 times Medical OIL) 1,000 daily. Branch mg capsule Vitamin B 2020-08 Yes 1{tbl} Take 1 [facility] ers Complex 100 1-30 tablet by ity of #2-Herbs 12:12: mouth 3 [place] (NATURAL 43 (three) Medical B-100 times Branch COMPLEX) daily. 100 mg Tab naproxen 2020-08 Yes 220mg Take 220 Univ ers sodium 1-30 mg by ity of (ANAPROX) 12:12: mouth 3 [place] 220 mg 43 (three) Medical tablet times Branch daily. insulin 2020-08 Yes 70U inject 70 Unive rs glargine 1-30 Units ity of (TOUJEO 12:12: under the [place] SOLOSTAR) 43 skin 2 Medical 300 unit/mL (two) Branch (1.5 mL) times InPn daily. fenofibrate 2020-08 Yes 145mg Take 145 U nivers (TRICOR) 1-30 mg by ity of 145 mg 12:12: mouth [place] tablet 43 daily. Medical Branch amLODIPine 2020-08 Yes 10mg Take 10 mg U nivers (NORVASC) 1-30 by mouth ity of 10 mg 12:12: daily. [place] tablet 43 Medical Branch pantoprazol 2020-08 Yes 40mg Take 40 mg Univers e 1-30 by mouth ity of (PROTONIX) 12:12: daily. [place] 40 mg EC 43 Medical tablet Branch hydrochloro 2020-08 Yes 12.5mg Take 12.5 [facility] thiazide 1-30 mg by ity of (ESIDRIX) 12:12: mouth [place] 12.5 mg 43 daily. Medical capsule Branch olmesartan 2020-08 Yes 40mg Take 40 mg U nivers (BENICAR) 1-30 by mouth ity of 40 mg 12:12: daily. [place] tablet 43 Medical Branch HYDROcodone 2020-08 Yes 1{tbl} Take 1 Un jennie -acetaminop 1-30 tablet by ity of hen (NORCO) 12:12: mouth 2 [place] 10-325 mg 43 (two) Medical tablet times Branch daily. amitriptyli 2020-08 Yes 10mg Take 10 mg Univers ne (ELAVIL) 1-30 by mouth ity of 10 mg 12:12: at bedtime [place] tablet 43 as needed. Medical Branch omega-3 2020-08 Yes 1g Take 1 g Univer s fatty 1-30 by mouth 3 ity of acids-vitam 12:12: (three) [place] in E (FISH 43 times Medical OIL) 1,000 daily. Branch mg capsule Vitamin B 2020-08 Yes 1{tbl} Take 1 [facility] ers Complex 100 1-30 tablet by ity of #2-Herbs 12:12: mouth 3 [place] (NATURAL 43 (three) Medical B-100 times Branch COMPLEX) daily. 100 mg Tab naproxen 2020-08 Yes 220mg Take 220 Univ ers sodium 1-30 mg by ity of (ANAPROX) 12:12: mouth 3 [place] 220 mg 43 (three) Medical tablet times Branch daily. insulin 2020-08 Yes 70U inject 70 Unive rs glargine 1-30 Units ity of (TOUJEO 12:12: under the [place] SOLOSTAR) 43 skin 2 Medical 300 unit/mL (two) Branch (1.5 mL) times InPn daily. fenofibrate 2020-08 Yes 145mg Take 145 U nivers (TRICOR) 1-30 mg by ity of 145 mg 12:12: mouth [place] tablet 43 daily. Medical Branch amLODIPine 2020-08 Yes 10mg Take 10 mg U nivers (NORVASC) 1-30 by mouth ity of 10 mg 12:12: daily. [place] tablet 43 Medical Branch pantoprazol 2020-08 Yes 40mg Take 40 mg Univers e 1-30 by mouth ity of (PROTONIX) 12:12: daily. [place] 40 mg EC 43 Medical tablet Branch hydrochloro 2020-08 Yes 12.5mg Take 12.5 [facility] thiazide 1-30 mg by ity of (ESIDRIX) 12:12: mouth [place] 12.5 mg 43 daily. Medical capsule Branch olmesartan 2020-08 Yes 40mg Take 40 mg U nivers (BENICAR) 1-30 by mouth ity of 40 mg 12:12: daily. [place] tablet 43 Medical Branch HYDROcodone 2020-08 Yes 1{tbl} Take 1 Un jennie -acetaminop 1-30 tablet by ity of hen (NORCO) 12:12: mouth 2 [place] 10-325 mg 43 (two) Medical tablet times Branch daily. amitriptyli 2020-08 Yes 10mg Take 10 mg Univers ne (ELAVIL) 1-30 by mouth ity of 10 mg 12:12: at bedtime [place] tablet 43 as needed. Medical Branch omega-3 2020-08 Yes 1g Take 1 g Univer s fatty 1-30 by mouth 3 ity of acids-vitam 12:12: (three) [place] in E (FISH 43 times Medical OIL) 1,000 daily. Branch mg capsule Vitamin B 2020-08 Yes 1{tbl} Take 1 [facility] ers Complex 100 1-30 tablet by ity of #2-Herbs 12:12: mouth 3 [place] (NATURAL 43 (three) Medical B-100 times Branch COMPLEX) daily. 100 mg Tab naproxen 2020-08 Yes 220mg Take 220 Univ ers sodium 1-30 mg by ity of (ANAPROX) 12:12: mouth 3 [place] 220 mg 43 (three) Medical tablet times Branch daily. insulin 2020-08 Yes 70U inject 70 Unive rs glargine 1-30 Units ity of (TOUJEO 12:12: under the [place] SOLOSTAR) 43 skin 2 Medical 300 unit/mL (two) Branch (1.5 mL) times InPn daily. fenofibrate 2020-08 Yes 145mg Take 145 U nivers (TRICOR) 1-30 mg by ity of 145 mg 12:12: mouth [place] tablet 43 daily. Medical Branch amLODIPine 2020-08 Yes 10mg Take 10 mg U nivers (NORVASC) 1-30 by mouth ity of 10 mg 12:12: daily. [place] tablet 43 Medical Branch pantoprazol 2020-08 Yes 40mg Take 40 mg Univers e 1-30 by mouth ity of (PROTONIX) 12:12: daily. [place] 40 mg EC 43 Medical tablet Branch hydrochloro 2020-08 Yes 12.5mg Take 12.5 [facility] thiazide 1-30 mg by ity of (ESIDRIX) 12:12: mouth [place] 12.5 mg 43 daily. Medical capsule Branch olmesartan 2020-08 Yes 40mg Take 40 mg U nivers (BENICAR) 1-30 by mouth ity of 40 mg 12:12: daily. [place] tablet 43 Medical Branch HYDROcodone 2020-08 Yes 1{tbl} Take 1 Un jennie -acetaminop 1-30 tablet by ity of hen (NORCO) 12:12: mouth 2 [place] as 10-325 mg 43 (two) Medical tablet times Branch daily. omega-3 2020-08 Yes 1g Take 1 g Univer s fatty 1-30 by mouth 3 ity of acids-vitam 12:12: (three) [place] in E (FISH 43 times Medical OIL) 1,000 daily. Branch mg capsule Vitamin B 2020-08 Yes 1{tbl} Take 1 [facility] ers Complex 100 1-30 tablet by ity of #2-Herbs 12:12: mouth 3 [place] (NATURAL 43 (three) Medical B-100 times Branch COMPLEX) daily. 100 mg Tab naproxen 2020-08 Yes 220mg Take 220 Univ ers sodium 1-30 mg by ity of (ANAPROX) 12:12: mouth 3 [place] 220 mg 43 (three) Medical tablet times Branch daily. insulin 2020-08 Yes 70U inject 70 Unive rs glargine 1-30 Units ity of (TOUJEO 12:12: under the [place] SOLOSTAR) 43 skin 2 Medical 300 unit/mL (two) Branch (1.5 mL) times InPn daily. fenofibrate 2020-08 Yes 145mg Take 145 U nivers (TRICOR) 1-30 mg by ity of 145 mg 12:12: mouth [place] tablet 43 daily. Medical Branch amLODIPine 2020-08 Yes 10mg Take 10 mg U nivers (NORVASC) 1-30 by mouth ity of 10 mg 12:12: daily. [place] tablet 43 Medical Branch pantoprazol 2020-08 Yes 40mg Take 40 mg Univers e 1-30 by mouth ity of (PROTONIX) 12:12: daily. [place] 40 mg EC 43 Medical tablet Branch hydrochloro 2020-08 Yes 12.5mg Take 12.5 [facility] thiazide 1-30 mg by ity of (ESIDRIX) 12:12: mouth [place] 12.5 mg 43 daily. Medical capsule Branch olmesartan 2020-08 Yes 40mg Take 40 mg U nivers (BENICAR) 1-30 by mouth ity of 40 mg 12:12: daily. [place] tablet 43 Medical Branch HYDROcodone 2020-08 Yes 1{tbl} Take 1 Un jennie -acetaminop 1-30 tablet by ity of hen (NORCO) 12:12: mouth 2 [place] as 10-325 mg 43 (two) Medical tablet times Branch daily. omega-3 2020-08 Yes 1g Take 1 g Univer s fatty 1-30 by mouth 3 ity of acids-vitam 12:12: (three) [place] in E (FISH 43 times Medical OIL) 1,000 daily. Branch mg capsule Vitamin B 2020-08 Yes 1{tbl} Take 1 [facility] ers Complex 100 1-30 tablet by ity of #2-Herbs 12:12: mouth 3 [place] (NATURAL 43 (three) Medical B-100 times Branch COMPLEX) daily. 100 mg Tab naproxen 2020-08 Yes 220mg Take 220 Univ ers sodium 1-30 mg by ity of (ANAPROX) 12:12: mouth 3 [place] 220 mg 43 (three) Medical tablet times Branch daily. insulin 2020-08 Yes 70U inject 70 Unive rs glargine 1-30 Units ity of (TOUJEO 12:12: under the [place] SOLOSTAR) 43 skin 2 Medical 300 unit/mL (two) Branch (1.5 mL) times InPn daily. fenofibrate 2020-08 Yes 145mg Take 145 U nivers (TRICOR) 1-30 mg by ity of 145 mg 12:12: mouth [place] tablet 43 daily. Medical Branch amLODIPine 2020-08 Yes 10mg Take 10 mg U nivers (NORVASC) 1-30 by mouth ity of 10 mg 12:12: daily. [place] tablet 43 Medical Branch pantoprazol 2020-08 Yes 40mg Take 40 mg Univers e 1-30 by mouth ity of (PROTONIX) 12:12: daily. [place] 40 mg EC 43 Medical tablet Branch hydrochloro 2020-08 Yes 12.5mg Take 12.5 [facility] thiazide 1-30 mg by ity of (ESIDRIX) 12:12: mouth [place] 12.5 mg 43 daily. Medical capsule Branch olmesartan 2020-08 Yes 40mg Take 40 mg U nivers (BENICAR) 1-30 by mouth ity of 40 mg 12:12: daily. [place] tablet 43 Medical Branch HYDROcodone 2020-08 Yes 1{tbl} Take 1 Un jennie -acetaminop 1-30 tablet by ity of hen (NORCO) 12:12: mouth 2 [place] as 10-325 mg 43 (two) Medical tablet times Branch daily. omega-3 2020-08 Yes 1g Take 1 g Univer s fatty 1-30 by mouth 3 ity of acids-vitam 12:12: (three) [place] in E (FISH 43 times Medical OIL) 1,000 daily. Branch mg capsule Vitamin B 2020-08 Yes 1{tbl} Take 1 [facility] ers Complex 100 1-30 tablet by ity of #2-Herbs 12:12: mouth 3 [place] (NATURAL 43 (three) Medical B-100 times Branch COMPLEX) daily. 100 mg Tab naproxen 2020-08 Yes 220mg Take 220 Univ ers sodium 1-30 mg by ity of (ANAPROX) 12:12: mouth 3 [place] 220 mg 43 (three) Medical tablet times Branch daily. gabapentin 2020-08 Yes 1{tbl} Take 1 Uni vers 800 mg 0-08 tablet by ity of tablet 00:00: mouth 4 [place] 00 (four) Medical times Branch daily. gabapentin 2021-1 Yes 1{tbl} Take 1 Uni vers 800 mg 0-08 tablet by ity of tablet 00:00: mouth 4 (four) Medical times Branch daily. gabapentin 2020- Yes 1{tbl} Take 1 Uni vers 800 mg 0-08 tablet by ity of tablet 00:00: mouth (four) Medical times Branch daily. gabapentin 2020- Yes 1{tbl} Take 1 Uni vers 800 mg 0-08 tablet by ity of tablet 00:00: mouth (four) Medical times Branch daily. gabapentin 2020- Yes 1{tbl} Take 1 Uni vers 800 mg 0-08 tablet by ity of tablet 00:00: mouth (four) Medical times Branch daily. gabapentin 2020- Yes 1{tbl} Take 1 [facility] vers 800 mg 0-08 tablet by ity of tablet 00:00: mouth (four) Medical times Branch daily. gabapentin 2020- Yes 1{tbl} Take 1 Uni vers 800 mg 0-08 tablet by ity of tablet 00:00: mouth (four) Medical times Branch daily. gabapentin 2020-08 Yes 1{tbl} Take 1 [facility] vers 800 mg 0-08 tablet by ity of tablet 00:00: mouth (four) Medical times Branch daily. gabapentin 2020-08 Yes 1{tbl} Take 1 [facility] vers 800 mg 0-08 tablet by ity of tablet 00:00: mouth (four) Medical times Branch daily. gabapentin 2020- Yes 1{tbl} Take 1 [facility] vers 800 mg 0-08 tablet by ity of tablet 00:00: mouth (four) Medical times Branch daily. gabapentin 2020- Yes 1{tbl} Take 1 [facility] vers 800 mg 0-08 tablet by ity of tablet 00:00: mouth (four) Medical times Branch daily. gabapentin 2020- Yes 1{tbl} Take 1 [facility] vers 800 mg 0-08 tablet by ity of tablet 00:00: mouth (four) Medical times Branch daily. gabapentin 2020- Yes 1{tbl} Take 1 [facility] vers 800 mg 0-08 tablet by ity of tablet 00:00: mouth (four) Medical times Branch daily. gabapentin 2020-08 Yes 1{tbl} Take 1 [facility] vers 800 mg 0-08 tablet by ity of tablet 00:00: mouth 4 (four) Medical times Branch daily. gabapentin 2020-08 Yes 1{tbl} Take 1 [facility] vers 800 mg 0-08 tablet by ity of tablet 00:00: mouth 4 (four) Medical times Branch daily. gabapentin 2020-08 Yes 1{tbl} Take 1 [facility] vers 800 mg 0-08 tablet by ity of tablet 00:00: mouth 4 (four) Medical times Branch daily. gabapentin 2020-08 Yes 1{tbl} Take 1 [facility] vers 800 mg 0-08 tablet by ity of tablet 00:00: mouth 4 (four) Medical times Branch daily. gabapentin 2020-08 Yes 1{tbl} Take 1 [facility] vers 800 mg 0-08 tablet by ity of tablet 00:00: mouth (four) Medical times Branch daily. gabapentin 2020-08 Yes 1{tbl} Take 1 [facility] vers 800 mg 0-08 tablet by ity of tablet 00:00: mouth (four) Medical times Branch daily. gabapentin 2020-08 Yes 1{tbl} Take 1 Uni vers 800 mg 0-08 tablet by ity of tablet 00:00: mouth (four) Medical times Branch daily. atorvastati Yes 1{tbl} Take 1 Un jennie n 80 mg 9-10 tablet by ity of tablet 00:00: mouth [place] 00 daily. Medical Branch atorvastati Yes 1{tbl} Take 1 Un jennie n 80 mg 9-10 tablet by ity of tablet 00:00: mouth [place] 00 daily. Medical Branch atorvastati Yes 1{tbl} Take 1 Un jennie n 80 mg 9-10 tablet by ity of tablet 00:00: mouth [place] 00 daily. Medical Branch atorvastati Yes 1{tbl} Take 1 Un jennie n 80 mg 9-10 tablet by ity of tablet 00:00: mouth [place] 00 daily. Medical Branch atorvastati Yes 1{tbl} Take 1 Un jennie n 80 mg 9-10 tablet by ity of tablet 00:00: mouth [place] 00 daily. Medical Branch atorvastati Yes 1{tbl} Take 1 Un jennie n 80 mg 9-10 tablet by ity of tablet 00:00: mouth [place] 00 daily. Medical Branch atorvastati Yes 1{tbl} Take 1 Un jennie n 80 mg 9-10 tablet by ity of tablet 00:00: mouth [place] 00 daily. Medical Branch atorvastati Yes 1{tbl} Take 1 Un jennie n 80 mg 9-10 tablet by ity of tablet 00:00: mouth [place] 00 daily. Medical Branch atorvastati Yes 1{tbl} Take 1 Un jennie n 80 mg 9-10 tablet by ity of tablet 00:00: mouth [place] 00 daily. Medical Branch atorvastati Yes 1{tbl} Take 1 Un jennie n 80 mg 9-10 tablet by ity of tablet 00:00: mouth [place] 00 daily. Medical Branch atorvastati Yes 1{tbl} Take 1 Un jennie n 80 mg 9-10 tablet by ity of tablet 00:00: mouth [place] 00 daily. Medical Branch atorvastati Yes 1{tbl} Take 1 Un jennie n 80 mg 9-10 tablet by ity of tablet 00:00: mouth [place] 00 daily. Medical Branch atorvastati Yes 1{tbl} Take 1 Un jennie n 80 mg 9-10 tablet by ity of tablet 00:00: mouth [place] 00 daily. Medical Branch atorvastati Yes 1{tbl} Take 1 Un jennie n 80 mg 9-10 tablet by ity of tablet 00:00: mouth [place] 00 daily. Medical Branch atorvastati Yes 1{tbl} Take 1 Un jennie n 80 mg 9-10 tablet by ity of tablet 00:00: mouth [place] 00 daily. Medical Branch atorvastati Yes 1{tbl} Take 1 Un jennie n 80 mg 9-10 tablet by ity of tablet 00:00: mouth [place] 00 daily. Medical Branch atorvastati Yes 1{tbl} Take 1 Un jennie n 80 mg 9-10 tablet by ity of tablet 00:00: mouth [place] 00 daily. Medical Branch atorvastati Yes 1{tbl} Take 1 Un jennie n 80 mg 9-10 tablet by ity of tablet 00:00: mouth [place] 00 daily. Medical Branch atorvastati 0 Yes 1{tbl} Take 1 Un jennie n 80 mg 9-10 tablet by ity of tablet 00:00: mouth [place] 00 daily. Medical Branch atorvastati Yes 1{tbl} Take 1 Un jennie n 80 mg 9-10 tablet by ity of tablet 00:00: mouth [place] 00 daily. Medical Branch metoprolol 2019-0 Yes 50mg QD Take 50 mg [facility] tartrate 7-[address] (LOPRESSOR) 08:30: [facility]. [facility] mg 03 l tablet fenofibrate 2020-0 Yes 145mg QD Take 145 M [facility]i (TRICOR) 7-[address] 145 MG 08:30: mouth [facility] tablet 03 daily. l HYDROcodone 2020-0 Yes 1{tbl} Q.[id number] Take 1 [facility] -acetaminop 7- [id number] tablet [address] hen (NORCO) 08:30: 3D mouth 3 [facility] 7.5-325 mg 03 (three) l per tablet times a day. atorvastati 2020-0 Yes 80mg QD Take 80 mg [facility]i n (LIPITOR) 7-[address] 80 MG 08:30: daily. [facility]osp[facility] tablet 03 l amLODIPine 2020-0 Yes 10mg QD Take 10 mg M [facility]i (NORVASC) 7-[address] 10 mg 08:30: daily. [facility] tablet 03 l aspirin 2020-0 Yes 81mg QD Take 81 mg [facility] sammie (ECOTRIN) 7-[address] 81 MG 08:30: daily. [facility] enteric 03 l coated tablet clopidogrel 2020-0 Yes 75mg QD Take 75 mg [facility] (PLAVIX) 75 7-[address] mg tablet 08:30: daily. Hospit a 03 l metFORMIN 2020-0 Yes 500mg Q.5D Take 500 [facility] (GLUCOPHAGE 7-[address] ) 500 mg 08:30: mouth 2 Hospit a tablet 03 (two) l times a day with meals. cholecalcif 2020-0 Yes 5000U QD Take 5,000 [facility] shellie, 7-[address] vitamin D3, 08:30: mouth [facility] (VITAMIN D3 03 daily. l ORAL) olmesartan 2020-0 Yes 40mg QD Take 40 mg M ethodi (BENICAR) -[address] 40 MG 08:30: daily. [facility]osp[facility] tablet 03 l pantoprazol 2020-0 Yes 40mg QD Take 40 mg Methodi e 7-[address] (PROTONIX) 08:30: daily. Hospi ta 40 MG EC 03 l tablet hydroCHLORO 2020-0 Yes 25mg Q.5D Take 25 mg [facility] thiazide -[address] (HYDRODIURI 08:30: (two) Hospi ta L) 25 MG 03 times a l tablet day. calcium 2020-0 Yes Take by [facility] citrate/vit 02-[address] [facility] D3 08:30: [facility]osp[facility] (CITRACAL 03 l REGULAR ORAL) metoprolol 2020-0 Yes 50mg QD Take 50 mg M [facility]i tartrate - by mouth st (LOPRESSOR) 08:30: daily. [facility] 50 mg 03 l tablet fenofibrate 2020-0 Yes 145mg QD Take 145 M ethodi (TRICOR) 7-[address] 145 MG 08:30: mouth [facility] tablet 03 daily. l HYDROcodone 2020-0 Yes 1{tbl} Q.[id number] Take 1 [facility] -acetaminop - [id number] tablet by [facility] hen (NORCO) 08:30: 3D mouth 3 [facility] 7.5-325 mg 03 (three) l per tablet times a day. atorvastati 2020-0 Yes 80mg QD Take 80 mg Methodi n (LIPITOR) - by mouth [facility] 80 MG 08:30: daily. [facility]osp[facility] tablet 03 l amLODIPine 2020-0 Yes 10mg QD Take 10 mg M [facility]i (NORVASC) - by mouth [facility] 10 mg 08:30: daily. [facility]osp[facility] tablet 03 l aspirin 2020-0 Yes 81mg QD Take 81 mg [facility] sammie (ECOTRIN) -[address] 81 MG 08:30: daily. [facility] enteric 03 l coated tablet clopidogrel 2020-0 Yes 75mg QD Take 75 mg [facility] (PLAVIX) 75 -[address] mg tablet 08:30: daily. Hospit a 03 l metFORMIN 2020-0 Yes 500mg Q.5D Take 500 [facility] (GLUCOPHAGE 7-[address] ) 500 mg 08:30: mouth 2 Hospit a tablet 03 (two) l times a day with meals. cholecalcif 2020-0 Yes 5000U QD Take 5,000 [facility] shellie, 7-[address] vitamin D3, 08:30: mouth [facility] (VITAMIN D3 03 daily. l ORAL) olmesartan 2020-0 Yes 40mg QD Take 40 mg M [facility]i (BENICAR) 7-[address] 40 MG 08:30: daily. [facility]osp[facility] tablet 03 l pantoprazol 2020-0 Yes 40mg QD Take 40 mg [facility] e 7-[address] (PROTONIX) 08:30: daily. [facility]pi ta 40 MG EC 03 l tablet hydroCHLORO 2020-0 Yes 25mg Q.5D Take 25 mg [facility] thiazide 7-[address] (HYDRODIURI 08:30: (two) Hospi ta L) 25 MG 03 times a l tablet day. calcium 2020-0 Yes Take by [facility] citrate/vit - mouth. [facility] D3 08:30: [facility]osp[facility] (CITRACAL 03 l REGULAR ORAL) metoprolol 2020-0 Yes 50mg QD Take 50 mg M [facility]i tartrate - by mouth st (LOPRESSOR) 08:30: daily. [facility] 50 mg 03 l tablet fenofibrate 2020-0 Yes 145mg QD Take 145 M [facility]i (TRICOR) 7-[address] 145 MG 08:30: mouth [facility] tablet 03 daily. l HYDROcodone 2020-0 Yes 1{tbl} Q.[id number] Take 1 [facility] -acetaminop - [id number] tablet by [facility] hen (NORCO) 08:30: 3D mouth 3 [facility] 7.5-325 mg 03 (three) l per tablet times a day. atorvastati 2020-0 Yes 80mg QD Take 80 mg [facility]i n (LIPITOR) 7-[address] 80 MG 08:30: daily. [facility]osp[facility] tablet 03 l amLODIPine 2020-0 Yes 10mg QD Take 10 mg M [facility]i (NORVASC) -[address] 10 mg 08:30: daily. [facility]osp[facility] tablet 03 l aspirin 2020-0 Yes 81mg QD Take 81 mg Meth sammie (ECOTRIN) 7-[address] 81 MG 08:30: daily. [facility] enteric 03 l coated tablet clopidogrel 2020-0 Yes 75mg QD Take 75 mg [facility] (PLAVIX) 75 -[address] mg tablet 08:30: daily. Hospit a 03 l metFORMIN 2020-0 Yes 500mg Q.5D Take 500 [facility] (GLUCOPHAGE 7-[address] ) 500 mg 08:30: mouth 2 Hospit a tablet 03 (two) l times a day with meals. cholecalcif 2020-0 Yes 5000U QD Take 5,000 [facility] shellie, 7-[address] vitamin D3, 08:30: mouth [facility] (VITAMIN D3 03 daily. l ORAL) olmesartan 2020-0 Yes 40mg QD Take 40 mg [facility] (BENICAR) - by mouth [facility] 40 MG 08:30: daily. [facility]osp[facility] tablet 03 l pantoprazol 2020-0 Yes 40mg QD Take 40 mg [facility]i e 7-[address] (PROTONIX) 08:30: daily. Hospi ta 40 MG EC 03 l tablet hydroCHLORO 2020-0 Yes 25mg Q.5D Take 25 mg [facility] thiazide 7-[address] (HYDRODIURI 08:30: (two) Hospi ta L) 25 MG 03 times a l tablet day. calcium 2020-0 Yes Take by [facility] citrate/vit - mouth. [facility] D3 08:30: [facility]osp[facility] (CITRACAL 03 l REGULAR ORAL) metoprolol 2020-0 Yes 50mg QD Take 50 mg M [facility] tartrate - by mouth st (LOPRESSOR) 08:30: daily. [facility] 50 mg 03 l tablet fenofibrate 2020-0 Yes 145mg QD Take 145 [facility] (TRICOR) 7-[address] 145 MG 08:30: mouth [facility] tablet 03 daily. l HYDROcodone 2020-0 Yes 1{tbl} Q.[id number] Take 1 [facility] -acetaminop - [id number] tablet by [facility] hen (NORCO) 08:30: 3D mouth 3 [facility] 7.5-325 mg 03 (three) l per tablet times a day. atorvastati 2020-0 Yes 80mg QD Take 80 mg [facility] n (LIPITOR) -[address] 80 MG 08:30: daily. [facility]osp[facility] tablet 03 l amLODIPine 2020-0 Yes 10mg QD Take 10 mg [facility]i (NORVASC) 7- by mouth [facility] 10 mg 08:30: daily. [facility]osp[facility] tablet 03 l aspirin 2020-0 Yes 81mg QD Take 81 mg Meth [facility] (ECOTRIN) 7-[address] 81 MG 08:30: daily. [facility] enteric 03 l coated tablet clopidogrel 2020-0 Yes 75mg QD Take 75 mg [facility] (PLAVIX) 75 - by mouth [facility] mg tablet 08:30: daily. Hospit a 03 l metFORMIN 2020-0 Yes 500mg Q.5D Take 500 [facility] (GLUCOPHAGE 7-[address] ) 500 mg 08:30: mouth 2 Hospit a tablet 03 (two) l times a day with meals. cholecalcif 2020-0 Yes 5000U QD Take 5,000 [facility] shellie, 7- Units by st vitamin D3, 08:30: mouth [facility] (VITAMIN D3 03 daily. l ORAL) olmesartan 2020-0 Yes 40mg QD Take 40 mg [facility] (BENICAR) 7- by mouth [facility] 40 MG 08:30: daily. [facility]osp[facility] tablet 03 l pantoprazol 2020-0 Yes 40mg QD Take 40 mg [facility] e 7-[address] (PROTONIX) 08:30: daily. Hospi ta 40 MG EC 03 l tablet hydroCHLORO 2020-0 Yes 25mg Q.5D Take 25 mg [facility] thiazide 7-[address] (HYDRODIURI 08:30: (two) Hospi ta L) 25 MG 03 times a l tablet day. calcium 2020-0 Yes Take by [facility] citrate/vit - mouth. [facility] D3 08:30: [facility]osp[facility] (CITRACAL 03 l REGULAR ORAL) gabapentin 2018-08 Yes 800mg Q.[id number] Take 800 [facility] (NEURONTIN) 0-03 [id number] mg by s t 800 mg 00:00: 3D mouth 3 [facility]osp[facility] tablet 00 (three) l times a day. gabapentin 2018-08 Yes 800mg Q.[id number] Take 800 [facility] (NEURONTIN) 0-03 [id number] mg by s t 800 mg 00:00: 3D mouth 3 [facility]osp[facility] tablet 00 (three) l times a day. gabapentin 2018-08 Yes 800mg Q.[id number] Take 800 [facility] (NEURONTIN) 0-03 [id number] mg by s t 800 mg 00:00: 3D mouth 3 [facility]osp[facility] tablet 00 (three) l times a day. gabapentin 2018-08 Yes 800mg Q.[id number] Take 800 [facility] (NEURONTIN) 0-03 [id number] mg by s t 800 mg 00:00: 3D mouth 3 [facility]osp[facility] tablet 00 (three) l times a day. insulin Yes Inject [facility] ASPART 7-11 6-[address] (NovoLOG 00:00: tid per Hospit a Flexpen 00 sliding l U-100 scale. Insulin) 100 unit/mL insulin pen insulin Yes Inject [facility] ASPART 7-11 6-[address] (NovoLOG 00:00: tid per Hospit a Flexpen 00 sliding l U-100 scale. Insulin) 100 unit/mL insulin pen insulin Yes Inject [facility] ASPART 7-11 6-[address] (NovoLOG 00:00: tid per Hospit a Flexpen 00 sliding l U-100 scale. Insulin) 100 unit/mL insulin pen insulin Yes Inject Methodi ASPART 7-11 6-[address] (NovoLOG 00:00: tid per [facility] a Flexpen 00 sliding l U-100 scale. Insulin) 100 unit/mL insulin pen amlodipine amlodipine No 1 Q1D amlodipine [place] 10 mg 10 mg 10 mg Family [...] route. atorvastati atorvastati No 1 Q1D atorvastat [facility] n 80 mg n 80 mg in 80 mg Famil y tablet Take tablet Take tablet Practic 1 tablet 1 tablet Take 1 e every day every day tablet by oral by oral every day route. route. by oral route. Citracal + Citracal + No 1 Q1D Citracal + [facility] Vitamin D Vitamin D Vitamin D Family [...] route. clopidogrel clopidogrel No 1 Q1D clopidogre [facility] 75 mg 75 mg l 75 mg Family tablet Take tablet Take tablet Practic 1 tablet 1 tablet Take 1 e every day every day tablet by oral by oral every day route. route. by oral route. gabapentin gabapentin No 1 TID gabapentin [facility] 800 mg 800 mg 800 mg Family tablet Take tablet Take tablet Practic 1 tablet 3 1 tablet 3 Take 1 e times a day times a day tablet 3 by oral by oral times a route. route. day by oral route. hydrocodone hydrocodone No 1 Q6H hydrocodon [facility] 7.5 7.5 e 7.5 Family mg-acetamin mg-acetamin [...] 40 Protonix 40 No 1 Q1D Protonix [facility] mg mg 40 mg Family tablet,marcy tablet,marcy tablet,del Practic yed release yed release ayed e Take 1 Take 1 release tablet tablet Take 1 every day every day tablet by oral by oral every day route. route. by oral route. Vitamin D3 Vitamin D3 Vitamin D3 [facility] 5,000mg 5,000mg 5,000mg Family daily daily daily Practic e Immunizations Ordered Immunization Filled Immunization Date Status Commen ts Source Name Name Influenza, 2022-04-09 Completed Melilsa Wright Injectable, Mdck, 00:00:00 Externa l Preservative Free, Quadrivalt Influenza, 2022-04-09 Completed Mellisa Wright Injectable, Mdck, 00:00:00 Externa l Preservative Free, Quadrivalt Influenza, 2022-04-09 Completed Mellisa Stein, Mdck, 00:00:00 Externa l Preservative Free, Quadrivalt Influenza, 2022-04-09 Completed Mellisa Seybold - Injectable, Mdck, 00:00:00 Externa l Preservative Free, Quadrivalt Influenza, 2022-04-09 Completed Mellisa Seybold - Injectable, Mdck, 00:00:00 Externa l Preservative Free, Quadrivalt Influenza, 2022-04-09 Completed Mellisa Seybold - Injectable, Mdck, 00:00:00 Externa l Preservative Free, Quadrivalt Influenza, 2022-04-09 Completed Mellisa Seybold - Injectable, Mdck, 00:00:00 Externa l Preservative Free, Quadrivalt Influenza, 2022-04-09 Completed Mellisa Seybold - Injectable, Mdck, 00:00:00 Externa l Preservative Free, Quadrivalt SARS-COV-2 COVID-19 2021-06-22 Completed Unive rsity of [facility]ERNA VACCINE 00:00:00 [facility] ical Branch SARS-COV-2 COVID-19 2021-06-22 Completed Unive [facility] of [facility] VACCINE 00:00:00 [facility] ical Branch SARS-COV-2 COVID-19 2021-06-22 Completed Unive rsity of MODERNA 12+ YRS 00:00:00 [facility] ical VACCINE Branch SARS-COV-2 COVID-19 2021-06-22 Completed Unive rsity of MODERNA 12+ YRS 00:00:00 [facility] ical VACCINE Branch SARS-COV-2 COVID-19 2021-06-22 Completed Unive rsity of MODERNA 12+ YRS 00:00:00 [facility] ical VACCINE Branch SARS-COV-2 COVID-19 2021-06-22 Completed Unive rsity of MODERNA 12+ YRS 00:00:00 [facility] ical VACCINE Branch SARS-COV-2 COVID-19 2021-06-22 Completed Unive rsity of MODERNA 12+ YRS 00:00:00 [facility] ical VACCINE Branch SARS-COV-2 COVID-19 2021-06-22 Completed Unive rsity of MODERNA 12+ YRS 00:00:00 [facility] ical VACCINE Branch SARS-COV-2 COVID-19 2021-06-22 Completed Unive rsity of MODERNA 12+ YRS 00:00:00 [place] [facility] SARS-COV-2 COVID-19 2021-06-22 Completed Unive rsity of MODERNA 12+ YRS 00:00:00 [place] [facility] SARS-COV-2 COVID-19 2021-06-22 Completed Unive rsity of MODERNA 12+ YRS 00:00:00 [place] [facility] SARS-COV-2 COVID-19 2021-06-22 Completed Unive rsity of MODERNA 12+ YRS 00:00:00 [place] [facility] SARS-COV-2 COVID-19 2021-06-22 Completed Unive rs[facility] of MODERNA 12+ YRS 00:00:00 [place] [facility] SARS-COV-2 COVID-19 2021-06-22 Completed Unive rsity of MODERNA 12+ YRS 00:00:00 [facility] ical VACCINE Branch SARS-COV-2 COVID-19 2021-06-22 Completed Unive rsity of MODERNA 12+ YRS 00:00:00 [facility] ical VACCINE Branch SARS-COV-2 COVID-19 2021-06-22 Completed Unive rsity of MODERNA 12+ YRS 00:00:00 [facility] ical VACCINE Branch SARS-COV-2 COVID-19 2021-06-22 Completed Unive rsity of MODERNA 12+ YRS 00:00:00 [facility] ical VACCINE Branch SARS-COV-2 COVID-19 2021-06-22 Completed Unive rsity of MODERNA 12+ YRS 00:00:00 [facility] ical VACCINE Branch SARS-COV-2 COVID-19 2021-06-22 Completed Unive rsity of MODERNA 12+ YRS 00:00:00 [place] [facility] SARS-COV-2 COVID-19 2021-06-22 Completed Unive rs[facility] of [facility]ER[facility] 12+ YRS 00:00:00 [place] [facility] VACCINE [facility] Covid-19 Vaccine 2021-06-22 Completed Mellisa romo - Moderna (Spikevax), 00:00:00 Exter nal Mrna-lnp, Nathaniel Protein, Pf Covid-19 Vaccine 2021-06-22 Completed Mellisa romo - Moderna (Spikevax), 00:00:00 Exter nal Mrna-lnp, Nathaniel Protein, Pf Covid-19 Vaccine 2021-06-22 Completed Mellisa Mcclellan eybold - Moderna (Spikevax), 00:00:00 Exter nal Mrna-lnp, Nathaniel Protein, Pf Covid-19 Vaccine 2021-06-22 Completed Mellisa Mcclellan eybold - Moderna (Spikevax), 00:00:00 Exter nal Mrna-lnp, Nathaniel Protein, Pf Covid-19 Vaccine 2021-06-22 Completed Mellisa Mcclellan eybold - Moderna (Spikevax), 00:00:00 Exter nal Mrna-lnp, Nathaniel Protein, Pf Covid-19 Vaccine 2021-06-22 Completed Mellisa Mcclellan eybold - Moderna (Spikevax), 00:00:00 Exter nal Mrna-lnp, Nathaniel Protein, Pf Covid-19 Vaccine 2021-06-22 Completed Mellisa Mcclellan eybold - Moderna (Spikevax), 00:00:00 Exter nal Mrna-lnp, Nathaniel Protein, Pf Covid-19 Vaccine 2021-06-22 Completed Mellisa Mcclellan eybold - Moderna (Spikevax), 00:00:00 Exter nal Mrna-lnp, Nathaniel Protein, Pf SARS-COV-2 COVID-19 2020-09-27 Completed Unive rsity of MODERNA VACCINE 00:00:00 [facility] ical Branch SARS-COV-2 COVID-19 2020-09-27 Completed Unive rsity of MODERNA VACCINE 00:00:00 [facility] ical Branch SARS-COV-2 COVID-19 2020-09-27 Completed Unive rsity of MODERNA 12+ YRS 00:00:00 [facility] ical VACCINE Branch SARS-COV-2 COVID-19 2020-09-27 Completed Unive rsity of MODERNA 12+ YRS 00:00:00 [facility] ical VACCINE Branch SARS-COV-2 COVID-19 2020-09-27 Completed Unive rsity of MODERNA 12+ YRS 00:00:00 [facility] ical VACCINE Branch SARS-COV-2 COVID-19 2020-09-27 Completed Unive rsity of MODERNA 12+ YRS 00:00:00 [facility] ical VACCINE Branch SARS-COV-2 COVID-19 2020-09-27 Completed Unive rsity of MODERNA 12+ YRS 00:00:00 [place] [facility] V[facility]INE [facility] SARS-COV-2 COVID-19 2020-09-27 Completed Unive rsity of MODERNA 12+ YRS 00:00:00 [place] [facility] VACCINE [facility] SARS-COV-2 COVID-19 2020-09-27 Completed Unive rsity of MODERNA 12+ YRS 00:00:00 [place] [facility] VACC[facility] SARS-COV-2 COVID-19 2020-09-27 Completed Unive rsity of MODERNA 12+ YRS 00:00:00 [place] [facility] VACCINE [facility] SARS-COV-2 COVID-19 2020-09-27 Completed Unive rsity of MODERNA 12+ YRS 00:00:00 [place] [facility] VACCINE [facility] SARS-COV-2 COVID-19 2020-09-27 Completed Unive rsity of MODERNA 12+ YRS 00:00:00 [place] [facility] VACCINE [facility] SARS-COV-2 COVID-19 2020-09-27 Completed Unive rsity of MODERNA 12+ YRS 00:00:00 [place] [facility] V[facility] SARS-COV-2 COVID-19 2020-09-27 Completed Unive rsity of MODERNA 12+ YRS 00:00:00 [place] [facility] V[facility]INE [facility] SARS-COV-2 COVID-19 2020-09-27 Completed Unive rsity of MODERNA 12+ YRS 00:00:00 [place] [facility] V[facility] SARS-COV-2 COVID-19 2020-09-27 Completed Unive rsity of MODERNA 12+ YRS 00:00:00 [place] [facility] V[facility] SARS-COV-2 COVID-19 2020-09-27 Completed Unive rsity of MODERNA 12+ YRS 00:00:00 [place] [facility] V[facility] SARS-COV-2 COVID-19 2020-09-27 Completed Unive rsity of MODERNA 12+ YRS 00:00:00 [place] [facility] V[facility] SARS-COV-2 COVID-19 2020-09-27 Completed Unive rsity of MODERNA 12+ YRS 00:00:00 [place] [facility] V[facility] SARS-COV-2 COVID-19 2020-09-27 Completed Unive rsity of MODERNA 12+ YRS 00:00:00 [place] [facility] VACCINE [facility] SARS-COV-2 COVID-19 2020-08-24 Completed Unive rs[facility] of MODERNA VACCINE 00:00:00 [place] [facility] SARS-COV-2 COVID-19 2020-08-24 Completed Unive rsity of MODERNA VACCINE 00:00:00 [place] [facility] SARS-COV-2 COVID-19 2020-08-24 Completed Unive rsity of MODERNA 12+ YRS 00:00:00 [place] [facility] VACCINE [facility] SARS-COV-2 COVID-19 2020-08-24 Completed Unive rsity of MODERNA 12+ YRS 00:00:00 [place] [facility] VACCINE [facility] SARS-COV-2 COVID-19 2020-08-24 Completed Unive rsity of MODERNA 12+ YRS 00:00:00 [place] [facility] VACCINE [facility] SARS-COV-2 COVID-19 2020-08-24 Completed Unive rsity of MODERNA 12+ YRS 00:00:00 [place] [facility] VACCINE [facility] SARS-COV-2 COVID-19 2020-08-24 Completed Unive rsity of MODERNA 12+ YRS 00:00:00 [place] [facility] VACCINE [facility] SARS-COV-2 COVID-19 2020-08-24 Completed Unive rsity of MODERNA 12+ YRS 00:00:00 [place] [facility] SARS-COV-2 COVID-19 2020-08-24 Completed Unive rsity of MODERNA 12+ YRS 00:00:00 [place] [facility] V[facility] SARS-COV-2 COVID-19 2020-08-24 Completed Unive rsity of MODERNA 12+ YRS 00:00:00 [place] [facility] V[facility] SARS-COV-2 COVID-19 2020-08-24 Completed Unive rsity of MODERNA 12+ YRS 00:00:00 [place] [facility] V[facility] SARS-COV-2 COVID-19 2020-08-24 Completed Unive rsity of MODERNA 12+ YRS 00:00:00 [place] [facility] VACCINE [facility] SARS-COV-2 COVID-19 2020-08-24 Completed Unive rsity of MODERNA 12+ YRS 00:00:00 [place] [facility] VACCINE [facility] SARS-COV-2 COVID-19 2020-08-24 Completed Unive rsity of MODERNA 12+ YRS 00:00:00 [place] [facility] VACCINE [facility] SARS-COV-2 COVID-19 2020-08-24 Completed Unive rsity of MODERNA 12+ YRS 00:00:00 [place] [facility] VACCINE [facility] SARS-COV-2 COVID-19 2020-08-24 Completed Unive rsity of MODERNA 12+ YRS 00:00:00 [place] [facility] VACC[facility] SARS-COV-2 COVID-19 2020-08-24 Completed Unive rsity of MODERNA 12+ YRS 00:00:00 [place] [facility] V[facility] SARS-COV-2 COVID-19 2020-08-24 Completed Unive rsity of MODERNA 12+ YRS 00:00:00 [place] [facility] V[facility] SARS-COV-2 COVID-19 2020-08-24 Completed Unive rsity of MODERNA 12+ YRS 00:00:00 [place] [facility] VACCINE [facility] SARS-COV-2 COVID-19 2020-08-24 Completed Unive rs[facility] of MODERNA 12+ YRS 00:00:00 [place] [facility] zoster recombinant zoster recombinant 2020-03-02 Completed [facility] 00:00:00 Practice pneumococcal pneumococcal 2020-03-02 Completed [facility] jeremy polysaccharide PPV23 polysaccharide PPV23 00:00:00 Practice influenza, influenza, 2020-03-02 Completed [facility] injectable, injectable, 00:00:00 Practice quadrivalent quadrivalent Influenza Virus 2020-03-02 Completed Mellisa wagnerold - Vaccine, Split, up 00:00:00 Equal Opportunity Assistant al to age 3 Pneumococcal 2020-03-02 Completed Mellisa Martino ld - Vaccine, 00:00:00 External Polysaccharide Shingles IM 2020-03-02 Completed Mellisa Stoutol d - (Shingrix) 00:00:00 External Influenza Virus 2020-03-02 Completed Mellisa scott - Vaccine, Split, up 00:00:00 Equal Opportunity Assistant al to age 3 Pneumococcal 2020-03-02 Completed Mellisa Martino ld - Vaccine, 00:00:00 External Polysaccharide Shingles IM 2020-03-02 Completed Mellisa Stoutol d - (Shingrix) 00:00:00 External Influenza Virus 2020-03-02 Completed Mellisa scott - Vaccine, Split, up 00:00:00 Equal Opportunity Assistant al to age 3 Pneumococcal 2020-03-02 Completed Mellisa Seybo ld - Vaccine, 00:00:00 External Polysaccharide Shingles IM 2020-03-02 Completed Mellisa Seybol d - (Shingrix) 00:00:00 External Influenza Virus 2020-03-02 Completed Mellisa Se ybold - Vaccine, Split, up 00:00:00 Equal Opportunity Assistant al to age 3 Pneumococcal 2020-03-02 Completed Mellisa Seybo ld - Vaccine, 00:00:00 External Polysaccharide Shingles IM 2020-03-02 Completed Mellisa Seybol d - (Shingrix) 00:00:00 External Influenza Virus 2020-03-02 Completed Mellisa Se ybold - Vaccine, Split, up 00:00:00 Equal Opportunity Assistant al to age 3 Pneumococcal 2020-03-02 Completed Mellisa Seybo ld - Vaccine, 00:00:00 External Polysaccharide Shingles IM 2020-03-02 Completed Mellisa Seybol d - (Shingrix) 00:00:00 External Influenza Virus 2020-03-02 Completed Mellisa Se ybold - Vaccine, Split, up 00:00:00 Equal Opportunity Assistant al to age 3 Pneumococcal 2020-03-02 Completed Mellisa Seybo ld - Vaccine, 00:00:00 External Polysaccharide Shingles IM 2020-03-02 Completed Mellisa Seybol d - (Shingrix) 00:00:00 External Influenza Virus 2020-03-02 Completed Mellisa Se ybold - Vaccine, Split, up 00:00:00 Equal Opportunity Assistant al to age 3 Pneumococcal 2020-03-02 Completed Mellisa Seybo ld - Vaccine, 00:00:00 External Polysaccharide Shingles IM 2020-03-02 Completed Mellisa Seybol d - (Shingrix) 00:00:00 External Influenza Virus 2020-03-02 Completed Mellisa Se ybold - Vaccine, Split, up 00:00:00 Equal Opportunity Assistant al to age 3 Pneumococcal 2020-03-02 Completed Mellisa Seybo ld - Vaccine, 00:00:00 External Polysaccharide Shingles IM 2020-03-02 Completed Mellisa Seybol d - (Shingrix) 00:00:00 External Shingles IM 2018-09-05 Completed Mellisa Seybol d - (Shingrix) 00:00:00 External Shingles IM 2018-09-05 Completed Mellisa Seybol d - (Shingrix) 00:00:00 External Shingles IM 2018-09-05 Completed Mellisa Seybol d - (Shingrix) 00:00:00 External Shingles IM 2018-09-05 Completed Mellisa Seybol d - (Shingrix) 00:00:00 External Shingles IM 2018-09-05 Completed Mellisa Seybol d - (Shingrix) 00:00:00 External Shingles IM 2018-09-05 Completed Mellisa Seybol d - (Shingrix) 00:00:00 External Shingles IM 2018-09-05 Completed Mellisa Seybol d - (Shingrix) 00:00:00 External Shingles IM 2018-09-05 Completed Mellisa Seybol d - (Shingrix) 00:00:00 External Vital Signs Vital Name Observation Time Observation Value Comments Source Systolic blood 2023-01-07 15:21:00 143 mm[Hg] Mellisa Seybold - pressure External Diastolic blood 2023-01-07 15:21:00 86 mm[Hg] Marion pendleton Seybold - pressure External Heart rate 2023-01-07 15:21:00 72 /min Mellisa garlandbold - External Body temperature 2023-01-07 15:21:00 36.61 Mirella Suzi garland Seybold - External Respiratory rate 2023-01-07 15:21:00 15 /min Suzi garland Seybold - External Body height 2023-01-07 15:21:00 167.6 cm Mellisa garlandboerlinda - External Body weight 2023-01-07 15:21:00 97.07 kg Mellisa garlandbold - External BMI 2023-01-07 15:21:00 34.54 kg/m2 Mellisa garlandbold - External Oxygen saturation in 2023-01-07 15:21:00 97 /min Mellisa Fregoso - Arterial blood by External Pulse oximetry Systolic blood 2022-12-07 19:45:00 118 mm[Hg] Mellisa Dunbarybold - pressure External Diastolic blood 2022-12-07 19:45:00 69 mm[Hg] Yosvanyse y Seybold - pressure External Heart rate 2022-12-07 19:45:00 70 /min Mellisa garlandbold - External Body temperature 2022-12-07 19:45:00 37.06 Mirella Suzi ey Seybold - External Respiratory rate 2022-12-07 19:45:00 14 /min Suzi ey Seybold - External Body height 2022-12-07 19:45:00 167.6 cm Mellisa Mcclellan eybold - External Body weight 2022-12-07 19:45:00 89.359 kg Mellisa S eybold - External BMI 2022-12-07 19:45:00 31.80 kg/m2 Mellisa S eybold - External Oxygen saturation in 2022-12-07 19:45:00 98 /min Mellisa Stoutold - Arterial blood by External Pulse oximetry Systolic blood 2022-10-26 17:51:00 126 mm[Hg] Mellisa Seybold - pressure External Diastolic blood 2022-10-26 17:51:00 80 mm[Hg] Yosvanyse y Seybold - pressure External Heart rate 2022-10-26 17:51:00 78 /min Mellisa Mcclellan eybold - External Respiratory rate 2022-10-26 17:51:00 16 /min Suzi ey Seybold - External Body height 2022-10-26 17:51:00 167.6 cm Mellisa Mcclellan eybold - External Body weight 2022-10-26 17:51:00 93.895 kg Mellisa Mcclellan eybold - External BMI 2022-10-26 17:51:00 33.41 kg/m2 Mellisa S eybold - External Systolic blood 2022-10-15 14:49:00 142 mm[Hg] Mellisa Seybold - pressure External Diastolic blood 2022-10-15 14:49:00 74 mm[Hg] Yosvanyse y Seybold - pressure External Heart rate 2022-10-15 14:49:00 75 /min Mellisa S eybold - External Body temperature 2022-10-15 14:49:00 36.56 Mirella Suzi ey Seybold - External Respiratory rate 2022-10-15 14:49:00 15 /min Suzi ey Seybold - External Body height 2022-10-15 14:49:00 167.6 cm Mellisa S eybold - External Body weight 2022-10-15 14:49:00 93.895 kg Mellisa S eybold - External BMI 2022-10-15 14:49:00 33.41 kg/m2 Mellisa Mcclellan eybold - External Systolic blood 2022-09-30 16:17:00 128 mm[Hg] Mellisa Dunbarybold - pressure External Diastolic blood 2022-09-30 16:17:00 72 mm[Hg] Marion pendleton Seybold - pressure External Heart rate 2022-09-30 16:17:00 78 /min Mellisa Mcclellan eybold - External Body temperature 2022-09-30 16:17:00 36.89 Mirella Suzi garland Seybold - External Respiratory rate 2022-09-30 16:17:00 15 /min Suzi garland Seybold - External Body height 2022-09-30 16:17:00 167.6 cm Mellisa Mcclellan eybold - External Body weight 2022-09-30 16:17:00 92.08 kg Mellisa garlandbold - External BMI 2022-09-30 16:17:00 32.77 kg/m2 Mellisa garlandbold - External Systolic blood 2022-06-29 19:00:00 129 mm[Hg] [facility] Diastolic blood 2022-06-29 19:00:00 79 mm[Hg] [facility] Heart rate 2022-06-29 19:00:00 74 /min [facility] Body temperature 2022-06-29 19:00:00 36.83 Mirella [facility] Body height 2022-06-29 19:00:00 167.6 cm [facility] Body weight 2022-06-29 19:00:00 93.441 kg [facility] BMI 2022-06-29 19:00:00 33.25 kg/m2 [facility] Systolic blood 2022-06-16 17:50:00 122 mm[Hg] [facility] Diastolic blood 2022-06-16 17:50:00 73 mm[Hg] [facility] Heart rate 2022-06-16 17:50:00 75 /min [facility] Respiratory rate 2022-06-16 17:50:00 19 /min [facility] Oxygen saturation in 2022-06-16 17:50:00 95 /min [facility] of Arterial blood by [facility] Pulse oximetry Branch Body temperature 2022-06-16 17:15:00 36.94 Mirella [facility] Body weight 2022-06-09 20:04:00 93.8 kg [facility] BMI 2022-06-09 20:04:00 33.38 kg/m2 [facility] Systolic blood 2022-06-16 14:46:00 143 mm[Hg] [facility] Diastolic blood 2022-06-16 14:46:00 77 mm[Hg] [facility] Heart rate 2022-06-16 14:46:00 74 /min [facility] [place] [facility] [place] Body temperature 2022-06-16 14:45:00 36.94 Mirella [facility] Respiratory rate 2022-06-16 14:45:00 18 /min [facility] Oxygen saturation in 2022-06-16 14:45:00 96 /min [facility] of Arterial blood by [facility] Pulse oximetry Branch Body weight 2022-06-09 20:04:00 93.8 kg [facility] BMI 2022-06-09 20:04:00 33.38 kg/m2 [facility] Systolic blood 2022-05-04 18:40:00 143 mm[Hg] [facility] Diastolic blood 2022-05-04 18:40:00 74 mm[Hg] [facility] Heart rate 2022-05-04 18:40:00 75 /min [facility] Body temperature 2022-05-04 18:40:00 36.17 Mirella [facility] Body height 2022-05-04 18:40:00 167.6 cm [facility] Body weight 2022-05-04 18:40:00 93.849 kg [facility] BMI 2022-05-04 18:40:00 33.39 kg/m2 [facility] Systolic blood 2022-04-27 17:58:00 110 mm[Hg] [facility] Diastolic blood 2022-04-27 17:58:00 63 mm[Hg] Unive rsity of pressure [facility] Branch Heart rate 2022-04-27 17:58:00 60 /min [facility] [place] [facility] [place] Body temperature 2022-04-27 17:58:00 36.22 Mirella Univ ersity [facility] Body height 2022-04-27 17:58:00 167.6 cm [facility] Body weight 2022-04-27 17:58:00 92.534 kg [facility] BMI 2022-04-27 17:58:00 32.93 kg/m2 Universi ty of [facility] Branch Systolic blood 2022-03-10 18:04:00 131 mm[Hg] Univer sity of pressure [facility] Branch Diastolic blood 2022-03-10 18:04:00 76 mm[Hg] [facility]ive rsity of [facility] Heart rate 2022-03-10 18:04:00 82 /min Universi ty [facility] Medical Branch Body temperature 2022-03-10 18:04:[address] 35.[address] [facility] ersity [facility] Body height 2022-03-10 18:04:00 198.1 cm [facility] Body weight 2022-03-10 18:04:00 93.895 kg Universi ty [facility] Medical [place] BMI 2022-03-10 18:04:00 23.92 kg/m2 Universi ty [facility] BP Diastolic 2020-08-08 00:00:00 72 mm[Hg] [facility] Height 2020-08-08 00:00:00 66 [in_i] [facility] BMI (Body Mass 2020-08-08 00:00:00 29.1 kg/m2 [facility] BP Systolic 2020-08-08 00:00:00 131 mm[Hg] [facility] Body Weight 2020-08-08 00:00:00 180 [lb_av] [facility] Procedures Procedure Date / Time Performing Clinician Source Performed [place] TIME OR 2022-06-16 16:55:00 Jakob Viramontes [facility] (NON-REPORTABLE) Medical Branch [place] TIME OR 2022-06-16 16:55:00 Jakob Viramontes [facility] (NON-REPORTABLE) Medical Branch REMOVAL HARDWARE 2022-06-16 15:55:00 Tiago Gupta [facility] ANKLE/FOOT Medical Branch ASSIGNMENT OF BENEFITS 2022-06-16 14:04:02 [facility] FOOT LEFT WO CONTRAST 2022-04-30 20:42:00 Jakob Viramontes [facility] Medical Branch Cholecystectomy 2006-08-02 00:00:00 [facility] Practice Placement of Stent in [facility] Coronary Artery Practice Assessment for Bariatric [facility] Family Surgery Practice Internal Fixation of [facility] santhosh Clavicle without Fracture Practi ce Reduction Repair of Umbilical Hernia [facility] [facility] Tonsillectomy [facility] Plan of Care Planned Activity Planned Date Details Comments Source Future Scheduled Test 2023-01-20 [facility] 14:19:03 malignant neoplasm of colon (procedure) [code = 756806146] Future Scheduled Test 2023-01-20 [facility] 14:19:03 malignant neoplasm of colon (procedure) [code = 830810866] Future Scheduled Test 2023-01-20 [facility] 14:19:03 malignant neoplasm of colon (procedure) [code = 048214096] Future Scheduled Test 2023-01-20 COVID-19 VACCINE [facility] 14:19:03 (#1) [code = COVID-19 VACCINE (#1)] Future Scheduled Test 2023-01-20 Hepatitis C Method ist [facility] 14:19:03 screening (procedure) [code = 984929728] Future Scheduled Test 2023-01-20 [facility] 14:19:03 malignant neoplasm of colon (procedure) [code = [id number]] Future Scheduled Test 2023-01-20 [facility] 14:19:03 malignant neoplasm of colon (procedure) [code = [id number]] Future Scheduled Test 2023-01-20 SHINGLES VACCINES (1 [facility] 14:19:03 of 2) [code = SHINGLES VACCINES (1 of 2)] Future Scheduled Test 2023-01-20 INFLUENZA VACCINE [facility] 14:19:03 [code = INFLUENZA VACCINE] Future Scheduled Test 2022-11-09 COVID-19 VACCINE [facility] 16:47:20 (#1) [code = COVID-19 VACCINE (#1)] Future Scheduled Test 2022-11-09 Hepatitis C Method [facility] 16:47:20 screening (procedure) [code = 601274698] Future Scheduled Test 2022-11-09 COLONOSCOPY Method [facility] 16:47:20 SCREENING [code = COLONOSCOPY SCREENING] Future Scheduled Test 2022-11-09 SHINGLES VACCINES (1 [facility] 16:47:20 of 2) [code = SHINGLES VACCINES (1 of 2)] Future Scheduled Test 2022-11-09 INFLUENZA VACCINE [facility] 16:47:20 [code = INFLUENZA VACCINE] Future Scheduled Test 2022-08-27 COVID-19 VACCINE [facility] 08:31:14 (#1) [code = COVID-19 VACCINE (#1)] Future Scheduled Test 2022-08-27 Hepatitis C Method [facility] 08:31:14 screening (procedure) [code = 837096266] Future Scheduled Test 2022-08-27 COLONOSCOPY [facility] 08:31:14 SCREENING [code = COLONOSCOPY SCREENING] Future Scheduled Test 2022-08-27 SHINGLES VACCINES (1 [facility] 08:31:14 of 2) [code = SHINGLES VACCINES (1 of 2)] Future Scheduled Test 2022-08-27 INFLUENZA VACCINE [facility] 08:31:14 [code = INFLUENZA VACCINE] Future Scheduled Test 2022-03-27 HEPATITIS B VACCINES [facility] 23:06:09 (1 of 3 - 3-dose series) [code = HEPATITIS B VACCINES (1 of 3 - 3-dose series)] Future Scheduled Test 2022-03-27 COVID-19 VACCINE [facility] 23:06:09 (#1) [code = COVID-19 VACCINE (#1)] Future Scheduled Test 2022-03-27 Hepatitis C Method [facility] 23:06:09 screening (procedure) [code = [id number]] Future Scheduled Test 2022-03-27 COLONOSCOPY [facility] 23:06:09 SCREENING [code = COLONOSCOPY SCREENING] Future Scheduled Test 2022-03-27 SHINGLES VACCINES (1 [facility] 23:06:09 of 2) [code = SHINGLES VACCINES (1 of 2)] Future Scheduled Test 2022-03-27 INFLUENZA VACCINE [facility] 23:06:09 [code = INFLUENZA VACCINE] Instructions [facility] Encounters Start End Encounter Admission Attending Care Care Encounter Source Date/Time Date/Time Type Type Clinicians Facility Department ID 2023-04-09 2023-04-09 Outpatient MELLISA THOMPSON [id number] Mellisa 08:45:00 08:45:00 MING Seybol d 2023-01-19 2023-01-19 Outpatient PREPATISMELLISA [id number] Mellisa 00:00:00 00:00:00 MING Seybol d 2023-01-19 2023-01-19 Outpatient MELLISA PAK [id number] Mellisa 00:00:00 00:00:00 Seybol d 2023-01-19 2023-01-19 Outpatient PREZASMELLISA [id number] Mellisa 00:00:00 00:00:00 MING Seybol d 2023-01-19 2023-01-19 Outpatient PREPATISMELLISA [id number] Mellisa 00:00:00 00:00:00 MING Seybol d 2023-01-19 2023-01-19 Outpatient PREZASMELLISA [id number] Mellisa 00:00:00 00:00:00 MING Seybol d 2023-01-18 2023-01-18 Outpatient LAB90 MELLISA PAK [id number] Mellisa 08:50:00 08:50:00 Seybol d 2023-01-12 2023-01-12 Outpatient MELLISA THOMPSON [id number] Mellisa 00:00:00 00:00:00 MING Seybol d 2023-01-12 2023-01-12 Outpatient MELLISA PAK [id number] Mellisa 00:00:00 00:00:00 Seybol d 2023-01-12 2023-01-12 Outpatient PREMELLISA KRUEGER [id number] Mellisa 00:00:00 00:00:00 MING Seybol d 2023-01-08 2023-01-08 Outpatient PREPATISMELLISA [id number] Mellisa 00:00:00 00:00:00 MING Seybol d 2023-01-07 2023-01-07 Outpatient PREZAVy MELLISA PAK [id number] Mellisa 11:00:00 11:00:00 MING Seybol d 2023-01-07 2023-01-07 Outpatient PREZAS MELLISA PAK [id number] Mellisa 00:00:00 00:00:00 MING Seybol d 2023-01-05 2023-01-05 Outpatient PREZAS MELLISA PAK [id number] Mellisa 00:00:00 00:00:00 MING Seybol d 2023-01-04 2023-01-04 Outpatient LAB90 MELLISA PAK [id number] Mellisa 09:30:00 09:30:00 Seybol d 2022-12-26 2022-12-26 Outpatient CAROLE, MELLISA PAK [id number] Mellisa 10:10:00 10:10:00 YURIDIA Seybol d 2022-12-25 2022-12-25 Outpatient PREZAVy MELLISA PAK [id number] Mellisa 00:00:00 00:00:00 MING Seybol d 2022-12-18 2022-12-18 Outpatient LANG MELLISA PAK [id number] Mellisa 08:15:00 08:15:00 SHANTANU Seybol d 2022-12-18 2022-12-18 Outpatient PREZAyV MELLISA PAK [id number] Mellisa 00:00:00 00:00:00 MING Seybol d 2022-12-15 2022-12-15 Outpatient PREZASMELLISA [id number] Mellisa 13:30:00 13:30:00 MING Seybol d 2022-12-15 2022-12-15 Outpatient MELLISA PAK [id number] Mellisa 00:00:00 00:00:00 Seybol d 2022-12-15 2022-12-15 Outpatient PREZASMELLISA [id number] Mellisa 00:00:00 00:00:00 MING Seybol d 2022-12-14 2022-12-14 Outpatient 1, OPTICAL MELLISA PAK [id number] Mellisa 14:10:00 14:10:00 Seybol d 2022-12-14 2022-12-14 Outpatient JAYNE, MELLISA PAK [id number] Mellisa 13:20:00 13:20:00 KRISTIE Seybol d 2022-12-14 2022-12-14 Outpatient LAB90 MELLISA PAK [id number] Mellisa 09:10:00 09:10:00 Seybol d 2022-12-07 2022-12-07 Outpatient PREZAS, MELLISA PAK [id number] Mellisa 15:30:00 15:30:00 MING Seybol d 2022-12-02 2022-12-02 Outpatient PREZAS, MELLISA PAK [id number] Mellisa 00:00:00 00:00:00 MING Seybol d 2022-12-01 2022-12-01 Outpatient LAB90 MELLISA PAK [id number] Mellisa 08:20:00 08:20:00 Seybol d 2022-11-23 2022-11-23 Outpatient MELLISA THOMPSON [id number] Mellisa 00:00:00 00:00:00 MING Seybol d 2022-11-19 2022-11-19 Outpatient LAB90 MELLISA PAK [id number] Mellisa 09:30:00 09:30:00 Seybol d 2022-11-17 2022-11-17 Outpatient MELLISA PAK [id number] Mellisa 00:00:00 00:00:00 Seybol d 2022-11-12 2022-11-12 Outpatient PREZAS, MELLISA PAK [id number] Mellisa 10:00:00 10:00:00 MING Seybol d 2022-11-10 2022-11-10 Outpatient PREZAS, MELLISA PAK [id number] Mellisa 00:00:00 00:00:00 MING Seybol d 2022-11-09 2022-11-09 Outpatient LAB90 MELLISA PAK [id number] Mellisa 08:50:00 08:50:00 Seybol d 2022-11-09 2022-11-09 Outpatient PREZAS, MELLISA PAK [id number] Mellisa 00:00:00 00:00:00 MING Seybol d 2022-11-03 2022-11-03 Outpatient 39, HOLTER MELLISA PAK [id number] Mellisa 15:45:00 15:45:00 Seybol d 2022-11-03 2022-11-03 Outpatient BASIA MELLISA PAK [id number] Mellisa 15:30:00 15:30:00 INGA Seybol d 2022-10-26 2022-10-26 Outpatient ALADEMELLISA [id number] Mellisa 13:00:00 13:00:00 OLADAPO Seybol d 2022-10-26 2022-10-26 Outpatient ALADE MELLISA PAK [id number] Mellisa 13:00:00 13:00:00 OLADAPO Seybol d 2022-10-26 2022-10-26 Outpatient MELLISA PAK [id number] Mellisa 12:35:00 12:35:00 Seybol d 2022-10-22 2022-10-22 Outpatient ALAMELLISA HATCH [id number] Mellisa 00:00:00 00:00:00 OLADAPO Seybol d 2022-10-15 2022-10-15 Outpatient PREZAS, MELLISA PAK [id number] Mellisa 10:15:00 10:15:00 MING Seybol d 2022 2022 Outpatient PREZAS, MELLISA PAK [id number] Mellisa 00:00:00 00:00:00 MING Seybol d 2022-10-09 2022-10-09 Outpatient MELLISA PAK [id number] Mellisa 16:30:00 16:30:00 Seybol d 2022-10-02 2022-10-02 Outpatient PREZAS, MELLISA PAK [id number] Mellisa 00:00:00 00:00:00 MING Seybol d 2022-10-01 2022-10-01 Outpatient PREZASMELLISA [id number] Mellisa 00:00:00 00:00:00 MING Seybol d 2022-09-30 2022-09-30 Outpatient LAB90 MELLISA PAK [id number] Mellisa 11:30:00 11:30:00 Seybol d 2022-09-30 2022-09-30 Outpatient MELLISA THOMPSON MELLISA [id number] Mellisa 10:30:00 10:30:00 MING Setorito bella 2022-09-28 2022-09-28 Outpatient [facility] [id number] Univers 13:00:00 13:00:00 TIAGO ity [facility] 2022-07-07 2022-07-07 Patient [facility] 1.2.840.114 [id number] Univers 00:00:00 00:00:00 Secure Msg [place] SPECIALTY 350.1.13.10 [place] [id number] Mn deja DOLAN [address] [place] [address] 2022-06-29 2022-06-29 Office [facility] 1.2.840.114 [id number] Univers 13:00:00 13:10:00 Visit [place] SPECIALTY 350.1.13.10 [place] [phone] Mn deja [address] 2022-06-29 2022-06-29 Outpatient R [facility] [id number] Univers 13:00:00 13:00:00 TIAGO ity [facility] 2022-06-16 2022-06-16 Outpatient R [facility] [id number] Univers 08:04:00 12:00:00 TIAGO ity [facility] 2022-06-16 2022-06-16 [facility] 1.2.840.114 [id number] Univers 08:04:00 12:00:00 Encounter [place] HEALTH 350.1.13.10 [place] [facility] [phone] [address] ([facility]) 2022-06-16 2022-06-16 Surgery [facility] 1.2.840.114 [id number] Univers 09:54:00 10:44:00 [place] SPECIALTY 350.1.13.10 [place] [id number] Mn deja DOLAN 020 [facility] 2022-06-16 2022-06-16 Orders Doctor JAYLIN 1.2.840.114 [id number] Univers 00:00:00 00:00:00 Only Unassigned, [place] 350.1.13.10 ity of [place] [facility] 4.2.7.2.686 [place] [phone] [facility] [address] 2022-06-16 2022-06-16 [facility] 1.2.840.114 [id number] Univers 00:00:00 00:00:00 Tiago SPECIALTY 350.1.13.10 ity of CARE 4.2.7.2.686 [facility] AT [id number] Mn deja DOLAN 198 [facility] 2022-05-04 2022-05-04 Outpatient R [facility] [id number] Univers 14:10:00 14:16:38 TIAGO ity of [facility] 2022-05-04 2022-05-04 [facility] 1.2.840.114 [id number] Univers 14:10:00 14:16:38 Visit [place] SPECIALTY 350.1.13.10 ity of CARE 4.2.7.2.686 [facility] AT [id number] Mn deja DOLAN 198 [facility] 2022-04-30 2022-04-30 Outpatient R [facility] [id number] Univers 14:55:47 23:59:00 TIAGO ity of [facility] 2022-04-30 2022-04-30 [facility] 1.2.840.114 [id number] Univers 14:55:47 23:59:00 Encounter Tiago [place] 350.1.13.10 ity of [place] 4.2.7.2.686 [facility] [id number] [facility] [address] 2022-04-27 2022-04-27 [facility] 1.2.840.114 [id number] Univers 13:05:00 23:59:00 Encounter [place] SPECIALTY 350.1.13.10 ity of CARE 4.2.7.2.686 [facility] s CENTER AT [id number] Mn dicpanda CHANDLERY 809 [facility] 2022-04-27 2022-04-27 Outpatient R LOUJOHANNA [facility] [id number] Univers 13:20:00 14:37:28 TIAGO ity [facility] 2022-04-27 2022-04-27 [id number] Univers 13:20:00 14:37:28 TIAGO ity [facility] 2022-04-27 2022-04-27 Office [facility] 1.2.840.114 [id number] Univers 13:20:00 14:37:28 Visit [place] SPECIALTY 350.1.13.10 [place] [id number] Mn deja DOLAN 198 [facility] 2022-03-10 2022-03-10 Outpatient R [facility] [id number] Univers 13:06:46 23:59:00 DEMETRA ity [facility] 2022-03-10 2022-03-10 Hospital [facility] 1.2.840.114 [id number] Univers 13:06:46 23:59:00 Encounter Demetra SPECIALTY 350.1.13.10 [place] [id number] Mn deja DOLAN 809 [facility] 2022-03-10 2022-03-10 Office [facility] 1.2.840.114 [id number] Univers 13:20:00 13:25:13 Visit Demetra SPECIALTY 350.1.13.10 [place] [id number] Mn dicpanda DOLAN [address] [place] [address] 2022-03-10 2022-03-10 Outpatient R [facility] [id number] Univers 13:20:00 13:20:00 DEMETRA ity [facility] 2022-03-10 2022-03-10 Outpatient R [facility] [id number] Univers 13:06:46 13:06:46 DEMETRA ity of [facility] 2022-01-26 2022-01-26 [facility] [id number] Univers 12:54:17 23:59:00 TIAGO ity [facility] 2022-01-26 2022-01-26 [facility] 1.2.840.114 [id number] Univers 12:54:17 23:59:00 Encounter [place] SPECIALTY 350.1.13.10 [place] [id number] Mn sharonapanda CHANDLERRadha 809 [facility] 2022-01-26 2022-01-26 Outpatient [facility] [id number] Univers 12:54:17 23:59:00 TIAGO ity [facility] 2022-01-26 2022-01-26 [facility] [id number] Univers 13:10:00 13:57:13 TIAGO ity [facility] 2022-01-26 2022-01-26 Office [facility] 1.2.840.114 [id number] Univers 13:10:00 13:57:13 Visit [place] SPECIALTY 350.1.13.10 ity of CARE 4.2.7.2.686 [facility] [id number] Mn sharonapanda CHANDLERRadha 198 [facility] 2022-01-26 2022-01-26 Outpatient [facility] [id number] Univers 13:10:00 13:10:00 TIAGO ity [facility] 2021-12-26 2021-12-26 Patient [facility] 1.2.840.114 [id number] Univers 00:00:00 00:00:00 Secure Msg [place] SPECIALTY 350.1.13.10 [place] [id number] Mn sharonapanda CHANDLERRadha 198 [facility] 2021-12-22 2021-12-22 Outpatient [facility] [id number] Univers 13:36:16 23:59:00 TIAGO ity [facility] 2021-12-22 2021-12-22 [facility] 1.2.840.114 [id number] Univers 13:36:16 23:59:00 Encounter [place] SPECIALTY 350.1.13.10 [place] [id number] Mn dicpanda DOLAN 809 [facility] 2021-12-22 2021-12-22 Outpatient [facility] [id number] Univers 13:10:00 14:02:40 TIAGO ity of [facility] 2021-12-22 2021-12-22 Office [facility] 1.2.840.114 [id number] Univers 13:10:00 14:02:40 Visit [place] SPECIALTY 350.1.13.10 [place] [id number] Mn deja DOLAN 198 [facility] 2021-12-22 2021-12-22 Outpatient [facility] [id number] Univers 13:10:00 13:10:00 TIAGO ity of [facility] 2021-11-19 2021-11-19 Telephone [facility] 1.2.840.114 [id number] Univers 00:00:00 00:00:00 [place] SPECIALTY 350.1.13.10 [place] [id number] Mn deja DOLAN 198 [facility] 2021-11-18 2021-11-18 Case [facility] 1.2.840.114 [id number] Univers 00:00:00 00:00:00 Management [place] SPECIALTY 350.1.13.10 [place] [id number] Mn dicpanda CHANDLERY 198 [facility] 2021-11-17 2021-11-17 [facility] 1.2.840.114 [id number] Univers 13:16:31 23:59:00 Encounter [place] SPECIALTY 350.1.13.10 [place]2.[place].2.[place] [id number] Mn sharonapanda DOLAN 809 [facility] 2021-11-17 2021-11-17 Outpatient [facility] [id number] Univers 13:16:31 23:59:00 TIAGO ity [facility] 2021-11-17 2021-11-17 [id number] Univers 13:10:00 13:53:21 TIAGO ity [facility] 2021-11-17 2021-11-17 Office [facility] 1.2.840.114 [id number] Univers 13:10:00 13:53:21 Visit [place] SPECIALTY 350.1.13.10 ity of CARE 4.2.7.2.686 [facility] [place] [id number] Mn sharonapanda [place] [facility] 2021-11-17 2021-11-17 [facility] [id number] Univers 13:10:00 13:53:21 TIAGO ity [facility] 2021-10-06 2021-10-06 [facility] 1.2.840.114 [id number] Univers 13:35:00 23:59:00 Encounter [place] SPECIALTY 350.1.13.10 ity of CARE 4.2.7.2.686 [facility] [id number] Mn sharonapanda CHANDLERRadha 80Kd [facility] 2021-10-06 2021-10-06 [facility] [id number] Univers 13:00:00 14:39:17 TIAGO ity of [facility] 2021-10-06 2021-10-06 Office [facility] 1.2.840.114 [id number] Univers 13:00:00 13:10:00 Visit [place] SPECIALTY 350.1.13.10 ity of CARE 4.2.7.2.686 [facility] [place] [facility] [id number] Mn sharonapanda DOLAN 198 [facility] 2021-10-06 2021-10-06 Outpatient [facility] [id number] Univers 13:00:00 13:00:00 TIAGO ity of [facility] 2021-10-06 2021-10-06 [facility] [id number] Univers 13:00:00 13:00:00 TIAGO ity of [facility] 2021-09-22 2021-09-22 Fleet Maintenance Foreman Room, Vls Ortho Cast [facility] 1. 2.840.114 [id number] Univers 13:00:00 13:30:00 Visit Alonso, [place] SPECIALTY 350.1.13.1 0 it[place] [id number] Mn deja DOLAN [address] [place] [address] 2021-09-22 2021-09-22 [facility] [id number] Univers 13:00:00 13:00:00 TIAGO ity [facility] 2021-09-22 2021-09-22 [facility] [id number] Univers 13:00:00 13:00:00 TIAGO ity [facility] 2021-09-08 2021-09-08 Fleet Maintenance Foreman Room, s Ortho Cast [facility] 1. 2.840.114 [id number] Univers 13:00:00 13:30:00 Visit Alonso, [place] SPECIALTY 350.1.13.1 0 it[place] AT [id number] Mn deja DOLAN [address] [place] [address] 2021-09-08 2021-09-08 Outpatient [facility] [id number] Univers 13:00:00 13:00:00 TIAGO ity [facility] 2021-09-08 2021-09-08 Out[facility] [id number] Univers 13:00:00 13:00:00 TIAGO ity [facility] 2021-09-04 2021-09-04 Telephone [facility] 1.2.840.114 [id number] Univers 00:00:00 00:00:00 Tiago PRIMARY 350.1.13.10 it y [place] [id number] Mn deja [address] [place] [address] 2021-08-26 2021-08-[address] [facility] 1.2.840.114 [id number] Univers 00:00:00 00:00:00 Secure Msg Unassigned, PRIMARY 350.1.13.10 ity of [place].2.[place].2.[place] [id number] [facility] [address] [place] [address] 2021-08-25 2021-08-25 Outpatient [facility] [id number] Univers 12:51:30 23:59:00 TIAGO ity of [facility] 2021-08-25 2021-08-25 [facility] 1.2.840.114 [id number] Univers 12:51:30 23:59:00 Encounter [place] SPECIALTY 350.1.13.10 [place] [id number] [facility] DOLAN [address] [place] [address] 2021-08-25 2021-08-25 [facility] 1.2.840.114 [id number] Univers 13:00:00 14:29:06 Visit [place] SPECIALTY 350.1.13.10 it[place]2.[place] [id number] [facility] GERALDINE 198 [facility] 2021-08-25 2021-08-25 [facility] [id number] Univers 13:00:00 14:29:06 TIAGO ity of [facility] 2021-08-25 2021-08-25 [facility] [id number] Univers 13:00:00 14:29:06 TIAGO ity of [facility] 2021-08-25 2021-08-25 [facility] [id number] Univers 13:00:00 13:00:00 TIAGO ity [facility] 2021-08-21 2021-08-21 Fleet Maintenance Foreman Room, Vls Orth[facility] 1. 2.840.114 [id number] Univers 13:00:00 14:46:39 Visit Alonso, [place] SPECIALTY 350.1.13.1 0 it[place] [id number] Mn dicpanda DOLAN [address] [place] 2021-08-21 2021-08-21 Outpatient R ALONSO [facility] [id number] Univers 13:00:00 13:00:00 TIAGO ity [facility] 2021-08-14 2021-08-14 Outpatient R LOUJOHANNA [facility] [id number] Univers 13:00:00 13:00:00 TIAGO ity [facility] 2021-08-14 2021-08-14 Outpatient R LOUJOHANNA [facility] [id number] Univers 13:00:00 13:00:00 TIAGO ity [facility] 2021-08-13 2021-08-13 Orders Doctor JAYLIN 1.2.840.114 [id number] Univers 00:00:00 00:00:00 Only Unassigned, [place] 350.1.13.10 ity of [place] [facility] 4.2.7.2.686 [place] as [id number] [address] 2021-08-07 2021-08-07 Outpatient R ALONSO [facility] [id number] Univers 13:00:00 14:27:47 TIAGO ity [facility] 2021-08-07 2021-08-07 Outpatient R ALONSO [facility] [id number] Univers 13:00:00 13:00:00 TIAGO ity [facility] 2021-07-31 2021-07-31 Outpatient R ALONSO [facility] [id number] Univers 13:00:00 13:00:00 TIAGO ity [facility] 2021-07-31 2021-07-31 Fleet Maintenance Foreman Room, Vls Orth[facility] Cast [facility] 1. 2.840.114 [id number] Univers 13:00:00 13:00:00 Visit Tiago Gupta SPECIALTY 350.1.13.1 0 ity of CARE 4.2.7.2.686 [facility] [id number] Mn deja DOLAN [address] [place] 2021-07-31 2021-07-31 Outpatient R ALONSO [facility] [id number] Univers 13:00:00 12:37:00 TIAGO ity [facility] 2021-07-24 2021-07-24 Fleet Maintenance Foreman Room, Vls Ortho Cast [facility] 1. 2.840.114 [id number] Univers 13:00:00 13:30:00 Visit [place] Guptaod SPECIALTY 350.1.13.1 0 [id number] [id number] Mn dical VICTORY 198 [facility] 2021-07-24 2021-07-24 [id number] Univers 13:00:00 13:00:00 [place] ity [facility] 2021-07-24 2021-07-24 [facility] [id number] Univers 13:00:00 13:00:00 [place] ity [facility] 2021-07-24 2021-07-24 [facility] [id number] Univers 13:00:00 13:00:00 [place] ity [facility] 2021-07-17 2021-07-17 [facility] [id number] Univers 13:35:23 23:59:00 [place] ity [facility] 2021-07-17 2021-07-17 [facility] 1.2.840.114 [id number] Univers 13:35:23 23:59:00 Encounter [place] PRIMARY [id number] [place] [facility] [id number] Mn dical [address] [place] 2021-07-17 2021-07-17 [facility] 005 [id number] Univers 13:35:23 23:59:00 [place] ity [facility] 2021-07-17 2021-07-17 Office [facility] 1.2.840.114 [id number] Univers 13:40:00 14:35:07 Visit [place] PRIMARY 350.1.13.10 [place] [facility] [phone] Mn dical [address] [place] 2021-07-17 2021-07-17 Outpatient R [employer] [id number] Univers 13:40:00 14:35:07 [place] ity of [facility] 2021-07-17 2021-07-17 [facility] [id number] Univers 13:40:00 13:40:00 [place] ity of [facility] 2021-07-17 2021-07-17 Orders Doctor JAYLIN 1.2.840.114 [id number] Univers 00:00:00 00:00:00 Only Unassigned, [place] 350.1.13.10 ity of [place] 4.2.7.2.686 [place] as [id number] [address] 2021-07-10 2021-07-10 [facility] 1.2.840.114 [id number] Univers 00:00:00 00:00:00 [place] SPECIALTY [id number] [id number] [phone] [place] deja DOLAN [address] [place] [address] 2021-07-08 2021-07-08 [facility] 1.2.840.114 [id number] Univers 00:00:00 00:00:00 [place] SPECIALTY 350.1.13.10 [id number] [phone] [place] deja DOLAN [address] [place] [address] 2021-07-07 2021-07-07 [facility] 1.2.840.114 [id number] Univers 00:00:00 00:00:00 [place] SPECIALTY [id number] it[id number] [phone] [place] sharonapanda DOLAN [address] [place] [address] 2021-07-04 2021-07-04 Orders Doctor JAYLIN 1.2.840.114 [id number] Univers 00:00:00 00:00:00 Only Unassigned, MAINE [id number] ity of [place] [facility] [id number] [place] as [phone] [address] 2021-07-032021-07-03 Telephone [facility] 1.2.840.114 [id number] Univers 00:00:00 00:00:00 [place] SPECIALTY [id number] ity of CARE [id number] [facility] AT [phone] [place] sharonapanda DOLAN 198 [facility] 2021-07-01 2021-07-[address] [facility] S[facility] [id number] Univers 07:54:00 12:11:00 TI[place]O ity of [facility] 2021-07-01 2021-07-01 Hospital [facility] 1.2.840.114 [id number] Univers 07:54:00 12:11:00 Encounter [place] HEALTH [id number] ity of [place] [id number] [facility] [phone] [address] ([facility]) 2021-07-01 2021-07-01 [facility] 1.2.840.114 [id number] Univers 10:08:00 11:51:00 [place] SPECIALTY [id number] ity of CARE [id number] [facility] AT [phone] Mn sharonapanda CHANDLERRadha 020 [facility] 2021-07-01 2021-07-01 Orders Doctor JAYLIN 1.2.840.114 [id number] Univers 00:00:00 00:00:00 Only Unassigned, MAINE [id number] ity of [place] [facility] [id number] [place] as [phone] [address] 2021-06-24 2021-06-24 Orders Doctor JAYLIN 1.2.840.114 [id number] Univers 00:00:00 00:00:00 Only Unassigned, MAINE [id number] ity of [place] [facility] [id number] [place] as [phone] [address] 2021-05-14 2021-05-14 Telephone [facility] 1.2.840.114 [id number] Univers 00:00:00 00:00:00 [place] SPECIALTY [id number] [id number] [phone] Mn deja DOLAN 198 [facility] 2021-05-12 2021-05-12 Outpatient [facility] [id number] [facility] 10:00:00 10:14:23 TI[place]O ity of [facility] 2021-05-12 2021-05-12 Office [facility] 1.2.840.114 [id number] Univers 09:25:38 10:14:23 Visit [place] SPECIALTY [id number] it[id number] [phone] Mn deja Frederick [facility] 2021-05-12 2021-05-12 Outpatient R [facility] [id number] [facility] 10:00:00 10:00:00 TIAGO ity of [facility] 2021-03-10 2021-03-10 [facility] 1.2.840.114 [id number] [facility] 11:11:49 23:59:00 Encounter [place] SPECIALTY [id number] ity of CARE [id number] [facility] [phone] Mn deja DOLAN 809 [facility] 2021-03-10 2021-03-10 Outpatient R [facility] [id number] Univers 11:11:49 23:59:00 TIAGO ity of [facility] 2021-03-10 2021-03-10 Office [facility] 1.2.840.114 [id number] Univers 10:49:09 12:10:27 Visit [place] SPECIALTY [id number] [place] [id number] [phone] Mn deja Frederick [facility] 2021-03-10 2021-03-10 Outpatient R [facility] [id number] Univers 10:50:00 10:50:00 TI[place]O ity of [facility] 2021-01-07 2021-01-07 Outpatient Miller_S_ VFP VFP [id number] [facility] 11:44:00 11:44:00 [id number] Family Practic e 2020-12-03 2020-12-03 Orders Doctor JAYLIN 1.2.840.114 [id number] 00:00:00 00:00:00 Only Unassigned, MAINE [id number] ity of [place] [facility] [id number] [place] as [phone] Medi gina [address] 2020-10-14 2020-10-14 Outpatient Ajibade_O_A VFP VFP [id number] [facility] 07:55:00 07:55:00 H 84852 Family Practic e 2020-08-13 2020-08-13 Outpatient Ajibade_O_A VFP VFP [id number] 05:15:00 05:15:00 H 91143 Family Practic e 2020-08-08 2020-08-08 Outpatient Ajibade_O_A VFP VFP [address] [place] [address] 11:16:00 11:16:00 H 56645 Family Practic e 2020-08-08 2020-08-08 Omiana VFP [place] - [id number] V illage 00:00:00 00:00:00 Berenice, Jose C Famil y 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 2020-02-21 2020-02-21 Outpatient SHAKIL, [facility] [id number] [address] [place] 00:00:00 00:00:00 JAWAIRIA [address] 2019-11-29 2019-11-29 Outpatient SHAKIL, [facility] [id number] [address] [place] 00:00:00 00:00:00 JAWAIRIA [address] 2019-10-26 2019-10-26 Outpatient TWIN, [facility] [id number] [address] [place] 00:00:00 00:00:00 GANESH [address] 2019-09-20 2019-09-20 Outpatient Ige-Odunuga VFP VFP [id number] [facility] 07:26:00 07:26:00 _Lana_ [id number] Family Practic e 2019-09-20 2019-09-20 [facility] [id number] [facility] 07:26:00 07:26:00 _J_ [id number] Family Practic e 2019-07-28 2019-07-30 Inpatient TWIN, [facility] [id number] [address] [place] [address] 00:00:00 00:00:00 GANESH [address] Results This patient has no known results.
[2023-01-20 16:38] VITALS: BMI 31.9
[2023-01-20] MEDS ORDERED: ACETAMINOPHEN 325 MG TABLET PO PRN (17:20)
[2023-01-20] MEDS ORDERED: ONDANSETRON 4 MG/2 ML VIAL IV PRN (17:22)
[2023-01-20] MEDS ORDERED: NA CHLORIDE 0.9% 1,000 ML IV ONE (17:26)
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
[2023-01-20 17:42] LABS: Urine Bacteria <20 /HPF (<20); Urine Bilirubin NEGATIVE (Negative); Urine Blood Trace (Negative); Urine Clarity Clear (Clear); Urine Color Yellow (Yellow); Urine Glucose NEGATIVE (Negative); Urine Protein NEGATIVE (Negative); Urine Urobilinogen Normal (Normal); Urine pH 5.5 (5.0-7.0)
[2023-01-20] MEDS: NA CHLORIDE 0.9% 1,000 ML IV SCH ×2 (17:43→20:12)
[2023-01-20] MEDS ORDERED: NA CHLORIDE 0.9% 2,000 ML ONE (17:48)
[2023-01-20] MEDS ORDERED: D10W 250 ML BAG IV PRN (18:52)
[2023-01-20] MEDS ORDERED: GLUCAGON 1 MG/VIAL IM PRN (18:52)
[2023-01-20] MEDS ORDERED: HYDROCODONE/APAP 7.5/325 MG TAB PO PRN (18:53)
[2023-01-20 20:01] LABS: Thyroid Stimulating Hormone 1.05 uIU/mL (0.358-3.740); Uric Acid 7.3 mg/dL (3.5-7.2)
[2023-01-20] MEDS: ENOXAPARIN 40 MG/0.4 ML SQ SCH (20:12)
[2023-01-20] MEDS: GABAPENTIN 400 MG CAP PO SCH (20:12)
[2023-01-20] MEDS: INSULIN -REGULAR HUMAN 50 UNIT/0.5 ML ML SQ SCH (20:20)
[2023-01-20 20:23] LABS: Absolute Lymphocytes (CBC) 1.2 K/uL (0.7-4.9); Hematocrit 31.3 % (39.6-49.0); Lymphocytes % 14.9 % (15.3-44.8); MCV 92.8 fL (80-100); MPV 7.4 fL (7.6-11.3); RBC Red Blood Cell Count 3.37 M/uL (4.33-5.43)
[2023-01-20 20:38] LABS: Potassium 4.5 mEq/L (3.5-5.1)
[2023-01-21 03:40] LABS: Absolute Lymphocytes (CBC) 1.5 K/uL (0.7-4.9); Hematocrit 32.3 % (39.6-49.0); Lymphocytes % 22.9 % (15.3-44.8); MCV 92.7 fL (80-100); MPV 7.3 fL (7.6-11.3); RBC Red Blood Cell Count 3.48 M/uL (4.33-5.43)
[2023-01-21] MEDS: NA CHLORIDE 0.9% 1,000 ML IV SCH (03:43)
[2023-01-21 04:04] LABS: Albumin 3.1 g/dL (3.4-5.0); Bilirubin Total 0.4 mg/dL (0.2-1.0); Potassium 4.4 mEq/L (3.5-5.1); Protein, Total 6.5 g/dL (6.4-8.2)
--- NOTE | 2023-01-21 06:57 | P.PN ---
Date of Service: 01/21/23 Subjective: Doing better today no dizziness, lightheadedness denies chest pain, palpitations ROS: 10 point ROS as noted above, otherwise negative Physical Exam: GEN: Alert, oriented, NAD HEENT: Normal conjunctiva, sclera anicteric CV: Regular rate and rhythm, no edema Pulm: Nonlabored respirations on room air ABD: Soft, nontender, nondistended MSK: No joint tenderness Integumentary: No rashes Neuro: Normal speech, normal affect vitals reviewed Problem List: VTE: Code: Dispo:
[2023-01-21] MEDS: INSULIN -REGULAR HUMAN 50 UNIT/0.5 ML ML SQ SCH ×2 (07:30→11:30)
[2023-01-21] MEDS: ENOXAPARIN 40 MG/0.4 ML SQ SCH ×2 (09:00→09:33)
[2023-01-21] MEDS ORDERED: ASPIRIN 81 MG CHEWABLE TABLET PO SCH (09:00)
[2023-01-21] MEDS ORDERED: FENOFIBRATE 160 MG TAB PO SCH (09:00)
[2023-01-21] MEDS ORDERED: PANTOPRAZOLE 40MG TABLET PO SCH (09:00)
[2023-01-21] MEDS ORDERED: ATORVASTATIN 80 MG TAB PO SCH (09:00)
[2023-01-21] MEDS ORDERED: AMLODIPINE 10 MG TAB PO SCH (09:00)
[2023-01-21] MEDS: GABAPENTIN 400 MG CAP PO SCH (09:33)
--- NOTE | 2023-01-21 10:13 | P.DS ---
Admission Date: 01/20/23 Discharge Date: 01/21/23 Disposition: ROUTINE DISCHARGE Discharge Condition: GOOD Reason for Admission: Abnormal labs. Consultations: Nephrology - Dr. Negron Brief History of Present Illness: 62yo M, PMH: hypertension, DM 2 with neuropathy, GERD, hyperlipidemia, sleep apnea who presents with complaint of abnormal labs. Patient reported that he has been having episodes of hyperkalemia and had a follow-up appointment with his PCP who referred him to see a box toe buffer. Patient potassium level was 6.4 at the box toe buffer office and patient was referred to come to the ER for further management. Patient denies any signs and symptoms of distress. Patient currently asymptomatic and resting in bed. Hospital Course: Problem List: JE Hyperkalemia DM2 with neuropathy Hyperlipidemia GERD Hypertension h/o left brachial plexus injury h/o sleep apnea Patient was recommended to come to the hospital per his box toe buffer after having outpatient labwork done (potassium level of 6.4, Creatinine >2). Patient denied any symptoms beyond feeling dehydrated. Patient reported recently mowing several yards and not taking any water breaks, felt dehydrate. His labwork improved with IV hydration and blood pressure medication held. He was monitored on telemetry without any arrhythmias. On day of discharge, patient was feeling like his normal self, labs significantly improved, and wanting to go home. Advised patient to not overexert self and expressed importance of adequate hydration. Dr. Negron, Nephrology, was consulted. Recommended discontinuation of hydrochlorothiazide for now. To follow up in the office with repeat blood work fur further adjustments. new /change in prescriptions Stop HCTZ continue other home medications as previously prescribed Follow up: PCP 3-5 days Nephrology within 1-2 weeks Physical Exam: GEN: Alert, oriented, NAD HEENT: Normal conjunctiva, sclera anicteric CV: Regular rate and rhythm, no edema Pulm: Nonlabored respirations on room air ABD: Soft, nontender, nondistended MSK: No joint tenderness Integumentary: No rashes Neuro: Normal speech, normal affect Vital Signs/Physical Exam: Temp Pulse Resp BP Pulse Ox 97.5 F 73 16 155/89 H 92 01/21/23 08:00 01/21/23 09:33 01/21/23 08:00 01/21/23 09:33 01/21/23 08:00 Laboratory Data at Discharge: WBC 6.40 thou/uL (4.3-10.9) 01/21/23 02:37 Hgb 11.0 g/dL (13.6-17.9) L 01/21/23 02:37 Hct 32.3 % (39.6-49.0) L 01/21/23 02:37 Plt Count 355 thou/uL (152-406) 01/21/23 02:37 Sodium 142 mEq/L (136-145) 01/21/23 02:37 Potassium 4.4 mEq/L (3.5-5.1) 01/21/23 02:37 BUN 38 mg/dL (7-18) H 01/21/23 02:37 Creatinine 1.13 mg/dL (0.70-1.30) 01/21/23 02:37 Glucose 97 mg/dL (74-106) 01/21/23 02:37 Uric Acid 7.3 mg/dL (3.5-7.2) H 01/20/23 17:39 Phosphorus 3.0 mg/dL (2.5-4.9) 01/20/23 17:39 Magnesium 2.0 mg/dL (1.6-2.4) 01/20/23 17:39 Total Bilirubin 0.4 mg/dL (0.2-1.0) 01/21/23 02:37 AST 32 U/L (15-37) 01/21/23 02:37 ALT 52 U/L (16-61) 01/21/23 02:37 Alkaline Phosphatase 37 U/L (45-117) L 01/21/23 02:37 Home Medications: Hydrocodone 7.5/APAP 325 [[place] 7.5/325 mg*] 1 tab PO TID PRN 11/02/18 Pantoprazole [Protonix Tab*] 1 tab PO DAILY 11/02/18 Amlodipine Besylate 1 tab PO DAILY 01/20/23 Atorvastatin Calcium [Lipitor] 1 tab PO DAILY 01/20/23 Fenofibrate [Tricor*] 1 tab PO DAILY 01/20/23 Gabapentin 800 mg PO TID 01/20/23 Glimepiride 1 tab PO DAILY 01/20/23 Olmesartan Medoxomil [Benicar] 1 tab PO DAILY 01/20/23 Physician Discharge Instructions: Patient was recommended to come to the hospital per his box toe buffer after having outpatient labwork done (potassium level of 6.4, Creatinine >2). Patient denied any symptoms beyond feeling dehydrated. Patient reported recently mowing several yards and not taking any water breaks, felt dehydrate. His labwork improved with IV hydration and blood pressure medication held. He was monitored on telemetry without any arrhythmias. On day of discharge, patient was feeling like his normal self, labs significantly improved, and wanting to go home. Advised patient to not overexert self and expressed importance of adequate hydration. Dr. Negron, Nephrology, was consulted. Recommended discontinuation of hydrochlorothiazide for now. To follow up in the office with repeat blood work fur further adjustments. new /change in prescriptions Stop HCTZ continue other home medications as previously prescribed Follow up: PCP 3-5 days Nephrology within 1-2 weeks Time spent managing pt's care (in minutes): 45
[2023-01-21 12:27] VITALS: BP 143/74; TEMP 97.4
[2023-01-21 13:26] VITALS: O2SAT 97
--- NOTE | 2023-01-21 17:43 | CON ---
Date of Consultation: 01/21/2023 Reason For Consultation: Elevated BUN and creatinine, hyperkalemia. History Of Present Illness: This is a pleasant 62-year-old gentleman with significant past medical h istory of diabetes complicated with neuropathy, no retinopathy, GERD, hyperlipidemia, obstructive sle ep apnea. The patient had chronic hyperkalemia yesterday, brought to the office with potassium 6.4, and creatinine 2. His creatinine gradually been rising in the last couple of months. Apparently, mike lott visited with his primary care. Olmesartan has been decreased and increased hydrochlorothiazide. T he patient has been working in the yard in the last couple of days. The patient over the night start aggressive hydration and kidney function has been improved significantly. Past Medical History: 1.Hypertension. 2.Diabetes complicated with neuropathy. 3.Hyperlipidemia. 4.Hypothyroidism. 5.Obstructive sleep apnea. Past Surgical History: Includes tonsillectomy, knee surgery, gallbladder, scalp surgery. Social History: Ex-smoker. Occasional alcohol. Denied drugs abuse. Review of Systems: Head and Neck: No red eye. No ear pain. GI: No nausea, no vomiting. : No polyuria. No dysuria. No hematuria. Activity Specialist: Not applicable. Respiratory: No shortness of breath. Cardiovascular: No chest pain. Endocrine: No polydipsia. Skin: No rash. Neuro: Has neuropathy. Musculoskeletal: Has pain on the left hand with deformity. Physical Examination: Vital Signs: Blood pressure 155/89, pulse of 73, afebrile. Chest: Clear to auscultation. Heart: S1, S2 regular. Abdomen: Soft, nontender. Extremities: No edema. Deformity on the left arm. Neurologic: No focality. Laboratory Data: WBC 6.4, H and H 11/32.3. Sodium 142, potassium 4.4, bicarb 26, BUN 38, creatinine 1.3, calcium 9. Albumin 3.1. Previous lab data; creatinine 2, potassium 6.5 on January 19. Current Medications: The patient on include aspirin, Lovenox, amlodipine, atorvastatin, fenofibrate, gabapentin, pantoprazole. Assessment And Plan: 1.Acute kidney injury secondary to rhabdomyolysis, supported with elevation in CK superimposed with dehydration secondary to heat exertion. Recovered, resolved. Okay from the renal standpoint for dis charge planning. 2.Rhabdomyolysis. Recovered, resolved. Discontinue hydration. 3.Hyperkalemia secondary to renal failure superimposed with hydrochlorothiazide, resolved. Switch L okelma to every other day. 4.Diabetes, as per primary. 5.Heat exertion. Advice not working in the heat, status post treatment. Recovered, resolved. VALARIE Voice ID: [id number] Report ID: [id number]
== END 2023-01-21 13:28 | disposition home or self-care (01) ==
LOC: INTOOBSV 15:53 → 2ND 15:53
PROVIDERS: ADMIT Hospitalist; ATTEND Hospitalist
DX: N17.9 Acute kidney failure, unspecified (principal); E87.5 Hyperkalemia; I10 Essential (primary) hypertension; E11.40 Type 2 diabetes mellitus with diabetic neuropathy, unspecified; K21.9 Gastro-esophageal reflux disease without esophagitis; E78.5 Hyperlipidemia, unspecified; G47.30 Sleep apnea, unspecified; Z87.891 Personal history of nicotine dependence
CPT/HCPCS: 36415; 80048; 80053; 81001; 82435; 82550; 82570; 83036; 83735; 83935; 84100; 84132; 84300; 84439; 84443; 84550; 85025; 87086; 87088; J1650; J7030